=== PATIENT | female | born 1940 | race Caucasian/White ===

== ENCOUNTER → 2017-03-28 | Outpatient (CLI) | payer BC ==
[~2017-03-28] MED LIST: ALBU1AER9 INH; ASPCH81X PO; CALCTAB PO; KETO0.0216 OP; LOSA1TAB38 PO; MOME110A INH; MULT-190 PO; POLYSOL4 OPB; PRLSR20 PO; RSTOPS OP; SIMV20TA2 PO; TIMO0.2530 OPB
--- NOTE | 2017-03-28 12:38 | MAMMOGRAPHY REPORT ---
BILATERAL DIGITAL SCREENING MAMMOGRAM WITH CAD: 03/28/2017 TECHNIQUE: Current study was also evaluated with a Computer Aided Detection (CAD) system. Bilateral CC and MLO views were obtained. COMPARISON: Comparison is made to exams dated: 03/26/2016 mammogram, 03/23/2015 mammogram, 10/21/2014 m ammogram, 10/07/2014 ultrasound, 03/22/2014 mammogram, and 03/19/2013 mammogram - [facility]. BREAST COMPOSITION: There are scattered areas of fibroglandular density in both breasts. FINDINGS: No suspicious masses, calcifications, or areas of architectural distortion are noted in ei ther breast. There has been no significant interval change compared to prior exams. Mildly fluctuati ng bilateral nodularity is again noted, which likely represent cysts as multiple cysts were seen on p rior ultrasound exams. Scattered bilateral benign-appearing calcifications are not significantly mirlande nged. IMPRESSION: ACR BI-RADS CATEGORY 2: BENIGN There is no mammographic evidence of malignancy. A 1 year screening mammogram is recommended. The pa tient will receive written notification of the results. Approximately 10% of breast cancers are not detected with mammography. A negative mammographic report should not delay biopsy if a clinically suggestive mass is present. Alexus Laird M.D. ah/:03/28/2017 10:47:55 Trigonometry Teacher: Claudine RIDLEY(Bird)(M), [facility] letter sent: Normal 1/2 BI-RADS Code: ACR BI-RADS Category 2: Benign
== END | disposition home or self-care (01) ==
LOC: C.MAMM 07:51
PROVIDERS: ATTEND Family Medicine
DX: Z12.31 Encounter for screening mammogram for malignant neoplasm of breast (principal)

== ENCOUNTER 2021-01-25 15:57 | Observation (INO) ==
--- NOTE | 2021-01-25 16:44 | Emergency Department Note ---
Impression & Plan Weakness, Hypoxia ED Provider Note NAME: DESIRE CALERO AGE: 80 SEX: F : 1940 ARRIVES VIA: Ambulance INFORMANT: Patient, ED PROVIDER(S): Kash Lopez MD Chief Complaint: Weakness, difficulty with ambulation HPI: Patient does present with concern for difficulty with ambulation. The patient states that she was going to her general doctor's appointment for chronic left knee arthritis when the patient sat down and could not get up. EMS was called for a left and the patient was apparently diaphoretic. The patient denies any current pains. The patient denies any nausea vomiting. The patient states that she may not be drinking enough water. The patient states that all this occurred on the inside of the home and the patient was not outside for prolonged period of time. Patient denies any diarrhea. Patient denies any headache or neck pain. Patient does have chronic left knee pain but denies any recent falls or trauma. Patient denies any history of DVT or PE. The patient does not wear oxygen at home and the patient does not wear a CPAP. Patient does not have any acute complaints at this time. ROS: See HPI for pertinent positives and negatives. A total of 10 systems were reviewed and otherwise negative. Past medical history: See below Surgical history: See below Social history: See below Physical Exam: GENERAL: Well appearing, well nourished, NAD, non-toxic. EYE EXAM: Normal conjunctiva. PERRL, no anisocoria and EOM's grossly intact w/o pain. NECK: Supple, no nuchal rigidity, no adenopathy, non-tender. No signs of meningismus. LUNGS: Clear to auscultation. Normal chest wall mechanics. HEART: NSR, no MRG. ABDOMEN: Abdomen soft, non-tender, normo-active bowel sounds, no masses, no rebound or guarding. BACK: No CVA TTP. SKIN: No rashes and no bruising. UPPER EXTREMITIES: Upper extremities are grossly normal. LOWER EXTREMITIES: Grossly normal, no edema. NEURO EXAM: A&O x3, cranial nerves II-XII grossly intact, normal speech, moves all 4 extremities on command w/o issue. Differential diagnoses: Infection, dehydration, metabolic abnormality, hypo/hyperglycemia, electrolyte disturbance, anemia, hypoxia, cardiac sources, intracerebral event, toxicologic, neurologic, as well as other pathologies. Course: Patient was seen and evaluated the bedside. Full history physical exam was performed. EKG interpreted by me Sinus tachycardia, rate of 106, prolonged QTC, left axis deviation, Q waves anteriorly. Imaging Studies: See below Cardiac monitoring: An order was placed for continuous cardiac monitoring. The monitor shows a rate of 95 with sinus rhythm. MDM: Patient did present with concern for difficulty with ambulation. The patient does have chronic knee pain. Blood work is obtained. The patient was reportedly having some lower oxygen saturation. Just at rest the patient is 89%. Blood work is fairly unremarkable. Chest x-ray does show atelectatic changes. The patient is not complained of any cough and does not complain of any shortness of breath currently. The patient does not wear oxygen at home, non-smoker. Patient was able to ambulate. Given the patient's inability go home safely I did speak with the on-call hospitalist and the patient was admitted by Dr. Joshi. I did consider the possibility of blood clot but the patient has left axis deviation on her EKG her heart rate did improve with IV fluids the patient may have an element of atelectasis and this also may be somewhat secondary to body habitus i.e. obesity hypoventilation type issues. Past Med/Surg History Medical History Asthma H/O: HTN (hypertension) Nasal fracture Reflux esophagitis Social History Smoking Status: Never smoker Hx Alcohol Use: No Hx Substance Use: No Preferred Language: Vietnamese Communication Ability: Effective Patient Financial Services Manager Required: No Beliefs That Will Affect Care: Hinduism Hinduism Beliefs: Mandaeism Current Living Situation: Family Current Living Situation Comment: Lives with daughter Feels Safe at Home: Yes Safety Concerns: Feels Safe At This Time Assistive Devices: Cane, Denture - Upper and Walker Allergies Allergies Allergy/AdvReac Type Severity Reaction Status Date / Time succinylcholine Allergy Severe CARDIAC Verified 01/25/21 20:43 ARREST Penicillins Allergy Unknown REDNESS,SWE Verified 01/25/21 20:43 LLING Home Meds Home Medications Medication Instructions Recorded Confirmed aspirin 81 mg tablet,delayed 81 mg PO DAILY 01/25/21 01/25/21 release calcium carbonate 500 mg (1,250 1 tab PO DAILY 01/25/21 01/25/21 mg)-vitamin D3 125 unit tablet cyclosporine 0.05 % eye drops in a 1 drp OPB AMPM 01/25/21 01/25/21 dropperette (Restasis) hydrochlorothiazide 25 mg tablet 25 mg PO DAILY 01/25/21 01/25/21 losartan 100 mg tablet 100 mg PO DAILY 01/25/21 01/25/21 omeprazole 20 mg capsule,delayed 20 mg PO DAILY PRN 01/25/21 01/25/21 release simvastatin 20 mg tablet (Zocor) 20 mg PO PM 01/25/21 01/25/21 timolol maleate 0.5 % eye drops 1 drp OPB QAM 01/25/21 01/25/21 vitamins A,C,A-[id number]-zqnvlq 7,160 1 tab PO BID 01/25/21 01/25/21 unit-113 mg-100 unit tablet Results & Data (ED) Vital Signs Vital Signs - 24 hr 01/25/21 16:04 01/25/21 16:13 01/25/21 16:30 Temperature 37.2 C Temperature Source Oral Pulse Rate 107 H 105 H Pulse Rate from SpO2 Sensor 107 H 105 H Pulse Strength Normal Respiratory Rate 18 20 Respiratory Effort / Characteristics Non-Labored Respiratory Depth Normal Respiratory Pattern Regular Blood Pressure 129/63 153/64 H Blood Pressure Mean 85 93 Blood Pressure Position Sitting Pulse Oximetry 93 89 L 96 Oxygen Delivery Method Room Air Room Air Oxygen Flow Rate Sepsis Recent Fever Within 48 Hours No Sepsis New/Unexplained Change in Mental Status No Sepsis Action Taken by Nursing No Action Required Oxygen Flow Rate - Titration 2 Pulse Oximetry Post Tiitration 95 01/25/21 16:32 01/25/21 17:00 01/25/21 17:30 Temperature Temperature Source Pulse Rate 99 H 96 H Pulse Rate from SpO2 Sensor 99 H 96 H Pulse Strength Respiratory Rate 17 22 Respiratory Effort / Characteristics Respiratory Depth Respiratory Pattern Blood Pressure 138/70 116/65 Blood Pressure Mean 92 82 Blood Pressure Position Pulse Oximetry 94 96 95 Oxygen Delivery Method Nasal Cannula Oxygen Flow Rate 2 Sepsis Recent Fever Within 48 Hours Sepsis New/Unexplained Change in Mental Status Sepsis Action Taken by Nursing Oxygen Flow Rate - Titration Pulse Oximetry Post Tiitration 01/25/21 18:00 01/25/21 18:31 01/25/21 19:00 Temperature Temperature Source Pulse Rate 96 H 96 H 97 H Pulse Rate from SpO2 Sensor 96 H 98 H 97 H Pulse Strength Respiratory Rate 21 21 16 Respiratory Effort / Characteristics Respiratory Depth Respiratory Pattern Blood Pressure 133/92 155/126 H 148/85 H Blood Pressure Mean 105 135 106 Blood Pressure Position Pulse Oximetry 97 98 90 Oxygen Delivery Method Oxygen Flow Rate Sepsis Recent Fever Within 48 Hours Sepsis New/Unexplained Change in Mental Status Sepsis Action Taken by Nursing Oxygen Flow Rate - Titration Pulse Oximetry Post Tiitration 01/25/21 20:00 01/25/21 20:35 Temperature Temperature Source Pulse Rate 99 H 95 H Pulse Rate from SpO2 Sensor 100 H 95 H Pulse Strength Respiratory Rate 18 22 Respiratory Effort / Characteristics Respiratory Depth Respiratory Pattern Blood Pressure 149/95 H Blood Pressure Mean 113 Blood Pressure Position Pulse Oximetry 93 93 Oxygen Delivery Method Room Air Oxygen Flow Rate Sepsis Recent Fever Within 48 Hours Sepsis New/Unexplained Change in Mental Status Sepsis Action Taken by Nursing Oxygen Flow Rate - Titration Pulse Oximetry Post Tiitration Home Medications Current Medication List: was personally reviewed by me Laboratory Data Attestation: I reviewed the patient's lab results. Result diagrams: 01/26/21 05:37 01/26/21 07:07 Lab Results 01/25/21 01/25/21 01/25/21 Range/Units 16:52 16:52 17:10 WBC 8.65 (4.8-10.8) K/uL RBC 4.02 L (4.2-5.4) M/uL Hgb 13.1 (12.0-16.0) g/dL Hct 41.1 (37-47) % MCV 102.2 H (80-100) fL MCH 32.6 (25-34) pg MCHC 31.9 L (32-36) g/dL RDW Std Deviation 62.2 H (36.4-46.3) fL RDW Coeff of Lety 16.7 H (11.5-14.5) % Plt Count 327 (130-400) K/uL MPV 11.3 H (7.4-10.4) fL Immature Gran % (Auto) 0.1 % Neut % (Auto) 78.7 % Lymph % (Auto) 11.9 % [place] % (Auto) 8.9 % Eos % (Auto) 0.2 % Baso % (Auto) 0.2 % Neut # (Auto) 6.80 H (1.4-6.5) K/uL Lymph # (Auto) 1.03 L (1.2-3.4) K/uL [place] # (Auto) 0.77 H (0.11-0.59) K/uL Eos # (Auto) 0.02 (0-0.5) K/uL Baso # (Auto) 0.02 (0-0.2) K/uL Immature Gran # (Auto) 0.01 (0.00-0.02) K/uL Sodium 141 (136-145) mmol/L Potassium 4.2 (3.5-5.1) mmol/L Chloride 104 (98-107) mmol/L Carbon Dioxide 29 (21-32) mmol/L Anion Gap 8.0 (3-11) BUN 14 (7-18) mg/dl Creatinine 1.30 H (0.6-1.2) mg/dl Est Cr Clr Drug Dosing 49.8 ml/min Est GFR ( Amer) 44.2 ml/min Est GFR (Non-Af Amer) 38.2 ml/min BUN/Creatinine Ratio 10.4 (10-20) Glucose 186 H (70-99) mg/dl Calcium 9.8 (8.5-10.1) mg/dl Magnesium 1.8 (1.8-2.4) mg/dl Total Bilirubin 0.7 (0.2-1) mg/dl AST 30 (15-37) U/L ALT 25 (12-78) U/L Alkaline Phosphatase 45 (45-117) U/L Troponin I < 0.015 (0-0.045) ng/ml Total Protein 6.8 (6.4-8.2) gm/dl Albumin 3.2 L (3.4-5.0) gm/dl Globulin 3.6 (2.5-4.0) gm/dl Albumin/Globulin Ratio 0.9 (0.9-2) TSH 2.520 (0.300-4.500) uIu/ml COVID-19 Eval Order SARS-CoV-2 (PCR) (Negative) 01/25/21 01/25/21 Range/Units 20:09 20:09 WBC (4.8-10.8) K/uL RBC (4.2-5.4) M/uL Hgb (12.0-16.0) g/dL Hct (37-47) % MCV (80-100) fL MCH (25-34) pg MCHC (32-36) g/dL RDW Std Deviation (36.4-46.3) fL RDW Coeff of Lety (11.5-14.5) % Plt Count (130-400) K/uL MPV (7.4-10.4) fL Immature Gran % (Auto) % Neut % (Auto) % Lymph % (Auto) % [place] % (Auto) % Eos % (Auto) % Baso % (Auto) % Neut # (Auto) (1.4-6.5) K/uL Lymph # (Auto) (1.2-3.4) K/uL [place] # (Auto) (0.11-0.59) K/uL Eos # (Auto) (0-0.5) K/uL Baso # (Auto) (0-0.2) K/uL Immature Gran # (Auto) (0.00-0.02) K/uL Sodium (136-145) mmol/L Potassium (3.5-5.1) mmol/L Chloride (98-107) mmol/L Carbon Dioxide (21-32) mmol/L Anion Gap (3-11) BUN (7-18) mg/dl Creatinine (0.6-1.2) mg/dl Est Cr Clr Drug Dosing ml/min Est GFR ( Amer) ml/min Est GFR (Non-Af Amer) ml/min BUN/Creatinine Ratio (10-20) Glucose (70-99) mg/dl Calcium (8.5-10.1) mg/dl Magnesium (1.8-2.4) mg/dl Total Bilirubin (0.2-1) mg/dl AST (15-37) U/L ALT (12-78) U/L Alkaline Phosphatase (45-117) U/L Troponin I (0-0.045) ng/ml Total Protein (6.4-8.2) gm/dl Albumin (3.4-5.0) gm/dl Globulin (2.5-4.0) gm/dl Albumin/Globulin Ratio (0.9-2) TSH (0.300-4.500) uIu/ml COVID-19 Eval Order Covid19 at [facility] SARS-CoV-2 (PCR) NEGATIVE (Negative) Administered Medications Aspirin (Aspirin 81 Mg Ectab) 81 mg PO DAILY RALPH Stop: 02/25/21 08:59 Last Admin: 01/26/21 07:55 Dose: 81 mg Documented by: [id number] Hydrochlorothiazide (Hydrochlorothiazide 25 Mg Tab) 25 mg PO DAILY RALPH Stop: 02/25/21 08:59 Last Admin: 01/26/21 07:55 Dose: 25 mg Documented by: [id number] Losartan Potassium (Losartan Potassium 50 Mg Tab) 100 mg PO DAILY RALPH Stop: 02/25/21 08:59 Last Admin: 01/26/21 07:55 Dose: 100 mg Documented by: [id number] Nystatin (Nystatin Powder 15gm Btl) 1 appln EXT BID PRN PRN Reason: skin irritation Stop: 02/25/21 00:35 Last Admin: 01/26/21 02:35 Dose: 1 appln Documented by: [id number] Discontinued Medications Sodium Chloride (Nss) 500 mls @ 999 mls/hr IV .Q31M ONE Stop: 01/25/21 19:12 Last Infusion: 01/25/21 19:25 Dose: 0 mls/hr Documented by: [id number] Admin: 01/25/21 18:47 Dose: 999 mls/hr Documented by: [id number] Magnesium Chloride (Magnesium Chloride 64mg Delayed Rel Tab) 64 mg PO QAM ONE Stop: 01/26/21 09:07 Last Admin: 01/26/21 11:35 Dose: 64 mg Documented by: [id number] Imaging Data Radiologist's Impression: Chest X-Ray 01/25/21 16:29 XR chest 1V portable CLINICAL HISTORY: weakness COMPARISON STUDY: Chest radiograph October 07, 2014. FINDINGS: Incidental note is made of a chondroid lesion within the proximal jameson amilcar which is partially imaged. Visualized portions are similar to prior exam. Lung volumes are normal. Minimal left basilar opacity is noted. There is no pneumothorax or pleural effusion. Cardiac size is normal. Mediastinal contours are normal. There is no evidence for pulmonary edema. IMPRESSION: Minimal left basilar opacity which favors atelectasis. ACT 112: Negative or not required by law. Electronically signed by: Lionel Arevalo M.D. 01/25/2021 5:23 PM Discharge Plan Visit Data Chief Complaint: Weakness Stated Complaint: Tachycardia / hypoxia ED Provider: Kash Lopez Discharge Problem: Weakness, Hypoxia Patient Disposition: Admitted As Inpatient Discharge Instructions Interventions: ED Discharge Assessment Last Done: 01/25/21 22:03
[2021-01-25 17:01] LABS: Basophils # (auto) 0.02 K/uL (0-0.2); Basophils % (auto) 0.2 %; Eosinophils # (auto) 0.02 K/uL (0-0.5); Eosinophils % (auto) 0.2 %; Hematocrit (blood only) 41.1 % (37-47); Hemoglobin 13.1 g/dL (12.0-16.0); Immature Granulocytes # (auto) 0.01 K/uL (0.00-0.02); Immature Granulocytes % (auto) 0.1 %; Lymphocytes # (auto) 1.03 K/uL (1.2-3.4); Lymphocytes % (auto) 11.9 %; Mean Corpuscular Hemoglobin 32.6 pg (25-34); Mean Corpuscular Hgb Conc 31.9 g/dL (32-36); Mean Corpuscular Volume 102.2 fL (80-100); Mean Platelet Volume 11.3 fL (7.4-10.4); Monocytes # (auto) 0.77 K/uL (0.11-0.59); Monocytes % (auto) 8.9 %; Neutrophils % (auto) 78.7 %; Platelet Count 327 K/uL (130-400); RDW Coefficient of Variation 16.7 % (11.5-14.5); RDW Standard Deviation 62.2 fL (36.4-46.3); Red Blood Count 4.02 M/uL (4.2-5.4); White Blood Count 8.65 K/uL (4.8-10.8)
[2021-01-25 17:18] LABS: Alanine Aminotransferase 25 U/L (12-78); Albumin Level 3.2 gm/dl (3.4-5.0); Aspartate Aminotransferase 30 U/L (15-37); BUN Creatinine Ratio 10.4 (10-20); Blood Urea Nitrogen 14 mg/dl (7-18); Calcium 9.8 mg/dl (8.5-10.1); Carbon Dioxide 29 mmol/L (21-32); Chloride 104 mmol/L (98-107); Creatinine Clr Calc Pharmacy 49.8 ml/min; Est GFR (African American) 44.2 ml/min; Est GFR (Non-African American) 38.2 ml/min; Glucose 186 mg/dl (70-99); Potassium 4.2 mmol/L (3.5-5.1); Sodium 141 mmol/L (136-145)
--- NOTE | 2021-01-25 17:25 | XRay Report ---
XR chest 1V portable CLINICAL HISTORY: weakness COMPARISON STUDY: Chest radiograph October 07, 2014. FINDINGS: Incidental note is made of a chondroid lesion within the proximal humerus which is partiall y imaged. Visualized portions are similar to prior exam. Lung volumes are normal. Minimal left basila r opacity is noted. There is no pneumothorax or pleural effusion. Cardiac size is normal. Mediastinal contours are normal. There is no evidence for pulmonary edema. IMPRESSION: Minimal left basilar opacity which favors atelectasis. ACT 112: Negative or not required by law. Electronically signed by: Lionel Arevalo M.D. 01/25/2021 5:23 PM
[2021-01-25 17:29] LABS: Albumin Globulin Ratio 0.9 (0.9-2); Alkaline Phosphatase 45 U/L (45-117); Bilirubin,Total 0.7 mg/dl (0.2-1); Globulin 3.6 gm/dl (2.5-4.0); Total Protein 6.8 gm/dl (6.4-8.2); Troponin I < 0.015 ng/ml (0-0.045)
[2021-01-25] MEDS ORDERED: SODIUM CHLORIDE 0.9% 500 ML IV ONE (18:42)
--- NOTE | 2021-01-25 20:32 | XRay Report ---
XR knee LT 3V CLINICAL HISTORY: Ambulatory dysfunction. COMPARISON: None FINDINGS: No acute fracture is noted. There is no joint effusion. Severe medial compartment joint sp brennan narrowing is noted. There is moderate osteoarthritis within the patellofemoral compartment joint space narrowing and osteophytosis. IMPRESSION: 1. No acute fracture or joint effusion of the left knee. 2. Severe left knee osteoarthritis, most pronounced within the medial and patellofemoral compartments . ACT 112: Negative or not required by law. Electronically signed by: Lionel Arevalo M.D. 01/25/2021 8:30 PM
--- NOTE | 2021-01-25 21:06 | History & Physical Report ---
Date of Service January 25, 2021 Assessment & Plan (1) Ambulatory dysfunction: Plan: Lavonne Chiu is a 80y/o female with past medical history significant for hypertension, hyperlipidemia; who presents for concerns of weakness earlier today. Ambulatory dysfunction: -Likely multifactorial with some components of dehydration and deconditioning -Patient subjective feeling of strength improvement following 1 L bolus in ED -Discussed need for increased hydration efforts to prevent further dehydration -PT/OT evaluation in a.m. Acute kidney injury: -Creatinine 1.3 on admission -Potential components of dehydration -Recheck in a.m. for potential impact of HCTZ and losartan Hypertension: -Continue home regimen of HCTZ and losartan Hyperlipidemia: -Continue home regimen of simvastatin Diet: Heart healthy CODE STATUS: Conditional code - DO NOT INTUBATE (2) HTN (hypertension): (3) Hyperlipidemia: History of Present Illness Chief Complaint: weakness Primary Care Provider: Betty Resendiz MD Lavonne Chiu is a 80y/o female with past medical history significant for hypertension, hyperlipidemia; who presents for concerns of weakness earlier today. Earlier today, as patient was getting ready to go to a doctor's appointment she had hard time getting into the car at the back of the house, ultimately decided to walk around to the front of the house to then get in the car that way. Upon going up the back steps she started to feel more tired, and decided ultimately to try and sit down to take a short break. However, following attempting to get up she noticed that she was not able to pick herself up on her own. Typically uses a recliner/lift chair that helps her get out of the chair. Throughout this time noticed no chest pain, shortness of breath, nausea, vomiting. Upon presentation of EMS for assistance with getting her up from a seated position she was noted to have some diaphoresis, and a pulse ox of 90%. She thinks that she was sweating more because she had been sitting out in the hot sun for prolonged period of time. And otherwise feels well. Here in the ED she did have 2 oxygen saturations of 88%, and ultimately required short period of time of nasal cannula oxygen supplementation, before she was able to be transitioned back to room air. As noted that over the last several months to year, she has had increasing difficulty with this weakness and feeling like she was going to fall. Has had 4 falls in the last 5 years, last one coming up approximately 1 year ago. That fall and all falls have not been syncopal events, she is able to recall the events of them. But does notice that she will feel like she does not have the strength to continue to do her normal activities when these are going on. Does drink some fluid, but not has noted that her thirst has been much lower than it used to be. Typically in a day will drink to 11 ounce cedillo and may be another 11 ounce of tea; feels like this is a significant increase from where she was previously where she would may be drink 111 ounce water or tea but not both in a day. Allergies Allergy/AdvReac Type Severity Reaction Status Date / Time succinylcholine Allergy Severe CARDIAC Verified 01/25/21 20:43 ARREST Penicillins Allergy Unknown REDNESS,SWE Verified 01/25/21 20:43 LLING Home Medications Medication Instructions Recorded Confirmed Type aspirin 81 mg tablet,delayed 81 mg PO DAILY 01/25/21 01/25/21 History release calcium carbonate 500 mg (1,250 1 tab PO DAILY 01/25/21 01/25/21 History mg)-vitamin D3 125 unit tablet cyclosporine 0.05 % eye drops in a 1 drp OPB AMPM 01/25/21 01/25/21 History dropperette (Restasis) hydrochlorothiazide 25 mg tablet 25 mg PO DAILY 01/25/21 01/25/21 History losartan 100 mg tablet 100 mg PO DAILY 01/25/21 01/25/21 History omeprazole 20 mg capsule,delayed 20 mg PO DAILY PRN 01/25/21 01/25/21 History release simvastatin 20 mg tablet (Zocor) 20 mg PO PM 01/25/21 01/25/21 History timolol maleate 0.5 % eye drops 1 drp OPB QAM 01/25/21 01/25/21 History vitamins A,C,Y-yadf-wicwsr 7,160 1 tab PO BID 01/25/21 01/25/21 History unit-113 mg-100 unit tablet Past Med/Surg History Medical History Asthma H/O: HTN (hypertension) Nasal fracture Reflux esophagitis Social History Smoking Status: Never smoker Hx Alcohol Use: No Hx Substance Use: No Preferred Language: Persian Communication Ability: Effective Railroad Conductor Required: No Beliefs That Will Affect Care: Buddhism Buddhism Beliefs: Scientologist Current Living Situation: Family Current Living Situation Comment: Lives with daughter Feels Safe at Home: Yes Safety Concerns: Feels Safe At This Time Assistive Devices: Cane, Denture - Upper and Walker Review of Systems Review of Systems: All systems reviewed & are unremarkable except as noted in HPI & below Physical Exam Constitutional: WD/WN, vitals as above Eyes: PERRL, conjunctivae normal, anicteric sclerae Respiratory: normal respiratory effort, lungs clear to auscultation Auscultation: no crackles, no rales, no rhonchi and no wheezes Cardiovascular: Rate/Rhythm: regular rate and regular rhythm Heart Sounds: no gallop, no murmur and no cardiac rub Vessels: normal peripheral pulses; no JVD Extremities: + pedal edema Gastrointestinal (Abdomen): Inspection/Auscultation: normal bowel sounds; abdomen not distended Percussion/Palpation: abdomen soft; abdomen nontender and no guarding Skin: no rashes, warm and dry Neurologic: PERRL, EOMI, accommodation nl, no face palsy, no dysarthria CN's II-XI intact bilaterally and moves all extremities Psychiatric: Orientation: alert and oriented x 3 Results & Data Results & [facility] ([facility] Vital Signs (Past 12 Hours) Vital Signs Temp Pulse Resp BP Pulse Ox 01/25/21 20:35 95 H 22 93 01/25/21 20:00 99 H 18 149/95 H 93 01/25/21 19:00 97 H 16 148/85 H 90 01/25/21 18:31 96 H 21 155/126 H 98 01/25/21 18:00 96 H 21 133/92 97 01/25/21 17:30 96 H 22 116/65 95 01/25/21 17:00 99 H 17 138/70 96 01/25/21 16:32 94 01/25/21 16:30 105 H 20 153/64 H 96 01/25/21 16:13 89 L 01/25/21 16:04 37.2 C 107 H 18 129/63 93 Laboratory Results 01/26/21 01/25/21 01/25/21 Range/Units 02:30 20:09 20:09 WBC (4.8-10.8) K/uL RBC (4.2-5.4) M/uL Hgb (12.0-16.0) g/dL Hct (37-47) % MCV (80-100) fL MCH (25-34) pg MCHC (32-36) g/dL RDW Std Deviation (36.4-46.3) fL RDW Coeff of Lety (11.5-14.5) % Plt Count (130-400) K/uL MPV (7.4-10.4) fL Immature Gran % (Auto) % Neut % (Auto) % Lymph % (Auto) % [place] % (Auto) % Eos % (Auto) % Baso % (Auto) % Neut # (Auto) (1.4-6.5) K/uL Lymph # (Auto) (1.2-3.4) K/uL [place] # (Auto) (0.11-0.59) K/uL Eos # (Auto) (0-0.5) K/uL Baso # (Auto) (0-0.2) K/uL Immature Gran # (Auto) (0.00-0.02) K/uL Sodium (136-145) mmol/L Potassium (3.5-5.1) mmol/L Chloride (98-107) mmol/L Carbon Dioxide (21-32) mmol/L Anion Gap (3-11) BUN (7-18) mg/dl Creatinine (0.6-1.2) mg/dl Est Cr Clr Drug Dosing ml/min Est GFR ( Amer) ml/min Est GFR (Non-Af Amer) ml/min BUN/Creatinine Ratio (10-20) Glucose (70-99) mg/dl Calcium (8.5-10.1) mg/dl Magnesium (1.8-2.4) mg/dl Total Bilirubin (0.2-1) mg/dl AST (15-37) U/L ALT (12-78) U/L Alkaline Phosphatase (45-117) U/L Troponin I (0-0.045) ng/ml Total Protein (6.4-8.2) gm/dl Albumin (3.4-5.0) gm/dl Globulin (2.5-4.0) gm/dl Albumin/Globulin Ratio (0.9-2) TSH (0.300-4.500) uIu/ml Urine Color Dark Yellow Urine Appearance Turbid A (Clear) Urine pH 7.5 (4.5-7.5) Ur Specific [place] 1.019 (1.000-1.030) Urine Protein 1+ H (Negative) Urine Glucose (UA) Negative (Negative) Urine Ketones Trace H (Negative) Urine Blood Negative (Negative) Urine Nitrite Negative (Negative) Urine Bilirubin Negative (Negative) Urine Urobilinogen Negative (Negative) Ur Leukocyte Esterase 3+ H (Negative) Urine WBC (Auto) >30 H (0-5) /hpf Urine RBC (Auto) 0-4 (0-4) /hpf U Hyaline Cast (Auto) 5-10 H (0-5) /lpf U Epithel Cells (Auto) >30 H (0-5) /lpf Urine Bacteria (Auto) 2+ H (Negative) Urine Yeast Not Reportable COVID-19 Eval Order Covid19 at [facility] SARS-CoV-2 (PCR) NEGATIVE (Negative) 01/25/21 01/25/21 01/25/21 Range/Units 17:10 16:52 16:52 WBC 8.65 (4.8-10.8) K/uL RBC 4.02 L (4.2-5.4) M/uL Hgb 13.1 (12.0-16.0) g/dL Hct 41.1 (37-47) % MCV 102.2 H (80-100) fL MCH 32.6 (25-34) pg MCHC 31.9 L (32-36) g/dL RDW Std Deviation 62.2 H (36.4-46.3) fL RDW Coeff of Lety 16.7 H (11.5-14.5) % Plt Count 327 (130-400) K/uL MPV 11.3 H (7.4-10.4) fL Immature Gran % (Auto) 0.1 % Neut % (Auto) 78.7 % Lymph % (Auto) 11.9 % [place] % (Auto) 8.9 % Eos % (Auto) 0.2 % Baso % (Auto) 0.2 % Neut # (Auto) 6.80 H (1.4-6.5) K/uL Lymph # (Auto) 1.03 L (1.2-3.4) K/uL [place] # (Auto) 0.77 H (0.11-0.59) K/uL Eos # (Auto) 0.02 (0-0.5) K/uL Baso # (Auto) 0.02 (0-0.2) K/uL Immature Gran # (Auto) 0.01 (0.00-0.02) K/uL Sodium 141 (136-145) mmol/L Potassium 4.2 (3.5-5.1) mmol/L Chloride 104 (98-107) mmol/L Carbon Dioxide 29 (21-32) mmol/L Anion Gap 8.0 (3-11) BUN 14 (7-18) mg/dl Creatinine 1.30 H (0.6-1.2) mg/dl Est Cr Clr Drug Dosing 49.8 ml/min Est GFR ( Amer) 44.2 ml/min Est GFR (Non-Af Amer) 38.2 ml/min BUN/Creatinine Ratio 10.4 (10-20) Glucose 186 H (70-99) mg/dl Calcium 9.8 (8.5-10.1) mg/dl Magnesium 1.8 (1.8-2.4) mg/dl Total Bilirubin 0.7 (0.2-1) mg/dl AST 30 (15-37) U/L ALT 25 (12-78) U/L Alkaline Phosphatase 45 (45-117) U/L Troponin I < 0.015 (0-0.045) ng/ml Total Protein 6.8 (6.4-8.2) gm/dl Albumin 3.2 L (3.4-5.0) gm/dl Globulin 3.6 (2.5-4.0) gm/dl Albumin/Globulin Ratio 0.9 (0.9-2) TSH 2.520 (0.300-4.500) uIu/ml Urine Color Urine Appearance (Clear) Urine pH (4.5-7.5) Ur Specific [place] (1.000-1.030) Urine Protein (Negative) Urine Glucose (UA) (Negative) Urine Ketones (Negative) Urine Blood (Negative) Urine Nitrite (Negative) Urine Bilirubin (Negative) Urine Urobilinogen (Negative) Ur Leukocyte Esterase (Negative) Urine WBC (Auto) (0-5) /hpf Urine RBC (Auto) (0-4) /hpf U Hyaline Cast (Auto) (0-5) /lpf U Epithel Cells (Auto) (0-5) /lpf Urine Bacteria (Auto) (Negative) Urine Yeast COVID-19 Eval Order SARS-CoV-2 (PCR) (Negative) Medications Administered Home Medication List Medication Instructions Recorded aspirin 81 mg tablet,delayed 81 mg PO DAILY 01/25/21 release calcium carbonate 500 mg (1,250 1 tab PO DAILY 01/25/21 mg)-vitamin D3 125 unit tablet cyclosporine 0.05 % eye drops in a 1 drp OPB AMPM 01/25/21 dropperette (Restasis) hydrochlorothiazide 25 mg tablet 25 mg PO DAILY 01/25/21 losartan 100 mg tablet 100 mg PO DAILY 01/25/21 omeprazole 20 mg capsule,delayed 20 mg PO DAILY PRN 01/25/21 release simvastatin 20 mg tablet (Zocor) 20 mg PO PM 01/25/21 timolol maleate 0.5 % eye drops 1 drp OPB QA 01/25/21 vitamins A,C,F-ehzh-ahditq 7,160 1 tab PO BID 01/25/21 unit-113 mg-100 unit tablet Supervising Physician Co-Signing Physician Notes Attending addendum: I have physically seen this patient, have supervised the medical residents activities, and agree with the H&P unless as otherwise noted. Assessment and Plan: Ambulatory dysfunction- Multifactorial: Dehydration, deconditioning, other Consult PT/OT Acute kidney injury/hypertension- creatinine 1.3 upon admission Hold HCTZ/continue losartan Encourage oral hydration Hyperlipidemia- Continue simvastatin Resident Activity Tracking Resident Involvement: Resident Care Provided Care Provided: Adult Hospital Medicine
[2021-01-26] MEDS ORDERED: NYSTATIN POWDER 15GM BTL EXT PRN (00:36)
[2021-01-26 02:49] LABS: Appearance Urine Turbid (Clear); Bacteria Urine Automated 2+ (Negative); Bilirubin Urine Negative (Negative); Blood Urine Negative (Negative); Color Urine Dark Yellow; Epithelial Cell Urine Auto >30 /lpf (0-5); Glucose Urine UA Negative (Negative); Ketones Urine Trace (Negative); Leukocyte Esterase Urine 3+ (Negative); Nitrite Urine Negative (Negative); Specific Gravity Urine 1.019 (1.000-1.030); Urobilinogen Urine Negative (Negative); WBC Urine Automated >30 /hpf (0-5); pH Urine 7.5 (4.5-7.5)
[2021-01-26 02:51] LABS: Protein Urine 1+ (Negative)
[2021-01-26 03:10] LABS: RBC Urine Automated 0-4 /hpf (0-4)
[2021-01-26 06:19] LABS: Basophils # (auto) 0.02 K/uL (0-0.2); Basophils % (auto) 0.2 %; Eosinophils # (auto) 0.07 K/uL (0-0.5); Eosinophils % (auto) 0.8 %; Hematocrit (blood only) 37.4 % (37-47); Hemoglobin 11.5 g/dL (12.0-16.0); Immature Granulocytes # (auto) 0.01 K/uL (0.00-0.02); Immature Granulocytes % (auto) 0.1 %; Lymphocytes # (auto) 2.76 K/uL (1.2-3.4); Lymphocytes % (auto) 30.9 %; Mean Corpuscular Hemoglobin 31.1 pg (25-34); Mean Corpuscular Hgb Conc 30.7 g/dL (32-36); Mean Corpuscular Volume 101.1 fL (80-100); Mean Platelet Volume 11.4 fL (7.4-10.4); Monocytes # (auto) 1.17 K/uL (0.11-0.59); Monocytes % (auto) 13.1 %; Neutrophils # (auto) 4.89 K/uL (1.4-6.5); Neutrophils % (auto) 54.9 %; Nucleated RBC # (auto) 0.06 K/uL (0-0); Nucleated RBC % (auto) 0.7 %; Platelet Count 325 K/uL (130-400); White Blood Count 8.92 K/uL (4.8-10.8)
[2021-01-26 06:50] LABS: BUN Creatinine Ratio 17.2 (10-20); Calcium 9.5 mg/dl (8.5-10.1); Creatinine Clr Calc Pharmacy 74.5 ml/min; Est GFR (Non-African American) 63.8 ml/min; Phosphorus 4.3 mg/dl (2.5-4.9)
[2021-01-26 07:34] LABS: Potassium 3.7 mmol/L (3.5-5.1)
[2021-01-26 07:36] LABS: Magnesium 1.6 mg/dl (1.8-2.4)
[2021-01-26] MEDS: ASPIRIN 81 MG ECTAB PO SCH (07:55)
[2021-01-26] MEDS: hydroCHLOROthiazide 25 MG TAB PO SCH (07:55)
[2021-01-26] MEDS: LOSARTAN POTASSIUM 50 MG TAB PO SCH (07:55)
--- NOTE | 2021-01-26 08:10 | Electrocardiogram Report ---
Test Reason : Blood Pressure : / mmHG Vent. Rate : 106 BPM Atrial Rate : 106 BPM P-R Int : 190 ms QRS Dur : 118 ms QT Int : 370 ms P-R-T Axes : 058 -30 096 degrees QTc Int : 491 ms Sinus tachycardia Left axis deviation Left ventricular hypertrophy with QRS widening and repolarization abnormality Abnormal ECG When compared with ECG of 18-NOV-2006 11:38, Vent. rate has increased BY 53 BPM T wave inversion now evident in Lateral leads QT has lengthened Confirmed by Nando Hodges ([id number]) on 01/26/2021 8:09:59 AM Referred By: REFERRED SELF Confirmed By:Nando Hodges
[2021-01-26] MEDS ORDERED: MAGNESIUM CHLORIDE 64MG DELAYED REL TAB PO ONE (09:06)
--- NOTE | 2021-01-26 11:33 | Hospitalist Progress Note ---
Date of Service January 26, 2021 Assessment & Plan (1) Ambulatory dysfunction: Plan: Lavonne Chiu is a 80y/o female with past medical history significant for hypertension, hyperlipidemia; who presents for concerns of weakness earlier today. Ambulatory dysfunction: Likely multifactorial with some components of dehydration and deconditioning. Patient subjective feeling of strength improvement following 1 L bolus in ED. Discussed need for increased hydration efforts to prevent further dehydration -evaluated by PT/OT, rehab recommended Acute kidney injury: Creatinine 1.3 on admission, potential components of dehydration -recheck 0.85 Hypertension: Continue home medication Hyperlipidemia: Continue home medication Diet: Heart healthy CODE STATUS: Conditional code - DO NOT INTUBATE (2) HTN (hypertension): (3) Hyperlipidemia: Admission and Anticipated Discharge Date Admission Date: January 25, 2021 Supervising Physician Co-Signing Physician Notes I personally examined the patient and verified all huff points of history and exam, discussed case, and agree with decision making with Dr Mendoza. Feeling better still weak. In discussing options, she is quite amenable to going to rehab. She notes that she needs to also be much more mindful about how much she drinks in a day. Vitals noted, in general she is awake and alert pleasant no distress. HEENT normocephalic atraumatic mucous membranes moist. Breathing unlabored no accessory muscle use good effort. Skin shows no rashes no pallor or icterus. Weaknessacutely from dehydration, chronically deconditioning. Rehydrated, PT/OT eval and treat. Dehydration with resultant AKIcreatinine now improved. Encourage p.o. hydrationeducated on the need to follow this and tally her fluid intake. Morbid obesity with BMI of nearly 60this likely disproportionately amplifies her weakness from deconditioning. DispositionPT/OT eval and treat, work on rehab. Otherwise as above. Subjective 80yo Female presented with weakness getting up. She stated yesterday she felt exhausted and sweaty, sat down to rest, and could not stand back up again even with daughter's assistance. Patient called EMS to bring her to hospital. In that time she denies headache, dizziness, LOC, nausea, vomitting, confusion, pal pitations. She says she usually feels SOB while walking around the house with a cane, lives with her daughter, and sits on the couch eating snacks when her daughter is at work. She says her daughter places drinks out for her before she leaves, but patient does not drink much of it. She has had previous falls that she expresses were all mechanical. Patient was seen at bedside, comfortable, says she feels better compared to yesterday. She slept well, has a good appetite, normal bowel movements. Patient received education on hydration. She agreed to try to drink more throughout the day. Patient also agreed to rehab after her hospitalization. PMH: HTN, HLD, tooth surgery Review of Systems Constitutional: no fever and no chills Respiratory: + dyspnea on exertion; no cough and no dyspnea Cardiovascular: no chest pain, no palpitations and no syncope Gastrointestinal: no abdominal pain, no nausea, no vomiting, no constipation and no diarrhea/loose stools Neurologic: no dizziness and no headache(s) Physical Exam Constitutional: WD/WN, vitals as above + morbidly obese, cooperative and comfortable Respiratory: normal respiratory effort, lungs clear to auscultation no respiratory distress and no cough Auscultation: no rales, no rhonchi and no wheezes Cardiovascular: RRR, no murmur, no edema Heart Sounds: normal S1 and normal S2; no gallop, no murmur and no cardiac rub Gastrointestinal (Abdomen): normal bowel sounds, soft, nontender, no hepatosplenomegaly Inspection/Auscultation: + abdominal surgical scar; abdomen not distended Musculoskeletal: Knee: + surgical incision and + limited ROM of knee (Patient expressed pain on palpation b/l) Psychiatric: A+Ox3, euthymic affect Results & Data Results & Data ([facility]) Vital Signs (Past 12 Hours) Vital Signs Temp Pulse Resp BP Pulse Ox 01/26/21 07:33 37 C 91 H 18 124/78 90 Laboratory Results 01/26/21 01/26/21 01/26/21 Range/Units 07:07 05:37 05:37 WBC 8.92 (4.8-10.8) K/uL RBC 3.70 L (4.2-5.4) M/uL Hgb 11.5 L (12.0-16.0) g/dL Hct 37.4 (37-47) % MCV 101.1 H (80-100) fL MCH 31.1 (25-34) pg MCHC 30.7 L (32-36) g/dL RDW Std Deviation 63.0 H (36.4-46.3) fL RDW Coeff of Lety 17.0 H (11.5-14.5) % Plt Count 325 (130-400) K/uL MPV 11.4 H (7.4-10.4) fL Immature Gran % (Auto) 0.1 % Neut % (Auto) 54.9 % Lymph % (Auto) 30.9 % [place] % (Auto) 13.1 % Eos % (Auto) 0.8 % Baso % (Auto) 0.2 % Neut # (Auto) 4.89 (1.4-6.5) K/uL Lymph # (Auto) 2.76 (1.2-3.4) K/uL [place] # (Auto) 1.17 H (0.11-0.59) K/uL Eos # (Auto) 0.07 (0-0.5) K/uL Baso # (Auto) 0.02 (0-0.2) K/uL Immature Gran # (Auto) 0.01 (0.00-0.02) K/uL Absolute Nucleated RBC 0.06 H (0-0) K/uL Nucleated RBC % (auto) 0.7 % Sodium 140 (136-145) mmol/L Potassium 3.7 (3.5-5.1) mmol/L Chloride 104 (98-107) mmol/L Carbon Dioxide 34 H (21-32) mmol/L Anion Gap 2.0 L (3-11) BUN 15 (7-18) mg/dl Creatinine 0.85 D (0.6-1.2) mg/dl Est Cr Clr Drug Dosing 74.5 ml/min Est GFR ( Amer) 74.0 ml/min Est GFR (Non-Af Amer) 63.8 ml/min BUN/Creatinine Ratio 17.2 (10-20) Glucose 143 H (70-99) mg/dl Calcium 9.5 (8.5-10.1) mg/dl Phosphorus 4.3 (2.5-4.9) mg/dl Magnesium 1.6 L (1.8-2.4) mg/dl Urine Color Urine Appearance (Clear) Urine pH (4.5-7.5) Ur Specific [place] (1.000-1.030) Urine Protein (Negative) Urine Glucose (UA) (Negative) Urine Ketones (Negative) Urine Blood (Negative) Urine Nitrite (Negative) Urine Bilirubin (Negative) Urine Urobilinogen (Negative) Ur Leukocyte Esterase (Negative) Urine WBC (Auto) (0-5) /hpf Urine RBC (Auto) (0-4) /hpf U Hyaline Cast (Auto) (0-5) /lpf U Epithel Cells (Auto) (0-5) /lpf Urine Bacteria (Auto) (Negative) Urine Yeast COVID-19 Eval Order SARS-CoV-2 (PCR) (Negative) 01/26/21 01/25/21 01/25/21 Range/Units 02:30 20:09 20:09 WBC (4.8-10.8) K/uL RBC (4.2-5.4) M/uL Hgb (12.0-16.0) g/dL Hct (37-47) % MCV (80-100) fL MCH (25-34) pg MCHC (32-36) g/dL RDW Std Deviation (36.4-46.3) fL RDW Coeff of Lety (11.5-14.5) % Plt Count (130-400) K/uL MPV (7.4-10.4) fL Immature Gran % (Auto) % Neut % (Auto) % Lymph % (Auto) % [place] % (Auto) % Eos % (Auto) % Baso % (Auto) % Neut # (Auto) (1.4-6.5) K/uL Lymph # (Auto) (1.2-3.4) K/uL [place] # (Auto) (0.11-0.59) K/uL Eos # (Auto) (0-0.5) K/uL Baso # (Auto) (0-0.2) K/uL Immature Gran # (Auto) (0.00-0.02) K/uL Absolute Nucleated RBC (0-0) K/uL Nucleated RBC % (auto) % Sodium (136-145) mmol/L Potassium (3.5-5.1) mmol/L Chloride (98-107) mmol/L Carbon Dioxide (21-32) mmol/L Anion Gap (3-11) BUN (7-18) mg/dl Creatinine (0.6-1.2) mg/dl Est Cr Clr Drug Dosing ml/min Est GFR ( Amer) ml/min Est GFR (Non-Af Amer) ml/min BUN/Creatinine Ratio (10-20) Glucose (70-99) mg/dl Calcium (8.5-10.1) mg/dl Phosphorus (2.5-4.9) mg/dl Magnesium (1.8-2.4) mg/dl Urine Color Dark Yellow Urine Appearance Turbid A (Clear) Urine pH 7.5 (4.5-7.5) Ur Specific [place] 1.019 (1.000-1.030) Urine Protein 1+ H (Negative) Urine Glucose (UA) Negative (Negative) Urine Ketones Trace H (Negative) Urine Blood Negative (Negative) Urine Nitrite Negative (Negative) Urine Bilirubin Negative (Negative) Urine Urobilinogen Negative (Negative) Ur Leukocyte Esterase 3+ H (Negative) Urine WBC (Auto) >30 H (0-5) /hpf Urine RBC (Auto) 0-4 (0-4) /hpf U Hyaline Cast (Auto) 5-10 H (0-5) /lpf U Epithel Cells (Auto) >30 H (0-5) /lpf Urine Bacteria (Auto) 2+ H (Negative) Urine Yeast Not Reportable COVID-19 Eval Order Covid19 at [facility] SARS-CoV-2 (PCR) NEGATIVE (Negative) Medications Administered Current Inpatient Medications Acetaminophen (Acetaminophen 500 Mg Tab) 1,000 mg PO Q8H PRN PRN Reason: Pain Stop: 02/25/21 13:53 Last Admin: 01/26/21 14:16 Dose: 1,000 mg Documented by: Aspirin (Aspirin 81 Mg Ectab) 81 mg PO DAILY RALPH Stop: 02/25/21 08:59 Last Admin: 01/26/21 07:55 Dose: 81 mg Documented by: Hydrochlorothiazide (Hydrochlorothiazide 25 Mg Tab) 25 mg PO DAILY RALPH Stop: 02/25/21 08:59 Last Admin: 01/26/21 07:55 Dose: 25 mg Documented by: Losartan Potassium (Losartan Potassium 50 Mg Tab) 100 mg PO DAILY RALPH Stop: 02/25/21 08:59 Last Admin: 01/26/21 07:55 Dose: 100 mg Documented by: Nystatin (Nystatin Powder 15gm Btl) 1 appln EXT BID PRN PRN Reason: skin irritation Stop: 02/25/21 00:35 Last Admin: 01/26/21 02:35 Dose: 1 appln Documented by: Simvastatin (Simvastatin 20 Mg Tab) 20 mg PO PM RALPH Stop: 02/25/21 20:59 Resident Activity Tracking Resident Involvement: Resident Care Provided Care Provided: Adult Hospital Medicine
[2021-01-26] MEDS: ACETAMINOPHEN 500 MG TAB PO PRN (14:16)
--- NOTE | 2021-01-26 19:28 | Billing Data ---
Date of Service January 26, 2021 Coding Level of Care Code 36762 Subseq Hosp Care Lvl 2
--- NOTE | 2021-01-26 19:53 | Billing Data ---
Date of Service January 26, 2021 Coding Level of Care Code 84606 Initial Inpt Care Lvl 2
[2021-01-26] MEDS: SIMVASTATIN 20 MG TAB PO SCH (20:21)
--- NOTE | 2021-01-27 06:44 | Hospitalist Progress Note ---
Date of Service January 27, 2021 Assessment & Plan (1) Ambulatory dysfunction: Plan: Lavonne Chiu is a 80y/o female with past medical history significant for hypertension, hyperlipidemia; who presents for concerns of weakness earlier today. Ambulatory dysfunction: Likely multifactorial with some components of dehydration and deconditioning. Patient subjective feeling of strength improvement following 1 L bolus in ED. Discussed need for increased hydration efforts to prevent further dehydration -evaluated by PT/OT, rehab recommended Acute kidney injury: Creatinine 1.3 on admission, potential components of dehydration -currently 1.15 Hypertension: Continue home medication Hyperlipidemia: Continue home medication Diet: Heart healthy CODE STATUS: Conditional code - DO NOT INTUBATE (2) HTN (hypertension): (3) Hyperlipidemia: Admission and Anticipated Discharge Date Admission Date: January 25, 2021 Supervising Physician Co-Signing Physician Notes I personally examined the patient and verified all huff points of history and exam, discussed case, and agree with decision making with Dr Mendoza. Still weak. Discussed her back painwhich is mostly in her back and hip. She also has anterior knee pain that goes down the frontwith that she notes that she does have pain going the whole way down her leg, but she suspects it is really back and hip pain and knee pain that are all separate not necessarily one continuous line of pain. Vitals noted, in general she is awake and alert pleasant no distress. HEENT normocephalic atraumatic mucous membranes moist. Breathing unlabored no accessory muscle use good effort. Skin shows no rashes no pallor or icterus. Weaknessacutely from dehydration, chronically deconditioning. Rehydrated, PT/OT eval and treat. Needs rehab Dehydration with resultant AKIcreatinine now improved. Continue p.o. hydrationshe understands that she will need to be more mindful of this. Chronic low back painshe had significant loss of heighther DEXA scan from 5 years ago showed a T score of 0.3, certainly it would be reasonable to repeat this given her loss of height. Her x-rays from about 7 or 8 years ago show a lot of arthritis type findingscertainly these would likely be there or worse now, but given that she does not have any symptoms consistent with a lumbar r adiculopathy or anything else that would require surgical or pain management type intervention, I did not order reimaging as I do not believe it would exchange clerk. We discussed back pain like hers being 1 part anatomic (arthritis/disc disease) that if not requiring surgery (which she actually notes an orthopedic surgeon had told her she would not be a candidate for back surgery) we would view as a "constant", and the pain being another part muscle/ligamentous (which typically does respond well to OMTalthough often with chronic pain from a situation like this it takes quite a while to start to see benefit), and finally a small part of the pain being central nervous system and peripheral nervous system facilitation, which can respond to neuropathic type meds and SNRI or TCA antidepressants, but we discussed given that this is typically a small part of the pain, and the medications have more side effects than OMT, etc. that we would hold off on any treatment for that at this time). For this I would recommend an outpatient DEXA scan, and then DO PCP referral for OMT trial Morbid obesity with BMI of nearly 60this likely disproportionately amplifies her weakness from deconditioning. DispositionPT/OT eval and treat, stable for rehab when bed available Subjective 80yo Female presented with weakness getting up. She stated yesterday she felt exhausted and sweaty, sat down to rest, and could not stand back up again even with daughter's assistance. Patient called EMS to bring her to hospital. In that time she denies headache, dizziness, LOC, nausea, vomitting, confusion, palpitations. She says she usually feels SOB while walking around the house with a cane, lives with her daughter, and sits on the couch eating snacks when her daughter is at work. She says her daughter places drinks out for her before she leaves, but patient does not drink much of it. She has had previous falls that she expresses were all mechanical. Patient was seen at bedside, comfortable, says she's feeling pretty well. She slept well, has a good appetite, normal bowel movements. Patient trying to drink more water. Patient understands she is heading to rehab after hospitalization. She has seen PT/OT. Currently awaiting placement. PMH: HTN, HLD, tooth surgery Review of Systems Constitutional: no fever and no chills Respiratory: + dyspnea on exertion; no cough and no dyspnea Cardiovascular: no chest pain, no palpitations and no syncope Gastrointestinal: no abdominal pain, no nausea, no vomiting, no constipation and no diarrhea/loose stools Neurologic: no dizziness and no headache(s) Physical Exam Constitutional: WD/WN, vitals as above + morbidly obese, cooperative and comfortable Respiratory: normal respiratory effort, lungs clear to auscultation no respiratory distress and no cough Auscultation: no rales, no rhonchi and no wheezes Cardiovascular: RRR, no murmur, no edema Heart Sounds: normal S1 and normal S2; no gallop, no murmur and no cardiac rub Gastrointestinal (Abdomen): normal bowel sounds, soft, nontender, no hepatosplenomegaly Inspection/Auscultation: + abdominal surgical scar; abdomen not distended Musculoskeletal: Knee: + surgical incision and + limited ROM of knee (Patient expressed pain on palpation b/l) Psychiatric: A+Ox3, euthymic affect Results & Data Results & Data ([facility]) Vital Signs (Past 12 Hours) Vital Signs Temp Pulse Resp BP Pulse Ox 01/26/21 22:13 37 C 94 H 16 139/68 95 Laboratory Results 01/27/21 01/27/21 01/27/21 Range/Units 09:43 08:15 08:15 WBC 6.45 (4.8-10.8) K/uL RBC 3.54 L (4.2-5.4) M/uL Hgb 11.3 L (12.0-16.0) g/dL Hct 36.1 L (37-47) % MCV 102.0 H (80-100) fL MCH 31.9 (25-34) pg MCHC 31.3 L (32-36) g/dL RDW Std Deviation 64.5 H (36.4-46.3) fL RDW Coeff of Lety 17.1 H (11.5-14.5) % Plt Count 304 (130-400) K/uL MPV 11.3 H (7.4-10.4) fL Immature Gran % (Auto) 0.3 % Neut % (Auto) 48.7 % Lymph % (Auto) 33.8 % [place] % (Auto) 14.7 % Eos % (Auto) 2.2 % Baso % (Auto) 0.3 % Neut # (Auto) 3.14 (1.4-6.5) K/uL Lymph # (Auto) 2.18 (1.2-3.4) K/uL [place] # (Auto) 0.95 H (0.11-0.59) K/uL Eos # (Auto) 0.14 (0-0.5) K/uL Baso # (Auto) 0.02 (0-0.2) K/uL Immature Gran # (Auto) 0.02 (0.00-0.02) K/uL Sodium 139 (136-145) mmol/L Potassium 3.4 L (3.5-5.1) mmol/L Chloride 103 (98-107) mmol/L Carbon Dioxide 31 (21-32) mmol/L Anion Gap 5.0 (3-11) BUN 18 (7-18) mg/dl Creatinine 1.15 D (0.6-1.2) mg/dl Est Cr Clr Drug Dosing 55.1 ml/min Est GFR ( Amer) 51.3 ml/min Est GFR (Non-Af Amer) 44.3 ml/min BUN/Creatinine Ratio 15.7 (10-20) Glucose 141 H (70-99) mg/dl Calcium 8.9 (8.5-10.1) mg/dl Medications Administered Current Inpatient Medications Acetaminophen (Acetaminophen 500 Mg Tab) 1,000 mg PO Q8H PRN PRN Reason: Pain Stop: 02/25/21 13:53 Last Admin: 01/26/21 14:16 Dose: 1,000 mg Documented by: Aspirin (Aspirin 81 Mg Ectab) 81 mg PO DAILY RALPH Stop: 02/25/21 08:59 Last Admin: 01/27/21 08:05 Dose: 81 mg Documented by: Hydrochlorothiazide (Hydrochlorothiazide 25 Mg Tab) 25 mg PO DAILY RALPH Stop: 02/25/21 08:59 Last Admin: 01/27/21 08:04 Dose: 25 mg Documented by: Losartan Potassium (Losartan Potassium 50 Mg Tab) 100 mg PO DAILY RALPH Stop: 02/25/21 08:59 Last Admin: 01/27/21 08:05 Dose: 100 mg Documented by: Nystatin (Nystatin Powder 15gm Btl) 1 appln EXT BID PRN PRN Reason: skin irritation Stop: 02/25/21 00:35 Last Admin: 01/26/21 02:35 Dose: 1 appln Documented by: Simvastatin (Simvastatin 20 Mg Tab) 20 mg PO PM [facility] Stop: 02/25/21 20:59 Last Admin: 01/26/21 20:21 Dose: 20 mg Documented by: Resident Activity Tracking Resident Involvement: Resident Care Provided Care Provided: Adult Hospital Medicine
[2021-01-27] MEDS: hydroCHLOROthiazide 25 MG TAB PO SCH (08:04)
[2021-01-27] MEDS: LOSARTAN POTASSIUM 50 MG TAB PO SCH (08:05)
[2021-01-27] MEDS: ASPIRIN 81 MG ECTAB PO SCH (08:05)
[2021-01-27 09:10] LABS: Basophils # (auto) 0.02 K/uL (0-0.2); Basophils % (auto) 0.3 %; Eosinophils # (auto) 0.14 K/uL (0-0.5); Eosinophils % (auto) 2.2 %; Hematocrit (blood only) 36.1 % (37-47); Hemoglobin 11.3 g/dL (12.0-16.0); Immature Granulocytes # (auto) 0.02 K/uL (0.00-0.02); Immature Granulocytes % (auto) 0.3 %; Lymphocytes # (auto) 2.18 K/uL (1.2-3.4); Lymphocytes % (auto) 33.8 %; Mean Corpuscular Hemoglobin 31.9 pg (25-34); Mean Corpuscular Hgb Conc 31.3 g/dL (32-36); Mean Platelet Volume 11.3 fL (7.4-10.4); Monocytes # (auto) 0.95 K/uL (0.11-0.59); Monocytes % (auto) 14.7 %; Neutrophils # (auto) 3.14 K/uL (1.4-6.5); Neutrophils % (auto) 48.7 %; Platelet Count 304 K/uL (130-400); RDW Coefficient of Variation 17.1 % (11.5-14.5); RDW Standard Deviation 64.5 fL (36.4-46.3); Red Blood Count 3.54 M/uL (4.2-5.4); White Blood Count 6.45 K/uL (4.8-10.8)
[2021-01-27 09:41] LABS: BUN Creatinine Ratio 15.7 (10-20); Calcium 8.9 mg/dl (8.5-10.1); Creatinine Clr Calc Pharmacy 55.1 ml/min; Est GFR (African American) 51.3 ml/min; Est GFR (Non-African American) 44.3 ml/min
--- NOTE | 2021-01-27 19:27 | Billing Data ---
Date of Service January 27, 2021 Coding Level of Care Code 42453 Subseq Hosp Care Lvl 2
[2021-01-27] MEDS: SIMVASTATIN 20 MG TAB PO SCH (20:15)
[2021-01-27] MEDS: ACETAMINOPHEN 500 MG TAB PO PRN (22:04)
[2021-01-28] MEDS: hydroCHLOROthiazide 25 MG TAB PO SCH (08:56)
[2021-01-28] MEDS: LOSARTAN POTASSIUM 50 MG TAB PO SCH (08:56)
[2021-01-28] MEDS: ASPIRIN 81 MG ECTAB PO SCH (08:56)
--- NOTE | 2021-01-28 16:39 | Hospitalist Progress Note ---
Date of Service January 28, 2021 Assessment & Plan (1) Ambulatory dysfunction: Plan: Lavonne Chiu is a 80y/o female with past medical history significant for hypertension, hyperlipidemia; who presented for concerns of weakness. Ambulatory dysfunction Likely multifactorial with some components of dehydration and deconditioning. Patient subjective feeling of strength improvement following 1L bolus in ED. Discussed need for increased hydration efforts to prevent further dehydration. -evaluated by PT/OT; sessions have begun -Waiting for a bed to become available at rehab facility Dyspnea Patient developed dyspnea today. O2 saturation in the AM was down to 89. She was given 2L O2 nasal cannula with O2 sat stabilization ~97. -Patient most likely suffering from atelectasis secondary to her conditioning and body habitus. She will begin incentive spirometry for treatment. Discussed with patient to take slow deep breaths in when using device. -Will monitor situation; if no improvement will consider other causes including reactive airway disease and CHF Acute kidney injury Creatinine 1.3 on admission, potential components of dehydration -last checked yesterday, 1.15 Hypertension Continue home medication Hyperlipidemia Continue home medication Diet: Heart healthy CODE STATUS: Conditional code - DO NOT INTUBATE (2) HTN (hypertension): (3) Hyperlipidemia: Admission and Anticipated Discharge Date Admission Date: January 25, 2021 Supervising Physician Co-Signing Physician Notes I personally examined the patient and verified all huff points of history and exam, discussed case, and agree with decision making with Dr Batres New oxygen requirement. No dyspnea at rest. Does have a little bit of dyspnea with exertionalthough it is not really clear if this is new or not. Vitals noted, in general she is awake and alert pleasant no distress. HEENT normocephalic atraumatic mucous membranes moist. Breathing unlabored no accessory muscle use good effort, lungs are clear with overall just diminished air entry no rales rhonchi or wheezes good effort no accessory muscle use. Skin shows no rashes no pallor or icterus. New oxygen requirementstrongly suspect atelectasis. Explained to patient. Continue PT/OT, incentive spirometry. Weaknessacutely from dehydration, chronically deconditioning. Rehydrated, PT/OT eval and treat. Needs rehabawaiting bureaucracy to make this happen Dehydration with resultant AKIcreatinine now improved. Continue p.o. hydrationshe understands that she will need to be more mindful of this. Chronic low back painshe had significant loss of heighther DEXA scan from 5 years ago showed a T score of 0.3, certainly it would be reasonable to repeat this given her loss of height. Her x-rays from about 7 or 8 years ago show a lot of arthritis type findingscertainly these would likely be there or worse now, but given that she does not have any symptoms consistent with a lumbar radiculopathy or anything else that would require surgical or pain management type intervention, I did not order reimaging as I do not believe it would blade changer. We discussed back pain like hers being 1 part anatomic (arthritis/disc disease) that if not requiring surgery (which she actually notes an orthopedic surgeon had told her she would not be a candidate for back surgery) we would view as a "constant", and the pain being another part mus mia/ligamentous (which typically does respond well to OMTalthough often with chronic pain from a situation like this it takes quite a while to start to see benefit), and finally a small part of the pain being central nervous system and peripheral nervous system facilitation, which can respond to neuropathic type meds and SNRI or TCA antidepressants, but we discussed given that this is typically a small part of the pain, and the medications have more side effects than OMT, etc. that we would hold off on any treatment for that at this time). For this I would recommend an outpatient DEXA scan, and then DO PCP referral for OMT trial. Morbid obesity with BMI of nearly 60this likely disproportionately amplifies her weakness from deconditioning. DispositionPT/OT eval and treat, stable for rehab when bed availableunfortunately apparently we have to do a peer to peer creating more roadblocks to unnecessarily get in the way of getting her the care she needs. Subjective Patient complains of one episode of dizziness when getting up from her bed yesterday and some shortness of breath with mild wheezing. She is still having back and knee pain. Patient has began PT sessions. Review of Systems Constitutional: as per Subjective / HPI; no fever and no chills Respiratory: + dyspnea; no cough Cardiovascular: no chest pain, no palpitations and no syncope Gastrointestinal: no abdominal pain, no nausea, no vomiting, no constipation and no diarrhea/loose stools Neurologic: no syncope and no headache(s) Physical Exam Constitutional: + acute distress and + morbidly obese Respiratory: + labored breathing Auscultation: + diminished lung sounds and + wheezes Cardiovascular: RRR, no murmur, no edema Results & Data Results & [facility] ([facility]) Vital Signs (Past 12 Hours) Vital Signs Temp Pulse Pulse Resp BP Pulse Ox 01/28/21 15:40 36.5 C 88 16 137/68 95 01/28/21 11:37 36.5 C 89 27 H 117/54 L 97 01/28/21 09:17 90 01/28/21 08:38 36.8 C 87 24 158/79 H 89 L 01/28/21 07:23 37.2 C 99 H 18 180/71 H 90 Resident Activity Tracking Resident Involvement: Resident Care Provided Care Provided: Adult Hospital Medicine
--- NOTE | 2021-01-28 18:59 | Billing Data ---
Date of Service January 28, 2021 Coding Level of Care Code 27531 Subseq Hosp Care Lvl 2
[2021-01-28] MEDS: SIMVASTATIN 20 MG TAB PO SCH (20:13)
[2021-01-28] MEDS ORDERED: POLYETHYLENE (MIRALAX) 17 GM PACK PO PRN (22:09)
[2021-01-29 07:38] LABS: Basophils # (auto) 0.03 K/uL (0-0.2); Basophils % (auto) 0.5 %; Eosinophils # (auto) 0.34 K/uL (0-0.5); Eosinophils % (auto) 5.1 %; Hematocrit (blood only) 36.5 % (37-47); Hemoglobin 11.1 g/dL (12.0-16.0); Immature Granulocytes # (auto) 0.03 K/uL (0.00-0.02); Immature Granulocytes % (auto) 0.5 %; Lymphocytes # (auto) 2.55 K/uL (1.2-3.4); Lymphocytes % (auto) 38.4 %; Mean Corpuscular Hemoglobin 31.2 pg (25-34); Mean Corpuscular Hgb Conc 30.4 g/dL (32-36); Mean Corpuscular Volume 102.5 fL (80-100); Mean Platelet Volume 11.4 fL (7.4-10.4); Monocytes # (auto) 0.93 K/uL (0.11-0.59); Neutrophils # (auto) 2.76 K/uL (1.4-6.5); Neutrophils % (auto) 41.5 %; Platelet Count 326 K/uL (130-400); RDW Standard Deviation 63.1 fL (36.4-46.3); Red Blood Count 3.56 M/uL (4.2-5.4); White Blood Count 6.64 K/uL (4.8-10.8)
[2021-01-29 07:54] LABS: Albumin Level 2.8 gm/dl (3.4-5.0); BUN Creatinine Ratio 20.7 (10-20); Creatinine Clr Calc Pharmacy 64.6 ml/min; Est GFR (African American) 62.3 ml/min; Est GFR (Non-African American) 53.7 ml/min; Potassium 3.8 mmol/L (3.5-5.1)
[2021-01-29 07:58] LABS: Albumin Globulin Ratio 0.8 (0.9-2); Bilirubin,Total 0.7 mg/dl (0.2-1); Globulin 3.5 gm/dl (2.5-4.0); Total Protein 6.3 gm/dl (6.4-8.2)
--- NOTE | 2021-01-29 08:02 | Hospitalist Progress Note ---
Date of Service January 29, 2021 Assessment & Plan (1) Ambulatory dysfunction: Plan: Lavonne Chiu is a 80y/o female with past medical history significant for hypertension, hyperlipidemia; who presented for concerns of weakness. Ambulatory dysfunction Likely multifactorial with some components of dehydration and deconditioning. Patient subjective feeling of strength improvement following 1L bolus in ED. Discussed need for increased hydration efforts to prevent further dehydration. -Evaluated by PT/OT; sessions have begun -Insurance denied our request for the patient to be transferred to an acute rehab facility secondary to her status and conditioning. We will do a peer to peer with insurance company. If that fails, we will request [facility] a [facility] facility. Dyspnea Patient developed dyspnea today. O2 saturation in the AM was down to 89. She was given 2L O2 nasal cannula with O2 sat stabilization ~97. -Patient most likely suffering from atelectasis secondary to her conditioning and body habitus. She has begun incentive spirometry for treatment. Discussed with patient to take slow deep breaths in when using device. Advised patient to take multiple puffs every hour. Patient states she will try. -Will monitor situation; if no improvement will consider other causes including reactive airway disease and CHF Acute kidney injury Creatinine 1.3 on admission, potential components of dehydration -last checked yesterday, 1.15; improved Hypertension Continue home medication Hyperlipidemia Continue home medication Diet: Heart healthy CODE STATUS: Conditional code - DO NOT INTUBATE Jaime Batres DO PGY1, FCM (2) HTN (hypertension): (3) Hyperlipidemia: Admission and Anticipated Discharge Date Admission Date: January 25, 2021 Supervising Physician Co-Signing Physician Notes I personally examined the patient and verified all huff points of history and exam, discussed case, and agree with decision making with Dr Batres feeling ok. thinks that rehab would be too much once she's thought about it, now wants SNF instead of rehab for therapy Vitals noted, in general she is awake and alert pleasant no distress. HEENT normocephalic atraumatic mucous membranes moist. Breathing unlabored no accessory muscle use good effort, lungs are clear with overall just diminished air entry no rales rhonchi or wheezes good effort no accessory muscle use. Skin shows no rashes no pallor or icterus. New oxygen requirementstrongly suspect atelectasis. supportive care. PT/OT and incentive spirometry. Weaknessacutely from dehydration, chronically deconditioning. Rehydrated, PT/OT eval and treat. Needs inpatient therapyawaiting bureaucracy to make this happen -- was going to appeal rehab // call peer to peer but she changed her mind and would rather have SNF Dehydration with resultant AKIcreatinine now improved. Continue p.o. hydrationshe understands that she will need to be more mindful of this. Chronic low back painshe had significant loss of heighther DEXA scan from 5 years ago showed a T score of 0.3, certainly it would be reasonable to repeat this given her loss of height. Her x-rays from about 7 or 8 years ago show a lot of arthritis type findingscertainly these would likely be there or worse now, but given that she does not have any symptoms consistent with a lumbar radiculopathy or anything else that would require surgical or pain management type intervention, I did not order reimaging as I do not believe it would global climate change researcher. We discussed back pain like hers being 1 part anatomic (arthritis/disc disease) that if not requiring surgery (which she actually notes an orthopedic surgeon had told her she would not be a candidate for back surgery) we would view as a "constant", and the pain being another part muscle/ligamentous (which typically does respond well to OMTalthough often with chronic pain from a situation like this it takes quite a while to start to see benefit), and finally a small part of the pain being central nervous system and peripheral nervous system facilitation, which can respond to neuropathic type meds and SNRI or TCA antidepressants, but we discussed given that this is typically a small part of the pain, and the medications have more side effects than OMT, etc. that we would hold off on any treatment for that at this time). For this I would recommend an outpatient DEXA scan, and then DO PCP referral for OMT trial. Morbid obesity with BMI of nearly 60this likely disproportionately amplifies her weakness from deconditioning. DispositionPT/OT eval and treat, stable for SNF when bed available. Subjective Patient has began using incentive spirometry as of last night but she has not used it much as of yet. Her dyspnea on exertion remains stable and unchanged from yesterday. She states her insurance denied the request for acute rehab facility. Review of Systems Constitutional: as per Subjective / HPI; no fever and no chills Respiratory: + dyspnea; no cough Cardiovascular: no chest pain, no palpitations and no syncope Gastrointestinal: no abdominal pain, no nausea, no vomiting, no constipation and no diarrhea/loose stools Neurologic: no syncope and no headache(s) Physical Exam Constitutional: + acute distress and + morbidly obese Respiratory: + labored breathing Auscultation: + diminished lung sounds and + wheezes Cardiovascular: RRR, no murmur, no edema Results & Data Results & Data ([facility]) Vital Signs (Past 12 Hours) Vital Signs Temp Pulse Pulse Resp BP Pulse Ox 01/29/21 07:24 36.8 C 88 15 136/80 95 01/28/21 22:23 37.3 C 93 H 18 149/66 H 96 Resident Activity Tracking Resident Involvement: Resident Care Provided Care Provided: Adult Hospital Medicine
[2021-01-29] MEDS: hydroCHLOROthiazide 25 MG TAB PO SCH (08:07)
[2021-01-29] MEDS: ASPIRIN 81 MG ECTAB PO SCH (08:07)
[2021-01-29] MEDS: LOSARTAN POTASSIUM 50 MG TAB PO SCH (08:08)
[2021-01-29] MEDS: SIMVASTATIN 20 MG TAB PO SCH (20:37)
--- NOTE | 2021-01-29 20:37 | Billing Data ---
Date of Service January 29, 2021 Coding Level of Care Code 59245 Subseq Hosp Care Lvl 1
[2021-01-30 06:00] LABS: Basophils # (auto) 0.04 K/uL (0-0.2); Basophils % (auto) 0.6 %; Eosinophils # (auto) 0.31 K/uL (0-0.5); Eosinophils % (auto) 4.8 %; Hematocrit (blood only) 34.9 % (37-47); Hemoglobin 10.9 g/dL (12.0-16.0); Immature Granulocytes # (auto) 0.01 K/uL (0.00-0.02); Immature Granulocytes % (auto) 0.2 %; Lymphocytes # (auto) 2.36 K/uL (1.2-3.4); Lymphocytes % (auto) 36.8 %; Mean Corpuscular Hgb Conc 31.2 g/dL (32-36); Mean Corpuscular Volume 102.3 fL (80-100); Mean Platelet Volume 10.9 fL (7.4-10.4); Monocytes # (auto) 0.98 K/uL (0.11-0.59); Monocytes % (auto) 15.3 %; Neutrophils # (auto) 2.72 K/uL (1.4-6.5); Neutrophils % (auto) 42.3 %; Platelet Count 292 K/uL (130-400); RDW Coefficient of Variation 16.8 % (11.5-14.5); RDW Standard Deviation 63.3 fL (36.4-46.3); Red Blood Count 3.41 M/uL (4.2-5.4); White Blood Count 6.42 K/uL (4.8-10.8)
[2021-01-30 06:23] LABS: BUN Creatinine Ratio 20.7 (10-20); Calcium 8.1 mg/dl (8.5-10.1); Creatinine Clr Calc Pharmacy 68.9 ml/min; Est GFR (African American) 67.2 ml/min; Potassium 3.7 mmol/L (3.5-5.1)
[2021-01-30] MEDS: hydroCHLOROthiazide 25 MG TAB PO SCH (09:18)
[2021-01-30] MEDS: ASPIRIN 81 MG ECTAB PO SCH (09:19)
[2021-01-30] MEDS: LOSARTAN POTASSIUM 50 MG TAB PO SCH (09:19)
--- NOTE | 2021-01-30 14:38 | Hospitalist Progress Note ---
Date of Service January 30, 2021 Assessment & Plan (1) Ambulatory dysfunction: Plan: Pt is 80 yo F with PMH of HLD, HTN, multiple falls, morbid obesity who presented with generalized weakness. Ambulatory dysfunction/weakness -Pt experienced fatigue and weakness in setting of recent decreased fluid intake, labwork showing MOJGAN, demonstrating improvement in weakness after fluid resuscitation. Weakness likely multifactorial due to dehydration and deconditioning due to patient's body habitus, limited physical activity and history of falls. -Evaluated by PT/OT; sessions have begun, recommended 3 hours combined therapy daily. -Peer to peer with insurance company conducted today. Pt apparently does not meet criteria for acute rehab but does meet criteria for subacute rehab. Case management awaiting authorization from insurance for subacute rehab, likely discharge tomorrow. Dyspnea Patient's dyspnea from day prior resolved with 2L/min O2 via nasal cannula and incentive spirometry, O2 saturation currently at 95%. Likely due to atelectasis (seen on CXR) 2/2 deconditioning and morbid obesity Will monitor and evaluate for cardiorespiratory pathologies such as CHF if dyspnea exacerbates or persists. Acute kidney injury Creatinine 1.3 on admission downtrending to 0.92 today, MOJGAN resolving with fluid resuscitation Hypertension Continue home medications Hyperlipidemia Continue home medications Diet: Heart healthy DVT ppx: Lovenox subQ 40 mg BID initiated today CODE STATUS: Conditional code - DO NOT INTUBATE Gardenia Camacho MD PGY1, FCM (2) HTN (hypertension): (3) Hyperlipidemia: Admission and Anticipated Discharge Date Admission Date: January 25, 2021 Subjective No acute events overnight. Pt reportedly slept well and urinated 3x, states she drank plenty of fluid over the past day. She's tolerating PO well, reports some improvement in her weakness though she occasionally feels dizzy when getting up from bed. She is able to ambulate to her bedside commode without issue. She has been using her incentive spirometer multiple times a day since the day prior. Denies any current pain, dyspnea or discomfort. Review of Systems Constitutional: as per Subjective / HPI; no fever and no chills Respiratory: no cough and no dyspnea Cardiovascular: no chest pain, no palpitations and no syncope Gastrointestinal: no abdominal pain, no nausea, no vomiting, no constipation and no diarrhea/loose stools Neurologic: + generalized weakness (minor); no syncope and no headache(s) Physical Exam Constitutional: well developed, well nourished and + morbidly obese; no acute distress Respiratory: normal respiratory effort; no respiratory distress and no labored breathing Auscultation: + diminished lung sounds (minor); no wheezes Cardiovascular: RRR, no murmur, no edema Gastrointestinal (Abdomen): Percussion/Palpation: abdomen soft; abdomen nontender, no guarding and abdomen not rigid Musculoskeletal: Extremities: strength 5/5 throughout (Upper extremities) Neurologic: Grossly nonfocal Results & Data Results & Data ([facility]) Vital Signs (Past 12 Hours) Vital Signs Temp Pulse Resp BP Pulse Ox 01/30/21 07:49 36.5 C 86 18 138/66 93 Resident Activity Tracking Resident Involvement: Resident Care Provided Care Provided: Adult Hospital Medicine
[2021-01-30] MEDS ORDERED: ENOXAPARIN INJ 40 MG/0.4 ML SYR SQ SCH (14:45)
--- NOTE | 2021-01-30 17:48 | Discharge Summary ---
Date of Service January 30, 2021 Admission HPI Per Admitting Provider Lavonne Chiu is a 80y/o female with past medical history significant for hypertension, hyperlipidemia; who presents for concerns of weakness earlier today. Earlier today, as patient was getting ready to go to a doctor's appointment she had hard time getting into the car at the back of the house, ultimately decided to walk around to the front of the house to then get in the car that way. Upon going up the back steps she started to feel more tired, and decided ultimately to try and sit down to take a short break. However, following attempting to get up she noticed that she was not able to pick herself up on her own. Typically uses a recliner/lift chair that helps her get out of the chair. Throughout this time noticed no chest pain, shortness of breath, nausea, vomiting. Upon presentation of EMS for assistance with getting her up from a seated position she was noted to have some diaphoresis, and a pulse ox of 90%. She thinks that she was sweating more because she had been sitting out in the hot sun for prolonged period of time. And otherwise feels well. Here in the ED she did have 2 oxygen saturations of 88%, and ultimately required short period of time of nasal cannula oxygen supplementation, before she was able to be transitioned back to room air. As noted that over the last several months to year, she has had increasing difficulty with this weakness and feeling like she was going to fall. Has had 4 falls in the last 5 years, last one coming up approximately 1 year ago. That fall and all falls have not been syncopal events, she is able to recall the events of them. But does notice that she will feel like she does not have the strength to continue to do her normal activities when these are going on. Does drink some fluid, but not has noted that her thirst has been much lower t gibson it used to be. Typically in a day will drink to 11 ounce cedillo and may be another 11 ounce of tea; feels like this is a significant increase from where she was previously where she would may be drink 111 ounce water or tea but not both in a day. Admission Exam Per Admitting Provider Constitutional: WD/WN, vitals as above Eyes: PERRL, conjunctivae normal, anicteric sclerae Respiratory: Normal respiratory effort, lungs clear to auscultation Auscultation: no crackles, no rales, no rhonchi and no wheezes Cardiovascular: Rate/Rhythm: regular rate and regular rhythm Heart Sounds: no gallop, no murmur and no cardiac rub Vessels: normal peripheral pulses; no JVD Extremities: + pedal edema Gastrointestinal (Abdomen): Inspection/Auscultation: normal bowel sounds; abdomen not distended Percussion/Palpation: abdomen soft; abdomen nontender and no guarding Skin: No rashes, warm and dry Neurologic: PERRL, EOMI, accommodation nl, no face palsy, no dysarthria CN's II-XI intact bilaterally and moves all extremities Psychiatric: Orientation: alert and oriented x 3 Principal Diagnosis Weakness Discharge Exam Constitutional: well developed, well nourished and + morbidly obese; no acute distress Respiratory: no respiratory distress and no labored breathing Auscultation: + diminished lung sounds (minor); mild inspiratory wheeze Cardiovascular: RRR, no murmur, no edema Abdomen: soft; nontender, no guarding or rigidity Musculoskeletal: strength 5/5 in b/l upper extremities Neurologic: No gross focal deficits Discharge Data Allergies Allergy/AdvReac Type Severity Reaction Status Date / Time succinylcholine Allergy Severe CARDIAC Verified 01/25/21 20:43 ARREST Penicillins Allergy Unknown REDNESS,SWE Verified 01/25/21 20:43 LLING Consultations 01/25/21 20:10 ED Decision to Admit Stat Hospital Course (1) Ambulatory dysfunction: Pt is 80 yo F with PMH of HLD, HTN, multiple falls, morbid obesity who presented with generalized weakness. Ambulatory dysfunction/weakness sec to dehydration and deconditioning Pt was admitted to the hospital for weakness from 01/25 to 01/31. She was noted to be dehydrated and received fluid resuscitation which resulted in symptom improvement. Her CXR, EKG were non-concerning for cardiorespiratory causes of her weakness. She did not receive any other interventions in the ED and recovered well on the floor. She tolerated PO, had regular urination and bowel movements, reported no pain and her weakness also improved throughout her hospital course. She was seen by PT/OT and was able to do 3 hours of combined therapy daily, improving her ambulatory function. The patient was discharged to [facility], a subacute rehabilitation facility, for further treatment of her ambulatory dysfunction by improving her conditioning and physical activity. Dyspnea Patient developed dyspnea during hospital stay and was given 2L/min O2 via nasal cannula, encouraged to do incentive spirometry. Pt's dyspnea was attributed to atelectasis (seen on CXR) 2/2 deconditioning and morbid obesity. Her dyspnea improved during her hospital stay and she no longer required O2 supplementation by day of discharge. Acute kidney injury Pt's creatinine was 1.3 on admission and downtrended to within normal limits (1.02) by day of discharge after fluid resuscitation. She tolerated PO fluids well and was able to urinate without difficulty several times a day. Hypertension Pt's hypertension was well-controlled on her home medications of hydrochlorothiazide and losartan. Hyperlipidemia Pt's hyperlipidemia was treated with her home simvastatin. Gardenia Camacho MD PGY1, FCM (2) HTN (hypertension): (3) Hyperlipidemia: Total Time Total Time Spent Total Time Spent (In Minutes): 40 Discharge Plan Discharge Items Patient Disposition: Transfer Inpatient Rehab Fac Reason For Visit: DEHYDRATION/AMBULATORY DYSFUNCTION Discharge Diagnosis: Dehydration Activity: Per Instructions section Non-emergency contact: Primary Care Provider Call non-emergency contact if: you have any medication questions and your symptoms worsen Follow-up/Referrals: Betty Resendiz MD [Primary Care Provider] - Diet: Heart Healthy Addtl Attending Provider Instructions: You were admitted to the hospital for general feelings of weakness. Weakness -Your weakness was considered to be caused by several factors, including dehydration and deconditioning caused by reduced physical activity. You were treated with IV fluids to restore your hydration status. You also received physical/occupational therapy to help improve your mobility and activity after e xperiencing weakness. Your weakness is expected to resolve now that you're properly hydrated and regular physical activity will help to prevent more episodes of weakness in the future. You will be discharged to a rehabilitation facility to continue improving your mobility and activity. Dyspnea -During your hospital stay, you experienced difficulty breathing. Your chest X- ray demonstrated minor collapse of a portion of the left lung. You received supplemental oxygen and were instructed to use the incentive spirometer to restore the partially collapsed portion of your lung. Your difficulty breathing resolved after these interventions. A discharge summary will be sent to your primary care physician to ensure continuity of care. Please bring this discharge summary with you to your next office appointment so that your provider can review it at that time. Follow-up appointments: Make a follow-up appointment with your PCP after your discharge from your rehabilitation facility. It is very important that you follow up with them to ensure proper care. Keep all your follow-up appointments as already scheduled. If you cannot make an appointment, notify your provider. Medications: Your medication list has been reviewed and reconciled upon discharge to ensure accuracy and continuity of care. An updated list of all your medications is included with your hospital discharge paperwork. Please review this list closely, and make note of any changes. Take your medications as instructed; do not skip a dose of your medicines. Make sure all of your doctors know every medicine you are taking (including epwl-iop-brcpeii medicines, vitamins, and supplements). Call your primary care provider before taking any new medicines (including zufn-arh-uxcwpmi medicines, vitamins, and supplements), because some of these may interact with your current medications, or may make your symptoms worse. Tell your primary care provider if you cannot afford your medications. CONTACT YOUR PRIMARY CARE PROVIDER if you experience any of the following: Persistent or worsening weakness Persistent lightheadedness or dizziness Falls Difficulty following your treatment plan, or difficulty taking medications CALL 911 OR GO TO THE EMERGENCY DEPARTMENT if you experience any of the following: Sudden, severe abdominal pain or nausea/vomiting Severe chest pain, or chest pain that radiates (moves) to your jaw or arm Sudden, severe shortness of breath or difficulty breathing Thank you for allowing us to participate in your care. Pending Studies at Discharge: No Stand-Alone Forms: My [facility] Skilled Items Patient informed of condition?: Yes DNR: No Discharge Level of Care: Other Communicable Disease: No Discharge Prognosis: Stable Lines: None Urinary Catheter: No Medications and DC Order Prescriptions: Continued simvastatin [Zocor] 20 mg Tablet 20 mg PO PM RF: 0 losartan 100 mg Tablet 100 mg PO DAILY RF: 0 timolol maleate 0.5 % drops 1 drp OPB QAM RF: 0 aspirin 81 mg Tablet,Delayed Release (Dr/Ec) 81 mg PO DAILY RF: 0 calcium carbonate-vitamin D3 500 mg(1,250mg) -125 unit Tablet 1 tab PO DAILY RF: 0 Restasis 0.05 % Dropperette 1 drp OPB AMPM RF: 0 omeprazole 20 mg Capsule,Delayed Release(Dr/Ec) 20 mg PO DAILY PRN (Reason: Gi Upset) RF: 0 vitamins A,C,H-qjvj-twckpx 7,160 unit- 113 mg-100 unit Tablet 1 tab PO BID RF: 0 hydrochlorothiazide 25 mg Tablet 25 mg PO DAILY RF: 0 Discharge Orders: Discharge Order (Routine); Ordered 01/31/21 Ordered By: Gardenia Camacho Admission Data Admit Date/Time: 01/25/21 21:17 Attending Provider: Noris Pichardo Admit Provider: Goyo Montalvo Primary Care Provider: Betty Resendiz Other Providers: Giovani Redding ; [facility] ; [facility] ; [facility] Other Interventions: Discharge Summary Assessment (RN) Last Done: 01/31/21 11:02 Supervising Physician Co-Signing Physician Notes Resident Physician Supervision Note: I independently interviewed and examined the patient and verified the huff history and physical, reviewed labs and image studies and agree with resident Dr. Camacho findings and care plan. Resident Activity Tracking Resident Involvement: Resident Care Provided Care Provided: Adult Hospital Medicine
[2021-01-30] MEDS: SIMVASTATIN 20 MG TAB PO SCH (20:04)
[2021-01-30] MEDS: ENOXAPARIN INJ 40 MG/0.4 ML SYR SQ SCH (20:04)
[2021-01-31] MEDS: ENOXAPARIN INJ 40 MG/0.4 ML SYR SQ SCH (05:08)
[2021-01-31] MEDS: LOSARTAN POTASSIUM 50 MG TAB PO SCH (08:05)
[2021-01-31] MEDS: hydroCHLOROthiazide 25 MG TAB PO SCH (08:05)
[2021-01-31] MEDS: ASPIRIN 81 MG ECTAB PO SCH (08:06)
[2021-01-31 08:56] LABS: BUN Creatinine Ratio 20.5 (10-20); Calcium 7.9 mg/dl (8.5-10.1); Creatinine Clr Calc Pharmacy 62.1 ml/min; Est GFR (African American) 59.3 ml/min; Est GFR (Non-African American) 51.2 ml/min
== END 2021-01-31 13:25 ==
LOC: ED 15:57 → SUATTDRO 21:17 → 3W 21:17 → INTOOBSV 21:17 → 3W 22:03

== ENCOUNTER 2021-06-25 09:06 | Inpatient (IN) ==
--- NOTE | 2021-06-25 09:20 | Emergency Department Note ---
Impression & Plan Fluid overload, Hypoxia, Generalized weakness, Fall ED Provider Note Name: DESIRE CALERO Age: 80 Sex: F Arrives Via: Ambulance Informant: Patient, Daughter ED Provider: Ugo Swann MD Chief Complaint: Weakness Impression: As per impressions above Medical Decision Making: This 80-year-old female who was hospitalized over the summer arrives with weakness and inability to get up after a fall. This morning she tripped on some toilet paper and collapsed to the floor. She states she did not hit head or get knocked out nor does she have a headache. She called EMS to help her get up and on evaluation she was noted to be hypoxic. Patient was brought into emergency room for further evaluation. On arrival she is in no distress and states she feels fine however she does have crackles all lung marcus and is hypoxic to 82% on room air. She is put on nasal cannula O2 chest x-ray confirms congestive type failure on chest x-ray. She has 4+ pitting edema bilateral legs which is difficult to tell if this is new or old. She is not septic and I do not see any clear evidence of infection at this time. Given hypoxia chest x-ray findings and her weakness and I cannot send her home. Hospitalist was then to evaluate her. Prior Medical Record and Triage/Nursing Notes reviewed by Me Additional history obtained from chart Differentials:Infection, dehydration, metabolic abnormality, hypo/hyperglycemia, electrolyte disturbance, anemia, hypoxia, cardiac sources, intracerebral event, toxicologic, neurologic, as well as other pathologies. Vital Signs: reviewed and remarkable for hypoxia Interventions: Nasal cannula O2, Lasix 40 mg IV Labs:Reviewed and remarkable for no significant abnormalities Imagin view chest x-ray diffuse congestive findings consistent with pulmonary edema EKG:Per My Interpretation: Indication Weakness: NSR 94 bpm, qtc 417, LBBB. No Ectopy. No Ischemia. Compared to EKG 01/25/21, no significant changes. Cardiac/Tele Monitoring: Cardiac Monitoring: An Order was placed for continuous cardiac monitoring. The monitor shows a rate of 90 with a normal sinus rhythm. Consults:Dr. Carloyn Gabriel hospitalist Plan: Disposition:Hospitalization. Condition: Good History of Present Illness:This is an 80-year-old female arrives for evaluation of generalized weakness. Patient notes she tripped on some toilet paper this morning and fell to the ground. She states that she feels very weak and had difficulty getting up. She denies any head injury or loss of consciousness. She has had no headaches nor neck pain. Patient has had no neurologic deficits. She states that she has been quite weak for some time and recently got out of [place]. She has been living at home with her daughter and states usually does pre tty well and has been eating and drinking without difficulty. She denies any other symptoms at this time. She has no hip pain or shoulder pain and denies any injuries. Patient does admit her leg edema has been gradually worsening. EMS arrived to help her up and noted her oxygen saturations had dropped into the low 80s. She was placed on nasal cannula O2 with improvement in her oxygen. Patient does state that the nasal cannula oxygen to make her feel better. Patient had Justin [employer] Justin vaccine previously for Covid vaccination. She has had no known sick contacts. States that exertion makes symptoms worse and rest makes them better. ROS: See above HPI for pertinent positives & negatives. A total of 10 systems reviewed and were otherwise negative. Past Medical History:Hyperlipidemia, hypertension, GERD, ambulatory dysfunction, obesity, asthma Past Surgical History:See Below Family History:States healthy Social History:Lives with daughter, no smoking, retired Home Medications:See Below Allergies:Succinylcholine, penicillin Vitals:Blood Pressure: 145/88, Pulse 90, RR 22, T 36.9C, O2 82% on RA Physical Exam: GENERAL: Patient is chronically unwell appearing and in no acute distress in good spirits, laughing with staff. Unkempt HEAD: AT/NC EYES: No scleral icterus, unremarkable pupils. ENT: Mucous membranes moist, no nasal congestion. NECK: No masses appreciated, nomeningismus, trachea is midline. RESPIRATORY: Mild tachypnea, crackles at bases. No wheeze CARDIOVASCULAR: Regular rate and rhythm.No murmurs, rubs, gallops appreciated. GASTROINTESTINAL: Abdomen soft, non-tender, no peritonitis.Bowel sounds positive.No masses appreciated. BACK: No midline tenderness, no CVA tenderness EXTREMITIES: Normal motion all extremities, no cyanosis, ++ bilateral pitting leg edema. NEUROLOGIC: Alert and oriented, no acute motor or sensory deficits, no focal weakness, cranial nerves grossly intact. SKIN: No rash, no jaundice, no diaphoresis. PSYCH: Appropriate GCS: 15 ED Course: Times/Reassessments: Patient quite joyful and in no distress throughout her ER visit. After placing on nasal cannula O2 her breathing appears much improved despite her saying that she does not feel any difference and that she has not had any shortness of breath throughout this all. She is however agreeable to hospitalization for further management. Ugo Swann MD Past Med/Surg History Medical History Asthma H/O: HTN (hypertension) Nasal fracture Reflux esophagitis Social History Smoking Status: Never smoker Hx Alcohol Use: No Hx Substance Use: No Preferred Language: Norwegian Communication Ability: Effective [employer] Required: No Beliefs That Will Affect Care: Worship Worship Beliefs: Synagogue Current Living Situation: Family Current Living Situation Comment: Lives with daughter Feels Safe at Home: Yes Assistive Devices: Glasses and Walker Allergies Allergies Allergy/AdvReac Type Severity Reaction Status Date / Time succinylcholine Allergy Severe CARDIAC Verified 06/25/21 12:12 ARREST Penicillins Allergy Unknown REDNESS,SWE Verified 01/25/21 20:43 LLING Home Meds Home Medications Medication Instructions Recorded Confirmed aspirin 81 mg tablet,delayed 81 mg PO DAILY 01/25/21 06/25/21 release calcium carbonate 500 mg-vitamin 1 tab PO DAILY 01/25/21 06/25/21 D3 3.125 mcg (125 unit) tablet cyclosporine 0.05 % eye drops in a 1 drp OPB AMPM 01/25/21 06/25/21 dropperette (Restasis) hydrochlorothiazide 25 mg tablet 25 mg PO DAILY 01/25/21 06/25/21 losartan 100 mg tablet 100 mg PO DAILY 01/25/21 06/25/21 simvastatin 20 mg tablet (Zocor) 20 mg PO PM 01/25/21 06/25/21 timolol maleate 0.5 % eye drops 1 drp OPB QAM 01/25/21 06/25/21 vitamin A-vitamin C-vit E-min 1 tab PO DAILY 06/25/21 06/25/21 tablet Results & Data (ED) Vital Signs Vital Signs - 24 hr 06/25/21 09:17 06/25/21 09:30 06/25/21 10:00 Temperature 36.9 C Temperature Source Oral Pulse Rate 101 H 100 H 99 H Pulse Rate [Right Finger] Pulse Rate from SpO2 Sensor 101 H 98 H Pulse Rhythm [Right Finger] Pulse Strength [Right Finger] Respiratory Rate 30 H 19 20 Respiratory Effort / Characteristics Non-Labored Respiratory Depth Normal Respiratory Pattern Regular Blood Pressure 159/66 H Blood Pressure [Right Arm] Blood Pressure Mean 97 Blood Pressure Mean [Right Arm] Blood Pressure Position [Right Arm] Pulse Oximetry 88 L 97 91 Oxygen Delivery Method Room Air Nasal Cannula Nasal Cannula Oxygen Flow Rate 3 3 Sepsis Recent Fever Within 48 Hours No Sepsis New/Unexplained Change in Mental Status No Sepsis Action Taken by Nursing Physician Notified 06/25/21 10:30 06/25/21 11:00 Temperature Temperature Source Pulse Rate 100 H Pulse Rate [Right Finger] 99 H Pulse Rate from SpO2 Sensor 100 H Pulse Rhythm [Right Finger] Regular Pulse Strength [Right Finger] Normal Respiratory Rate 27 H 18 Respiratory Effort / Characteristics Non-Labored Respiratory Depth Normal Respiratory Pattern Regular Blood Pressure 146/72 H Blood Pressure [Right Arm] 139/78 Blood Pressure Mean 96 Blood Pressure Mean [Right Arm] 98 Blood Pressure Position [Right Arm] Lying Pulse Oximetry 98 96 Oxygen Delivery Method Nasal Cannula Nasal Cannula Oxygen Flow Rate 3 2 Sepsis Recent Fever Within 48 Hours Sepsis New/Unexplained Change in Mental Status Sepsis Action Taken by Nursing Laboratory Data Result diagrams: 06/25/21 10:04 06/25/21 10:04 Lab Results 06/25/21 06/25/21 06/25/21 Range/Units 09:40 10:04 10:04 WBC 9.94 (4.8-10.8) K/uL RBC 3.27 L (4.2-5.4) M/uL Hgb 11.0 L (12.0-16.0) g/dL Hct 37.2 (37-47) % MCV 113.8 H (80-100) fL MCH 33.6 (25-34) pg MCHC 29.6 L (32-36) g/dL RDW Std Deviation 83.6 H (36.4-46.3) fL RDW Coeff of Lety 19.8 H (11.5-14.5) % Plt Count 387 (130-400) K/uL MPV 11.5 H (7.4-10.4) fL Immature Gran % (Auto) 0.6 % Neut % (Auto) 47.1 % Lymph % (Auto) 41.2 % Laurel % (Auto) 9.2 % Eos % (Auto) 1.5 % Baso % (Auto) 0.4 % Neut # (Auto) 4.68 (1.4-6.5) K/uL Lymph # (Auto) 4.10 H (1.2-3.4) K/uL Laurel # (Auto) 0.91 H (0.11-0.59) K/uL Eos # (Auto) 0.15 (0-0.5) K/uL Baso # (Auto) 0.04 (0-0.2) K/uL Immature Gran # (Auto) 0.06 H (0.00-0.02) K/uL Polychromasia 1+ Macrocytosis Present D-Dimer (0-500) ug/L FEU Sodium 138 (136-145) mmol/L Potassium 4.0 (3.5-5.1) mmol/L Chloride 98 (98-107) mmol/L Carbon Dioxide 37 H (21-32) mmol/L Anion Gap 3.0 (3-11) BUN 16 (7-18) mg/dl Creatinine 0.89 (0.6-1.2) mg/dl Est Cr Clr Drug Dosing 73.9 ml/min Est GFR ( Amer) 70.0 ml/min Est GFR (Non-Af Amer) 60.4 ml/min BUN/Creatinine Ratio 17.5 (10-20) Glucose 218 H (70-99) mg/dl Calcium 8.6 (8.5-10.1) mg/dl Magnesium (1.8-2.4) mg/dl Total Bilirubin 0.5 (0.2-1) mg/dl Direct Bilirubin 0.2 (0-0.2) mg/dl AST 16 (15-37) U/L ALT 25 (12-78) Alkaline Phosphatase 55 (45-117) U/L Troponin I < 0.015 (0-0.045) ng/ml NT-Pro-B Natriuret Pep 248 (0-1800) pg/ml Total Protein 6.7 (6.4-8.2) gm/dl Albumin 2.9 L (3.4-5.0) gm/dl Procalcitonin (0-0.5) ng/ml SARS-CoV-2 (PCR) NEGATIVE (Negative) Influenza Type A (PCR) Negative (Neg) Influenza Type B (PCR) Negative (Neg) RSV (RT-PCR) Negative (Neg) 06/25/21 06/25/21 06/25/21 Range/Units 10:04 12:17 12:17 WBC (4.8-10.8) K/uL RBC (4.2-5.4) M/uL Hgb (12.0-16.0) g/dL Hct (37-47) % MCV (80-100) fL MCH (25-34) pg MCHC (32-36) g/dL RDW Std Deviation (36.4-46.3) fL RDW Coeff of Lety (11.5-14.5) % Plt Count (130-400) K/uL MPV (7.4-10.4) fL Immature Gran % (Auto) % Neut % (Auto) % Lymph % (Auto) % Laurel % (Auto) % Eos % (Auto) % Baso % (Auto) % Neut # (Auto) (1.4-6.5) K/uL Lymph # (Auto) (1.2-3.4) K/uL Laurel # (Auto) (0.11-0.59) K/uL Eos # (Auto) (0-0.5) K/uL Baso # (Auto) (0-0.2) K/uL Immature Gran # (Auto) (0.00-0.02) K/uL Polychromasia Macrocytosis D-Dimer 2890 H* (0-500) ug/L FEU Sodium (136-145) mmol/L Potassium (3.5-5.1) mmol/L Chloride (98-107) mmol/L Carbon Dioxide (21-32) mmol/L Anion Gap (3-11) BUN (7-18) mg/dl Creatinine (0.6-1.2) mg/dl Est Cr Clr Drug Dosing ml/min Est GFR ( Amer) ml/min Est GFR (Non-Af Amer) ml/min BUN/Creatinine Ratio (10-20) Glucose (70-99) mg/dl Calcium (8.5-10.1) mg/dl Magnesium 2.3 (1.8-2.4) mg/dl Total Bilirubin (0.2-1) mg/dl Direct Bilirubin (0-0.2) mg/dl AST (15-37) U/L ALT (12-78) Alkaline Phosphatase (45-117) U/L Troponin I (0-0.045) ng/ml NT-Pro-B Natriuret Pep (0-1800) pg/ml Total Protein (6.4-8.2) gm/dl Albumin (3.4-5.0) gm/dl Procalcitonin 0.08 (0-0.5) ng/ml SARS-CoV-2 (PCR) (Negative) Influenza Type A (PCR) (Neg) Influenza Type B (PCR) (Neg) RSV (RT-PCR) (Neg) Administered Medications Discontinued Medications Furosemide (Furosemide 40 Mg/4 Ml Vial) 40 mg IV ONE ONE Stop: 06/25/21 11:50 Last Admin: 06/25/21 12:13 Dose: 40 mg Documented by: [id number] Imaging Data Radiologist's Impression: Chest X-Ray 06/25/21 09:15 XR chest 1V portable HISTORY: 80 years-old Female weakness hypoxia acute weakness with hypoxia COMPARISON: Chest radiograph 01/25/2021 TECHNIQUE: Portable AP view of the chest FINDINGS: Cardiac silhouette is enlarged. Pulmonary vascular congestion with mild interstitial coarsening. No pneumothorax or large pleural effusion. No lobar airspace consolidation. Degenerative changes of the shoulders and spine. Unchanged partially imaged sclerosis of the proximal left humerus. IMPRESSION: Cardiomegaly with pulmonary vascular congestion and new interstitial opacities suggestive of pulmonary edema versus interstitial pneumonitis. ACT 112: Negative or not required by law. The above report was generated using voice recognition software. It may contain grammatical, syntax or spelling errors. Electronically signed by: Carlos Krueger M.D. 06/25/2021 11:35 AM Discharge Plan Visit Data Chief Complaint: Fall ED Provider: Ugo Swann Discharge Problem: Fluid overload, Hypoxia, Generalized weakness, Fall Discharge Problem: Fluid overload Qualifiers: Hypervolemia type: other Qualified Code(s): E87.79 - Other fluid overload Fall Qualifiers: Encounter type: initial encounter Qualified Code(s): W19.XXXA - Unspecified fall, initial encounter
[2021-06-25 10:24] LABS: Influenza A virus by PCR Negative (Neg); Influenza B virus by PCR Negative (Neg); RSV by PCR Negative (Neg); SARS CoV2 RNA(COVID-19) InHosp NEGATIVE (Negative)
[2021-06-25 10:43] LABS: Alanine Aminotransferase 25 (12-78); Albumin Level 2.9 gm/dl (3.4-5.0); Aspartate Aminotransferase 16 U/L (15-37); BUN Creatinine Ratio 17.5 (10-20); Bilirubin Direct 0.2 mg/dl (0-0.2); Blood Urea Nitrogen 16 mg/dl (7-18); Calcium 8.6 mg/dl (8.5-10.1); Carbon Dioxide 37 mmol/L (21-32); Chloride 98 mmol/L (98-107); Creatinine Clr Calc Pharmacy 73.9 ml/min; Est GFR (Non-African American) 60.4 ml/min; Glucose 218 mg/dl (70-99); Sodium 138 mmol/L (136-145)
[2021-06-25 10:48] LABS: Alkaline Phosphatase 55 U/L (45-117); Bilirubin,Total 0.5 mg/dl (0.2-1); NT Pro B Type Natriuretic Pept 248 pg/ml (0-1800); Total Protein 6.7 gm/dl (6.4-8.2); Troponin I < 0.015 ng/ml (0-0.045)
[2021-06-25 10:50] LABS: Hematocrit (blood only) 37.2 % (37-47); Mean Corpuscular Hemoglobin 33.6 pg (25-34); Mean Corpuscular Hgb Conc 29.6 g/dL (32-36); Mean Corpuscular Volume 113.8 fL (80-100); Mean Platelet Volume 11.5 fL (7.4-10.4); Platelet Count 387 K/uL (130-400); RDW Coefficient of Variation 19.8 % (11.5-14.5); RDW Standard Deviation 83.6 fL (36.4-46.3); Red Blood Count 3.27 M/uL (4.2-5.4); White Blood Count 9.94 K/uL (4.8-10.8)
[2021-06-25 10:59] LABS: Basophils # (auto) 0.04 K/uL (0-0.2); Basophils % (auto) 0.4 %; Eosinophils # (auto) 0.15 K/uL (0-0.5); Eosinophils % (auto) 1.5 %; Immature Granulocytes # (auto) 0.06 K/uL (0.00-0.02); Immature Granulocytes % (auto) 0.6 %; Lymphocytes % (auto) 41.2 %; Macrocytosis Present; Monocytes # (auto) 0.91 K/uL (0.11-0.59); Monocytes % (auto) 9.2 %; Neutrophils # (auto) 4.68 K/uL (1.4-6.5); Neutrophils % (auto) 47.1 %; Polychromasia 1+
--- NOTE | 2021-06-25 11:36 | XRay Report ---
XR chest 1V portable HISTORY: 80 years-old Female weakness hypoxia acute weakness with hypoxia COMPARISON: Chest radiograph 01/25/2021 TECHNIQUE: Portable AP view of the chest FINDINGS: Cardiac silhouette is enlarged. Pulmonary vascular congestion with mild interstitial coarsening. No p neumothorax or large pleural effusion. No lobar airspace consolidation. Degenerative changes of the s houlders and spine. Unchanged partially imaged sclerosis of the proximal left humerus. IMPRESSION: Cardiomegaly with pulmonary vascular congestion and new interstitial opacities suggestive of pulmonary edema versus interstitial pneumonitis. ACT 112: Negative or not required by law. The above report was generated using voice recognition software. It may contain grammatical, syntax o r spelling errors. Electronically signed by: Carlos Krueger M.D. 06/25/2021 11:35 AM
[2021-06-25] MEDS ORDERED: FUROSEMIDE 40 MG/4 ML VIAL IV ONE (11:49)
--- NOTE | 2021-06-25 12:11 | History & Physical Report ---
Date of Service June 25, 2021 Assessment & Plan (1) Hypoxia: Plan: Secondary to CHF as below. Aim O2 sats > 90%. Suspect some degree of atelectasis as also hypoxia noted on prior admission on January. Procalcitonin negative for pneumonia. Elevated d-dimer - will get CT for PE to rule this out as a cause. (2) Acute congestive heart failure: Plan: BNP possibly low due to obesity TTE Lasix 40mg IV daily I&Os daily weights Low Na, Fluid restricted diet (3) Fall: Plan: Longstanding ambulatory dysfunction PT/OT evals (4) Hyperglycemia: Plan: Glucose 218 on admission. Not on any medications for diabetes. Will get HbA1C with AM labs Lantus 0-10 units BID depending on glucose < or > 180 Novolog: Goal BSG Range: Low 110 mg/dL, High 140 mg/dL Correction Factor: 45 mg/dL/unit Carbohydrate ratio = 15 g/unit BSGs ACHS if eating, q6h if npo (5) HTN (hypertension): Plan: Continue losartan with hold parameters sBP < 120. Holding HCTZ in favor of Lasix as above. (6) Hyperlipidemia: Plan: Continue simvastatin 20mg PO daily Plan: VTE Prophylaxis - deferred pending CT for PE Diet - heart healthy, T2DM, Low Na, Fluid restrict 1500ml Disposition - admit to med/tele Admission and Anticipated Discharge Date Admission Date: June 25, 2021 History of Present Illness Chief Complaint: Hypoxia, fall Primary Care Provider: Betty Resendiz MD Lavonne Chiu is an 80 year old female who presents to the ER after a ground level fall at her house. She lives with her daughter who called for an ambulance and was found to have O2 sats 80% on room air. The patient reports having multiple falls recently since her discharge in January. She denies any dizziness, chest pain or shortness of breath prior to falling. She denies any injuries as the result of the fall. She reports being unbalanced as the reason for her falling along with osteoarthritis in her knees making it difficult to move around. Despite her O2 sats of 80% on room air she reports no recent symptoms of worsening shortness of breath (she is chronically somewhat short of breath, cough, nasal congestion, fever or chills. In the ER CXR was concerning for pulmonary vascular congestion. She does note non-adherence to a low salt diet. She was treated with 40mg IV Lasix with already good diuretic response and referred to medicine for admission and ongoing management of hypoxia and CHF exacerbation. Allergies Allergy/AdvReac Type Severity Reaction Status Date / Time succinylcholine Allergy Severe CARDIAC Verified 06/25/21 12:12 ARREST Penicillins Allergy Unknown REDNESS,SWE Verified 01/25/21 20:43 LLING Home Medications Medication Instructions Recorded Confirmed Type aspirin 81 mg tablet,delayed 81 mg PO DAILY 01/25/21 06/25/21 History release calcium carbonate 500 mg-vitamin 1 tab PO DAILY 01/25/21 06/25/21 History D3 3.125 mcg (125 unit) tablet cyclosporine 0.05 % eye drops in a 1 drp OPB AMPM 01/25/21 06/25/21 History dropperette (Restasis) hydrochlorothiazide 25 mg tablet 25 mg PO DAILY 01/25/21 06/25/21 History losartan 100 mg tablet 100 mg PO DAILY 01/25/21 06/25/21 History simvastatin 20 mg tablet (Zocor) 20 mg PO PM 01/25/21 06/25/21 History timolol maleate 0.5 % eye drops 1 drp OPB QAM 01/25/21 06/25/21 History vitamin A-vitamin C-vit E-min 1 tab PO DAILY 06/25/21 06/25/21 History tablet Past Med/Surg History Medical History Asthma H/O: HTN (hypertension) Nasal fracture Reflux esophagitis Social History Smoking Status: Never smoker Hx Alcohol Use: No Hx Substance Use: No Preferred Language: Khmer Communication Ability: Effective Umbrella Finisher Required: No Beliefs That Will Affect Care: None Current Living Situation: Family Current Living Situation Comment: Lives with daughter Feels Safe at Home: Yes Assistive Devices: Cane Review of Systems Review of Systems: All systems reviewed & are unremarkable except as noted in HPI & below Physical Exam Constitutional: well developed and + morbidly obese; + not well nourished and no acute distress Eyes: PERRL, conjunctivae normal, anicteric sclerae ENMT: external ear and nose normal, oropharynx normal Neck: trachea midline Respiratory: normal respiratory effort; no respiratory distress Auscultation: + diminished lung sounds (bibasal); no crackles, no rales, no rhonchi and no wheezes Cardiovascular: Rate/Rhythm: regular rate and regular rhythm Heart Sounds: no murmur Vessels: no JVD (unable to adequately assess) Extremities: normal capillary refill and + pedal edema (trace pitting b/l equal pre-tibial); no calf tenderness Gastrointestinal (Abdomen): Inspection/Auscultation: normal bowel sounds Percussion/Palpation: abdomen soft; abdomen nontender, no guarding and abdomen not rigid Musculoskeletal: no cyanosis or clubbing, extremities motor strength 5/5 Skin: no rashes, warm and dry Neurologic: moves all extremities and awake; no focal motor deficits (no lateralizing deficit) and not confused Psychiatric: A+Ox3, euthymic affect Results & Data Results & Data ([facility]) Vital Signs (Past 12 Hours) Vital Signs Temp Pulse Pulse Resp BP BP Pulse Ox 06/25/21 11:00 99 H 18 139/78 96 06/25/21 10:30 100 H 27 H 146/72 H 98 06/25/21 10:00 99 H 20 91 06/25/21 09:30 100 H 19 97 06/25/21 09:17 36.9 C 101 H 30 H 159/66 H 88 L Laboratory Results Abnormal lab results 06/25/21 06/25/21 Range/Units 10:04 10:04 RBC 3.27 L (4.2-5.4) M/uL Hgb 11.0 L (12.0-16.0) g/dL MCV 113.8 H (80-100) fL MCHC 29.6 L (32-36) g/dL RDW Std Deviation 83.6 H (36.4-46.3) fL RDW Coeff of Lety 19.8 H (11.5-14.5) % MPV 11.5 H (7.4-10.4) fL Lymph # (Auto) 4.10 H (1.2-3.4) K/uL Graves # (Auto) 0.91 H (0.11-0.59) K/uL Immature Gran # (Auto) 0.06 H (0.00-0.02) K/uL Carbon Dioxide 37 H (21-32) mmol/L Glucose 218 H (70-99) mg/dl Albumin 2.9 L (3.4-5.0) gm/dl Diagnostic Findings XR chest 1V portable HISTORY: 80 years-old Female weakness hypoxia acute weakness with hypoxia COMPARISON: Chest radiograph 01/25/2021 TECHNIQUE: Portable AP view of the chest FINDINGS: Cardiac silhouette is enlarged. Pulmonary vascular congestion with mild interstitial coarsening. No pneumothorax or large pleural effusion. No lobar airspace consolidation. Degenerative changes of the shoulders and spine. Unchanged partially imaged sclerosis of the proximal left humerus. IMPRESSION: Cardiomegaly with pulmonary vascular congestion and new interstitial opacities suggestive of pulmonary edema versus interstitial pneumonitis. Medications Administered ER Medications Given: Lasix 40mg IV ECG Indication: other (hypoxia) Rate (beats per minute): 94 Rhythm: normal sinus Findings: + other (LVH with repolorization abnormality); no acute ischemic change Comparison ECG Date: from (January 25, 2021) Change: the following changes noted (QT has shortened) Code Status & VTE Plan Code Status No intubation or artificial ventilation, all other treatment including CPR VTE Prophylaxis Plan VTE Prophylaxis will be ordered: Yes PG Care Time/CCT Total # of Minutes Spent Total Time Spent with Patient: Total time spent is greater than 50% in coordination of care (as documented) at patient's floor/unit and/or counseling patient: Coding Level of Care Code 15618 Initial Inpt Care Lvl 3 Diagnoses Fall W19.XXXA Acute congestive heart failure I50.9 Hyperglycemia R73.9 Hypoxia R09.02 HTN (hypertension) I10 Hyperlipidemia E78.5
[2021-06-25 12:45] LABS: D Dimer 2890 ug/L FEU (0-500)
--- NOTE | 2021-06-25 14:26 | Electrocardiogram Report ---
Test Reason : Blood Pressure : / mmHG Vent. Rate : 094 BPM Atrial Rate : 094 BPM P-R Int : 206 ms QRS Dur : 110 ms QT Int : 334 ms P-R-T Axes : 075 -26 087 degrees QTc Int : 417 ms Normal sinus rhythm Left ventricular hypertrophy with repolarization abnormality Poor R wave progression, consider anterior SC vs. lead placement vs. LVH Abnormal ECG When compared with ECG of 25-JAN-2021 16:20, QT has shortened Confirmed by Lazaro Alvarado ([id number]) on 06/25/2021 2:26:18 PM Referred By: REFERRED SELF Confirmed By:Lazaro Alvarado
[2021-06-25] MEDS ORDERED: GLUCAGON FOR INJ 1 MG VIAL SQ PRN (14:45)
[2021-06-25] MEDS ORDERED: CARBOHYDRATES FOR HYPOGLYCEMIA PO PRN (14:45)
[2021-06-25] MEDS ORDERED: DEXTROSE 50% 50 ML SYRINGE IV PRN (14:45)
[2021-06-25] MEDS ORDERED: GLUCOSE 10 TABS/TUBE PO PRN (14:45)
[2021-06-25] MEDS ORDERED: GLUCOSE 40% GEL 15 GM TUBE PO PRN (14:45)
[2021-06-25] MEDS ORDERED: OPTIRAY 320 125ml IV ONE (18:37)
--- NOTE | 2021-06-25 19:10 | CT Scan Report ---
CT angio chest PE protocol CT DOSE: 795.45 mGy.cm HISTORY: 80 years-old Female with PE. Acute weakness with shortness of breath TECHNIQUE: Multiple CTA images of the chest were obtained after the intravenous administration of 120 ml Optiray. Coronal and sagittal MIPS were obtained from the axial data set and were submitted for review. All measurements were obtained according to NASCET criteria. A dose lowering technique was u tilized adhering to the principles of ALARA. COMPARISON: Chest radiograph of same day FINDINGS: CTA: Moderate cardiomegaly. Extensive coronary artery calcifications. No thoracic aortic aneurysm or disse ction. Patency of the imaged great vessels. Suboptimal evaluation of the pulmonary artery segmental a nd subsegmental branches secondary to respiratory motion artifact and contrast bolus timing. There ar e however pulmonary emboli noted within the right upper lobe segmental branches. No evidence of right heart strain. CT CHEST: Multinodular thyroid. Nodules in the right thyroid measuring up to 1.6 cm. No adenopathy. Trace right pleural effusion. Respiratory motion artifact limits evaluation of lung parenchyma. Linear bibasilar consolidative densities are compatible with atelectasis. Bilateral bronchial wall thickening. Ill-de fined groundglass opacities of the bilateral lungs with areas of air trapping. Moderately decreased t ransverse dimension of the upper thoracic trachea at the level of the thyroid. No acute process of the imaged upper abdomen. Unremarkable soft tissues. Partially imaged mixed lucen t and sclerotic lesion of the proximal left humerus. Multilevel spondylitic spurring of the spine. IMPRESSION: 1. Segmental pulmonary emboli of the right upper lobe. 2. Trace right pleural effusion with bibasilar atelectasis. 3. Bronchial wall thickening suggestive of bronchitis with bilateral groundglass densities likely rep resenting additional areas of atelectasis. An infectious or inflammatory pneumonitis considered less likely. 4. Cardiomegaly. ACT 112: Negative or not required by law. The above report was generated using voice recognition software. It may contain grammatical, syntax o r spelling errors. Electronically signed by: Carlos Krueger M.D. 06/25/2021 7:09 PM
[2021-06-25] MEDS ORDERED: ENOXAPARIN 1 MG/KG SQ SCH (20:00)
[2021-06-25] MEDS: INSULIN ASPART PER UNIT SC SCH ×2 (20:00→21:55)
[2021-06-25] MEDS ORDERED: Heparin IV Adult Wt-Based Standard WITH Bolus Protocol IV ONE (20:30)
[2021-06-25] MEDS ORDERED: Heparin IV Adult Wt-Based Standard WITH Bolus Protocol IV STA (20:45)
[2021-06-25] MEDS: HEPARIN SOD (PORCINE) 1000 UNIT/ML IV ONE ×2 (21:32→22:32)
[2021-06-25] MEDS: HEPARIN SODIUM/DEXTROSE 25,000 UNITS/500 ML BAG IV SCH ×2 (21:33→22:32)
[2021-06-25 22:08] LABS: Partial Thromboplastin Ratio 0.9; Partial Thromboplastin Time 22.7 Seconds (21.0-31.0); Prothrombin Time 10.2 Seconds (9.0-12.0)
[2021-06-25] MEDS: SIMVASTATIN 20 MG TAB PO SCH (22:11)
[2021-06-25] MEDS: INSULIN GLARGINE SOLOSTAR 100 UNITS/ML 3 ML PEN SC SCH (23:48)
[2021-06-26 05:23] LABS: Calcium 8.4 mg/dl (8.5-10.1); Creatinine Clr Calc Pharmacy 71.2 ml/min; Est GFR (African American) 68.1 ml/min; Est GFR (Non-African American) 58.8 ml/min
[2021-06-26 05:25] LABS: Partial Thromboplastin Ratio 3.3
[2021-06-26 05:35] LABS: Partial Thromboplastin Time 85.7 Seconds (21.0-31.0)
[2021-06-26 06:47] LABS: Hematocrit (blood only) 33.2 % (37-47); Hemoglobin 9.9 g/dL (12.0-16.0); Mean Corpuscular Hemoglobin 34.3 pg (25-34); Mean Corpuscular Hgb Conc 29.8 g/dL (32-36); Mean Corpuscular Volume 114.9 fL (80-100); Mean Platelet Volume 11.1 fL (7.4-10.4); Platelet Count 363 K/uL (130-400); RDW Coefficient of Variation 19.7 % (11.5-14.5); Red Blood Count 2.89 M/uL (4.2-5.4); White Blood Count 11.23 K/uL (4.8-10.8)
[2021-06-26 07:00] LABS: Anisocytosis Present; Basophilic Stippling 1+; Basophils # (auto) 0.03 K/uL (0-0.2); Basophils % (auto) 0.3 %; Eosinophils # (auto) 0.13 K/uL (0-0.5); Eosinophils % (auto) 1.2 %; Immature Granulocytes # (auto) 0.06 K/uL (0.00-0.02); Immature Granulocytes % (auto) 0.5 %; Lymphocytes # (auto) 6.78 K/uL (1.2-3.4); Lymphocytes % (auto) 60.4 %; Macrocytosis Present; Monocytes # (auto) 1.18 K/uL (0.11-0.59); Monocytes % (auto) 10.5 %; Neutrophils # (auto) 3.05 K/uL (1.4-6.5); Neutrophils % (auto) 27.1 %; Polychromasia 1+
[2021-06-26 07:44] LABS: Estimated Average Glucose 203 mg/dl; Hemoglobin A1C 8.7 % (4.5-5.6)
[2021-06-26] MEDS ORDERED: INFLUENZA VACCINE HIGH DOSE PF 65+ 0.7 ML SYR IM ONE (08:00)
[2021-06-26 09:03] LABS: Ferritin 39.5 ng/ml (8-388)
[2021-06-26] MEDS: FUROSEMIDE 40 MG/4 ML VIAL IV SCH (09:10)
[2021-06-26] MEDS: CALCIUM 600MG + VIT D 400 IU TAB PO SCH (09:10)
[2021-06-26] MEDS: LOSARTAN POTASSIUM 50 MG TAB PO SCH (09:10)
[2021-06-26] MEDS: ASPIRIN 81 MG ECTAB PO SCH (09:10)
[2021-06-26] MEDS: MULTIVITAMIN TAB PO SCH (09:10)
[2021-06-26] MEDS: TIMOLOL MALEATE 0.5% OP SOLN 5 ML BTL OPB SCH (09:10)
[2021-06-26] MEDS: INSULIN GLARGINE SOLOSTAR 100 UNITS/ML 3 ML PEN SC SCH ×2 (09:11→21:21)
[2021-06-26] MEDS: INSULIN ASPART PER UNIT SC SCH ×4 (09:13→21:20)
[2021-06-26 10:34] LABS: Folate (Folic Acid) > 20.00 ng/ml (>5.38); Vitamin B12 323 pg/ml (193-986)
--- NOTE | 2021-06-26 12:20 | Hospitalist Progress Note ---
Date of Service June 26, 2021 Assessment & Plan (1) Acute congestive heart failure: Plan: Acute on chronic diastolic heart failure. Echo on 06/25 showed EF 70% with diastolic dysfunction. - Continue Lasix 40mg IV daily - Continue I&Os, daily weights, low Na, fluid-restricted diet -> Improving today, but still on O2. But reports her breathing is "a lot" better. (2) Pulmonary embolism: Plan: CTA chest on 06/25 showed a segmental pulmonary emboli of the right upper lobe. She also reports father and both brothers had VTE at younger ages (50 - 60) range, but has never had any familial work-up. - Started on heparin gtt in the ER. - Will discuss with Dr. Morris regarding benefits of warfarin vs. DOAC given age, CrCl ~60, and obesity. (3) Hypoxia: Plan: Secondary to CHF and PE. Aim O2 sats > 90%. (4) Fall: Plan: Longstanding ambulatory dysfunction. - PT/OT evals (5) Hyperglycemia: Plan: Not on any medications for diabetes. A1c was 8.7% this admission. Now officially diagnosed with diabetes. - Sliding scale insulin (6) HTN (hypertension): Plan: BP today is 140/65. - Continue losartan - Holding HCTZ in favor of Lasix as above. (7) Hyperlipidemia: Plan: - Continue simvastatin 20mg PO daily Admission and Anticipated Discharge Date Admission Date: June 25, 2021 Subjective Doing well today. No major issues. Feels she is breathing much better today. Reports no fevers/chills, chest pain, shortness of breath, abdominal pain, nausea, or vomiting. Physical Exam 2 Constitutional: WD/WN, vitals as above Eyes: EOM intact bilaterally; no conjunctival abnormality ENMT: external ear and nose normal, oropharynx normal Neck: trachea midline, no thyromegaly normal visual inspection Respiratory: normal respiratory effort, lungs clear to auscultation no respiratory distress Cardiovascular: RRR, no murmur, no edema Gastrointestinal (Abdomen): Inspection/Auscultation: abdomen normal to inspection; abdomen not distended Musculoskeletal: no cyanosis or clubbing, extremities motor strength 5/5 Skin: no rashes, warm and dry Neurologic: moves all extremities and awake Psychiatric: Orientation: alert, oriented to person and cooperative Results & Data Results & Data ([facility]) Vital Signs (Past 12 Hours) Vital Signs Temp Pulse Resp BP Pulse Ox 06/26/21 11:03 37.1 C 78 20 141/66 H 97 06/26/21 07:49 37.1 C 100 H 22 137/62 97 06/26/21 03:00 95 H 26 H 105/74 97 PG Care Time/CCT Total # of Minutes Spent Total Time Spent with Patient: Total time spent is greater than 50% in coordination of care (as documented) at patient's floor/unit and/or counseling patient: Coding Level of Care Code 97843 Subseq Hosp Care Lvl 3 Diagnoses Hypoxia R09.02 Acute congestive heart failure I50.9 Fall W19.XXXA Hyperglycemia R73.9 HTN (hypertension) I10 Hyperlipidemia E78.5 Pulmonary embolism I26.99
[2021-06-26 13:06] LABS: Partial Thromboplastin Ratio 2.1
[2021-06-26 13:07] LABS: Partial Thromboplastin Time 54.4 Seconds (21.0-31.0)
[2021-06-26] MEDS: HEPARIN SODIUM/DEXTROSE 25,000 UNITS/500 ML BAG IV SCH (15:07)
[2021-06-26] MEDS: WARFARIN SOD 7.5 MG TAB PO SCH (16:22)
[2021-06-26] MEDS: SIMVASTATIN 20 MG TAB PO SCH (21:21)
[2021-06-27 06:07] LABS: Hematocrit (blood only) 31.5 % (37-47); Hemoglobin 9.5 g/dL (12.0-16.0); Mean Corpuscular Hemoglobin 34.1 pg (25-34); Mean Corpuscular Hgb Conc 30.2 g/dL (32-36); Mean Corpuscular Volume 112.9 fL (80-100); Mean Platelet Volume 10.9 fL (7.4-10.4); Platelet Count 347 K/uL (130-400); RDW Coefficient of Variation 19.6 % (11.5-14.5); RDW Standard Deviation 80.4 fL (36.4-46.3); Red Blood Count 2.79 M/uL (4.2-5.4); White Blood Count 11.98 K/uL (4.8-10.8)
[2021-06-27 06:30] LABS: Partial Thromboplastin Ratio 1.8; Prothrombin Time 10.4 Seconds (9.0-12.0)
[2021-06-27 06:35] LABS: BUN Creatinine Ratio 25.8 (10-20); Calcium 8.6 mg/dl (8.5-10.1); Creatinine Clr Calc Pharmacy 78.3 ml/min; Est GFR (African American) 76.1 ml/min; Est GFR (Non-African American) 65.7 ml/min; Magnesium 1.9 mg/dl (1.8-2.4); Potassium 3.6 mmol/L (3.5-5.1)
[2021-06-27 06:40] LABS: Partial Thromboplastin Time 47.1 Seconds (21.0-31.0)
[2021-06-27] MEDS: HEPARIN SODIUM/DEXTROSE 25,000 UNITS/500 ML BAG IV SCH (07:14)
[2021-06-27] MEDS: FUROSEMIDE 40 MG/4 ML VIAL IV SCH (08:12)
[2021-06-27] MEDS: TIMOLOL MALEATE 0.5% OP SOLN 5 ML BTL OPB SCH (08:12)
[2021-06-27] MEDS: ASPIRIN 81 MG ECTAB PO SCH (08:12)
[2021-06-27] MEDS: MULTIVITAMIN TAB PO SCH (08:12)
[2021-06-27] MEDS: LOSARTAN POTASSIUM 50 MG TAB PO SCH (08:12)
[2021-06-27] MEDS: CALCIUM 600MG + VIT D 400 IU TAB PO SCH (08:13)
[2021-06-27] MEDS: CYANOCOBALAMIN 500 MCG TABLET (VITAMIN B-12) PO SCH (08:13)
[2021-06-27] MEDS: INSULIN ASPART PER UNIT SC SCH ×5 (08:25→22:55)
[2021-06-27] MEDS: INSULIN GLARGINE SOLOSTAR 100 UNITS/ML 3 ML PEN SC SCH ×2 (08:25→22:12)
--- NOTE | 2021-06-27 13:11 | Hospitalist Progress Note ---
Date of Service June 27, 2021 Assessment & Plan (1) Acute congestive heart failure: Plan: Acute on chronic diastolic heart failure. Echo on 06/25 showed EF 70% with diastolic dysfunction. - Continue Lasix 40mg IV daily - Continue I&Os, daily weights, low Na, fluid-restricted diet -> Improving today, but still on O2. But reports her breathing is "a lot" better. Weight is down to 1258 kg on bedside scale. (2) Pulmonary embolism: Plan: CTA chest on 06/25 showed a segmental pulmonary emboli of the right upper lobe. She also reports father and both brothers had VTE at younger ages (50 - 60) [place], but has never had any familial work-up. - Started on heparin gtt in the ER. - Discussed with Dr. Morris on 06/26 regarding benefits of warfarin vs. DOAC given age, CrCl ~60, and obesity. Feels warfarin is more appropriate for weight > 150 kg. (3) Hypoxia: Plan: Secondary to CHF and PE. Aim O2 sats > 90%. (4) Fall: Plan: Longstanding ambulatory dysfunction. - PT/OT evals recommend SNF. Presently patient not willing to entertain SNF. She does have capability to make decisions. Daughter (with whom she lives) also in agreement that she will make up her own mind. (5) Hyperglycemia: Plan: Not on any medications for diabetes. A1c was 8.7% this admission. Now officially diagnosed with diabetes. - Sliding scale insulin - BSs have been 145 - 190 in last 24 hours. (6) Anemia: Plan: Macrocytic. MCV up to 114 on 06/26. B12 was low-normal at 330 on 06/26. - Started cyanocobalamin (7) HTN (hypertension): Plan: BP today is 135/75. - Continue losartan - Holding HCTZ in favor of Lasix as above. (8) Hyperlipidemia: Plan: - Continue simvastatin 20mg PO daily Admission and Anticipated Discharge Date Admission Date: June 25, 2021 Subjective Doing well today. No major issues. Feels she is breathing much better today. Arms and legs are less swollen today. Reports no fevers/chills, chest pain, shortness of breath, abdominal pain, nausea, or vomiting. Physical Exam Constitutional: WD/WN, vitals as above Eyes: EOM intact bilaterally; no conjunctival abnormality ENMT: external ear and nose normal, oropharynx normal Neck: trachea midline, no thyromegaly normal visual inspection Respiratory: normal respiratory effort, lungs clear to auscultation no respiratory distress Cardiovascular: RRR, no murmur, no edema Gastrointestinal (Abdomen): Inspection/Auscultation: abdomen normal to inspection; abdomen not distended Musculoskeletal: no cyanosis or clubbing, extremities motor strength 5/5 Skin: no rashes, warm and dry Neurologic: moves all extremities and awake Psychiatric: Orientation: alert, oriented to person and cooperative Results & Data Results & Data ([facility]) Vital Signs (Past 12 Hours) Vital Signs Temp Pulse Pulse Resp BP BP Pulse Ox 06/27/21 10:43 37.1 C 91 H 136/74 93 06/27/21 07:17 37.3 C 92 H 18 146/69 H 90 06/27/21 04:21 97 H 06/27/21 04:00 37 C 97 H 18 134/65 95 PG Care Time/CCT Total # of Minutes Spent Total Time Spent with Patient: Total time spent is greater than 50% in coordination of care (as documented) at patient's floor/unit and/or counseling patient: Coding Level of Care Code 10934 Subseq Hosp Care Lvl 3 Diagnoses Acute congestive heart failure I50.9 Pulmonary embolism I26.99 Hypoxia R09.02 Fall W19.XXXA Hyperglycemia R73.9 HTN (hypertension) I10 Hyperlipidemia E78.5 Anemia D64.9
[2021-06-27 13:41] LABS: Partial Thromboplastin Ratio 1.5; Partial Thromboplastin Time 38.2 Seconds (21.0-31.0)
[2021-06-27] MEDS: METOPROLOL TARTRATE 25 MG TAB PO SCH ×3 (14:50→22:38)
[2021-06-27] MEDS: WARFARIN SOD 7.5 MG TAB PO SCH (17:05)
[2021-06-27] MEDS ORDERED: HALOPERIDOL DECANOATE INJ 50 MG/ML VIAL IM ONE (20:26)
[2021-06-27 20:35] LABS: Partial Thromboplastin Ratio 1.8
[2021-06-27 20:52] LABS: Partial Thromboplastin Time 46.8 Seconds (21.0-31.0)
[2021-06-27] MEDS ORDERED: METOPROLOL TARTRATE 1 MG/ML VIAL IV STA (21:47)
--- NOTE | 2021-06-27 21:49 | Communication Note ---
Date of Service: June 27, 2021 Contacted by nursing due to patient calling out to "[facility]", being rude to staff, refusing evening medications. Had conversation with the patient, at first is rude to me. Later states that she has had a bad day and agrees to take medications. Alert and oriented during this episode on conversation. She reports that Glo is her daughter.
[2021-06-27] MEDS: EUCERIN CR 120 GM JAR EXT SCH ×2 (22:11→22:43)
[2021-06-27] MEDS: SIMVASTATIN 20 MG TAB PO SCH ×2 (22:11→22:41)
[2021-06-28] MEDS: HEPARIN SODIUM/DEXTROSE 25,000 UNITS/500 ML BAG IV SCH ×3 (01:20→16:39)
[2021-06-28] MEDS ORDERED: MICONAZOLE NITRATE POWDER 43 GM EXT PRN (05:02)
[2021-06-28] MEDS: EUCERIN CR 120 GM JAR EXT SCH ×2 (07:32→21:04)
[2021-06-28] MEDS: METOPROLOL TARTRATE 25 MG TAB PO SCH ×3 (07:32→21:04)
[2021-06-28] MEDS: TIMOLOL MALEATE 0.5% OP SOLN 5 ML BTL OPB SCH (07:32)
[2021-06-28] MEDS: MULTIVITAMIN TAB PO SCH (07:33)
[2021-06-28] MEDS: CALCIUM 600MG + VIT D 400 IU TAB PO SCH (07:33)
[2021-06-28] MEDS: ASPIRIN 81 MG ECTAB PO SCH (07:33)
[2021-06-28] MEDS: CYANOCOBALAMIN 500 MCG TABLET (VITAMIN B-12) PO SCH (07:33)
[2021-06-28] MEDS: LOSARTAN POTASSIUM 50 MG TAB PO SCH (07:33)
[2021-06-28] MEDS: INSULIN ASPART PER UNIT SC SCH ×4 (08:10→21:09)
[2021-06-28] MEDS: INSULIN GLARGINE SOLOSTAR 100 UNITS/ML 3 ML PEN SC SCH ×2 (08:11→21:05)
[2021-06-28 08:48] LABS: Hematocrit (blood only) 32.5 % (37-47); Hemoglobin 9.9 g/dL (12.0-16.0); Mean Corpuscular Hemoglobin 34.5 pg (25-34); Mean Corpuscular Hgb Conc 30.5 g/dL (32-36); Mean Corpuscular Volume 113.2 fL (80-100); Mean Platelet Volume 11.4 fL (7.4-10.4); Platelet Count 350 K/uL (130-400); RDW Coefficient of Variation 19.7 % (11.5-14.5); RDW Standard Deviation 80.8 fL (36.4-46.3); Red Blood Count 2.87 M/uL (4.2-5.4); White Blood Count 9.25 K/uL (4.8-10.8)
[2021-06-28] MEDS: FUROSEMIDE 40 MG/4 ML VIAL IV SCH (08:50)
[2021-06-28 08:56] LABS: INR 1.1 (0.9-1.1); Partial Thromboplastin Ratio 2.6; Prothrombin Time 11.5 Seconds (9.0-12.0)
[2021-06-28 09:06] LABS: BUN Creatinine Ratio 33.2 (10-20); Calcium 8.6 mg/dl (8.5-10.1); Creatinine Clr Calc Pharmacy 73.8 ml/min; Est GFR (African American) 70.9 ml/min; Est GFR (Non-African American) 61.2 ml/min; Magnesium 1.9 mg/dl (1.8-2.4); Potassium 3.4 mmol/L (3.5-5.1)
[2021-06-28 09:25] LABS: Partial Thromboplastin Time 67.2 Seconds (21.0-31.0)
--- NOTE | 2021-06-28 14:01 | Hospitalist Progress Note ---
Date of Service June 28, 2021 Assessment & Plan (1) Acute congestive heart failure: Plan: Acute on chronic diastolic heart failure. Echo on 06/25 showed EF 70% with diastolic dysfunction. - Switch to Lasix 40mg PO daily - Continue I&Os, daily weights, low Na, fluid-restricted diet - Cr remaining stable. -> Improving today, but still on O2. But reports her breathing is "a lot" better. Weight is down to 158 kg on bedside scale. Will ask for standing weight. (2) Pulmonary embolism: Plan: CTA chest on 06/25 showed a segmental pulmonary emboli of the right upper lobe. She also reports father and both brothers had VTE at younger ages (50 - 60) range, but has never had any familial work-up. - Started on heparin gtt in the ER. - Discussed with Dr. Morris on 06/26 regarding benefits of warfarin vs. DOAC given age, CrCl ~60, and obesity. Feels warfarin is more appropriate for weight > 150 kg. -> INR is 1.1 today. (3) Hypoxia: Plan: Secondary to CHF and PE. Aim O2 sats > 90%. (4) Fall: Plan: Longstanding ambulatory dysfunction. - PT/OT evals recommend SNF. Presently patient not willing to entertain SNF. She does have capability to make decisions. Daughter (with whom she lives) also in agreement that she will make up her own mind. (5) Hyperglycemia: Plan: Not on any medications for diabetes. A1c was 8.7% this admission. Now officially diagnosed with diabetes. - Sliding scale insulin - BSs have been 130 - 150 in last 24 hours. (6) Anemia: Plan: Macrocytic. MCV up to 114 on 06/26. B12 was low-normal at 330 on 06/26. - Started cyanocobalamin - Hgb up slightly today. (7) HTN (hypertension): Plan: BP today is 100/65. - Continue losartan - Holding HCTZ in favor of Lasix as above. (8) Hyperlipidemia: Plan: - Continue simvastatin 20mg PO daily Admission and Anticipated Discharge Date Admission Date: June 25, 2021 Subjective Doing well today. Reports no fevers/chills, chest pain, shortness of breath, abdominal pain, nausea, or vomiting. Physical Exam Constitutional: WD/WN, vitals as above Eyes: EOM intact bilaterally; no conjunctival abnormality ENMT: external ear and nose normal, oropharynx normal Neck: trachea midline, no thyromegaly normal visual inspection Respiratory: normal respiratory effort, lungs clear to auscultation no respiratory distress Cardiovascular: RRR, no murmur, no edema Gastrointestinal (Abdomen): Inspection/Auscultation: abdomen normal to inspection; abdomen not distended Musculoskeletal: no cyanosis or clubbing, extremities motor strength 5/5 Skin: no rashes, warm and dry Neurologic: moves all extremities and awake Psychiatric: Orientation: alert, oriented to person and cooperative Results & Data Results & Data ([facility]) Vital Signs (Past 12 Hours) Vital Signs Temp Pulse Resp BP BP Pulse Ox 06/28/21 11:03 36.4 C L 78 18 103/65 95 06/28/21 07:40 36.7 C 96 H 17 150/65 H 95 06/28/21 04:13 37.2 C 91 H 18 129/73 94 PG Care Time/CCT Total # of Minutes Spent Total Time Spent with Patient: Total time spent is greater than 50% in coordination of care (as documented) at patient's floor/unit and/or counseling patient: Coding Level of Care Code 71278 Subseq Hosp Care Lvl 2 Diagnoses Acute congestive heart failure I50.9 Pulmonary embolism I26.99 Hypoxia R09.02 Fall W19.XXXA Hyperglycemia R73.9 Anemia D64.9 HTN (hypertension) I10 Hyperlipidemia E78.5
[2021-06-28] MEDS ORDERED: POTASSIUM CHLORIDE CRTAB 20 MEQ TABCR PO STA (14:02)
[2021-06-28] MEDS: ACETAMINOPHEN 325 MG TAB PO PRN ×2 (14:29→21:05)
[2021-06-28 16:04] LABS: Partial Thromboplastin Ratio 2.6
[2021-06-28 16:18] LABS: Partial Thromboplastin Time 67.5 Seconds (21.0-31.0)
[2021-06-28] MEDS: WARFARIN SOD 5 MG TAB PO SCH (17:05)
[2021-06-28] MEDS: SIMVASTATIN 20 MG TAB PO SCH (21:04)
[2021-06-28 23:14] LABS: Partial Thromboplastin Ratio 2.6
[2021-06-28 23:46] LABS: Partial Thromboplastin Time 67.8 Seconds (21.0-31.0)
[2021-06-29 05:42] LABS: Hematocrit (blood only) 31.6 % (37-47); Hemoglobin 9.6 g/dL (12.0-16.0); Mean Corpuscular Hemoglobin 34.5 pg (25-34); Mean Corpuscular Hgb Conc 30.4 g/dL (32-36); Mean Corpuscular Volume 113.7 fL (80-100); Mean Platelet Volume 10.9 fL (7.4-10.4); Platelet Count 353 K/uL (130-400); RDW Coefficient of Variation 19.4 % (11.5-14.5); RDW Standard Deviation 81.4 fL (36.4-46.3); Red Blood Count 2.78 M/uL (4.2-5.4); White Blood Count 9.49 K/uL (4.8-10.8)
[2021-06-29 06:08] LABS: INR 1.3 (0.9-1.1); Partial Thromboplastin Ratio 2.4; Prothrombin Time 13.3 Seconds (9.0-12.0)
[2021-06-29 06:11] LABS: BUN Creatinine Ratio 30.2 (10-20); Calcium 8.6 mg/dl (8.5-10.1); Creatinine Clr Calc Pharmacy 45.4 ml/min; Est GFR (African American) 39.4 ml/min; Magnesium 2.1 mg/dl (1.8-2.4); Partial Thromboplastin Time 62.4 Seconds (21.0-31.0)
[2021-06-29] MEDS: CALCIUM 600MG + VIT D 400 IU TAB PO SCH (08:15)
[2021-06-29] MEDS: METOPROLOL TARTRATE 25 MG TAB PO SCH ×3 (08:15→21:08)
[2021-06-29] MEDS: LOSARTAN POTASSIUM 50 MG TAB PO SCH (08:15)
[2021-06-29] MEDS: ASPIRIN 81 MG ECTAB PO SCH (08:15)
[2021-06-29] MEDS: CYANOCOBALAMIN 500 MCG TABLET (VITAMIN B-12) PO SCH (08:15)
[2021-06-29] MEDS: MULTIVITAMIN TAB PO SCH (08:16)
[2021-06-29] MEDS: TIMOLOL MALEATE 0.5% OP SOLN 5 ML BTL OPB SCH (08:16)
[2021-06-29] MEDS: INSULIN GLARGINE SOLOSTAR 100 UNITS/ML 3 ML PEN SC SCH ×2 (08:17→21:08)
[2021-06-29] MEDS: EUCERIN CR 120 GM JAR EXT SCH ×2 (08:17→21:07)
[2021-06-29] MEDS: INSULIN ASPART PER UNIT SC SCH ×4 (08:18→21:08)
[2021-06-29] MEDS ORDERED: FUROSEMIDE 40 MG TAB PO SCH (09:00)
[2021-06-29] MEDS: HEPARIN SODIUM/DEXTROSE 25,000 UNITS/500 ML BAG IV SCH (10:35)
[2021-06-29] MEDS ORDERED: INFLUENZA VACCINE HIGH DOSE PF 65+ 0.7 ML SYR IM ONE (12:00)
--- NOTE | 2021-06-29 16:36 | Hospitalist Progress Note ---
Date of Service June 29, 2021 Assessment & Plan (1) Acute congestive heart failure: Plan: Acute on chronic diastolic heart failure. Echo on 06/25 showed EF 70% with diastolic dysfunction. - Switched to Lasix 40mg PO daily on 06/29. - Continue I&Os, daily weights, low Na, fluid-restricted diet - Cr jumped today. -> Hold Lasix tomorrow. Will likely need 40 mg PO daily once MOJGAN resolved. (2) Pulmonary embolism: Plan: CTA chest on 06/25 showed a segmental pulmonary emboli of the right upper lobe. She also reports father and both brothers had VTE at younger ages (50 - 60) range, but has never had any familial work-up. - Started on heparin gtt in the ER. - Discussed with Dr. Morris on 06/26 regarding benefits of warfarin vs. DOAC given age, CrCl ~60, and obesity. Feels warfarin is more appropriate for weight > 150 kg. -> INR is 1.3 today. -> Once ready for discharge, could consider Lovenox. Pharmacy reports their usual max dose is 150 mg SQ Q12h, so she's right on the cusp of this and could probably just go with 150 mg dosing. (3) Atrial fibrillation: Plan: Three hours of afib on 06/28 with rates up to 120s. Self-converted; no further episodes. - Continue metoprolol 12.5 mg PO TID -> Convert to long-acting tomorrow AM - Already on anticoagulation for PE. (4) Hypoxia: Plan: Secondary to CHF and PE. Aim O2 sats > 90%. - Weaned down to room air on 06/29. (5) Fall: Plan: Longstanding ambulatory dysfunction. - PT/OT evals recommend SNF. Presently patient not willing to entertain SNF. She does have capability to make decisions. Daughter (with whom she lives) also in agreement that she will make up her own mind. (6) Hyperglycemia: Plan: Not on any medications for diabetes. A1c was 8.7% this admission. Now officially diagnosed with diabetes. - Sliding scale insulin - BSs have been 130 - 150 in last 24 hours. (7) Anemia: Plan: Macrocytic. MCV up to 114 on 06/26. B12 was low-normal at 330 on 06/26. - Started cyanocobalamin - Hgb stable today. (8) HTN (hypertension): Plan: BP today is 120/80. - Hold losartan tomorrow for MOJGAN. - Continue beta-nando as above - Holding HCTZ in favor of Lasix as above. (9) Hyperlipidemia: Plan: - Continue simvastatin 20mg PO daily Plan: Dispo: Patient wants to go home. She lives with her daughter Glo. Glo says "[Patient] will make up her own mind," but also seems uninterested in how patient is doing or how patient will do at home. She told me to call her brother Manjit. Left HIPPA-compliant VM on listed # as the VM had no personalized message. Unclear to me if family will be willing to do Lovenox injections at home, and I do not think patient can do it by herself. Admission and Anticipated Discharge Date Admission Date: June 25, 2021 Subjective Doing well today. No major issues today. Feels swelling is still good. Reports no fevers/chills, chest pain, shortness of breath, abdominal pain, nausea, or vomiting. Physical Exam Constitutional: WD/WN, vitals as above Eyes: EOM intact bilaterally; no conjunctival abnormality ENMT: external ear and nose normal, oropharynx normal Neck: trachea midline, no thyromegaly normal visual inspection Respiratory: normal respiratory effort, lungs clear to auscultation no respiratory distress Cardiovascular: RRR, no murmur, no edema Gastrointestinal (Abdomen): Inspection/Auscultation: abdomen normal to inspection; abdomen not distended Musculoskeletal: no cyanosis or clubbing, extremities motor strength 5/5 Skin: no rashes, warm and dry Neurologic: moves all extremities and awake Psychiatric: Orientation: alert, oriented to person and cooperative Results & Data Results & Data ([facility]) Vital Signs (Past 12 Hours) Vital Signs Temp Pulse Pulse Resp BP Pulse Ox 06/29/21 16:03 36.8 C 82 18 122/78 96 06/29/21 15:21 84 06/29/21 11:18 37.2 C 80 18 137/81 96 06/29/21 07:58 81 06/29/21 07:46 36.8 C 83 20 124/71 94 PG Care Time/CCT Total # of Minutes Spent Total Time Spent with Patient: Total time spent is greater than 50% in coordination of care (as documented) at patient's floor/unit and/or counseling patient: Coding Level of Care Code 67951 Subseq Hosp Care Lvl 3 Diagnoses Acute congestive heart failure I50.9 Pulmonary embolism I26.99 Hypoxia R09.02 Fall W19.XXXA Hyperglycemia R73.9 Anemia D64.9 HTN (hypertension) I10 Hyperlipidemia E78.5 Atrial fibrillation I48.91
[2021-06-29] MEDS: WARFARIN SOD 5 MG TAB PO SCH (16:53)
[2021-06-29] MEDS: SIMVASTATIN 20 MG TAB PO SCH (21:08)
[2021-06-30] MEDS: HEPARIN SODIUM/DEXTROSE 25,000 UNITS/500 ML BAG IV SCH (06:02)
[2021-06-30 07:19] LABS: Hematocrit (blood only) 32.8 % (37-47); Hemoglobin 10.2 g/dL (12.0-16.0); Mean Corpuscular Hemoglobin 34.3 pg (25-34); Mean Corpuscular Hgb Conc 31.1 g/dL (32-36); Mean Corpuscular Volume 110.4 fL (80-100); Mean Platelet Volume 11.4 fL (7.4-10.4); Platelet Count 390 K/uL (130-400); RDW Standard Deviation 76.3 fL (36.4-46.3); Red Blood Count 2.97 M/uL (4.2-5.4); White Blood Count 8.74 K/uL (4.8-10.8)
[2021-06-30 07:47] LABS: BUN Creatinine Ratio 33.9 (10-20); Calcium 8.6 mg/dl (8.5-10.1); Creatinine Clr Calc Pharmacy 46.4 ml/min; Est GFR (African American) 40.1 ml/min; Est GFR (Non-African American) 34.6 ml/min
[2021-06-30 07:49] LABS: INR 1.5 (0.9-1.1); Partial Thromboplastin Time 53.5 Seconds (21.0-31.0); Prothrombin Time 14.4 Seconds (9.0-12.0)
[2021-06-30] MEDS: CYANOCOBALAMIN 500 MCG TABLET (VITAMIN B-12) PO SCH (08:11)
[2021-06-30] MEDS: CALCIUM 600MG + VIT D 400 IU TAB PO SCH (08:11)
[2021-06-30] MEDS: ASPIRIN 81 MG ECTAB PO SCH (08:11)
[2021-06-30] MEDS: MULTIVITAMIN TAB PO SCH (08:12)
[2021-06-30] MEDS: TIMOLOL MALEATE 0.5% OP SOLN 5 ML BTL OPB SCH (08:12)
[2021-06-30 08:16] LABS: Anisocytosis Present; Basophils # (auto) 0.02 K/uL (0-0.2); Basophils % (auto) 0.2 %; Eosinophils % (auto) 2.3 %; Immature Granulocytes # (auto) 0.03 K/uL (0.00-0.02); Immature Granulocytes % (auto) 0.3 %; Lymphocytes # (auto) 5.95 K/uL (1.2-3.4); Lymphocytes % (auto) 68.1 %; Macrocytosis Present; Monocytes # (auto) 0.65 K/uL (0.11-0.59); Monocytes % (auto) 7.4 %; Neutrophils # (auto) 1.89 K/uL (1.4-6.5); Neutrophils % (auto) 21.7 %; Stomatocytes 1+
[2021-06-30] MEDS: INSULIN GLARGINE SOLOSTAR 100 UNITS/ML 3 ML PEN SC SCH ×2 (08:17→20:51)
[2021-06-30] MEDS: EUCERIN CR 120 GM JAR EXT SCH ×2 (08:18→20:51)
[2021-06-30] MEDS: INSULIN ASPART PER UNIT SC SCH ×4 (08:25→20:50)
--- NOTE | 2021-06-30 08:26 | Hospitalist Progress Note ---
Date of Service June 30, 2021 Assessment & Plan (1) Acute congestive heart failure: Plan: Acute on chronic diastolic heart failure. Echo on 06/25 showed EF 70% with diastolic dysfunction. - Switched to Lasix 40mg PO daily on 06/29. - Continue I&Os, daily weights, low Na, fluid-restricted diet - MOJGAN after diuretic use held lasix, may eventually need daily dose, peripheral swelling likely from right heat dysfunction, no suggestion of right heart increased pressures on echo (2) Pulmonary embolism: Plan: CTA chest on 06/25 showed a segmental pulmonary emboli of the right upper lobe. She also reports father and both brothers had VTE at younger ages (50 - 60) range, but has never had any familial work-up. - Started on heparin gtt in the ER. - Discussed with Dr. Morris on 06/26 regarding benefits of warfarin vs. DOAC given age, CrCl ~60, and obesity. Feels warfarin is more appropriate for weight > 150 kg. -> INR is 1.5 -> Once ready for discharge, could consider Lovenox to overlap. Pharmacy reports their usual max dose is 150 mg SQ Q12h, so she's right on the cusp of this and could probably just go with 150 mg dosing., [but if here for appropriate overlap will just have on warfarin (3) Atrial fibrillation: Plan: Three hours of afib on 06/28 with rates up to 120s. Self-converted; no further episodes. - Continue metoprolol 12.5 mg PO TID -> Convert to long-acting - Already on anticoagulation for PE. (4) Hypoxia: Plan: Secondary to CHF and PE. Aim O2 sats > 90%. - Weaned down to room air on 06/29. (5) Fall: Plan: Longstanding ambulatory dysfunction. - PT/OT evals recommend SNF. Daughter (with whom she lives) also in agreement that she will make up her own mind. (6) Hyperglycemia: Plan: Not on any medications for diabetes. A1c was 8.7% this admission. Now officially diagnosed with diabetes. - Sliding scale insulin - BSs have been 130 - 150 in last 24 hours. will consider starting some oral meds if pt to go home, if staying in snf can consider basal bolus for better control (7) Anemia: Plan: Macrocytic. MCV up to 114 on 06/26. B12 was low-normal at 330 on 06/26. - Started cyanocobalamin - Hgb stable (8) HTN (hypertension): Plan: BP today is 120/80. - Hold losartan for MOJGAN. - Continue beta-nando as above - Holding HCTZ in favor of Lasix as above. (9) Hyperlipidemia: Plan: - Continue simvastatin 20mg PO daily Plan: Dispo: Patient wants to go home. She lives with her daughter Glo. Per previous attending, Glo says "[Patient] will make up her own mind," but also seems uninterested in how patient is doing or how patient will do at home. She told me to call her brother Manjit. Left HIPPA-compliant VM on listed # as the VM had no personalized message. Unclear to me if family will be willing to help at home Admission and Anticipated Discharge Date Admission Date: June 25, 2021 Subjective Doing well today. No major issues today. Feels swelling is much improved. R eports no fevers/chills, chest pain, shortness of breath, abdominal pain, nausea, or vomiting. Review of Systems Review of Systems: Mild distress and fatigue no headache, no visual changes no speech or swallowing issues no chest pain, pressure or palpitations Much less shortness of breath, cough or wheezes no abdominal pain, nausea or vomiting, diarrhea or constipation no dysuria, hematuria or frequency no focal joint pain improved but still with lower extremity swelling no back pain, CVA tenderness or radicular pain no bruising, bleeding or rashes no focal signs of weakness or numbness or altered sensation no complaints of anxiety or depression.. Physical Exam Physical Exam: The patient appeared well nourished and normally developed. Vital signs as documented. Head exam is normocephalic atraumatic Neck is without JVD, thyromegaly, or carotid bruits. Lungs are clear to auscultation but diminished at the base with poor air movement small breaths Cardiac exam, Rhythm is regular.. No murmurs, rubs or gallops. Abdominal exam reveals normal bowel sounds, soft non tender, no masses Extremities are still 1-2+ edematous and both lower extremities of chronic venous stasis changes Neurologic exam is alert and oriented, no focal loss of strength or sensation Skin is without bruises or rashes other than some venous stasis changes to her lower extremities Psychologically is without concerns for anxiety or depression.. Results & Data Results & Data ([facility]) Vital Signs (Past 12 Hours) Vital Signs Temp Pulse Pulse Resp BP Pulse Ox 06/30/21 07:22 85 06/30/21 03:00 98.4 F 87 18 151/66 H 96 06/30/21 02:54 87 06/29/21 22:00 98.1 F 82 18 133/75 96 PG Care Time/CCT Total # of Minutes Spent Total Time Spent with Patient: Total time spent is greater than 50% in coordination of care (as documented) at patient's floor/unit and/or counseling patient: Coding Level of Care Code 70061 Subseq Hosp Care Lvl 3 Diagnoses Acute congestive heart failure I50.9 Pulmonary embolism I26.99 Atrial fibrillation I48.91 Hypoxia R09.02 Fall W19.XXXA Hyperglycemia R73.9 Anemia D64.9 HTN (hypertension) I10 Hyperlipidemia E78.5
[2021-06-30] MEDS: METOPROLOL SUCC 50MG EXT REL TAB PO SCH (09:24)
[2021-06-30] MEDS: WARFARIN SOD 5 MG TAB PO SCH (16:50)
[2021-06-30] MEDS: SIMVASTATIN 20 MG TAB PO SCH (20:51)
[2021-07-01] MEDS: HEPARIN SODIUM/DEXTROSE 25,000 UNITS/500 ML BAG IV SCH (01:21)
[2021-07-01 07:53] LABS: INR 1.8 (0.9-1.1); Partial Thromboplastin Ratio 1.9; Prothrombin Time 17.1 Seconds (9.0-12.0)
[2021-07-01 07:58] LABS: Partial Thromboplastin Time 49.6 Seconds (21.0-31.0)
--- NOTE | 2021-07-01 08:01 | Hospitalist Progress Note ---
Date of Service July 01, 2021 Assessment & Plan (1) Acute congestive heart failure: Plan: Acute on chronic diastolic heart failure. Echo on 06/25 showed EF 70% with diastolic dysfunction. - Switched to Lasix 40mg PO daily on 06/29. - MOJGAN after diuretic use held lasix, may eventually need daily dose, peripheral swelling likely from right heat dysfunction, no suggestion of right heart increased pressures on echo (2) Pulmonary embolism: Plan: CTA chest on 06/25 showed a segmental pulmonary emboli of the right upper lobe. She also reports father and both brothers had VTE at younger ages (50 - 60) range, but has never had any familial work-up. - Started on heparin gtt in the ER. - Discussed with Dr. Morris on 06/26 regarding benefits of warfarin vs. DOAC given age, CrCl ~60, and obesity. Feels warfarin is more appropriate for weight > 150 kg. -> INR is 1.8 and steadily climbing (3) Atrial fibrillation: Plan: Three hours of afib on 06/28 with rates up to 120s. Self-converted; no further episodes. - Continue metoprolol 12.5 mg PO TID -> Convert to long-acting - Already on anticoagulation for PE. (4) Hypoxia: Plan: Secondary to CHF and PE. Aim O2 sats > 90%. - Weaned down to room air on 06/29. (5) Fall: Plan: Longstanding ambulatory dysfunction. - PT/OT evals recommend SNF. Daughter (with whom she lives) also in agreement that she will make up her own mind. last PT eval pt had significant functional loss, re have pt re assessed after anticoagulation is at goal (6) Hyperglycemia: Plan: Not on any medications for diabetes. A1c was 8.7% this admission. Now officially diagnosed with diabetes. - Sliding scale insulin - BSs have been 130 - 150 in last 24 hours. will consider starting some oral meds if pt to go home, if staying in snf can consider basal bolus for better control (7) Anemia: Plan: Macrocytic. MCV up to 114 on 06/26. B12 was low-normal at 330 on 06/26. - Started cyanocobalamin - Hgb stable (8) HTN (hypertension): Plan: BP today is 120/80. - Hold losartan for MOJGAN. - Continue beta-nando as above - Holding HCTZ in favor of Lasix as above. (9) Hyperlipidemia: Plan: - Continue simvastatin 20mg PO daily Plan: Dispo: Patient wants to go home. She lives with her daughter Glo. Per previous attending, Glo says "[Patient] will make up her own mind," Admission and Anticipated Discharge Date Admission Date: June 25, 2021 Subjective Doing well today. No major issues today. Feet swelling is much improved. Reports no fevers/chills, chest pain, shortness of breath, abdominal pain, nausea, or vomiting. tolerating anticoagulation without issue, inr nearing 2, overlap is now 6 days Review of Systems Review of Systems: Mild distress and fatigue no headache, no visual changes no speech or swallowing issues no chest pain, pressure or palpitations Much less shortness of breath, cough or wheezes no abdominal pain, nausea or vomiting, diarrhea or constipation no dysuria, hematuria or frequency no focal joint pain improved but still with lower extremity swelling no back pain, CVA tenderness or radicular pain no bruising, bleeding or rashes no focal signs of weakness or numbness or altered sensation no complaints of anxiety or depression.. Physical Exam Physical Exam: The patient appeared well nourished and normally developed. Vital signs as documented. Head exam is normocephalic atraumatic Neck is without JVD, thyromegaly, or carotid bruits. Lungs are clear to auscultation but diminished at the base with poor air movement small breaths Cardiac exam, Rhythm is regular.. No murmurs, rubs or gallops. Abdominal exam reveals normal bowel sounds, soft non tender, no masses Extremities are still 1-2+ edematous and both lower extremities of chronic venous stasis changes Neurologic exam is alert and oriented, no focal loss of strength or sensation Skin is without bruises or rashes other than some venous stasis changes to her lower extremities Psychologically is without concerns for anxiety or depression.. Results & Data Results & Data ([facility]) Vital Signs (Past 12 Hours) Vital Signs Temp Pulse Pulse Resp BP Pulse Ox 07/01/21 07:44 97.9 F 82 20 140/77 96 07/01/21 07:17 79 07/01/21 03:34 98.4 F 88 18 124/65 97 07/01/21 02:18 82 06/30/21 23:00 98.1 F 96 H 18 191/66 H 96 PG Care Time/CCT Total # of Minutes Spent Total Time Spent with Patient: Total time spent is greater than 50% in coordination of care (as documented) at patient's floor/unit and/or counseling patient: Coding Level of Care Code 86733 Subseq Hosp Care Lvl 2 Diagnoses Acute congestive heart failure I50.9 Pulmonary embolism I26.99 Atrial fibrillation I48.91 Hypoxia R09.02 Fall W19.XXXA Hyperglycemia R73.9 Anemia D64.9 HTN (hypertension) I10 Hyperlipidemia E78.5
[2021-07-01] MEDS: CYANOCOBALAMIN 500 MCG TABLET (VITAMIN B-12) PO SCH (08:55)
[2021-07-01] MEDS: METOPROLOL SUCC 50MG EXT REL TAB PO SCH (08:55)
[2021-07-01] MEDS: ASPIRIN 81 MG ECTAB PO SCH (08:55)
[2021-07-01] MEDS: CALCIUM 600MG + VIT D 400 IU TAB PO SCH (08:55)
[2021-07-01] MEDS: MULTIVITAMIN TAB PO SCH (08:55)
[2021-07-01] MEDS: EUCERIN CR 120 GM JAR EXT SCH ×2 (08:56→21:01)
[2021-07-01] MEDS: INSULIN GLARGINE SOLOSTAR 100 UNITS/ML 3 ML PEN SC SCH ×2 (08:57→21:01)
[2021-07-01] MEDS: TIMOLOL MALEATE 0.5% OP SOLN 5 ML BTL OPB SCH (08:58)
[2021-07-01] MEDS: INSULIN ASPART PER UNIT SC SCH ×4 (09:04→21:11)
[2021-07-01] MEDS: WARFARIN SOD 5 MG TAB PO SCH (17:01)
[2021-07-01] MEDS: ACETAMINOPHEN 325 MG TAB PO PRN (17:39)
[2021-07-01] MEDS: SIMVASTATIN 20 MG TAB PO SCH (21:02)
[2021-07-02] MEDS: HEPARIN SODIUM/DEXTROSE 25,000 UNITS/500 ML BAG IV SCH (00:06)
[2021-07-02] MEDS ORDERED: OXYMETAZOLINE 0.05% 30 ML BTL ONE (02:30)
[2021-07-02 06:32] LABS: Partial Thromboplastin Ratio 2.5; Prothrombin Time 19.3 Seconds (9.0-12.0)
[2021-07-02 06:37] LABS: BUN Creatinine Ratio 34.6 (10-20); Calcium 8.9 mg/dl (8.5-10.1); Creatinine Clr Calc Pharmacy 55.1 ml/min; Est GFR (African American) 49.7 ml/min; Est GFR (Non-African American) 42.9 ml/min; Potassium 3.9 mmol/L (3.5-5.1)
[2021-07-02 06:38] LABS: Partial Thromboplastin Time 65.6 Seconds (21.0-31.0)
[2021-07-02 07:05] LABS: Hematocrit (blood only) 31.7 % (37-47); Hemoglobin 9.5 g/dL (12.0-16.0); Mean Corpuscular Hemoglobin 34.1 pg (25-34); Mean Corpuscular Volume 113.6 fL (80-100); Mean Platelet Volume 11.2 fL (7.4-10.4); Platelet Count 399 K/uL (130-400); RDW Coefficient of Variation 18.8 % (11.5-14.5); RDW Standard Deviation 78.1 fL (36.4-46.3); Red Blood Count 2.79 M/uL (4.2-5.4); White Blood Count 8.36 K/uL (4.8-10.8)
[2021-07-02 07:07] LABS: Basophils # (auto) 0.02 K/uL (0-0.2); Basophils % (auto) 0.2 %; Eosinophils % (auto) 2.4 %; Immature Granulocytes # (auto) 0.01 K/uL (0.00-0.02); Immature Granulocytes % (auto) 0.1 %; Lymphocytes # (auto) 6.22 K/uL (1.2-3.4); Lymphocytes % (auto) 74.4 %; Macrocytosis Present; Monocytes % (auto) 7.2 %; Neutrophils # (auto) 1.31 K/uL (1.4-6.5); Neutrophils % (auto) 15.7 %; Stomatocytes 1+
[2021-07-02] MEDS: ASPIRIN 81 MG ECTAB PO SCH (08:04)
[2021-07-02] MEDS: MULTIVITAMIN TAB PO SCH (08:05)
[2021-07-02] MEDS: CYANOCOBALAMIN 500 MCG TABLET (VITAMIN B-12) PO SCH (08:05)
[2021-07-02] MEDS: CALCIUM 600MG + VIT D 400 IU TAB PO SCH (08:05)
[2021-07-02] MEDS: TIMOLOL MALEATE 0.5% OP SOLN 5 ML BTL OPB SCH (08:05)
[2021-07-02] MEDS: METOPROLOL SUCC 50MG EXT REL TAB PO SCH (08:05)
[2021-07-02] MEDS: INSULIN GLARGINE SOLOSTAR 100 UNITS/ML 3 ML PEN SC SCH ×2 (08:06→20:50)
[2021-07-02] MEDS: EUCERIN CR 120 GM JAR EXT SCH ×2 (08:08→20:49)
[2021-07-02] MEDS: ACETAMINOPHEN 325 MG TAB PO PRN ×2 (08:10→23:00)
[2021-07-02] MEDS: INSULIN ASPART PER UNIT SC SCH ×4 (08:11→20:50)
--- NOTE | 2021-07-02 15:43 | Hospitalist Progress Note ---
Date of Service July 02, 2021 Assessment & Plan (1) Acute congestive heart failure: Plan: Acute on chronic diastolic heart failure. Echo on 06/25 showed EF 70% with diastolic dysfunction. - Switched to Lasix 40mg PO daily on 06/29. - MOJGAN after diuretic use held lasix,resolved restart laosx 20 mg, , peripheral swelling likely from right heat dysfunction, no suggestion of right heart increased pressures on echo (2) Pulmonary embolism: Plan: CTA chest on 06/25 showed a segmental pulmonary emboli of the right upper lobe. She also reports father and both brothers had VTE at younger ages (50 - 60) range, but has never had any familial work-up. - Started on heparin gtt in the ER. - Discussed with Dr. Morris on 06/26 regarding benefits of warfarin vs. DOAC given age, CrCl ~60, and obesity. Feels warfarin is more appropriate for weight > 150 kg. -> INR is 2.0 continue coumadin 5 (3) Atrial fibrillation: Plan: Three hours of afib on 06/28 with rates up to 120s. Self-converted; no further episodes. - Continue metoprolol 12.5 mg PO TID -> Convert to long-acting - Already on anticoagulation for PE. (4) Hypoxia: Plan: Secondary to CHF and PE. Aim O2 sats > 90%. - Weaned down to room air on 06/29. (5) Fall: Plan: Longstanding ambulatory dysfunction. - PT/OT evals recommend SNF. Daughter (with whom she lives) also in agreement that she will make up her own mind. last PT eval pt had significant functional loss, re have pt re assessed after anticoagulation is at goal (6) Hyperglycemia: Plan: Not on any medications for diabetes. A1c was 8.7% this admission. Now officially diagnosed with diabetes. - Sliding scale insulin - BSs have been 130 - 150 in last 24 hours. will consider starting some oral meds if pt to go home, if staying in snf can consider basal bolus for better control (7) Anemia: Plan: Macrocytic. MCV up to 114 on 06/26. B12 was low-normal at 330 on 06/26. - Started cyanocobalamin - Hgb stable (8) HTN (hypertension): Plan: BP today is 120/80. - Hold losartan for MOJGAN. - Continue beta-nando as above - Holding HCTZ in favor of Lasix as above. (9) Hyperlipidemia: Plan: - Continue simvastatin 20mg PO daily Plan: Pt still wants to go home, spoke to daughter who is her tin roofer, she seemed rushed to get off phone, I asked that she also encourage patient to participate in PT to have better improvement in walking before she goes home Admission and Anticipated Discharge Date Admission Date: June 25, 2021 Subjective Doing well today. No major issues today. Feet swelling is much improved. Reports no fevers/chills, chest pain, shortness of breath, abdominal pain, nausea, or vomiting. tolerating anticoagulation without issue, inr >2, overlap appropriate stop heparin infusion. pt still adamant about going home but has not gotten out of bed yet and states that I should not be in a hurry to discharge her Review of Systems Review of Systems: Mild distress and fatigue no headache, no visual changes no speech or swallowing issues no chest pain, pressure or palpitations Much less shortness of breath, cough or wheezes no abdominal pain, nausea or vomiting, diarrhea or constipation no dysuria, hematuria or frequency no focal joint pain improved but still with lower extremity swelling no back pain, CVA tenderness or radicular pain no bruising, bleeding or rashes no focal signs of weakness or numbness or altered sensation no complaints of anxiety or depression.. Physical Exam Physical Exam: The patient appeared well nourished and normally developed. Vital signs as documented. Head exam is normocephalic atraumatic Neck is without JVD, thyromegaly, or carotid bruits. Lungs are clear to auscultation but diminished at the base with poor air movement small breaths Cardiac exam, Rhythm is regular.. No murmurs, rubs or gallops. Abdominal exam reveals normal bowel sounds, soft non tender, no masses Extremities are still 1-2+ edematous and both lower extremities of chronic venous stasis changes Neurologic exam is alert and oriented, no focal loss of strength or sensation Skin is without bruises or rashes other than some venous stasis changes to her lower extremities Psychologically is without concerns for anxiety or depression.. Results & Data Results & Data ([facility]) Vital Signs (Past 12 Hours) Vital Signs Temp Pulse Pulse Resp BP Pulse Ox 07/02/21 15:02 78 07/02/21 11:51 98.4 F 78 18 167/77 H 95 07/02/21 08:04 98.6 F 81 18 150/74 H 94 07/02/21 07:10 80 07/02/21 05:27 98.4 F 79 18 171/73 H 95 PG Care Time/CCT Total # of Minutes Spent Total Time Spent with Patient: Total time spent is greater than 50% in coordination of care (as documented) at patient's floor/unit and/or counseling patient: Coding Level of Care Code 37240 Subseq Hosp Care Lvl 2 Diagnoses Acute congestive heart failure I50.9 Pulmonary embolism I26.99 Atrial fibrillation I48.91 Hypoxia R09.02 Fall W19.XXXA Hyperglycemia R73.9 Anemia D64.9 HTN (hypertension) I10 Hyperlipidemia E78.5
[2021-07-02] MEDS: WARFARIN SOD 5 MG TAB PO SCH (16:12)
[2021-07-02] MEDS ORDERED: POLYETHYLENE (MIRALAX) 17 GM PACK PO PRN (16:39)
[2021-07-02] MEDS: SIMVASTATIN 20 MG TAB PO SCH (20:51)
[2021-07-03 07:24] LABS: INR 2.3 (0.9-1.1); Partial Thromboplastin Ratio 1.4; Partial Thromboplastin Time 36.7 Seconds (21.0-31.0); Prothrombin Time 21.7 Seconds (9.0-12.0)
[2021-07-03] MEDS: INSULIN ASPART PER UNIT SC SCH ×4 (09:17→21:14)
[2021-07-03] MEDS: INSULIN GLARGINE SOLOSTAR 100 UNITS/ML 3 ML PEN SC SCH ×2 (09:18→21:13)
[2021-07-03] MEDS: CALCIUM 600MG + VIT D 400 IU TAB PO SCH (09:20)
[2021-07-03] MEDS: CYANOCOBALAMIN 500 MCG TABLET (VITAMIN B-12) PO SCH (09:20)
[2021-07-03] MEDS: METOPROLOL SUCC 50MG EXT REL TAB PO SCH (09:20)
[2021-07-03] MEDS: MULTIVITAMIN TAB PO SCH (09:20)
[2021-07-03] MEDS: TIMOLOL MALEATE 0.5% OP SOLN 5 ML BTL OPB SCH (09:21)
[2021-07-03] MEDS: EUCERIN CR 120 GM JAR EXT SCH ×2 (09:21→21:16)
[2021-07-03] MEDS: ASPIRIN 81 MG ECTAB PO SCH (09:21)
[2021-07-03] MEDS: WARFARIN SOD 5 MG TAB PO SCH (17:00)
[2021-07-03] MEDS: SIMVASTATIN 20 MG TAB PO SCH (21:14)
[2021-07-03] MEDS: ACETAMINOPHEN 325 MG TAB PO PRN (21:15)
[2021-07-04 06:30] LABS: Partial Thromboplastin Ratio 1.3; Partial Thromboplastin Time 34.3 Seconds (21.0-31.0)
[2021-07-04 06:44] LABS: Hematocrit (blood only) 30.1 % (37-47); Mean Corpuscular Hemoglobin 33.8 pg (25-34); Mean Corpuscular Hgb Conc 29.9 g/dL (32-36); Mean Corpuscular Volume 113.2 fL (80-100); Mean Platelet Volume 10.8 fL (7.4-10.4); Platelet Count 410 K/uL (130-400); RDW Coefficient of Variation 18.9 % (11.5-14.5); RDW Standard Deviation 78.2 fL (36.4-46.3); Red Blood Count 2.66 M/uL (4.2-5.4); White Blood Count 7.77 K/uL (4.8-10.8)
[2021-07-04 06:58] LABS: BUN Creatinine Ratio 38.4 (10-20); Calcium 8.6 mg/dl (8.5-10.1); Creatinine Clr Calc Pharmacy 75.1 ml/min; Est GFR (African American) 72.9 ml/min; Est GFR (Non-African American) 62.9 ml/min
[2021-07-04 07:33] LABS: Basophils # (auto) 0.02 K/uL (0-0.2); Basophils % (auto) 0.3 %; Eosinophils # (auto) 0.18 K/uL (0-0.5); Eosinophils % (auto) 2.3 %; Immature Granulocytes # (auto) 0.01 K/uL (0.00-0.02); Immature Granulocytes % (auto) 0.1 %; Lymphocytes # (auto) 5.96 K/uL (1.2-3.4); Lymphocytes % (auto) 76.7 %; Monocytes # (auto) 0.64 K/uL (0.11-0.59); Monocytes % (auto) 8.2 %; Neutrophils # (auto) 0.96 K/uL (1.4-6.5); Neutrophils % (auto) 12.4 %; Spherocytes Occasional; Stomatocytes 1+
[2021-07-04 08:51] LABS: Hematocrit (blood only) 30.1 % (37-47); Hemoglobin 9.2 g/dL (12.0-16.0); Mean Corpuscular Hemoglobin 33.9 pg (25-34); Mean Corpuscular Hgb Conc 30.6 g/dL (32-36); Mean Corpuscular Volume 111.1 fL (80-100); Platelet Count 399 K/uL (130-400); RDW Coefficient of Variation 18.9 % (11.5-14.5); RDW Standard Deviation 76.4 fL (36.4-46.3); Red Blood Count 2.71 M/uL (4.2-5.4); White Blood Count 6.83 K/uL (4.8-10.8)
[2021-07-04] MEDS: CALCIUM 600MG + VIT D 400 IU TAB PO SCH (08:58)
[2021-07-04] MEDS: ASPIRIN 81 MG ECTAB PO SCH (08:59)
[2021-07-04] MEDS: MULTIVITAMIN TAB PO SCH (08:59)
[2021-07-04] MEDS: CYANOCOBALAMIN 500 MCG TABLET (VITAMIN B-12) PO SCH (08:59)
[2021-07-04] MEDS: METOPROLOL SUCC 50MG EXT REL TAB PO SCH (08:59)
[2021-07-04] MEDS: TIMOLOL MALEATE 0.5% OP SOLN 5 ML BTL OPB SCH (09:01)
[2021-07-04] MEDS: INSULIN GLARGINE SOLOSTAR 100 UNITS/ML 3 ML PEN SC SCH ×2 (09:01→21:23)
[2021-07-04 09:02] LABS: INR 2.6 (0.9-1.1); Prothrombin Time 24.1 Seconds (9.0-12.0)
[2021-07-04] MEDS: INSULIN ASPART PER UNIT SC SCH ×4 (09:03→21:22)
[2021-07-04] MEDS: EUCERIN CR 120 GM JAR EXT SCH ×2 (09:03→21:22)
[2021-07-04 09:13] LABS: BUN Creatinine Ratio 39.3 (10-20); Creatinine Clr Calc Pharmacy 79.7 ml/min; Est GFR (African American) 78.4 ml/min; Est GFR (Non-African American) 67.6 ml/min; Potassium 3.6 mmol/L (3.5-5.1)
--- NOTE | 2021-07-04 16:44 | Hospitalist Progress Note ---
Date of Service July 04, 2021 Assessment & Plan (1) Acute congestive heart failure: Plan: Acute on chronic diastolic heart failure. Echo on 06/25 showed EF 70% with diastolic dysfunction. - Continue I&Os, daily weights, low Na, fluid-restricted diet -> Start Lasix 20 mg PO daily. (2) Pulmonary embolism: Plan: CTA chest on 06/25 showed a segmental pulmonary emboli of the right upper lobe. She also reports father and both brothers had VTE at younger ages (50 - 60) range, but has never had any familial work-up. - Discussed with Dr. Morris on 06/26 regarding benefits of warfarin vs. DOAC gi ok age, CrCl ~60, and obesity. Feels warfarin is more appropriate for weight > 150 kg. -> INR is 2.6 today. (3) Atrial fibrillation: Plan: Three hours of afib on 06/28 with rates up to 120s. Self-converted; no further episodes. - Continue metoprolol XL 50 mg PO daily. - Already on anticoagulation for PE. (4) Hypoxia: Plan: Secondary to CHF and PE. Aim O2 sats > 90%. - Weaned down to room air on 06/29. (5) Fall: Plan: Longstanding ambulatory dysfunction. - PT/OT evals recommend SNF. Presently patient not willing to entertain SNF. Daughter (with whom she lives) feels that she will make up her own mind. Today, I am less sure she has capacity to make this decision. She reports she has been walking around the room consistently which is not true. When asked how she will get around at home, she says she will just get up and walk. - Encouraged to work with PT/OT to see if she can truly stand and walk at all by this point. (6) Hyperglycemia: Plan: Not on any medications for diabetes. A1c was 8.7% this admission. Now officially diagnosed with diabetes. - Sliding scale insulin - BSs have been 130 - 150 in last 24 hours. (7) Anemia: Plan: Macrocytic. MCV up to 114 on 06/26. B12 was low-normal at 330 on 06/26. - Started cyanocobalamin - Hgb stable today. (8) HTN (hypertension): Plan: BP today is 140/75. - Continue beta-nando as above - Holding HCTZ in favor of Lasix as above. - Will restart home losartan, but start at lower dose of 50 mg (9) Hyperlipidemia: Plan: - Continue simvastatin 20mg PO daily Admission and Anticipated Discharge Date Admission Date: June 25, 2021 Subjective Stable today. Feels breathing is good. Feels like swelling is minimal. Reports no fevers/chills, chest pain, shortness of breath, abdominal pain, nausea, or vomiting. Physical Exam Constitutional: WD/WN, vitals as above Eyes: EOM intact bilaterally; no conjunctival abnormality ENMT: external ear and nose normal, oropharynx normal Neck: trachea midline, no thyromegaly normal visual inspection Respiratory: normal respiratory effort, lungs clear to auscultation no respiratory distress Cardiovascular: RRR, no murmur, no edema Gastrointestinal (Abdomen): Inspection/Auscultation: abdomen normal to inspection; abdomen not distended Musculoskeletal: no cyanosis or clubbing, extremities motor strength 5/5 Skin: no rashes, warm and dry Neurologic: moves all extremities and awake Psychiatric: Orientation: alert, oriented to person and cooperative Results & Data Results & Data ([facility]) Vital Signs (Past 12 Hours) Vital Signs Temp Pulse Pulse Resp BP Pulse Ox 07/04/21 16:25 79 07/04/21 15:13 36.6 C 82 20 141/74 H 95 07/04/21 11:06 36.7 C 75 20 153/83 H 95 07/04/21 08:01 36.9 C 78 20 128/66 95 07/04/21 08:00 76 07/04/21 06:14 84 PG Care Time/CCT Total # of Minutes Spent Total Time Spent with Patient: Total time spent is greater than 50% in coordination of care (as documented) at patient's floor/unit and/or counseling patient: Coding Level of Care Code 88444 Subseq Hosp Care Lvl 2 Diagnoses Acute congestive heart failure I50.9 Pulmonary embolism I26.99 Atrial fibrillation I48.91 Hypoxia R09.02 Fall W19.XXXA Hyperglycemia R73.9 Anemia D64.9 HTN (hypertension) I10 Hyperlipidemia E78.5
[2021-07-04] MEDS: WARFARIN SOD 5 MG TAB PO SCH (18:00)
[2021-07-04] MEDS: SIMVASTATIN 20 MG TAB PO SCH (21:23)
[2021-07-05 07:21] LABS: Hematocrit (blood only) 29.7 % (37-47); Hemoglobin 8.8 g/dL (12.0-16.0); Mean Corpuscular Hemoglobin 33.6 pg (25-34); Mean Corpuscular Hgb Conc 29.6 g/dL (32-36); Mean Corpuscular Volume 113.4 fL (80-100); Mean Platelet Volume 11.2 fL (7.4-10.4); Platelet Count 438 K/uL (130-400); RDW Coefficient of Variation 18.7 % (11.5-14.5); RDW Standard Deviation 77.8 fL (36.4-46.3); Red Blood Count 2.62 M/uL (4.2-5.4); White Blood Count 8.04 K/uL (4.8-10.8)
[2021-07-05 07:27] LABS: INR 2.5 (0.9-1.1); Prothrombin Time 23.6 Seconds (9.0-12.0)
[2021-07-05 07:49] LABS: BUN Creatinine Ratio 33.5 (10-20); Creatinine Clr Calc Pharmacy 79.9 ml/min; Est GFR (African American) 78.4 ml/min; Est GFR (Non-African American) 67.6 ml/min; Magnesium 1.9 mg/dl (1.8-2.4); Potassium 3.7 mmol/L (3.5-5.1)
[2021-07-05] MEDS: FUROSEMIDE 20 MG TAB PO SCH (08:22)
[2021-07-05] MEDS: ASPIRIN 81 MG ECTAB PO SCH (08:23)
[2021-07-05] MEDS: MULTIVITAMIN TAB PO SCH (08:23)
[2021-07-05] MEDS: LOSARTAN POTASSIUM 50 MG TAB PO SCH (08:23)
[2021-07-05] MEDS: CALCIUM 600MG + VIT D 400 IU TAB PO SCH (08:23)
[2021-07-05] MEDS: METOPROLOL SUCC 50MG EXT REL TAB PO SCH (08:23)
[2021-07-05] MEDS: CYANOCOBALAMIN 500 MCG TABLET (VITAMIN B-12) PO SCH (08:24)
[2021-07-05] MEDS: EUCERIN CR 120 GM JAR EXT SCH ×2 (08:24→20:29)
[2021-07-05] MEDS: TIMOLOL MALEATE 0.5% OP SOLN 5 ML BTL OPB SCH (08:27)
[2021-07-05] MEDS: INSULIN ASPART PER UNIT SC SCH ×4 (08:34→20:27)
[2021-07-05] MEDS: INSULIN GLARGINE SOLOSTAR 100 UNITS/ML 3 ML PEN SC SCH ×2 (08:36→20:28)
--- NOTE | 2021-07-05 14:31 | Hospitalist Progress Note ---
Date of Service July 05, 2021 Assessment & Plan (1) Acute congestive heart failure: Plan: Acute on chronic diastolic heart failure. Echo on 06/25 showed EF 70% with diastolic dysfunction. - Continue I&Os, daily weights, low Na, fluid-restricted diet -> Started Lasix 20 mg PO daily. Stable today. (2) Pulmonary embolism: Plan: CTA chest on 06/25 showed a segmental pulmonary emboli of the right upper lobe. She also reports father and both brothers had VTE at younger ages (50 - 60) range, but has never had any familial work-up. - Discussed with Dr. Morris on 06/26 regarding benefits of warfarin vs. DOAC given age, CrCl ~60, and obesity. Feels warfarin is more appropriate for weight > 150 kg. -> INR is 2.5 today. (3) Atrial fibrillation: Plan: Three hours of afib on 06/28 with rates up to 120s. Self-converted; no further episodes. - Continue metoprolol XL 50 mg PO daily. - Already on anticoagulation for PE. (4) Hypoxia: Plan: Secondary to CHF and PE. Aim O2 sats > 90%. - Weaned down to room air on 06/29. Ranging from room air to 3L. Two-step for her. (5) Fall: Plan: Longstanding ambulatory dysfunction. - PT/OT evals recommend SNF. Presently patient not willing to entertain SNF. Daughter (with whom she lives) feels that she will make up her own mind. Today, I am less sure she has capacity to make this decision. She reports she has been walking around the room consistently which is not true. When asked how she will get around at home, she says she will just get up and walk. - Encouraged to work with PT/OT to see if she can truly stand and walk at all by this point. (6) Hyperglycemia: Plan: Not on any medications for diabetes. A1c was 8.7% this admission. Now officially diagnosed with diabetes. - Sliding scale insulin - BSs have been 130 - 150 in last 24 hours. (7) Anemia: Plan: Macrocytic. MCV up to 114 on 06/26. B12 was low-normal at 330 on 06/26. - Started cyanocobalamin - Hgb stable today. (8) HTN (hypertension): Plan: BP today is 140/75. - Continue beta-nando as above - Holding HCTZ in favor of Lasix as above. - Will restart home losartan, but start at lower dose of 50 mg (9) Hyperlipidemia: Plan: - Continue simvastatin 20mg PO daily Admission and Anticipated Discharge Date Admission Date: June 25, 2021 Subjective Feels well. Reports no fevers/chills, chest pain, shortness of breath, abdominal pain, nausea, or vomiting. Physical Exam Constitutional: WD/WN, vitals as above Eyes: EOM intact bilaterally; no conjunctival abnormality ENMT: external ear and nose normal, oropharynx normal Neck: trachea midline, no thyromegaly normal visual inspection Respiratory: normal respiratory effort, lungs clear to auscultation no respiratory distress Cardiovascular: RRR, no murmur, no edema Gastrointestinal (Abdomen): Inspection/Auscultation: abdomen normal to inspection; abdomen not distended Musculoskeletal: no cyanosis or clubbing, extremities motor strength 5/5 Skin: no rashes, warm and dry Neurologic: moves all extremities and awake Psychiatric: Orientation: alert, oriented to person and cooperative Results & Data Results & Data ([facility]) Vital Signs (Past 12 Hours) Vital Signs Temp Pulse Pulse Resp BP Pulse Ox 07/05/21 11:38 36.5 C 76 20 149/72 H 94 07/05/21 07:48 79 07/05/21 07:44 36.7 C 79 22 170/70 H 93 07/05/21 03:00 37 C 81 18 154/74 H 95 PG Care Time/CCT Total # of Minutes Spent Total Time Spent with Patient: Total time spent is greater than 50% in coordination of care (as documented) at patient's floor/unit and/or counseling patient: Coding Level of Care Code 89731 Subseq Hosp Care Lvl 2 Diagnoses Acute congestive heart failure I50.9 Pulmonary embolism I26.99 Atrial fibrillation I48.91 Hypoxia R09.02 Fall W19.XXXA Hyperglycemia R73.9 Anemia D64.9 HTN (hypertension) I10 Hyperlipidemia E78.5
[2021-07-05] MEDS: WARFARIN SOD 5 MG TAB PO SCH (17:53)
[2021-07-05] MEDS: SIMVASTATIN 20 MG TAB PO SCH (20:29)
[2021-07-06 07:13] LABS: Mean Corpuscular Volume 113.2 fL (80-100); Mean Platelet Volume 10.4 fL (7.4-10.4); Platelet Count 422 K/uL (130-400); RDW Coefficient of Variation 18.5 % (11.5-14.5); RDW Standard Deviation 76.5 fL (36.4-46.3); Red Blood Count 2.65 M/uL (4.2-5.4); White Blood Count 8.17 K/uL (4.8-10.8)
[2021-07-06 07:25] LABS: INR 2.6 (0.9-1.1); Prothrombin Time 24.2 Seconds (9.0-12.0)
[2021-07-06 07:53] LABS: BUN Creatinine Ratio 26.2 (10-20); Creatinine Clr Calc Pharmacy 89.4 ml/min; Est GFR (African American) 90.4 ml/min; Magnesium 1.9 mg/dl (1.8-2.4); Potassium 3.5 mmol/L (3.5-5.1)
[2021-07-06] MEDS: INSULIN ASPART PER UNIT SC SCH ×3 (07:59→17:52)
[2021-07-06] MEDS: ASPIRIN 81 MG ECTAB PO SCH (08:00)
[2021-07-06] MEDS: MULTIVITAMIN TAB PO SCH (08:00)
[2021-07-06] MEDS: CALCIUM 600MG + VIT D 400 IU TAB PO SCH (08:00)
[2021-07-06] MEDS: LOSARTAN POTASSIUM 50 MG TAB PO SCH (08:01)
[2021-07-06] MEDS: CYANOCOBALAMIN 500 MCG TABLET (VITAMIN B-12) PO SCH (08:01)
[2021-07-06] MEDS: METOPROLOL SUCC 50MG EXT REL TAB PO SCH (08:01)
[2021-07-06] MEDS: INSULIN GLARGINE SOLOSTAR 100 UNITS/ML 3 ML PEN SC SCH (08:01)
[2021-07-06] MEDS: FUROSEMIDE 20 MG TAB PO SCH (08:01)
[2021-07-06] MEDS: TIMOLOL MALEATE 0.5% OP SOLN 5 ML BTL OPB SCH (08:02)
[2021-07-06 08:04] LABS: ALC (manual) 6.36 K/uL (1.2-3.4); ANC (manual) 1.45 K/uL (1.4-6.5); Eosinophils # (manual) 0.15 K/uL (0-0.5); Eosinophils % (manual) 1.8 %; Large Granular Lymph # (manua 5.49 K/uL; Large Granular Lymph % (manual) 67.2 %; Lymphocytes # (manual) 0.87 K/uL (1.2-3.4); Lymphocytes % (manual) 10.6 %; Macrocytosis Present; Monocytes # (manual) 0.22 K/uL (0.11-0.59); Monocytes % (manual) 2.7 %; Neutrophils # (manual) 1.45 K/uL (1.4-6.5); Neutrophils % (manual) 17.7 %; Stomatocytes 1+
[2021-07-06] MEDS: EUCERIN CR 120 GM JAR EXT SCH (14:30)
[2021-07-06] MEDS: WARFARIN SOD 5 MG TAB PO SCH (14:53)
--- NOTE | 2021-07-06 18:01 | Discharge Summary ---
Date of Service July 06, 2021 Admission HPI Per Admitting Provider Lavonne Chiu is an 80 year old female who presents to the ER after a ground level fall at her house. She lives with her daughter who called for an ambulance and was found to have O2 sats 80% on room air. The patient reports having multiple falls recently since her discharge in January. She denies any dizziness, chest pain or shortness of breath prior to falling. She denies any injuries as the result of the fall. She reports being unbalanced as the reason for her falling along with osteoarthritis in her knees making it difficult to move around. Despite her O2 sats of 80% on room air she reports no recent symptoms of worsening shortness of breath (she is chronically somewhat short of breath, cough, nasal congestion, fever or chills. In the ER CXR was concerning for pulmonary vascular congestion. She does note non-adherence to a low salt diet. She was treated with 40mg IV Lasix with already good diuretic response and referred to medicine for admission and ongoing management of hypoxia and CHF exacerbation. Principal Diagnosis Pulmonary embolism Diastolic CHF Discharge Exam Constitutional WD/WN, vitals as above Eyes EOM intact bilaterally; no conjunctival abnormality ENMT external ear and nose normal, oropharynx normal Neck trachea midline, no thyromegaly normal visual inspection Respiratory normal respiratory effort, lungs clear to auscultation no respiratory distress Cardiovascular RRR, no murmur, no edema Gastrointestinal (Abdomen) Inspection/Auscultation: abdomen normal to inspection; abdomen not distended Musculoskeletal no cyanosis or clubbing, extremities motor strength 5/5 Skin no rashes, warm and dry Neurologic moves all extremities and awake Psychiatric Orientation: alert, oriented to person and cooperative Discharge Data Allergies Allergy/AdvReac Type Severity Reaction Status Date / Time succinylcholine Allergy Severe CARDIAC Verified 06/25/21 12:12 ARREST Penicillins Allergy Unknown REDNESS,SWE Verified 01/25/21 20:43 LLING Consultations 06/25/21 12:02 ED Decision to Admit Stat Ordered Studies 06/25/21 15:35 CT angio chest PE protocol Stat Diabetes Follow up Diabetes Follow-up Needed for Newly Diagnosed Diabetes Hospital Course (1) Acute congestive heart failure: Acute on chronic diastolic heart failure. Echo on 06/25 showed EF 70% with diastolic dysfunction. - Continue I&Os, daily weights, low Na, fluid-restricted diet -> Started Lasix 20 mg PO daily. Stable today. Will discharge on this dose for home. (2) Pulmonary embolism: CTA chest on 06/25 showed a segmental pulmonary emboli of the right upper lobe. She also reports father and both brothers had VTE at younger ages (50 - 60) range, but has never had any familial work-up. - Discussed with Dr. Morris on 06/26 regarding benefits of warfarin vs. DOAC given age, CrCl ~60, and obesity. Feels warfarin is more appropriate for weight > 150 kg. -> INR is 2.6 today. => Patient strongly prefers to have her PCP, Dr. Resendiz follow her INR. A script for Saturday was given to the patient. Dr. Resendiz will be contact on Saturday by the Nurse Navigator to confirm this is acceptable. Her INR has been very stable for us with warfarin 5 mg PO daily, so hopefully, she will not need much adjustment. (3) Atrial fibrillation: Three hours of afib on 06/28 with rates up to 120s. Self-converted; no further episodes. - Continue metoprolol XL 50 mg PO daily on . - Already on anticoagulation for PE. (4) Hypoxia: Secondary to CHF and PE. Aim O2 sats > 90%. - Weaned down to room air on 06/29. Ranging from room air to 3L. Two-step for her showed 3L at rest and with exertion. (5) Fall: Longstanding ambulatory dysfunction. - PT/OT evals recommend SNF. Presently patient not willing to entertain SNF. Daughter (with whom she lives) feels that she will make up her own mind. Madieu ssed extensively with son on 07/05/2021 who also reports being comfortable with her going home. On discharge day, he was present with PT working with the patient and witnessed that his mother can't even get up a step at present. I went to the room and discussed it with the patient and son. The patient is adamant that she will be fine at home. I expressed my concern about her limited mobility, possibility of falls, and general "max assist" level of care. She said that maybe she should just stay another few days. I expressed that we are not a rehab hospital and that 20-30 minutes of PT/OT a day would be able to significantly change her strength and balance before discharge on Saturday. I expressed that I was concerned that she would in fact lose strength over the weekend if she mostly stayed in the hospital bed. The patient decided to proceed with discharge and still wanted to go home. Her son acknowledged these issues, but again deferred to his mother's decision to go home. They requested an ambulance because the son said he felt she would do ok once she was in her home. is proceeding to arrange ambulance services now. (6) Hyperglycemia: Not on any medications for diabetes. A1c was 8.7% this admission. Now officially diagnosed with diabetes. - Sliding scale insulin - BSs have been 130 - 150 in last 24 hours. - Discharged on metformin XL 1000 mg PO BID. (7) Anemia: Macrocytic. MCV up to 114 on 06/26. B12 was low-normal at 330 on 06/26. - Started cyanocobalamin - Hgb stable today. (8) HTN (hypertension): BP today is 140/75. - Continue beta-nando as above - Hold HCTZ in favor of Lasix as above. - Will restart home losartan, but started at lower dose of 50 mg (9) Hyperlipidemia: - Continue simvastatin 20mg PO daily Total Time Total Time Spent Total Time Spent (In Minutes): 50 Discharge Plan Discharge Items Patient Disposition: Home - Home Health Services Reason For Visit: ACUTE CHF,HYPOXIA Discharge Diagnosis: Blood clot in lungs, extra fluid in lungs & legs (CHF) Activity: Resume your previous activity Non-emergency contact: Primary Care Provider Call non-emergency contact if: your symptoms worsen Follow-up/Referrals: Betty Resendiz MD [Primary Care Provider] - Diet: Heart Healthy Ambulatory Orders: Complete Blood Count with Diff (Timed) Timeframe: 3 Days Location: Determined by Patient Ordered By: Flex Weaver Prothrombin Time INR (Timed) Timeframe: 3 Days Location: Determined by Patient Ordered By: Flex Weaver Addtl Attending Provider Instructions: Ms. Chiu, You were admitted to the hospital with shortness of breath. This was due to a blood clot in your lungs as well as fluid build-up from your heart having some trouble pumping. Luckily, your breathing improved substantially with medication. We used a medication called warfarin to help thin your blood and this is helping dissolve the blood clot. We have started you on a medication called warfarin (sometimes called Coumadin) which needs to be taken once per day. To use warfarin, you MUST monitor the level in your blood with a test called INR. Please work with your PCP or go to the [facility] which is located in the [facility] to help keep your blood level stable. Too thin, and you risk bleeding, and too thick, and you risk not dissolving the clot in your lung. We also used medication to help get fluid off your legs and lungs which also improved your breathing. Please weigh yourself when you get home in order to make sure you know your "baseline weight." This weight is your weight without any fluid on your legs or lungs. Keeping track of this weight will help you keep from getting shortness of breath and building up fluid again. We also diagnosed you with diabetes. Luckily, your sugars here have been fairly well controlled. We are starting you on a twice-a-day medication to help keep your sugars lower. Pending Studies at Discharge: No Stand-Alone Forms: My [facility] [employer], Smoking Cessation Medications and DC Order Prescriptions: New metoprolol succinate 50 mg Tablet Extended Release 24 Hr 50 mg PO QAM Qty: 30 RF: 0 cyanocobalamin (vitamin B-12) 500 mcg Tablet 500 mcg PO QAM Qty: 30 RF: 0 warfarin 5 mg Tablet 5 mg PO DAILY@1600 Qty: 30 RF: 0 furosemide 20 mg Tablet 20 mg PO QAM Qty: 30 RF: 0 metformin 1,000 mg tablet extended release 24hr 1,000 mg PO BID Qty: 60 RF: 0 Continued vitamin A-vitamin C-vit E-min Tablet 1 tab PO DAILY RF: 0 simvastatin [Zocor] 20 mg Tablet 20 mg PO PM RF: 0 losartan 100 mg Tablet 100 mg PO DAILY RF: 0 timolol maleate 0.5 % drops 1 drp OPB QAM RF: 0 aspirin 81 mg Tablet,Delayed Release (Dr/Ec) 81 mg PO DAILY RF: 0 calcium carbonate-vitamin D3 500 mg(1,250mg) -125 unit Tablet 1 tab PO DAILY RF: 0 Restasis 0.05 % Dropperette 1 drp OPB AMPM RF: 0 Discontinued hydrochlorothiazide 25 mg Tablet 25 mg PO DAILY RF: 0 Discharge Orders: Discharge Order (Routine); Ordered 07/06/21 Ordered By: Flex Moreno/Other Patient Handouts: High Blood Sugar (Hyperglycemia), Hypoglycemia (Low Blood Sugar), 5 Steps for Eating Healthier, Type 2 Diabetes Admission Data Admit Date/Time: 06/25/21 12:18 Attending Provider: Flex Weaver Admit Provider: Angel Leon Primary Care Provider: Betty Resendiz Other Providers: [facility] ; [facility] Other Interventions: Discharge Summary Assessment (RN) Last Done: 07/06/21 14:58 Coding Level of Care Code D/C DAY MANAGEMENT >30 MINS Diagnoses Acute congestive heart failure I50.9 Pulmonary embolism I26.99 Atrial fibrillation I48.91 Hypoxia R09.02 Fall W19.XXXA Hyperglycemia R73.9 Anemia D64.9 HTN (hypertension) I10 Hyperlipidemia E78.5
== END 2021-07-06 19:45 | disposition home health service (06) | DRG 175 ==
LOC: ED 09:06 → EDINP 12:18 → SUATTDRO 12:18 → 2N 16:58

== ENCOUNTER 2021-09-06 13:02 | Inpatient (IN) ==
[2021-09-06] MEDS ORDERED: SODIUM CHLORIDE 0.9% 500 ML IV SCH (13:45)
[2021-09-06] MEDS ORDERED: METOPROLOL TARTRATE 1 MG/ML VIAL IV STA (13:46)
--- NOTE | 2021-09-06 14:20 | Emergency Department Note ---
Impression & Plan Sepsis, Sacral decubitus ulcer, stage III, Morbid obesity with BMI of 50.0- 59.9, adult, Acute UTI (urinary tract infection) sepsis suspected 2/2 UTI and buttock wound, ARF, hyperkalemia ED Provider Note CHIEF COMPLAINT: hypotension HISTORY OF PRESENT ILLNESS: This 81 yo F history of HFpEF, AFib, recent PE on warfarin, HTN, ambulatory dysfunction presents to the emergency department from home via EMS for hypotension. Patient is unable to give much meaningful history, and provider was unable to get ahold of primary or secondary contact over the phone despite multiple calls. Per patient she has been feeling more fatigued lately, and she also complains of pain around the area above her buttocks. She denies SOB, fevers, abdominal pain, nausea, vomiting, chest pain or palpitations. On arrival EMS reports that they were told she had a BP in the 70s systolic. En route to hospital her BP was in the 90s, and she received a small amount of NSS. In the ER she is noted to have BP 110s systolic with sinus tachycardia. Of note, patient lives in a two story home on the first floor, and her daughter lives [place] lives on the second floor. In the past patient has been recommended for SNF due to ambulatory dysfunction however has been adamant about returning home. Was last admitted in June for CHF exacerbation, atrial fibrillation, and PE, and ultimately was discharged home with home health services due to patient refusal of placement and family support of her decision. REVIEW OF SYSTEMS: A review of systems was performed with positives and pertinent negatives listed in the history of present illness. 10 systems were reviewed and are otherwise negative. ALLERGIES: see below MEDICATIONS: see below PMH: see below SOCIAL HISTORY: see below DDx: Sepsis, skin/soft tissue infection, pneumonia, hemodynamic instability from AFib RVR, CHF PHYSICAL EXAM: Vital signs reviewed. General: Chronically ill appearing 81 yo female, in no significant distress. Large body habitus. HEENT: No scleral icterus, PERRLA, neck supple. Atraumatic. Cardiovascular: Regular rhythm, tachycardic, no extra sounds. Pulmonary: Clear to auscultation bilaterally, normal work of breathing. Abdomen: Protuberant, soft, nontender, nondistended, positive bowel sounds. Musculoskeletal: Atraumatic, minimal peripheral edema. Neurologic: Speech clear. Patient alert when woken, oriented to person, place. Somnolent but arousable. Skin: Macerated areas behind both popliteal fossae/skin folds. Also noted to have large large buttock wound with significant surrounding erythema/ecchymosis with stage 2/3 breakdown. EMERGENCY DEPARTMENT COURSE/MDM: Patient presented hypotensive and tachycardic with leukocytosis to 29, elevated lactate, ARF with creatinine 4.9 from baseline <1.0. K mildly elevated to 5.3, no evidence of ectopy on monitor and no peaked T waves. UTI and significant buttock wound are suspected sources of infection. Received NSS boluses total of 800cc, and was ordered NSS 500cc over 3 hours to achieve goal fluids per sepsis guidelines. Patient's IBW is 52kg, so total recommended IVF in ER would be 1560cc. Patient has Hx significant CHF requiring admission and diuresis in the past so fluids were given over longer period of time to monitor for fluid overload. Patient also had BCx collected prior to receiving empiric antibiotics (vanc/cefepime). Hospitalist service consulted, patient will be admitted under [facility] Hospitalist service for management of A RF/hyperkalemia and sepsis secondary to skin and soft tissue/urinary infection. MONITORING: An order for cardiac monitoring was placed and the patient is noted to be in a sinus tachycardia at 110 beats per minute. RADIOLOGY: Chest X-Ray personally reviewed by myself and Dr. Rivera as well as read by Radiology, no evidence of pneumonia or pulmonary edema. EKG: sinus tachycardia with a rate of 109, AK 192, QRS 118 somewhat widened, QTc 468; no ST changes, noted T wave inversions in I and avL, no peaked T waves DISPOSITION: Admission to [facility] Hospitalist Service Past Med/Surg History Medical History Asthma Diabetes mellitus, type 2 H/O: HTN (hypertension) Hypoxia Nasal fracture Reflux esophagitis Social History Smoking Status: Never smoker Hx Alcohol Use: No Hx Substance Use: No Preferred Language: Cuban Communication Ability: Effective Line Out Man Required: No Beliefs That Will Affect Care: Baptism Baptism Beliefs: Taoism marital status: / Current Living Situation: Family Current Living Situation Comment: lives with daughter How many Children do You have: 1 Other Information That Helps Us Care for You: No Feels Safe at Home: Yes Safety Concerns: Feels Safe At This Time Assistive Devices: Cane, Denture - Upper, Glasses and Oxygen - Continuous Assistive Devices Comment: O2 at home as needed Allergies Allergies Allergy/AdvReac Type Severity Reaction Status Date / Time succinylcholine Allergy Severe CARDIAC Verified 06/25/21 12:12 ARREST Penicillins Allergy Unknown REDNESS,SWE Verified 09/07/21 07:31 LLING Home Meds Home Medications Medication Instructions Recorded Confirmed aspirin 81 mg tablet,delayed 81 mg PO DAILY 01/25/21 09/06/21 release calcium carbonate 500 mg-vitamin 1 tab PO DAILY 01/25/21 09/06/21 D3 3.125 mcg (125 unit) tablet cyclosporine 0.05 % eye drops in a 1 drp OPB AMPM 01/25/21 09/06/21 dropperette (Restasis) losartan 100 mg tablet 100 mg PO DAILY 01/25/21 09/06/21 simvastatin 20 mg tablet (Zocor) 20 mg PO PM 01/25/21 09/06/21 timolol maleate 0.5 % eye drops 1 drp OPB QAM 01/25/21 09/06/21 vitamin A-vitamin C-vit E-min 1 tab PO DAILY 06/25/21 09/06/21 tablet hydrochlorothiazide 25 mg tablet 25 mg PO DAILY 09/06/21 09/06/21 Previous Rx's Medication Instructions Recorded cyanocobalamin (vitamin B-12) 500 500 mcg PO QAM #30 tab 07/06/21 mcg tablet furosemide 20 mg tablet 20 mg PO QAM #30 tab 07/06/21 metformin 1,000 mg tablet,extended 1,000 mg PO BID #60 tab 07/06/21 release 24hr metoprolol succinate 50 mg 50 mg PO QAM #30 tab 07/06/21 tablet,extended release 24 hr warfarin 5 mg tablet 5 mg PO DAILY@1600 #30 tab 07/06/21 Results & Data (ED) Vital Signs Vital Signs - 24 hr 09/06/21 13:20 09/06/21 13:28 09/06/21 13:30 Pulse Rate 114 H 112 H 111 H Pulse Rate [Apical] Pulse Rate from SpO2 Sensor 112 H 111 H Pulse Rhythm [Apical] Respiratory Rate 26 H 24 25 H Respiratory Effort / Characteristics Respiratory Depth Blood Pressure 126/39 L 113/55 L Blood Pressure [Left Arm] Blood Pressure Mean 68 74 Blood Pressure Mean [Left Arm] Pulse Oximetry 95 86 L Oxygen Delivery Method 09/06/21 13:40 09/06/21 13:44 09/06/21 13:50 Pulse Rate 112 H 108 H 109 H Pulse Rate [Apical] Pulse Rate from SpO2 Sensor 113 H 109 H Pulse Rhythm [Apical] Respiratory Rate 28 H 24 Respiratory Effort / Characteristics Respiratory Depth Blood Pressure Blood Pressure [Left Arm] Blood Pressure Mean Blood Pressure Mean [Left Arm] Pulse Oximetry 96 95 97 Oxygen Delivery Method Room Air 09/06/21 13:57 09/06/21 14:00 09/06/21 14:09 Pulse Rate 109 H 117 H 123 H Pulse Rate [Apical] Pulse Rate from SpO2 Sensor 108 H 108 H Pulse Rhythm [Apical] Respiratory Rate 25 H 22 29 H Respiratory Effort / Characteristics Respiratory Depth Blood Pressure 128/48 L 123/54 L 120/50 L Blood Pressure [Left Arm] Blood Pressure Mean 74 77 73 Blood Pressure Mean [Left Arm] Pulse Oximetry 97 90 Oxygen Delivery Method 09/06/21 14:10 09/06/21 14:20 09/06/21 15:11 Pulse Rate 109 H 108 H 136 H Pulse Rate [Apical] Pulse Rate from SpO2 Sensor 109 H 108 H 109 H Pulse Rhythm [Apical] Respiratory Rate 22 28 H 28 H Respiratory Effort / Characteristics Respiratory Depth Blood Pressure Blood Pressure [Left Arm] Blood Pressure Mean Blood Pressure Mean [Left Arm] Pulse Oximetry 96 95 95 Oxygen Delivery Method 09/06/21 15:20 09/06/21 15:24 09/06/21 15:30 Pulse Rate 109 H 150 H Pulse Rate [Apical] Pulse Rate from SpO2 Sensor 134 H Pulse Rhythm [Apical] Respiratory Rate 22 25 H Respiratory Effort / Characteristics Respiratory Depth Blood Pressure 120/50 L Blood Pressure [Left Arm] Blood Pressure Mean Blood Pressure Mean [Left Arm] Pulse Oximetry 81 L Oxygen Delivery Method 09/06/21 15:31 09/06/21 15:40 09/06/21 15:50 Pulse Rate 120 H 114 H 120 H Pulse Rate [Apical] Pulse Rate from SpO2 Sensor Pulse Rhythm [Apical] Respiratory Rate 24 16 22 Respiratory Effort / Characteristics Respiratory Depth Blood Pressure 102/61 Blood Pressure [Left Arm] Blood Pressure Mean 74 Blood Pressure Mean [Left Arm] Pulse Oximetry 82 L 78 L Oxygen Delivery Method 09/06/21 16:00 09/06/21 16:01 09/06/21 16:10 Pulse Rate 110 H 114 H 112 H Pulse Rate [Apical] Pulse Rate from SpO2 Sensor 113 H 117 H 112 H Pulse Rhythm [Apical] Respiratory Rate 24 25 H 23 Respiratory Effort / Characteristics Respiratory Depth Blood Pressure 111/67 Blood Pressure [Left Arm] Blood Pressure Mean 81 Blood Pressure Mean [Left Arm] Pulse Oximetry 94 90 93 Oxygen Delivery Method 09/06/21 16:20 09/06/21 16:30 09/06/21 16:40 Pulse Rate 112 H 116 H 115 H Pulse Rate [Apical] 109 H Pulse Rate from SpO2 Sensor 113 H 116 H Pulse Rhythm [Apical] Regular Respiratory Rate 26 H 28 H 24 Respiratory Effort / Characteristics Non-Labored Respiratory Depth Normal Blood Pressure 116/73 Blood Pressure [Left Arm] 116/73 Blood Pressure Mean 87 Blood Pressure Mean [Left Arm] 87 Pulse Oximetry 94 95 92 Oxygen Delivery Method Room Air 09/06/21 16:50 09/06/21 17:00 09/06/21 17:01 Pulse Rate 112 H 114 H Pulse Rate [Apical] Pulse Rate from SpO2 Sensor Pulse Rhythm [Apical] Respiratory Rate 25 H 26 H 22 Respiratory Effort / Characteristics Respiratory Depth Blood Pressure 127/44 L Blood Pressure [Left Arm] Blood Pressure Mean 71 Blood Pressure Mean [Left Arm] Pulse Oximetry Oxygen Delivery Method 09/06/21 17:20 09/06/21 17:30 09/06/21 17:40 Pulse Rate 112 H 108 H 110 H Pulse Rate [Apical] Pulse Rate from SpO2 Sensor Pulse Rhythm [Apical] Respiratory Rate 24 24 23 Respiratory Effort / Characteristics Respiratory Depth Blood Pressure Blood Pressure [Left Arm] Blood Pressure Mean Blood Pressure Mean [Left Arm] Pulse Oximetry Oxygen Delivery Method 09/06/21 17:50 09/06/21 18:00 Pulse Rate 112 H Pulse Rate [Apical] Pulse Rate from SpO2 Sensor Pulse Rhythm [Apical] Respiratory Rate 26 H 16 Respiratory Effort / Characteristics Respiratory Depth Blood Pressure Blood Pressure [Left Arm] Blood Pressure Mean Blood Pressure Mean [Left Arm] Pulse Oximetry Oxygen Delivery Method Home Medications Current Medication List: was personally reviewed by me Laboratory Data Attestation: I reviewed the patient's lab results. Result diagrams: 09/08/21 05:30 03/04/22 05:30 Lab Results 09/06/21 09/06/21 09/06/21 Range/Units 14:08 14:08 14:08 WBC Cancelled RBC Cancelled Hgb Cancelled Hct Cancelled MCV Cancelled MCH Cancelled MCHC Cancelled RDW Std Deviation Cancelled RDW Coeff of Lety Cancelled Plt Count Cancelled MPV Cancelled Immature Gran % (Auto) Cancelled Neut % (Auto) Cancelled Lymph % (Auto) Cancelled [place] % (Auto) Cancelled Eos % (Auto) Cancelled Baso % (Auto) Cancelled Neut # (Auto) Cancelled Lymph # (Auto) Cancelled [place] # (Auto) Cancelled Eos # (Auto) Cancelled Baso # (Auto) Cancelled Immature Gran # (Auto) Cancelled Absolute Nucleated RBC Cancelled Nucleated RBC % (auto) Cancelled Neutrophils % (Manual) Cancelled Band Neutrophils % Cancelled Lymphocytes % (Manual) Cancelled Prolymphocyte % Cancelled Reactive Lymphs % (Man) Cancelled Monocytes % (Manual) Cancelled Eosinophils % (Manual) Cancelled Basophils % (Manual) Cancelled Metamyelocytes % (Man) Cancelled Myelocytes % (Man) Cancelled Promyelocytes % (Man) Cancelled Blast Cells % (Manual) Cancelled Plasma Cell % (Manual) Cancelled Other Cells % Cancelled Nucleated RBC % Cancelled Neutrophils # (Manual) Cancelled Band Neutrophils # Cancelled Total Absolute Neuts Cancelled Lymphocytes # (Manual) Cancelled Prolymphocyte # Cancelled Reactive Lymphs # Cancelled Total Abs Lymphocytes Cancelled Monocytes # (Manual) Cancelled Eosinophils # (Manual) Cancelled Basophils # (Manual) Cancelled Metamyelocytes # (Man) Cancelled Myelocytes # (Manual) Cancelled Promyelocytes # (Man) Cancelled Blast Cells # (Man) Cancelled Plasma Cell # (Manual) Cancelled Other Cells # Cancelled Nucleated RBCs # (Man) Cancelled Hypersegmented Neuts Cancelled Hyposegmented Neuts Cancelled Hypogranular Neuts Cancelled Large Granular Lymphs Cancelled # Lrg Granular Lymphs Cancelled Hairy Cells Cancelled Smudge Cells Cancelled Blood Smear Review Toxic Granulation Cancelled Toxic Vacuolation Cancelled Dohle Bodies Cancelled Wild Rods Cancelled Platelet Estimate Cancelled Hypogranular Platelets Cancelled Clumped Platelets Cancelled Giant Platelets Cancelled Platelet Satelliting Cancelled RBC Morphology Cancelled Polychromasia Cancelled Hypochromasia Cancelled Poikilocytosis Cancelled Basophilic Stippling Cancelled Anisocytosis Cancelled Microcytosis Cancelled Macrocytosis Cancelled Spherocytes Cancelled Pappenheimer Bodies Cancelled Sickle Cells Cancelled Target Cells Cancelled Tear Drop Cells Cancelled Ovalocytes Cancelled Stomatocytes Cancelled [place] Bodies Cancelled Echinocytes Cancelled Acanthocytes (Spur) Cancelled Rouleaux Cancelled RBC Agglutinates Cancelled Schistocytes Cancelled RBC Morph Comment Cancelled Sezary Cell Cancelled PT (9.0-12.0) Seconds INR (0.9-1.1) APTT (21.0-31.0) Seconds PTT Ratio Sodium Cancelled Potassium Cancelled Chloride Cancelled Carbon Dioxide Cancelled Anion Gap Cancelled BUN Cancelled Creatinine Cancelled Est Cr Clr Drug Dosing Cancelled Est GFR ( Amer) Cancelled Est GFR (Non-Af Amer) Cancelled BUN/Creatinine Ratio Cancelled Glucose Cancelled Lactate (0.4-2.0) mmol/L Calcium Cancelled Magnesium Cancelled Total Bilirubin Cancelled AST Cancelled ALT Cancelled Alkaline Phosphatase Cancelled Troponin I Cancelled B-Natriuretic Peptide Total Protein Cancelled Albumin Cancelled Globulin Cancelled Albumin/Globulin Ratio Cancelled TSH Cancelled Urine Color Urine Appearance (Clear) Urine pH (4.5-7.5) Ur Specific [place] (1.000-1.030) Urine Protein (Negative) Urine Glucose (UA) (Negative) Urine Ketones (Negative) Urine Blood (Negative) Urine Nitrite (Negative) Urine Bilirubin (Negative) Urine Urobilinogen (Negative) Ur Leukocyte Esterase (Negative) Urine WBC (Auto) (0-5) /hpf Urine RBC (Auto) (0-4) /hpf U Hyaline Cast (Auto) (0-5) /lpf U Epithel Cells (Auto) (0-5) /lpf Urine Bacteria (Auto) (Negative) SARS-CoV-2, RNA, NAAT (NEGATIVE) 09/06/21 09/06/21 09/06/21 Range/Units 14:08 14:23 14:49 WBC RBC Hgb Hct MCV MCH MCHC RDW Std Deviation RDW Coeff of Lety Plt Count MPV Immature Gran % (Auto) Neut % (Auto) Lymph % (Auto) [place] % (Auto) Eos % (Auto) Baso % (Auto) Neut # (Auto) Lymph # (Auto) [place] # (Auto) Eos # (Auto) Baso # (Auto) Immature Gran # (Auto) Absolute Nucleated RBC Nucleated RBC % (auto) Neutrophils % (Manual) Band Neutrophils % Lymphocytes % (Manual) Prolymphocyte % Reactive Lymphs % (Man) Monocytes % (Manual) Eosinophils % (Manual) Basophils % (Manual) Metamyelocytes % (Man) Myelocytes % (Man) Promyelocytes % (Man) Blast Cells % (Manual) Plasma Cell % (Manual) Other Cells % Nucleated RBC % Neutrophils # (Manual) Band Neutrophils # Total Absolute Neuts Lymphocytes # (Manual) Prolymphocyte # Reactive Lymphs # Total Abs Lymphocytes Monocytes # (Manual) Eosinophils # (Manual) Basophils # (Manual) Metamyelocytes # (Man) Myelocytes # (Manual) Promyelocytes # (Man) Blast Cells # (Man) Plasma Cell # (Manual) Other Cells # Nucleated RBCs # (Man) Hypersegmented Neuts Hyposegmented Neuts Hypogranular Neuts Large Granular Lymphs # Lrg Granular Lymphs Hairy Cells Smudge Cells Blood Smear Review Toxic Granulation Toxic Vacuolation Dohle Bodies Wild Rods Platelet Estimate Hypogranular Platelets Clumped Platelets Giant Platelets Platelet Satelliting RBC Morphology Polychromasia Hypochromasia Poikilocytosis Basophilic Stippling Anisocytosis Microcytosis Macrocytosis Spherocytes Pappenheimer Bodies Sickle Cells Target Cells Tear Drop Cells Ovalocytes Stomatocytes [place] Bodies Echinocytes Acanthocytes (Spur) Rouleaux RBC Agglutinates Schistocytes RBC Morph Comment Sezary Cell PT 11.9 (9.0-12.0) Seconds INR 1.1 (0.9-1.1) APTT 23.9 (21.0-31.0) Seconds PTT Ratio 0.9 Sodium Potassium Chloride Carbon Dioxide Anion Gap BUN Creatinine Est Cr Clr Drug Dosing Est GFR ( Amer) Est GFR (Non-Af Amer) BUN/Creatinine Ratio Glucose Lactate (0.4-2.0) mmol/L Calcium Magnesium Total Bilirubin AST ALT Alkaline Phosphatase Troponin I B-Natriuretic Peptide Cancelled Total Protein Albumin Globulin Albumin/Globulin Ratio TSH Urine Color Urine Appearance (Clear) Urine pH (4.5-7.5) Ur Specific [place] (1.000-1.030) Urine Protein (Negative) Urine Glucose (UA) (Negative) Urine Ketones (Negative) Urine Blood (Negative) Urine Nitrite (Negative) Urine Bilirubin (Negative) Urine Urobilinogen (Negative) Ur Leukocyte Esterase (Negative) Urine WBC (Auto) (0-5) /hpf Urine RBC (Auto) (0-4) /hpf U Hyaline Cast (Auto) (0-5) /lpf U Epithel Cells (Auto) (0-5) /lpf Urine Bacteria (Auto) (Negative) SARS-CoV-2, RNA, NAAT NEGATIVE (NEGATIVE) 09/06/21 09/06/21 09/06/21 Range/Units 14:49 14:49 14:49 WBC 29.01 H RBC 2.23 L Hgb 7.9 L Hct 24.6 L MCV 110.3 H MCH 35.4 H MCHC 32.1 RDW Std Deviation 81.6 H RDW Coeff of Lety 20.6 H Plt Count 580 H MPV 10.7 H Immature Gran % (Auto) Neut % (Auto) Lymph % (Auto) [place] % (Auto) Eos % (Auto) Baso % (Auto) Neut # (Auto) Lymph # (Auto) [place] # (Auto) Eos # (Auto) Baso # (Auto) Immature Gran # (Auto) Absolute Nucleated RBC 0.14 H Nucleated RBC % (auto) 0.5 Neutrophils % (Manual) 84.2 Band Neutrophils % Lymphocytes % (Manual) 11.4 Prolymphocyte % Reactive Lymphs % (Man) Monocytes % (Manual) 3.5 Eosinophils % (Manual) Basophils % (Manual) Metamyelocytes % (Man) Myelocytes % (Man) 0.9 Promyelocytes % (Man) Blast Cells % (Manual) Plasma Cell % (Manual) Other Cells % Nucleated RBC % Neutrophils # (Manual) 24.43 H Band Neutrophils # Total Absolute Neuts 24.43 H Lymphocytes # (Manual) 3.31 Prolymphocyte # Reactive Lymphs # Total Abs Lymphocytes 3.31 Monocytes # (Manual) 1.02 H Eosinophils # (Manual) Basophils # (Manual) Metamyelocytes # (Man) Myelocytes # (Manual) 0.26 H Promyelocytes # (Man) Blast Cells # (Man) Plasma Cell # (Manual) Other Cells # Nucleated RBCs # (Man) Hypersegmented Neuts Hyposegmented Neuts Hypogranular Neuts Large Granular Lymphs # Lrg Granular Lymphs Hairy Cells Smudge Cells Blood Smear Review Cancelled Toxic Granulation Toxic Vacuolation Dohle Bodies Wild Rods Platelet Estimate Hypogranular Platelets Clumped Platelets Giant Platelets Platelet Satelliting RBC Morphology Polychromasia 1+ Hypochromasia Poikilocytosis Present Basophilic Stippling Anisocytosis Present Microcytosis Macrocytosis Spherocytes Pappenheimer Bodies Sickle Cells Target Cells Tear Drop Cells Ovalocytes Stomatocytes [place] Bodies Echinocytes Acanthocytes (Spur) Rouleaux RBC Agglutinates Schistocytes RBC Morph Comment Sezary Cell PT (9.0-12.0) Seconds INR (0.9-1.1) APTT (21.0-31.0) Seconds PTT Ratio Sodium Potassium Chloride Carbon Dioxide Anion Gap BUN Creatinine Est Cr Clr Drug Dosing Est GFR ( Amer) Est GFR (Non-Af Amer) BUN/Creatinine Ratio Glucose Lactate 3.0 H* (0.4-2.0) mmol/L Calcium Magnesium Total Bilirubin AST ALT Alkaline Phosphatase Troponin I B-Natriuretic Peptide 72 Total Protein Albumin Globulin Albumin/Globulin Ratio TSH Urine Color Urine Appearance (Clear) Urine pH (4.5-7.5) Ur Specific [place] (1.000-1.030) Urine Protein (Negative) Urine Glucose (UA) (Negative) Urine Ketones (Negative) Urine Blood (Negative) Urine Nitrite (Negative) Urine Bilirubin (Negative) Urine Urobilinogen (Negative) Ur Leukocyte Esterase (Negative) Urine WBC (Auto) (0-5) /hpf Urine RBC (Auto) (0-4) /hpf U Hyaline Cast (Auto) (0-5) /lpf U Epithel Cells (Auto) (0-5) /lpf Urine Bacteria (Auto) (Negative) SARS-CoV-2, RNA, NAAT (NEGATIVE) 09/06/21 09/06/21 09/06/21 Range/Units 14:49 14:49 15:11 WBC RBC Hgb Hct MCV MCH MCHC RDW Std Deviation RDW Coeff of Lety Plt Count MPV Immature Gran % (Auto) Neut % (Auto) Lymph % (Auto) [place] % (Auto) Eos % (Auto) Baso % (Auto) Neut # (Auto) Lymph # (Auto) [place] # (Auto) Eos # (Auto) Baso # (Auto) Immature Gran # (Auto) Absolute Nucleated RBC Nucleated RBC % (auto) Neutrophils % (Manual) Band Neutrophils % Lymphocytes % (Manual) Prolymphocyte % Reactive Lymphs % (Man) Monocytes % (Manual) Eosinophils % (Manual) Basophils % (Manual) Metamyelocytes % (Man) Myelocytes % (Man) Promyelocytes % (Man) Blast Cells % (Manual) Plasma Cell % (Manual) Other Cells % Nucleated RBC % Neutrophils # (Manual) Band Neutrophils # Total Absolute Neuts Lymphocytes # (Manual) Prolymphocyte # Reactive Lymphs # Total Abs Lymphocytes Monocytes # (Manual) Eosinophils # (Manual) Basophils # (Manual) Metamyelocytes # (Man) Myelocytes # (Manual) Promyelocytes # (Man) Blast Cells # (Man) Plasma Cell # (Manual) Other Cells # Nucleated RBCs # (Man) Hypersegmented Neuts Hyposegmented Neuts Hypogranular Neuts Large Granular Lymphs # Lrg Granular Lymphs Hairy Cells Smudge Cells Blood Smear Review Toxic Granulation Toxic Vacuolation Dohle Bodies Wild Rods Platelet Estimate Hypogranular Platelets Clumped Platelets Giant Platelets Platelet Satelliting RBC Morphology Polychromasia Hypochromasia Poikilocytosis Basophilic Stippling Anisocytosis Microcytosis Macrocytosis Spherocytes Pappenheimer Bodies Sickle Cells Target Cells Tear Drop Cells Ovalocytes Stomatocytes [place] Bodies Echinocytes Acanthocytes (Spur) Rouleaux RBC Agglutinates Schistocytes RBC Morph Comment Sezary Cell PT (9.0-12.0) Seconds INR (0.9-1.1) APTT (21.0-31.0) Seconds PTT Ratio Sodium 133 L Potassium 5.3 H Chloride 101 Carbon Dioxide 15 L Anion Gap 17 H BUN 67 H Creatinine 4.94 H* Est Cr Clr Drug Dosing 11.8 Est GFR ( Amer) 8.7 Est GFR (Non-Af Amer) 7.5 BUN/Creatinine Ratio 13.6 Glucose 148 H Lactate (0.4-2.0) mmol/L Calcium 7.7 L Magnesium 1.9 Total Bilirubin 0.8 AST 111 H ALT 49 Alkaline Phosphatase 57 Troponin I 0.06 H* B-Natriuretic Peptide Total Protein 5.8 L Albumin 3.0 L Globulin 2.8 Albumin/Globulin Ratio 1.1 TSH 1.685 Urine Color Yellow Urine Appearance Turbid A (Clear) Urine pH 6.0 (4.5-7.5) Ur Specific [place] 1.012 (1.000-1.030) Urine Protein 2+ H (Negative) Urine Glucose (UA) Negative (Negative) Urine Ketones Negative (Negative) Urine Blood 1+ H (Negative) Urine Nitrite Negative (Negative) Urine Bilirubin Negative (Negative) Urine Urobilinogen Negative (Negative) Ur Leukocyte Esterase 2+ H (Negative) Urine WBC (Auto) >30 H (0-5) /hpf Urine RBC (Auto) 0-4 (0-4) /hpf U Hyaline Cast (Auto) 1-5 (0-5) /lpf U Epithel Cells (Auto) 10-20 H (0-5) /lpf Urine Bacteria (Auto) 4+ H (Negative) SARS-CoV-2, RNA, NAAT (NEGATIVE) 09/06/21 Range/Units 17:00 WBC RBC Hgb Hct MCV MCH MCHC RDW Std Deviation RDW Coeff of Lety Plt Count MPV Immature Gran % (Auto) Neut % (Auto) Lymph % (Auto) [place] % (Auto) Eos % (Auto) Baso % (Auto) Neut # (Auto) Lymph # (Auto) [place] # (Auto) Eos # (Auto) Baso # (Auto) Immature Gran # (Auto) Absolute Nucleated RBC Nucleated RBC % (auto) Neutrophils % (Manual) Band Neutrophils % Lymphocytes % (Manual) Prolymphocyte % Reactive Lymphs % (Man) Monocytes % (Manual) Eosinophils % (Manual) Basophils % (Manual) Metamyelocytes % (Man) Myelocytes % (Man) Promyelocytes % (Man) Blast Cells % (Manual) Plasma Cell % (Manual) Other Cells % Nucleated RBC % Neutrophils # (Manual) Band Neutrophils # Total Absolute Neuts Lymphocytes # (Manual) Prolymphocyte # Reactive Lymphs # Total Abs Lymphocytes Monocytes # (Manual) Eosinophils # (Manual) Basophils # (Manual) Metamyelocytes # (Man) Myelocytes # (Manual) Promyelocytes # (Man) Blast Cells # (Man) Plasma Cell # (Manual) Other Cells # Nucleated RBCs # (Man) Hypersegmented Neuts Hyposegmented Neuts Hypogranular Neuts Large Granular Lymphs # Lrg Granular Lymphs Hairy Cells Smudge Cells Blood Smear Review Toxic Granulation Toxic Vacuolation Dohle Bodies Wild Rods Platelet Estimate Hypogranular Platelets Clumped Platelets Giant Platelets Platelet Satelliting RBC Morphology Polychromasia Hypochromasia Poikilocytosis Basophilic Stippling Anisocytosis Microcytosis Macrocytosis Spherocytes Pappenheimer Bodies Sickle Cells Target Cells Tear Drop Cells Ovalocytes Stomatocytes [place] Bodies Echinocytes Acanthocytes (Spur) Rouleaux RBC Agglutinates Schistocytes RBC Morph Comment Sezary Cell PT (9.0-12.0) Seconds INR (0.9-1.1) APTT (21.0-31.0) Seconds PTT Ratio Sodium Potassium Chloride Carbon Dioxide Anion Gap BUN Creatinine Est Cr Clr Drug Dosing Est GFR ( Amer) Est GFR (Non-Af Amer) BUN/Creatinine Ratio Glucose Lactate 1.7 (0.4-2.0) mmol/L Calcium Magnesium Total Bilirubin AST ALT Alkaline Phosphatase Troponin I B-Natriuretic Peptide Total Protein Albumin Globulin Albumin/Globulin Ratio TSH Urine Color Urine Appearance (Clear) Urine pH (4.5-7.5) Ur Specific [place] (1.000-1.030) Urine Protein (Negative) Urine Glucose (UA) (Negative) Urine Ketones (Negative) Urine Blood (Negative) Urine Nitrite (Negative) Urine Bilirubin (Negative) Urine Urobilinogen (Negative) Ur Leukocyte Esterase (Negative) Urine WBC (Auto) (0-5) /hpf Urine RBC (Auto) (0-4) /hpf U Hyaline Cast (Auto) (0-5) /lpf U Epithel Cells (Auto) (0-5) /lpf Urine Bacteria (Auto) (Negative) SARS-CoV-2, RNA, NAAT (NEGATIVE) Administered Medications Acetaminophen (Acetaminophen 325 Mg Tab) 650 mg PO Q4H PRN PRN Reason: Pain or Fever Stop: 10/06/21 19:53 Last Admin: 09/08/21 04:18 Dose: 650 mg Documented by: [id number] Aspirin (Aspirin 81 Mg Ectab) 81 mg PO DAILY [facility] Stop: 10/07/21 08:59 Last Admin: 09/08/21 09:24 Dose: Not Given Documented by: [id number] Admin: 09/07/21 09:30 Dose: 81 mg Documented by: [id number] Cyanocobalamin (Cyanocobalamin (B-12) 500 Mcg Tablet) 500 mcg PO QAM [facility] Stop: 10/07/21 08:59 Last Admin: 09/08/21 09:24 Dose: Not Given Documented by: [id number] Admin: 09/07/21 09:30 Dose: 500 mcg Documented by: [id number] Heparin Sodium/Dextrose (Heparin Sodium/Dextrose) 25,000 units in 500 mls @ 31 mls/hr IV .Q16H8M [facility]; Protocol Stop: 10/06/21 19:59 Last Titration: 09/08/21 19:11 Dose: 1,550 units/hr, 31 mls/hr Documented by: [id number] Cosigned by: [id number] Titration: 09/08/21 14:24 Dose: 1,550 units/hr, 31 mls/hr Documented by: [id number] Cosigned by: [id number] Titration: 09/07/21 06:37 Dose: 0 units/hr, 0 mls/hr Documented by: [id number] Cosigned by: [id number] Titration: 09/07/21 05:31 Dose: 1,550 units/hr, 31 mls/hr Documented by: [id number] Cosigned by: [id number] Admin: 09/06/21 22:35 Dose: 1,550 units/hr, 31 mls/hr Documented by: [id number] Cosigned by: [id number] Ciprofloxacin (Cipro / D5w) 400 mg in 200 mls @ 100 mls/hr IV Q24H [facility]; Protocol Stop: 09/18/21 08:59 Last Infusion: 09/08/21 12:18 Dose: 0 mls/hr Documented by: [id number] Admin: 09/08/21 09:08 Dose: 100 mls/hr Documented by: [id number] Sodium Chloride (Nss 1000ml) 1,000 mls @ 75 mls/hr IV .[id number] [facility] Stop: 09/09/21 10:39 Last Admin: 09/08/21 08:09 Dose: 75 mls/hr Documented by: [id number] Insulin Aspart (Insulin Aspart Per Unit) 0 units SC ACHS [facility] Stop: 10/07/21 20:59 Last Admin: 09/08/21 21:00 Dose: Not Given Documented by: [id number] Admin: 09/08/21 17:10 Dose: Not Given Documented by: [id number] Cosigned by: [id number] Admin: 09/08/21 12:31 Dose: 1 units Documented by: [id number] Cosigned by: [id number] Admin: 09/08/21 08:10 Dose: Not Given Documented by: [id number] Admin: 09/07/21 21:50 Dose: 3 units Documented by: [id number] Cosigned by: [id number] Miscellaneous (*Cyclosporine [Restasis]*Order Awaiting Action) 1 ea N/A QS [facility] Stop: 10/07/21 00:00 Last Admin: 09/08/21 17:10 Dose: Not Given Documented by: [id number] Admin: 09/08/21 09:19 Dose: Not Given Documented by: [id number] Admin: 09/07/21 23:28 Dose: Not Given Documented by: [id number] Admin: 09/07/21 17:59 Dose: Not Given Documented by: [id number] Admin: 09/07/21 10:26 Dose: Not Given Documented by: [id number] Admin: 09/06/21 23:16 Dose: Not Given Documented by: [id number] Morphine Sulfate (Morphine Sulfate 2 Mg/Ml Carp) 2 mg IV Q4H PRN PRN Reason: Pain Stop: 09/21/21 09:32 Last Admin: 09/07/21 14:58 Dose: 2 mg Documented by: [id number] Multivitamins/Minerals (Cerovite Adv Formula Tab) 1 tab PO DAILY [facility] Stop: 10/07/21 08:59 Last Admin: 09/08/21 09:24 Dose: Not Given Documented by: [id number] Admin: 09/07/21 09:30 Dose: 1 tab Documented by: [id number] Nystatin (Nystatin Powder 15gm Btl) 1 appln EXT BID [facility] Stop: 10/06/21 20:59 Last Admin: 09/08/21 09:09 Dose: 1 appln Documented by: [id number] Admin: 09/07/21 21:53 Dose: 1 appln Documented by: [id number] Admin: 09/07/21 09:31 Dose: 1 appln Documented by: [id number] Admin: 09/06/21 21:26 Dose: 1 appln Documented by: [id number] Ondansetron HCl (Ondansetron Inj 2 Mg/Ml 2 Ml Vial) 4 mg IV Q6H PRN PRN Reason: Nausea Stop: 10/06/21 19:53 Last Admin: 09/08/21 07:54 Dose: 4 mg Documented by: [id number] Simvastatin (Simvastatin 20 Mg Tab) 20 mg PO PM [facility] Stop: 10/06/21 20:59 Last Admin: 09/06/21 21:25 Dose: 20 mg Documented by: [id number] Timolol Maleate (Timolol Maleate 0.5% Op Soln 5 Ml Btl) 1 drops OP QAM [facility] Stop: 10/07/21 08:59 Last Admin: 09/08/21 09:09 Dose: 1 drops Documented by: [id number] Admin: 09/07/21 09:31 Dose: 1 drops Documented by: [id number] Warfarin Sodium (Warfarin Sod 5 Mg Tab) 5 mg PO DAILY@1600 [facility] Stop: 10/06/21 19:53 Last Admin: 09/07/21 17:58 Dose: Not Given Documented by: [id number] Admin: 09/06/21 21:25 Dose: 5 mg Documented by: [id number] Discontinued Medications Heparin Sodium/Dextrose (Heparin Iv Adult Wt-Based Standard *No* Bolus Protocol) 1 ea IV ONE ONE; Protocol Stop: 09/06/21 18:18 Last Admin: 09/06/21 22:37 Dose: 1 ea Documented by: [id number] Sodium Chloride (Nss) 500 mls @ 999 mls/hr IV .Q31M [facility] Stop: 09/06/21 14:15 Last Infusion: 09/06/21 18:13 Dose: 0 mls/hr Documented by: [id number] Admin: 09/06/21 14:07 Dose: 999 mls/hr Documented by: [id number] Vancomycin HCl 2,750 mg/ (Sodium Chloride) 555 mls @ 200 mls/hr IV NOW ONE Stop: 09/06/21 17:18 Last Infusion: 09/06/21 18:13 Dose: 0 mls/hr Documented by: [id number] Admin: 09/06/21 15:24 Dose: 200 mls/hr Documented by: [id number] Cefepime HCl (Maxipime) 20 mls @ 5 mls/min IV ONE STA Stop: 09/06/21 14:53 Last Admin: 09/06/21 15:24 Dose: 5 mls/min Documented by: [id number] Sodium Chloride (Nss 1000ml) 500 mls @ 165 mls/hr IV .Q3H2M [facility] Stop: 09/06/21 18:59 Last Infusion: 09/06/21 21:17 Dose: 0 mls/hr Documented by: [id number] Infusion: 09/06/21 18:57 Dose: 0 mls/hr Documented by: [id number] Admin: 09/06/21 16:11 Dose: 165 mls/hr Documented by: [id number] Sodium Bicarbonate 75 meq/ (Sodium Chloride) 1,075 mls @ 150 mls/hr IV .Q7H10M [facility] Stop: 10/06/21 18:14 Last Infusion: 09/08/21 08:00 Dose: 0 mls/hr Documented by: [id number] Admin: 09/08/21 06:27 Dose: 150 mls/hr Documented by: [id number] Infusion: 09/08/21 06:17 Dose: 150 mls/hr Documented by: [id number] Admin: 09/07/21 23:06 Dose: 150 mls/hr Documented by: [id number] Infusion: 09/07/21 19:59 Dose: 150 mls/hr Documented by: [id number] Admin: 09/07/21 19:32 Dose: Not Given Documented by: [id number] Admin: 09/07/21 19:32 Dose: Not Given Documented by: [id number] Infusion: 09/07/21 18:00 Dose: 150 mls/hr Documented by: [id number] Infusion: 09/07/21 11:32 Dose: 0 mls/hr Documented by: [id number] Admin: 09/07/21 05:18 Dose: 125 mls/hr Documented by: [id number] Infusion: 09/07/21 05:17 Dose: 0 mls/hr Documented by: [id number] Admin: 09/06/21 19:00 Dose: 125 mls/hr Documented by: [id number] Meropenem 500 mg/ Syringe 10 mls @ 2 mls/min IV Q12H [facility]; Protocol Stop: 09/08/21 20:59 Last Admin: 09/06/21 21:26 Dose: 2 mls/min Documented by: [id number] Cefepime HCl 2,000 mg/ Syringe 20 mls @ 5 mls/min IV DAILY@1600 [facility]; Protocol Stop: 09/16/21 15:59 Last Admin: 09/07/21 17:59 Dose: 5 mls/min Documented by: [id number] Vancomycin HCl 500 mg/ (Dextrose) 110 mls @ 132 mls/hr IV NOW ONE Stop: 09/07/21 15:19 Last Infusion: 09/07/21 17:59 Dose: 0 mls/hr Documented by: [id number] Admin: 09/07/21 16:58 Dose: 132 mls/hr Documented by: [id number] Vancomycin HCl 1,250 mg/ (Sodium Chloride) 275 mls @ 200 mls/hr IV NOW ONE Stop: 09/08/21 08:52 Last Infusion: 09/08/21 12:19 Dose: 0 mls/hr Documented by: [id number] Admin: 09/08/21 09:08 Dose: 200 mls/hr Documented by: [id number] Calcium Gluconate 1,000 mg/ (Dextrose) 60 mls @ 240 mls/hr IV NOW ONE Stop: 09/08/21 08:14 Last Infusion: 09/08/21 10:00 Dose: 0 mls/hr Documented by: [id number] Admin: 09/08/21 09:08 Dose: 240 mls/hr Documented by: [id number] Famotidine 20 mg/ Syringe 5 mls @ 2.5 mls/min IV ONE ONE Stop: 09/08/21 09:31 Last Admin: 09/08/21 10:39 Dose: 2.5 mls/min Documented by: [id number] Metoprolol Tartrate (Metoprolol Tartrate 1 Mg/Ml Vial) 5 mg IV NOW STA; Protocol Stop: 09/06/21 13:47 Last Admin: 09/06/21 15:24 Dose: Not Given Documented by: [id number] Ondansetron HCl (Ondansetron Inj 2 Mg/Ml 2 Ml Vial) 4 mg IV ONE STA Stop: 09/08/21 09:22 Last Admin: 09/08/21 09:30 Dose: 4 mg Documented by: [id number] Imaging Data Radiologist's Impression: Chest X-Ray 09/06/21 13:44 XR chest 1V portable CLINICAL HISTORY: hypotension breathlessness. COMPARISON STUDY: 06/25/2021 TECHNIQUE: 1 view of the chest FINDINGS: Single frontal view of the chest demonstrates the cardiomediastinal silhouette to be within normal limits. The lungs are clear of alveolar opacities. There is no evidence for pleural effusion. There is no evidence for vascular congestion. There is no acute osseous pathology. IMPRESSION: 1. No acute cardiopulmonary disease. ACT 112: Negative or not required by law. Electronically signed by: Hao Sheffield M.D. 09/06/2021 2:29 PM Blood Pressure Blood Pressure Findings: Low blood pressure Blood Pressure Disposition: further management by hospitalist Discharge Plan Visit Data Chief Complaint: Hypotension Stated Complaint: HYPOTENSION ED Provider: Aleena Rivera ED Midlevel Provider: Negin Hernandez Discharge Problem: Sepsis, Sacral decubitus ulcer, stage III, Morbid obesity with BMI of 50.0- 59.9, adult, Acute UTI (urinary tract infection) Patient Disposition: Admitted As Inpatient Discharge Instructions Interventions: ED Discharge Assessment Last Done: 09/06/21 19:17 Resident Activity Tracking Resident Involvement: Resident Care Provided (Pt was seen and evaluated with Dr. Negin Hernandez.) Care Provided: Adult ED
--- NOTE | 2021-09-06 14:30 | XRay Report ---
XR chest 1V portable CLINICAL HISTORY: hypotension breathlessness. COMPARISON STUDY: 06/25/2021 TECHNIQUE: 1 view of the chest FINDINGS: Single frontal view of the chest demonstrates the cardiomediastinal silhouette to be within normal li mits. The lungs are clear of alveolar opacities. There is no evidence for pleural effusion. There is no evidence for vascular congestion. There is no acute osseous pathology. IMPRESSION: 1. No acute cardiopulmonary disease. ACT 112: Negative or not required by law. Electronically signed by: Hao Sheffield M.D. 09/06/2021 2:29 PM
[2021-09-06] MEDS ORDERED: VANCOMYCIN HCL 2,750 MG in SODIUM CHLORIDE 0.9% 500 ML IV ONE (14:32)
[2021-09-06] MEDS ORDERED: VANCOMYCIN CONSULT ACTIVE PRN (14:32)
[2021-09-06] MEDS ORDERED: CEFEPIME 2,000 MG in SYRINGE 0 ML IV STA (14:32)
[2021-09-06] MEDS ORDERED: CEFEPIME 20 ML IV STA (14:50)
[2021-09-06 15:00] LABS: Hematocrit (blood only) 24.6 % (37-47); Hemoglobin 7.9 g/dL (12.0-16.0); Mean Corpuscular Hemoglobin 35.4 pg (25-34); Mean Corpuscular Hgb Conc 32.1 g/dL (32-36); Mean Corpuscular Volume 110.3 fL (80-100); Mean Platelet Volume 10.7 fL (7.4-10.4); Nucleated RBC # (auto) 0.14 K/uL (0-0); Nucleated RBC % (auto) 0.5 %; Platelet Count 580 K/uL (130-400); RDW Coefficient of Variation 20.6 % (11.5-14.5); RDW Standard Deviation 81.6 fL (36.4-46.3); Red Blood Count 2.23 M/uL (4.2-5.4); White Blood Count 29.01 K/uL (4.8-10.8)
[2021-09-06 15:10] LABS: INR 1.1 (0.9-1.1); Partial Thromboplastin Ratio 0.9; Partial Thromboplastin Time 23.9 Seconds (21.0-31.0); Prothrombin Time 11.9 Seconds (9.0-12.0)
[2021-09-06 15:37] LABS: Appearance Urine Turbid (Clear); Bacteria Urine Automated 4+ (Negative); Bilirubin Urine Negative (Negative); Blood Urine 1+ (Negative); Color Urine Yellow; Glucose Urine UA Negative (Negative); Ketones Urine Negative (Negative); Leukocyte Esterase Urine 2+ (Negative); Nitrite Urine Negative (Negative); Protein Urine 2+ (Negative); RBC Urine Automated 0-4 /hpf (0-4); Specific Gravity Urine 1.012 (1.000-1.030); Urobilinogen Urine Negative (Negative); WBC Urine Automated >30 /hpf (0-5)
[2021-09-06 15:43] LABS: ALC (manual) 3.31 K/uL (1.2-3.4); ANC (manual) 24.43 K/uL (1.4-6.5); Anisocytosis Present; Lymphocytes # (manual) 3.31 K/uL (1.2-3.4); Lymphocytes % (manual) 11.4 %; Monocytes # (manual) 1.02 K/uL (0.11-0.59); Monocytes % (manual) 3.5 %; Myelocytes # (manual) 0.26 K/uL (0-0); Myelocytes % (manual) 0.9 %; Neutrophils # (manual) 24.43 K/uL (1.4-6.5); Neutrophils % (manual) 84.2 %; Poikilocytosis Present; Polychromasia 1+
[2021-09-06 15:46] LABS: Albumin Globulin Ratio 1.1 (0.9-2); BUN Creatinine Ratio 13.6 (10-20); Bilirubin,Total 0.8 mg/dl (0.2-1.0); Calcium 7.7 mg/dl (8.5-10.1); Creatinine Clr Calc Pharmacy 11.8 ml/min; Est GFR (African American) 8.7 ml/min; Est GFR (Non-African American) 7.5 ml/min; Globulin 2.8 gm/dl (2.5-4.0); Magnesium 1.9 mg/dl (1.7-2.4); Potassium 5.3 mmol/L (3.5-5.1); Total Protein 5.8 gm/dl (6.0-8.3); Troponin I 0.06 ng/ml (0-0.04)
[2021-09-06] MEDS ORDERED: SODIUM CHLORIDE 0.9% 1000ML 500 ML IV SCH (16:00)
--- NOTE | 2021-09-06 16:18 | History & Physical Report ---
Date of Service September 06, 2021 Assessment & Plan (1) Sepsis: Plan: Lactate 3.0. No longer hypotensive. Given Hx CHF will avoid aggressive rehydration. Suspected source urine vs less likely sacral ulcer. Sacral ulcer is small without tunneling and no surrounding cellulitis but large ecchymosis here. Will switch antibiotics given severity of illness and suspected source to meropenem, continue vancomycin Follow up urine and blood cultures (2) MOJGAN (acute kidney injury): Plan: No obstructive cause on CT Suspect pre-renal +/- ATN related to current infection IV fluids as above Repeat BMP (3) Metabolic acidosis, increased anion gap: Plan: Secondary to MOJGAN as above with lactic acid producing anion gap Continue IV bicarb drip (4) UTI (urinary tract infection): Plan: Meropenem and vacomycin as above Follow up urine and blood cultures (5) Fall: Plan: Fall from chair. No fractures suspected from admission however patient is also mildly confused and lethargic. Consider further imaging if having pain with physical therapy once improving from sepsis. (6) Heart failure with preserved ejection fraction: Plan: Currently hypovolemic but at risk of going into heart failure with IV fluids. Switch NSS to sodium bicarb Iv drip. (7) Atrial fibrillation: Plan: Currently appears sinus tachycardia, avoid metoprolol tonight but will restart her usual metoprolol dosing in morning with hold parameters (8) Pulmonary embolism: Plan: PE diagnosed in 06/25/2021 - started on warfarin at that time Ran out of warfarin in Aug per daughter - unknown who is supposed to be prescribing this Will restart in IV heparin standard drip without bolus while we bridge for restarting her warfarin (9) Macrocytic anemia: Plan: B12 levels - 323 in June Continue cyanocobalamin 500 mcg PO daily Repeat CBC in AM - consider more extensive outpatient workup as doubtful B12 def. the sole cause of this but is also not acute. (10) HTN (hypertension): Plan: Hold anti-hypertensives due to current low normal BP - furosemide and HCTZ Continue metoprolol succinate in AM with hold parameters Plan: VTE Prophylaxis - IV heparin drip Diet - dialysis renal Disposition - admit to PCU Admission and Anticipated Discharge Date Admission Date: September 06, 2021 History of Present Illness Chief Complaint: Fatigue Primary Care Provider: Betty Resendiz MD Lavonne Chiu is an 81 year old female presents to the ER via EMS due to hypotension. Her daughter initially called EMS to the house for a lift assist as she had slipped out of her chair, however found patient to be mildly hypotensive with BP 107/48, 99/42 and patient very fatigued in unkept state therefore she was brought to the ER. 300cc IV fluids given en route. The patient reports feeling confused more than usual and cannot remember much over the last week but she thinks has been having chills. She denies any urinary or respiratory symptoms. No chest pain, shortness of breath, abdominal pain, nausea, vomiting, diarrhea (more constipation). She reports about 2 weeks ago noticing some bleeding from her back side after using wet wipes but report this has improved. On discussion with her daughter - she reports the patient ran out of warfarin in August but is unable to tell me who is supposed to be prescribing this. Home health reportedly were coming to the house to take INR levels. In the ER most notably she is in acute renal failure with Cr 4.94 from baseline 0.72. WBC 29.01, she was started on cefepime and vancomycin for presumed UTI vs. sacral cellulitis sepsis and referred to medicine for admission and ongoing management of this. Allergies Allergy/AdvReac Type Severity Reaction Status Date / Time succinylcholine Allergy Severe CARDIAC Verified 06/25/21 12:12 ARREST Penicillins Allergy Unknown REDNESS,SWE Verified 01/25/21 20:43 LLING Home Medications Medication Instructions Recorded Confirmed Type aspirin 81 mg tablet,delayed 81 mg PO DAILY 01/25/21 09/06/21 History release calcium carbonate 500 mg-vitamin 1 tab PO DAILY 01/25/21 09/06/21 History D3 3.125 mcg (125 unit) tablet cyclosporine 0.05 % eye drops in a 1 drp OPB AMPM 01/25/21 09/06/21 History dropperette (Restasis) losartan 100 mg tablet 100 mg PO DAILY 01/25/21 09/06/21 History simvastatin 20 mg tablet (Zocor) 20 mg PO PM 01/25/21 09/06/21 History timolol maleate 0.5 % eye drops 1 drp OPB QAM 01/25/21 09/06/21 History vitamin A-vitamin C-vit E-min 1 tab PO DAILY 06/25/21 09/06/21 History tablet cyanocobalamin (vitamin B-12) 500 500 mcg PO QAM #30 tab 07/06/21 09/06/21 Rx mcg tablet furosemide 20 mg tablet 20 mg PO QAM #30 tab 07/06/21 09/06/21 Rx metformin 1,000 mg tablet,extended 1,000 mg PO BID #60 tab 07/06/21 09/06/21 Rx release 24hr metoprolol succinate 50 mg 50 mg PO QAM #30 tab 07/06/21 09/06/21 Rx tablet,extended release 24 hr warfarin 5 mg tablet 5 mg PO DAILY@1600 #30 tab 07/06/21 09/06/21 Rx hydrochlorothiazide 25 mg tablet 25 mg PO DAILY 09/06/21 09/06/21 History Past Med/Surg History Medical History Asthma H/O: HTN (hypertension) Hypoxia Nasal fracture Reflux esophagitis Social History Smoking Status: Never smoker Hx Alcohol Use: No Hx Substance Use: No Preferred Language: Citizen Of [place] Communication Ability: Effective Log Driver Required: No Beliefs That Will Affect Care: Yazidi Yazidi Beliefs: Druze Current Living Situation: Family Current Living Situation Comment: lives with daughter Other Information That Helps Us Care for You: No Feels Safe at Home: Yes Safety Concerns: Feels Safe At This Time Assistive Devices: Cane, Denture - Upper and Glasses Assistive Devices Comment: O2 at home as needed Review of Systems Review of Systems: All systems reviewed & are unremarkable except as noted in HPI & below Physical Exam Constitutional: well developed and + morbidly obese; no acute distress Eyes: PERRL, conjunctivae normal, anicteric sclerae ENMT: Mouth: + dry oral mucous membranes Neck: trachea midline, no thyromegaly Respiratory: normal respiratory effort, lungs clear to auscultation Cardiovascular: Rate/Rhythm: regular rhythm and + tachycardic Heart Sounds: no murmur Extremities: normal capillary refill and + pedal edema (large legs but mostly non pitting 1+ pretibial pitting equal b/l); no calf tenderness Gastrointestinal (Abdomen): Inspection/Auscultation: normal bowel sounds Percussion/Palpation: abdomen soft; abdomen nontender, no guarding and abdomen not rigid Skin: + ulcer (tage 3 pressure ulcer sacral (pea sized) without tunneling), + ecchymosis (sacral) and + erythema (Tinea under breast, pannus and axilla, mild) Neurologic: moves all extremities, awake and + confused (mild about recent events) Psychiatric: Orientation: alert, oriented to person and oriented to place; + not oriented to time Results & Data Results & Data ([facility]) Vital Signs (Past 12 Hours) Vital Signs Temp Pulse Pulse Resp BP BP Pulse Ox 09/06/21 15:24 120/50 L 09/06/21 13:02 36.5 C 112 H 18 111/79 95 09/06/21 12:52 36.5 C 112 H 18 111/79 94 Laboratory Results Abnormal lab results 09/06/21 09/06/21 09/06/21 Range/Units 14:49 14:49 14:49 WBC 29.01 H (4.8-10.8) K/uL RBC 2.23 L (4.2-5.4) M/uL Hgb 7.9 L (12.0-16.0) g/dL Hct 24.6 L (37-47) % MCV 110.3 H (80-100) fL MCH 35.4 H (25-34) pg RDW Std Deviation 81.6 H (36.4-46.3) fL RDW Coeff of Lety 20.6 H (11.5-14.5) % Plt Count 580 H (130-400) K/uL MPV 10.7 H (7.4-10.4) fL Absolute Nucleated RBC 0.14 H (0-0) K/uL Neutrophils # (Manual) 24.43 H (1.4-6.5) K/uL Total Absolute Neuts 24.43 H (1.4-6.5) K/uL Monocytes # (Manual) 1.02 H (0.11-0.59) K/uL Myelocytes # (Manual) 0.26 H (0-0) K/uL Sodium 133 L (136-145) mmol/L Potassium 5.3 H (3.5-5.1) mmol/L Carbon Dioxide 15 L (21-32) mmol/L Anion Gap 17 H (3-11) BUN 67 H (6-23) mg/dl Creatinine 4.94 H* (0.6-1.2) mg/dl Glucose 148 H (70-99(Fasting)) mg/dl Lactate 3.0 H* (0.4-2.0) mmol/L Calcium 7.7 L (8.5-10.1) mg/dl AST 111 H (13-39) U/L Troponin I 0.06 H* (0-0.04) ng/ml Total Protein 5.8 L (6.0-8.3) gm/dl Albumin 3.0 L (3.4-5.0) gm/dl Urine Appearance (Clear) Urine Protein (Negative) Urine Blood (Negative) Ur Leukocyte Esterase (Negative) Urine WBC (Auto) (0-5) /hpf U Epithel Cells (Auto) (0-5) /lpf Urine Bacteria (Auto) (Negative) 09/06/21 Range/Units 15:11 WBC (4.8-10.8) K/uL RBC (4.2-5.4) M/uL Hgb (12.0-16.0) g/dL Hct (37-47) % MCV (80-100) fL MCH (25-34) pg RDW Std Deviation (36.4-46.3) fL RDW Coeff of Lety (11.5-14.5) % Plt Count (130-400) K/uL MPV (7.4-10.4) fL Absolute Nucleated RBC (0-0) K/uL Neutrophils # (Manual) (1.4-6.5) K/uL Total Absolute Neuts (1.4-6.5) K/uL Monocytes # (Manual) (0.11-0.59) K/uL Myelocytes # (Manual) (0-0) K/uL Sodium (136-145) mmol/L Potassium (3.5-5.1) mmol/L Carbon Dioxide (21-32) mmol/L Anion Gap (3-11) BUN (6-23) mg/dl Creatinine (0.6-1.2) mg/dl Glucose (70-99(Fasting)) mg/dl Lactate (0.4-2.0) mmol/L Calcium (8.5-10.1) mg/dl AST (13-39) U/L Troponin I (0-0.04) ng/ml Total Protein (6.0-8.3) gm/dl Albumin (3.4-5.0) gm/dl Urine Appearance Turbid A (Clear) Urine Protein 2+ H (Negative) Urine Blood 1+ H (Negative) Ur Leukocyte Esterase 2+ H (Negative) Urine WBC (Auto) >30 H (0-5) /hpf U Epithel Cells (Auto) 10-20 H (0-5) /lpf Urine Bacteria (Auto) 4+ H (Negative) Diagnostic Findings XR chest 1V portable CLINICAL HISTORY: hypotension breathlessness. COMPARISON STUDY: 06/25/2021 TECHNIQUE: 1 view of the chest FINDINGS: Single frontal view of the chest demonstrates the cardiomediastinal silhouette to be within normal limits. The lungs are clear of alveolar opacities. There is no evidence for pleural effusion. There is no evidence for vascular congestion. There is no acute osseous pathology. IMPRESSION: 1. No acute cardiopulmonary disease. CT SCAN OF THE ABDOMEN AND PELVIS WITHOUT IV CONTRAST CLINICAL HISTORY: Sepsis. Renal insufficiency. COMPARISON STUDY: Abdominal CT dated 12/04/2006 TECHNIQUE: CT scan of the abdomen and pelvis is performed from the lung bases to the proximal femora. Images are reviewed in the axial, sagittal, and coronal planes. IV contrast was not administered for this examination due to poor renal function. Note that the examination is significantly suboptimal without oral and IV contrast. A dose lowering technique was utilized adhering to the principles of ALARA. CT DOSE: 1508.00 mGy.cm FINDINGS: Lung bases: The heart is normal in size and without pericardial effusion. The coronary arteries and mitral annulus are densely calcified. The lung bases are clear noting bibasilar scarring/atelectasis. A small hiatal hernia is noted. Liver: The unenhanced liver is normal in size, contour, and attenuation. There is no intrahepatic biliary ductal dilatation. Gallbladder: Surgically absent noting clips in the gallbladder fossa. Spleen: Normal in size and attenuation. Pancreas: The unenhanced pancreas is atrophic and grossly unremarkable. Adrenal glands: Unremarkable. Kidneys: The unenhanced kidneys are atrophic and without hydronephrosis. There are no renal calculi identified. A 2.8 cm densely calcified lesion arising from the left lower pole is pathologically indeterminant and has not appreciably changed dating back to 2006. Abdominal vasculature: The abdominal aorta is normal in course and caliber. Bowel: There is moderate sigmoid diverticulosis without CT evidence of acute diverticulitis. No bowel obstruction is seen. The appendix is not identified and reported surgically absent. Peritoneum: There is no intraperitoneal free air or abdominal ascites. There is a small fat-containing umbilical hernia. Lymphadenopathy: None. Pelvic viscera: The bladder is decompressed around a [place] catheter and cannot be assessed. Foci of intraluminal gas are nonspecific and likely related to instrumentation. The uterus is surgically absent. No adnexal lesion is seen. Skeletal structures: The skeletal structures are osteopenic. There is mild to moderate lumbosacral spondylosis. No lytic or blastic lesions are seen. IMPRESSION: 1. No acute infectious or inflammatory findings are identified in the abdomen or pelvis. 2. The kidneys are atrophic and without hydronephrosis. 3. Sigmoid diverticulosis without CT evidence of acute diverticulitis. 4. Additional findings as above. Medications Administered ER Medications Given: NSS 500ml bolus Vancomycin 2750mg IV Cefepime 2000mg IV NSS 500ml @ 165 ml/hr ECG Indication: other (sepsis) Rate (beats per minute): 109 Rhythm: sinus tachycardia Findings: no acute ischemic change Comparison ECG Date: from (June 25, 2021) Change: no significant change Code Status & VTE Plan Code Status Full VTE Prophylaxis Plan VTE Prophylaxis will be ordered: Yes PG Care Time/CCT Total # of Minutes Spent Total Time Spent with Patient: Total time spent is greater than 50% in coordination of care (as documented) at patient's floor/unit and/or counseling patient: Coding Level of Care Code 79833 Initial Inpt Care Lvl 3 Diagnoses Heart failure with preserved ejection fraction I50.30 Atrial fibrillation I48.91 Pulmonary embolism I26.99 Sepsis A41.9 Macrocytic anemia D53.9 Fall W19.XXXA Encounter type: initial encounter HTN (hypertension) I10 UTI (urinary tract infection) N39.0 MOJGAN (acute kidney injury) N17.9 Metabolic acidosis, increased anion gap E87.2 (1) Fall Encounter type: initial encounter Qualified Code(s): W19.XXXA - Unspecified fall, initial encounter
--- NOTE | 2021-09-06 16:38 | Electrocardiogram Report ---
Test Reason : Blood Pressure : / mmHG Vent. Rate : 109 BPM Atrial Rate : 109 BPM P-R Int : 192 ms QRS Dur : 118 ms QT Int : 348 ms P-R-T Axes : 079 -28 092 degrees QTc Int : 468 ms Poor data quality, interpretation may be adversely affected Sinus tachycardia Left ventricular hypertrophy with QRS widening T wave abnormality, consider lateral ischemia Abnormal ECG When compared with ECG of 25-JUN-2021 09:17, No significant change was found Confirmed by Shola Ambrose ([id number]) on 09/06/2021 4:37:52 PM Referred By: REFERRED SELF Confirmed By:Shola Ambrose
--- NOTE | 2021-09-06 17:25 | CT Scan Report ---
CT SCAN OF THE ABDOMEN AND PELVIS WITHOUT IV CONTRAST CLINICAL HISTORY: Sepsis. Renal insufficiency. COMPARISON STUDY: Abdominal CT dated 12/04/2006 TECHNIQUE: CT scan of the abdomen and pelvis is performed from the lung bases to the proximal femora. Images are reviewed in the axial, sagittal, and coronal planes. IV contrast was not administered for this examination due to poor renal function. Note that the examination is significantly suboptimal w ithout oral and IV contrast. A dose lowering technique was utilized adhering to the principles of [place] DA[place]. CT DOSE: 1508.00 mGy.cm FINDINGS: Lung bases: The heart is normal in size and without pericardial effusion. The coronary arteries and m itral annulus are densely calcified. The lung bases are clear noting bibasilar scarring/atelectasis. A small hiatal hernia is noted. Liver: The unenhanced liver is normal in size, contour, and attenuation. There is no intrahepatic raheem iary ductal dilatation. Gallbladder: Surgically absent noting clips in the gallbladder fossa. Spleen: Normal in size and attenuation. Pancreas: The unenhanced pancreas is atrophic and grossly unremarkable. Adrenal glands: Unremarkable. Kidneys: The unenhanced kidneys are atrophic and without hydronephrosis. There are no renal calculi i dentified. 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 Abdominal vasculature: The abdominal aorta is normal in course and caliber. Bowel: There is moderate sigmoid diverticulosis without CT evidence of acute diverticulitis. No bowel obstruction is seen. The appendix is not identified and reported surgically absent. Peritoneum: There is no intraperitoneal free air or abdominal ascites. There is a small fat-containin g umbilical hernia. Lymphadenopathy: None. Pelvic viscera: The bladder is decompressed around a [place] catheter and cannot be assessed. Foci of i ntraluminal gas are nonspecific and likely related to instrumentation. The uterus is surgically absen t. No adnexal lesion is seen. Skeletal structures: The skeletal structures are osteopenic. There is mild to moderate lumbosacral sp ondylosis. No lytic or blastic lesions are seen. IMPRESSION: 1. No acute infectious or inflammatory findings are identified in the abdomen or pelvis. 2. The kidneys are atrophic and without hydronephrosis. 3. Sigmoid diverticulosis without CT evidence of acute diverticulitis. 4. Additional findings as above. ACT 112: Negative or not required by law. Electronically signed by: John Peacock M.D. 09/06/2021 5:23 PM
[2021-09-06] MEDS ORDERED: STAT IV STA (18:01)
[2021-09-06] MEDS ORDERED: Heparin IV Adult Wt-Based Standard *NO* Bolus Protocol IV ONE (18:17)
[2021-09-06] MEDS: SODIUM BICARBONATE 8.4% 75 MEQ in SODIUM CHLORIDE 0.45 % 1,000 ML IV SCH (19:00)
[2021-09-06] MEDS ORDERED: MEROPENEM CONSULT ACTIVE PRN (19:54)
[2021-09-06] MEDS ORDERED: POLYETHYLENE (MIRALAX) 17 GM PACK PO PRN (19:54)
[2021-09-06] MEDS ORDERED: MEROPENEM 500 MG in SYRINGE 0 ML IV SCH (21:00)
[2021-09-06] MEDS ORDERED: SIMVASTATIN 20 MG TAB PO SCH (21:00)
[2021-09-06] MEDS: WARFARIN SOD 5 MG TAB PO SCH (21:25)
[2021-09-06] MEDS: NYSTATIN POWDER 15GM BTL EXT SCH (21:26)
[2021-09-06] MEDS: HEPARIN SODIUM/DEXTROSE 25,000 UNITS/500 ML BAG IV SCH (22:35)
[2021-09-07] MEDS: SODIUM BICARBONATE 8.4% 75 MEQ in SODIUM CHLORIDE 0.45 % 1,000 ML IV SCH ×4 (05:18→23:06)
[2021-09-07 05:23] LABS: BUN Creatinine Ratio 16.7 (10-20); Calcium 7.9 mg/dl (8.5-10.1); Est GFR (Non-African American) 8.6 ml/min; Potassium 4.9 mmol/L (3.5-5.1)
[2021-09-07 05:26] LABS: INR 1.1 (0.9-1.1); Partial Thromboplastin Ratio 1.8
[2021-09-07 05:29] LABS: Partial Thromboplastin Time 48.3 Seconds (21.0-31.0)
[2021-09-07 05:52] LABS: Anisocytosis Present; Basophils # (auto) 0.01 K/uL (0-0.2); Hematocrit (blood only) 19.8 % (37-47); Hemoglobin 6.3 g/dL (12.0-16.0); Immature Granulocytes # (auto) 0.15 K/uL (0.00-0.02); Immature Granulocytes % (auto) 0.7 %; Lymphocytes # (auto) 3.24 K/uL (1.2-3.4); Lymphocytes % (auto) 16.2 %; Macrocytosis Present; Mean Corpuscular Hemoglobin 35.2 pg (25-34); Mean Corpuscular Hgb Conc 31.8 g/dL (32-36); Mean Corpuscular Volume 110.6 fL (80-100); Mean Platelet Volume 10.8 fL (7.4-10.4); Monocytes # (auto) 1.58 K/uL (0.11-0.59); Monocytes % (auto) 7.9 %; Neutrophils # (auto) 15.07 K/uL (1.4-6.5); Neutrophils % (auto) 75.2 %; Nucleated RBC # (auto) 0.08 K/uL (0-0); Nucleated RBC % (auto) 0.4 %; Platelet Count 521 K/uL (130-400); Polychromasia 1+; RDW Coefficient of Variation 20.9 % (11.5-14.5); RDW Standard Deviation 82.7 fL (36.4-46.3); Red Blood Count 1.79 M/uL (4.2-5.4); White Blood Count 20.05 K/uL (4.8-10.8)
[2021-09-07] MEDS ORDERED: SODIUM CHLORIDE 0.9% 250 ML IV PRN ×2 (06:01→08:21)
--- NOTE | 2021-09-07 08:26 | Hospitalist Progress Note ---
Date of Service September 07, 2021 Assessment & Plan (1) Severe sepsis: Plan: source - 2nd to UTI; cannot rule out sacral wound. GNR growing in urine. Sacral wound culture also growing pathogens. Change meropenem to IV cefepime. Continue vancomycin cautiously in light of her MOJGAN. BP was modestly low this am but upon recheck showed a MAP >65. Follow blood cx's. (2) Rhabdomyolysis: Plan: 2nd to falls. CPK >2000. Repeat CPK in am. Fluids. (3) MOJGAN (acute kidney injury): Plan: Likely sepsis-associated ATN. Cont fluids and PRBCs. Repeat BMP tonight then again in am. No obstruction on CT. (4) Sacral wound: Plan: I presume it is 2nd to falls. Wound care nurse consulted; appreciate recs. Wound care advised general surgery consult. Dr Weaver saw in consult - patient may need debridement but holding off at this time. multiple pathogens growing from sacral wound cx - cont cefepime + vancomycin IV. Wound care advising a different mattress. (5) Sacral decubitus ulcer, stage III: Plan: see #4 above stage 3 wound/ulcer with b/l buttock ulcers (6) UTI (urinary tract infection): Plan: 2nd to GNR. Cont abx as noted in #1. (7) Metabolic acidosis, increased anion gap: Plan: 2nd to #1 and #3. Improving acid/base status. Yesterday's lactates normalized with fluid resuscitation. Repeat BMP tonight then again in am. (8) Heart failure with preserved ejection fraction: Plan: Still appears volume depleted. Cont gentle fluids. (9) Atrial fibrillation: Plan: Need to hold beta nando due to low or low-normal BPs from #1. Place heparin drip on hold due to extensive ecchymoses of sacral region and worsening anemia. (10) Pulmonary embolism: Plan: PE diagnosed in 06/25/2021 - started on warfarin at that time. INR 1.1 upon admission yesterday. Compliance? Again - due to extensive bruising of sacral region and her anemia - hold anticoagulation today only to ensure no ongoing bleeding. If stable H/H overnight then resume heparin drip in am. Holding coumadin for now. (11) Macrocytic anemia: Plan: B12 levels - 323 in June 2021. Folate wnl. TSH wnl. Continue cyanocobalamin 500 mcg PO daily. I do not think the low-normal B12 level is the cause of her severe macrocytic anemia. CBC is concerning for MDS. Will need peripheral smear at some point. Blood consent was obtained today. Tx 2 units PRBCs, each unit over 3 hours. Repeat CBC tonight and in am. (12) HTN (hypertension): Plan: Hold anti-hypertensives due to current low normal BP including diuretics & metoprolol. (13) Hyponatremia: Plan: 2nd to acute renal failure. supportive care. gentle hydration. BMP tonight then again in am. (14) Morbid obesity with BMI of 50.0-59.9, adult: Plan: BMI 52.7 (15) Frequent falls: Plan: with resulting rhabdomyolysis will need PT/OT while here Plan: updated pt's daughter by phone this evening gave broad update total time spent on complex care coordination - 70 min discussion of care with nursing, surgery, wound care, pharmacy updating family Admission and Anticipated Discharge Date Admission Date: September 06, 2021 Subjective events of overnight noted during my bedside assessment she mainly complains of pain in her sacral/buttock region she fell out of her chair yesterday at home, landing on her tailbone region she admits to multiple other falls as well but can't tell me a specific number the falls have occurred over the last several weeks we discussed that she needs a blood transfusion when I told her about the anemia she didn't seem to know about it admits to very poor appetite at home prior to admission and today as well denies abdominal pain denies any dyspnea records from 06/2021 admission show that a 2-step O2 test at that time confirmed a 3 L NC O2 requirement [id number] Review of Systems Review of Systems: gen - c/o being cold but no fever cv - no chest pain, no orthopnea pulm - no cough GI - no vomiting Physical Exam Physical Exam: gen - sick but nontoxic, awake, alert skin - pallor; candidal intertrigo lower skin folds of abdomen; sacral region - large area of ecchymoses/deep tissue injury; due to body habitus I could not tell if there was any purulent drainage neck - no JVD mouth - MM dry heart - tachy, s1 s2, regular lungs - decreased BS bases, no rales, no wheeze abd - soft NT ND BS+ ext - trace edema, cool feet, pulses 1-2+ b/l psych - a/o x 3 Results & Data Results & Data ([facility]) Vital Signs (Past 12 Hours) Vital Signs Temp Pulse Pulse Resp BP Pulse Ox 09/07/21 07:26 36.9 C 117 H 26 H 88/41 L 91 09/07/21 07:12 36.8 C 119 H 22 102/61 91 09/07/21 03:48 36.7 C 120 H 24 121/42 L 93 09/06/21 23:09 117 H 09/06/21 22:52 36.4 C L 118 H 22 124/57 L 95 Laboratory Results Laboratory Results - last 24 hr 09/06/21 09/06/21 09/06/21 14:08 14:08 14:08 WBC Cancelled RBC Cancelled Hgb Cancelled Hct Cancelled MCV Cancelled MCH Cancelled MCHC Cancelled RDW Std Deviation Cancelled RDW Coeff of Lety Cancelled Plt Count Cancelled MPV Cancelled Immature Gran % (Auto) Cancelled Neut % (Auto) Cancelled Lymph % (Auto) Cancelled [place] % (Auto) Cancelled Eos % (Auto) Cancelled Baso % (Auto) Cancelled Neut # (Auto) Cancelled Lymph # (Auto) Cancelled [place] # (Auto) Cancelled Eos # (Auto) Cancelled Baso # (Auto) Cancelled Immature Gran # (Auto) Cancelled Absolute Nucleated RBC Cancelled Nucleated RBC % (auto) Cancelled Neutrophils % (Manual) Cancelled Band Neutrophils % Cancelled Lymphocytes % (Manual) Cancelled Prolymphocyte % Cancelled Reactive Lymphs % (Man) Cancelled Monocytes % (Manual) Cancelled Eosinophils % (Manual) Cancelled Basophils % (Manual) Cancelled Metamyelocytes % (Man) Cancelled Myelocytes % (Man) Cancelled Promyelocytes % (Man) Cancelled Blast Cells % (Manual) Cancelled Plasma Cell % (Manual) Cancelled Other Cells % Cancelled Nucleated RBC % Cancelled Neutrophils # (Manual) Cancelled Band Neutrophils # Cancelled Total Absolute Neuts Cancelled Lymphocytes # (Manual) Cancelled Prolymphocyte # Cancelled Reactive Lymphs # Cancelled Total Abs Lymphocytes Cancelled Monocytes # (Manual) Cancelled Eosinophils # (Manual) Cancelled Basophils # (Manual) Cancelled Metamyelocytes # (Man) Cancelled Myelocytes # (Manual) Cancelled Promyelocytes # (Man) Cancelled Blast Cells # (Man) Cancelled Plasma Cell # (Manual) Cancelled Other Cells # Cancelled Nucleated RBCs # (Man) Cancelled Hypersegmented Neuts Cancelled Hyposegmented Neuts Cancelled Hypogranular Neuts Cancelled Large Granular Lymphs Cancelled # Lrg Granular Lymphs Cancelled Hairy Cells Cancelled Smudge Cells Cancelled Blood Smear Review Toxic Granulation Cancelled Toxic Vacuolation Cancelled Dohle Bodies Cancelled Wild Rods Cancelled Platelet Estimate Cancelled Hypogranular Platelets Cancelled Clumped Platelets Cancelled Giant Platelets Cancelled Platelet Satelliting Cancelled RBC Morphology Cancelled Polychromasia Cancelled Hypochromasia Cancelled Poikilocytosis Cancelled Basophilic Stippling Cancelled Anisocytosis Cancelled Microcytosis Cancelled Macrocytosis Cancelled Spherocytes Cancelled Pappenheimer Bodies Cancelled Sickle Cells Cancelled Target Cells Cancelled Tear Drop Cells Cancelled Ovalocytes Cancelled Stomatocytes Cancelled [place] Bodies Cancelled Echinocytes Cancelled Acanthocytes (Spur) Cancelled Rouleaux Cancelled RBC Agglutinates Cancelled Schistocytes Cancelled RBC Morph Comment Cancelled Sezary Cell Cancelled PT INR APTT PTT Ratio Sodium Cancelled Potassium Cancelled Chloride Cancelled Carbon Dioxide Cancelled Anion Gap Cancelled BUN Cancelled Creatinine Cancelled Est Cr Clr Drug Dosing Cancelled Est GFR ( Amer) Cancelled Est GFR (Non-Af Amer) Cancelled BUN/Creatinine Ratio Cancelled Glucose Cancelled Lactate Calcium Cancelled Magnesium Cancelled Total Bilirubin Cancelled AST Cancelled ALT Cancelled Alkaline Phosphatase Cancelled Total Creatine Kinase Troponin I Cancelled B-Natriuretic Peptide Total Protein Cancelled Albumin Cancelled Globulin Cancelled Albumin/Globulin Ratio Cancelled TSH Cancelled Urine Color Urine Appearance Urine pH Ur Specific [place] Urine Protein Urine Glucose (UA) Urine Ketones Urine Blood Urine Nitrite Urine Bilirubin Urine Urobilinogen Ur Leukocyte Esterase Urine WBC (Auto) Urine RBC (Auto) U Hyaline Cast (Auto) U Epithel Cells (Auto) Urine Bacteria (Auto) Random Vancomycin SARS-CoV-2, RNA, NAAT Blood Type Blood Type Recheck Antibody Screen Crossmatch 09/06/21 09/06/21 09/06/21 14:08 14:23 14:49 WBC RBC Hgb Hct MCV MCH MCHC RDW Std Deviation RDW Coeff of Lety Plt Count MPV Immature Gran % (Auto) Neut % (Auto) Lymph % (Auto) [place] % (Auto) Eos % (Auto) Baso % (Auto) Neut # (Auto) Lymph # (Auto) [place] # (Auto) Eos # (Auto) Baso # (Auto) Immature Gran # (Auto) Absolute Nucleated RBC Nucleated RBC % (auto) Neutrophils % (Manual) Band Neutrophils % Lymphocytes % (Manual) Prolymphocyte % Reactive Lymphs % (Man) Monocytes % (Manual) Eosinophils % (Manual) Basophils % (Manual) Metamyelocytes % (Man) Myelocytes % (Man) Promyelocytes % (Man) Blast Cells % (Manual) Plasma Cell % (Manual) Other Cells % Nucleated RBC % Neutrophils # (Manual) Band Neutrophils # Total Absolute Neuts Lymphocytes # (Manual) Prolymphocyte # Reactive Lymphs # Total Abs Lymphocytes Monocytes # (Manual) Eosinophils # (Manual) Basophils # (Manual) Metamyelocytes # (Man) Myelocytes # (Manual) Promyelocytes # (Man) Blast Cells # (Man) Plasma Cell # (Manual) Other Cells # Nucleated RBCs # (Man) Hypersegmented Neuts Hyposegmented Neuts Hypogranular Neuts Large Granular Lymphs # Lrg Granular Lymphs Hairy Cells Smudge Cells Blood Smear Review Toxic Granulation Toxic Vacuolation Dohle Bodies Wild Rods Platelet Estimate Hypogranular Platelets Clumped Platelets Giant Platelets Platelet Satelliting RBC Morphology Polychromasia Hypochromasia Poikilocytosis Basophilic Stippling Anisocytosis Microcytosis Macrocytosis Spherocytes Pappenheimer Bodies Sickle Cells Target Cells Tear Drop Cells Ovalocytes Stomatocytes Marshall-[place] Bodies Echinocytes Acanthocytes (Spur) Rouleaux RBC Agglutinates Schistocytes RBC Morph Comment Sezary Cell PT 11.9 INR 1.1 APTT 23.9 PTT Ratio 0.9 Sodium Potassium Chloride Carbon Dioxide Anion Gap BUN Creatinine Est Cr Clr Drug Dosing Est GFR ( Amer) Est GFR (Non-Af Amer) BUN/Creatinine Ratio Glucose Lactate Calcium Magnesium Total Bilirubin AST ALT Alkaline Phosphatase Total Creatine Kinase Troponin I B-Natriuretic Peptide Cancelled Total Protein Albumin Globulin Albumin/Globulin Ratio TSH Urine Color Urine Appearance Urine pH Ur Specific [place] Urine Protein Urine Glucose (UA) Urine Ketones Urine Blood Urine Nitrite Urine Bilirubin Urine Urobilinogen Ur Leukocyte Esterase Urine WBC (Auto) Urine RBC (Auto) U Hyaline Cast (Auto) U Epithel Cells (Auto) Urine Bacteria (Auto) Random Vancomycin SARS-CoV-2, RNA, NAAT NEGATIVE Blood Type Blood Type Recheck Antibody Screen Crossmatch 09/06/21 09/06/21 09/06/21 14:49 14:49 14:49 WBC 29.01 H RBC 2.23 L Hgb 7.9 L Hct 24.6 L MCV 110.3 H MCH 35.4 H MCHC 32.1 RDW Std Deviation 81.6 H RDW Coeff of Lety 20.6 H Plt Count 580 H MPV 10.7 H Immature Gran % (Auto) Neut % (Auto) Lymph % (Auto) [place] % (Auto) Eos % (Auto) Baso % (Auto) Neut # (Auto) Lymph # (Auto) [place] # (Auto) Eos # (Auto) Baso # (Auto) Immature Gran # (Auto) Absolute Nucleated RBC 0.14 H Nucleated RBC % (auto) 0.5 Neutrophils % (Manual) 84.2 Band Neutrophils % Lymphocytes % (Manual) 11.4 Prolymphocyte % Reactive Lymphs % (Man) Monocytes % (Manual) 3.5 Eosinophils % (Manual) Basophils % (Manual) Metamyelocytes % (Man) Myelocytes % (Man) 0.9 Promyelocytes % (Man) Blast Cells % (Manual) Plasma Cell % (Manual) Other Cells % Nucleated RBC % Neutrophils # (Manual) 24.43 H Band Neutrophils # Total Absolute Neuts 24.43 H Lymphocytes # (Manual) 3.31 Prolymphocyte # Reactive Lymphs # Total Abs Lymphocytes 3.31 Monocytes # (Manual) 1.02 H Eosinophils # (Manual) Basophils # (Manual) Metamyelocytes # (Man) Myelocytes # (Manual) 0.26 H Promyelocytes # (Man) Blast Cells # (Man) Plasma Cell # (Manual) Other Cells # Nucleated RBCs # (Man) Hypersegmented Neuts Hyposegmented Neuts Hypogranular Neuts Large Granular Lymphs # Lrg Granular Lymphs Hairy Cells Smudge Cells Blood Smear Review Cancelled Toxic Granulation Toxic Vacuolation Dohle Bodies Wild Rods Platelet Estimate Hypogranular Platelets Clumped Platelets Giant Platelets Platelet Satelliting RBC Morphology Polychromasia 1+ Hypochromasia Poikilocytosis Present Basophilic Stippling Anisocytosis Present Microcytosis Macrocytosis Spherocytes Pappenheimer Bodies Sickle Cells Target Cells Tear Drop Cells Ovalocytes Stomatocytes Marshall-[place] Bodies Echinocytes Acanthocytes (Spur) Rouleaux RBC Agglutinates Schistocytes RBC Morph Comment Sezary Cell PT INR APTT PTT Ratio Sodium Potassium Chloride Carbon Dioxide Anion Gap BUN Creatinine Est Cr Clr Drug Dosing Est GFR ( Amer) Est GFR (Non-Af Amer) BUN/Creatinine Ratio Glucose Lactate 3.0 H* Calcium Magnesium Total Bilirubin AST ALT Alkaline Phosphatase Total Creatine Kinase Troponin I B-Natriuretic Peptide 72 Total Protein Albumin Globulin Albumin/Globulin Ratio TSH Urine Color Urine Appearance Urine pH Ur Specific [place] Urine Protein Urine Glucose (UA) Urine Ketones Urine Blood Urine Nitrite Urine Bilirubin Urine Urobilinogen Ur Leukocyte Esterase Urine WBC (Auto) Urine RBC (Auto) U Hyaline Cast (Auto) U Epithel Cells (Auto) Urine Bacteria (Auto) Random Vancomycin SARS-CoV-2, RNA, NAAT Blood Type Blood Type Recheck Antibody Screen Crossmatch 09/06/21 09/06/21 09/06/21 14:49 14:49 15:11 WBC RBC Hgb Hct MCV MCH MCHC RDW Std Deviation RDW Coeff of Lety Plt Count MPV Immature Gran % (Auto) Neut % (Auto) Lymph % (Auto) [place] % (Auto) Eos % (Auto) Baso % (Auto) Neut # (Auto) Lymph # (Auto) [place] # (Auto) Eos # (Auto) Baso # (Auto) Immature Gran # (Auto) Absolute Nucleated RBC Nucleated RBC % (auto) Neutrophils % (Manual) Band Neutrophils % Lymphocytes % (Manual) Prolymphocyte % Reactive Lymphs % (Man) Monocytes % (Manual) Eosinophils % (Manual) Basophils % (Manual) Metamyelocytes % (Man) Myelocytes % (Man) Promyelocytes % (Man) Blast Cells % (Manual) Plasma Cell % (Manual) Other Cells % Nucleated RBC % Neutrophils # (Manual) Band Neutrophils # Total Absolute Neuts Lymphocytes # (Manual) Prolymphocyte # Reactive Lymphs # Total Abs Lymphocytes Monocytes # (Manual) Eosinophils # (Manual) Basophils # (Manual) Metamyelocytes # (Man) Myelocytes # (Manual) Promyelocytes # (Man) Blast Cells # (Man) Plasma Cell # (Manual) Other Cells # Nucleated RBCs # (Man) Hypersegmented Neuts Hyposegmented Neuts Hypogranular Neuts Large Granular Lymphs # Lrg Granular Lymphs Hairy Cells Smudge Cells Blood Smear Review Toxic Granulation Toxic Vacuolation Dohle Bodies Wild Rods Platelet Estimate Hypogranular Platelets Clumped Platelets Giant Platelets Platelet Satelliting RBC Morphology Polychromasia Hypochromasia Poikilocytosis Basophilic Stippling Anisocytosis Microcytosis Macrocytosis Spherocytes Pappenheimer Bodies Sickle Cells Target Cells Tear Drop Cells Ovalocytes Stomatocytes Marshall-[place] Bodies Echinocytes Acanthocytes (Spur) Rouleaux RBC Agglutinates Schistocytes RBC Morph Comment Sezary Cell PT INR APTT PTT Ratio Sodium 133 L Potassium 5.3 H Chloride 101 Carbon Dioxide 15 L Anion Gap 17 H BUN 67 H Creatinine 4.94 H* Est Cr Clr Drug Dosing 11.8 Est GFR ( Amer) 8.7 Est GFR (Non-Af Amer) 7.5 BUN/Creatinine Ratio 13.6 Glucose 148 H Lactate Calcium 7.7 L Magnesium 1.9 Total Bilirubin 0.8 AST 111 H ALT 49 Alkaline Phosphatase 57 Total Creatine Kinase Troponin I 0.06 H* B-Natriuretic Peptide Total Protein 5.8 L Albumin 3.0 L Globulin 2.8 Albumin/Globulin Ratio 1.1 TSH 1.685 Urine Color Yellow Urine Appearance Turbid A Urine pH 6.0 Ur Specific [place] 1.012 Urine Protein 2+ H Urine Glucose (UA) Negative Urine Ketones Negative Urine Blood 1+ H Urine Nitrite Negative Urine Bilirubin Negative Urine Urobilinogen Negative Ur Leukocyte Esterase 2+ H Urine WBC (Auto) >30 H Urine RBC (Auto) 0-4 U Hyaline Cast (Auto) 1-5 U Epithel Cells (Auto) 10-20 H Urine Bacteria (Auto) 4+ H Random Vancomycin SARS-CoV-2, RNA, NAAT Blood Type Blood Type Recheck Antibody Screen Crossmatch 09/06/21 09/07/21 09/07/21 17:00 04:43 04:43 WBC 20.05 H RBC 1.79 L Hgb 6.3 L* Hct 19.8 L* MCV 110.6 H MCH 35.2 H MCHC 31.8 L RDW Std Deviation 82.7 H RDW Coeff of Lety 20.9 H Plt Count 521 H MPV 10.8 H Immature Gran % (Auto) 0.7 Neut % (Auto) 75.2 Lymph % (Auto) 16.2 [place] % (Auto) 7.9 Eos % (Auto) 0.0 Baso % (Auto) 0.0 Neut # (Auto) 15.07 H Lymph # (Auto) 3.24 [place] # (Auto) 1.58 H Eos # (Auto) 0.00 Baso # (Auto) 0.01 Immature Gran # (Auto) 0.15 H Absolute Nucleated RBC 0.08 H Nucleated RBC % (auto) 0.4 Neutrophils % (Manual) Band Neutrophils % Lymphocytes % (Manual) Prolymphocyte % Reactive Lymphs % (Man) Monocytes % (Manual) Eosinophils % (Manual) Basophils % (Manual) Metamyelocytes % (Man) Myelocytes % (Man) Promyelocytes % (Man) Blast Cells % (Manual) Plasma Cell % (Manual) Other Cells % Nucleated RBC % Neutrophils # (Manual) Band Neutrophils # Total Absolute Neuts Lymphocytes # (Manual) Prolymphocyte # Reactive Lymphs # Total Abs Lymphocytes Monocytes # (Manual) Eosinophils # (Manual) Basophils # (Manual) Metamyelocytes # (Man) Myelocytes # (Manual) Promyelocytes # (Man) Blast Cells # (Man) Plasma Cell # (Manual) Other Cells # Nucleated RBCs # (Man) Hypersegmented Neuts Hyposegmented Neuts Hypogranular Neuts Large Granular Lymphs # Lrg Granular Lymphs Hairy Cells Smudge Cells Blood Smear Review Toxic Granulation Toxic Vacuolation Dohle Bodies Wild Rods Platelet Estimate Hypogranular Platelets Clumped Platelets Giant Platelets Platelet Satelliting RBC Morphology Polychromasia 1+ Hypochromasia Poikilocytosis Basophilic Stippling Anisocytosis Present Microcytosis Macrocytosis Present Spherocytes Pappenheimer Bodies Sickle Cells Target Cells Tear Drop Cells Ovalocytes Stomatocytes Marshall-[place] Bodies Echinocytes Acanthocytes (Spur) Rouleaux RBC Agglutinates Schistocytes RBC Morph Comment Sezary Cell PT INR APTT PTT Ratio Sodium 133 L Potassium 4.9 Chloride 102 Carbon Dioxide 18 L Anion Gap 13 H BUN 74 H Creatinine 4.43 H D Est Cr Clr Drug Dosing 13.0 Est GFR ( Amer) 10.0 Est GFR (Non-Af Amer) 8.6 BUN/Creatinine Ratio 16.7 Glucose 148 H Lactate 1.7 Calcium 7.9 L Magnesium Total Bilirubin AST ALT Alkaline Phosphatase Total Creatine Kinase Troponin I B-Natriuretic Peptide Total Protein Albumin Globulin Albumin/Globulin Ratio TSH Urine Color Urine Appearance Urine pH Ur Specific [place] Urine Protein Urine Glucose (UA) Urine Ketones Urine Blood Urine Nitrite Urine Bilirubin Urine Urobilinogen Ur Leukocyte Esterase Urine WBC (Auto) Urine RBC (Auto) U Hyaline Cast (Auto) U Epithel Cells (Auto) Urine Bacteria (Auto) Random Vancomycin SARS-CoV-2, RNA, NAAT Blood Type Blood Type Recheck Antibody Screen Crossmatch 09/07/21 09/07/21 09/07/21 04:43 04:43 04:43 WBC RBC Hgb Hct MCV MCH MCHC RDW Std Deviation RDW Coeff of Lety Plt Count MPV Immature Gran % (Auto) Neut % (Auto) Lymph % (Auto) [place] % (Auto) Eos % (Auto) Baso % (Auto) Neut # (Auto) Lymph # (Auto) [place] # (Auto) Eos # (Auto) Baso # (Auto) Immature Gran # (Auto) Absolute Nucleated RBC Nucleated RBC % (auto) Neutrophils % (Manual) Band Neutrophils % Lymphocytes % (Manual) Prolymphocyte % Reactive Lymphs % (Man) Monocytes % (Manual) Eosinophils % (Manual) Basophils % (Manual) Metamyelocytes % (Man) Myelocytes % (Man) Promyelocytes % (Man) Blast Cells % (Manual) Plasma Cell % (Manual) Other Cells % Nucleated RBC % Neutrophils # (Manual) Band Neutrophils # Total Absolute Neuts Lymphocytes # (Manual) Prolymphocyte # Reactive Lymphs # Total Abs Lymphocytes Monocytes # (Manual) Eosinophils # (Manual) Basophils # (Manual) Metamyelocytes # (Man) Myelocytes # (Manual) Promyelocytes # (Man) Blast Cells # (Man) Plasma Cell # (Manual) Other Cells # Nucleated RBCs # (Man) Hypersegmented Neuts Hyposegmented Neuts Hypogranular Neuts Large Granular Lymphs # Lrg Granular Lymphs Hairy Cells Smudge Cells Blood Smear Review Toxic Granulation Toxic Vacuolation Dohle Bodies Wild Rods Platelet Estimate Hypogranular Platelets Clumped Platelets Giant Platelets Platelet Satelliting RBC Morphology Polychromasia Hypochromasia Poikilocytosis Basophilic Stippling Anisocytosis Microcytosis Macrocytosis Spherocytes Pappenheimer Bodies Sickle Cells Target Cells Tear Drop Cells Ovalocytes Stomatocytes Marshall-[place] Bodies Echinocytes Acanthocytes (Spur) Rouleaux RBC Agglutinates Schistocytes RBC Morph Comment Sezary Cell PT 12.0 INR 1.1 APTT 48.3 H* PTT Ratio 1.8 Sodium Potassium Chloride Carbon Dioxide Anion Gap BUN Creatinine Est Cr Clr Drug Dosing Est GFR ( Amer) Est GFR (Non-Af Amer) BUN/Creatinine Ratio Glucose Lactate Calcium Magnesium Total Bilirubin AST ALT Alkaline Phosphatase Total Creatine Kinase Troponin I B-Natriuretic Peptide Total Protein Albumin Globulin Albumin/Globulin Ratio TSH Urine Color Urine Appearance Urine pH Ur Specific [place] Urine Protein Urine Glucose (UA) Urine Ketones Urine Blood Urine Nitrite Urine Bilirubin Urine Urobilinogen Ur Leukocyte Esterase Urine WBC (Auto) Urine RBC (Auto) U Hyaline Cast (Auto) U Epithel Cells (Auto) Urine Bacteria (Auto) Random Vancomycin 21.8 H SARS-CoV-2, RNA, NAAT Blood Type Blood Type Recheck A Positive Antibody Screen Crossmatch 09/07/21 09/07/21 04:43 06:28 WBC RBC Hgb Hct MCV MCH MCHC RDW Std Deviation RDW Coeff of Lety Plt Count MPV Immature Gran % (Auto) Neut % (Auto) Lymph % (Auto) [place] % (Auto) Eos % (Auto) Baso % (Auto) Neut # (Auto) Lymph # (Auto) [place] # (Auto) Eos # (Auto) Baso # (Auto) Immature Gran # (Auto) Absolute Nucleated RBC Nucleated RBC % (auto) Neutrophils % (Manual) Band Neutrophils % Lymphocytes % (Manual) Prolymphocyte % Reactive Lymphs % (Man) Monocytes % (Manual) Eosinophils % (Manual) Basophils % (Manual) Metamyelocytes % (Man) Myelocytes % (Man) Promyelocytes % (Man) Blast Cells % (Manual) Plasma Cell % (Manual) Other Cells % Nucleated RBC % Neutrophils # (Manual) Band Neutrophils # Total Absolute Neuts Lymphocytes # (Manual) Prolymphocyte # Reactive Lymphs # Total Abs Lymphocytes Monocytes # (Manual) Eosinophils # (Manual) Basophils # (Manual) Metamyelocytes # (Man) Myelocytes # (Manual) Promyelocytes # (Man) Blast Cells # (Man) Plasma Cell # (Manual) Other Cells # Nucleated RBCs # (Man) Hypersegmented Neuts Hyposegmented Neuts Hypogranular Neuts Large Granular Lymphs # Lrg Granular Lymphs Hairy Cells Smudge Cells Blood Smear Review Toxic Granulation Toxic Vacuolation Dohle Bodies Wild Rods Platelet Estimate Hypogranular Platelets Clumped Platelets Giant Platelets Platelet Satelliting RBC Morphology Polychromasia Hypochromasia Poikilocytosis Basophilic Stippling Anisocytosis Microcytosis Macrocytosis Spherocytes Pappenheimer Bodies Sickle Cells Target Cells Tear Drop Cells Ovalocytes Stomatocytes [place] Bodies Echinocytes Acanthocytes (Spur) Rouleaux RBC Agglutinates Schistocytes RBC Morph Comment Sezary Cell PT INR APTT PTT Ratio Sodium Potassium Chloride Carbon Dioxide Anion Gap BUN Creatinine Est Cr Clr Drug Dosing Est GFR ( Amer) Est GFR (Non-Af Amer) BUN/Creatinine Ratio Glucose Lactate Calcium Magnesium Total Bilirubin AST ALT Alkaline Phosphatase Total Creatine Kinase 2538 H Troponin I B-Natriuretic Peptide Total Protein Albumin Globulin Albumin/Globulin Ratio TSH Urine Color Urine Appearance Urine pH Ur Specific [place] Urine Protein Urine Glucose (UA) Urine Ketones Urine Blood Urine Nitrite Urine Bilirubin Urine Urobilinogen Ur Leukocyte Esterase Urine WBC (Auto) Urine RBC (Auto) U Hyaline Cast (Auto) U Epithel Cells (Auto) Urine Bacteria (Auto) Random Vancomycin SARS-CoV-2, RNA, NAAT Blood Type A Positive Blood Type Recheck Antibody Screen NEGATIVE Crossmatch See Detail PG Care Time/CCT Total # of Minutes Spent Total Time Spent with Patient: Total time spent is greater than 50% in coordination of care (as documented) at patient's floor/unit and/or counseling patient: Prolonged Care Time Prolonged Care Time: Yes 70 Coding Level of Care Code 54286 Subseq Hosp Care Lvl 3 (25 - SIGNIFICANT, SEPARATELY IDENTIFIABLE ) Diagnoses MOJGAN (acute kidney injury) N17.9 Metabolic acidosis, increased anion gap E87.2 UTI (urinary tract infection) N39.0 Heart failure with preserved ejection fraction I50.30 Atrial fibrillation I48.91 Pulmonary embolism I26.99 Macrocytic anemia D53.9 HTN (hypertension) I10 Rhabdomyolysis M62.82 Severe sepsis A41.9; R65.20 Sacral wound S31.000A Hyponatremia E87.1 Morbid obesity with BMI of 50.0-59.9, adult E66.01; Z68.43 Frequent falls R29.6 Sacral decubitus ulcer, stage III L89.153 Additional Codes Prolonged Care Time - Prolonged Care Time: Yes ([id number]) Time Spent (min) 70
[2021-09-07] MEDS ORDERED: METOPROLOL SUCC 50MG EXT REL TAB PO SCH (09:00)
[2021-09-07] MEDS ORDERED: TIMOLOL MALEATE 0.5% OP SOLN 5 ML BTL OP SCH (09:00)
[2021-09-07] MEDS: CYANOCOBALAMIN (B-12) 500 MCG TABLET PO SCH (09:30)
[2021-09-07] MEDS: CEROVITE ADV FORMULA TAB PO SCH (09:30)
[2021-09-07] MEDS: ASPIRIN 81 MG ECTAB PO SCH (09:30)
[2021-09-07] MEDS: TIMOLOL MALEATE 0.5% OP SOLN 5 ML BTL OP SCH (09:31)
[2021-09-07] MEDS: NYSTATIN POWDER 15GM BTL EXT SCH ×2 (09:31→21:53)
--- NOTE | 2021-09-07 10:49 | Pharmacy Report ---
Pharmacy Vanc AUC Short Note - Date of Service September 07, 2021 - Assessment & Plan Assessment * 81 year old F receiving cefepime and vancomycin for treatment of sepsis 2nd UTI and/or cellulitis/sacral ulcer * Cultures pending. UA negative nitrite. * Significant MOJGAN noted w SCr >4 and baseline ~0.8 mg/dL Vancomycin * AUC/ZACK is the preferred PK/PD target for vancomycin because it is effective and associated with decreased risk of nephrotoxicity compared to traditional t rough targets. * However, with MOJGAN, will dose via random level for now * Random level this AM supratherapeutic at 21.8 mcg/mL. Will repeat random level ~8 hours later declined slowly to 18.6 mcg/mL. Therefore possibly subtherapeutic by tomorrow AM Plan * Vancomycin 500 mg IV x1 * Repeat random level tomorrow AM Pharmacy will continue to follow and will adjust dose/frequency as necessary. Thank you.
--- NOTE | 2021-09-07 10:56 | Surgery Consultation ---
Date of Consultation September 07, 2021 Assessment & Plan (1) Sacral wound: 81-year-old woman presents status post fall with significant amount of sacral ecchymosis and swelling, with skin breakdown and exposed subcutaneous tissue, also ecchymotic, in the central portion. She is being treated with Aquacel Ag currently. She has a very complex and serious medical history. She is currently on a heparin drip and receiving blood. At this point, given the wound, I would recommend continuing with Aquacel AG for the time being. Do not believe she requires any surgical debridement currently. We will continue to monitor. History of Present Illness Reason for Consultation: Sacral wound Requesting Physician: Angel Early Attending Physician: Angel Early History of Present Illness 81-year-old woman presents to the hospital after a fall at home. She fell on h [facility]. She has a history of repeated falls. She was noted to have a large area of ecchymosis and swelling on her bilateral buttocks. There is breakdown of the skin in the central portion on the sacrum. She denies significant pain or tenderness, although she does state that it "bothers her" sometimes. She denies fevers or chills. Allergies Allergy/AdvReac Type Severity Reaction Status Date / Time succinylcholine Allergy Severe CARDIAC Verified 06/25/21 12:12 ARREST Penicillins Allergy Unknown REDNESS,SWE Verified 09/07/21 07:31 LLING Home Medications Medication Instructions Recorded Confirmed Type aspirin 81 mg tablet,delayed 81 mg PO DAILY 01/25/21 09/06/21 History release calcium carbonate 500 mg-vitamin 1 tab PO DAILY 01/25/21 09/06/21 History D3 3.125 mcg (125 unit) tablet cyclosporine 0.05 % eye drops in a 1 drp OPB AMPM 01/25/21 09/06/21 History dropperette (Restasis) losartan 100 mg tablet 100 mg PO DAILY 01/25/21 09/06/21 History simvastatin 20 mg tablet (Zocor) 20 mg PO PM 01/25/21 09/06/21 History timolol maleate 0.5 % eye drops 1 drp OPB QAM 01/25/21 09/06/21 History vitamin A-vitamin C-vit E-min 1 tab PO DAILY 06/25/21 09/06/21 History tablet cyanocobalamin (vitamin B-12) 500 500 mcg PO QAM #30 tab 07/06/21 09/06/21 Rx mcg tablet furosemide 20 mg tablet 20 mg PO QAM #30 tab 07/06/21 09/06/21 Rx metformin 1,000 mg tablet,extended 1,000 mg PO BID #60 tab 07/06/21 09/06/21 Rx release 24hr metoprolol succinate 50 mg 50 mg PO QAM #30 tab 07/06/21 09/06/21 Rx tablet,extended release 24 hr warfarin 5 mg tablet 5 mg PO DAILY@1600 #30 tab 07/06/21 09/06/21 Rx hydrochlorothiazide 25 mg tablet 25 mg PO DAILY 09/06/21 09/06/21 History Patient History Medical History Asthma H/O: HTN (hypertension) Hypoxia Nasal fracture Reflux esophagitis Social History Smoking Status: Never smoker Hx Alcohol Use: No Hx Substance Use: No Preferred Language: Maori Communication Ability: Effective [employer] Required: No Beliefs That Will Affect Care: Denominational Denominational Beliefs: Church Current Living Situation: Family Current Living Situation Comment: lives with daughter Other Information That Helps Us Care for You: No Feels Safe at Home: Yes Safety Concerns: Feels Safe At This Time Assistive Devices: Cane, Denture - Upper and Glasses Assistive Devices Comment: O2 at home as needed Review of Systems Review of Systems: All systems reviewed & are unremarkable except as noted in HPI & below Physical Exam Constitutional: WD/WN, vitals as above Neck: trachea midline, no thyromegaly Respiratory: normal respiratory effort; no respiratory distress Cardiovascular: Rate/Rhythm: regular rate and regular rhythm Gastrointestinal (Abdomen): Inspection/Auscultation: abdomen normal to inspection Percussion/Palpation: abdomen soft Musculoskeletal: Spine: + sacral edema, + sacral ecchymosis and + sacral erythema Extremities: no cyanosis and no clubbing Over the sacrum/coccyx centralized in the area of ecchymosis and erythema is skin breakdown measuring 2 cm x 2 cm; there is no purulent or foul-smelling drainage; there is ecchymosis and bruising amongst the tissue; no dry eschar Skin: no rashes, warm and dry Psychiatric: A+Ox3, euthymic affect Results & Data ([facility]) Vital Signs (Past 12 Hours) Vital Signs Temp Pulse Pulse Resp BP BP Pulse Ox 09/07/21 10:02 36.7 C 106 H 28 H 107/50 L 97 09/07/21 09:34 36.7 C 120 H 22 112/52 L 92 09/07/21 09:19 36.9 C 112 H 34 H 106/91 96 09/07/21 08:54 36.7 C 113 H 31 H 103/49 L 98 09/07/21 07:26 36.9 C 117 H 26 H 88/41 L 91 09/07/21 07:12 36.8 C 119 H 22 102/61 91 09/07/21 03:48 36.7 C 120 H 24 121/42 L 93 09/06/21 23:09 117 H 09/06/21 22:52 36.4 C L 118 H 22 124/57 L 95
[2021-09-07] MEDS ORDERED: VANCOMYCIN HCL 500 MG in DEXTROSE 5% 100 ML IV ONE (14:30)
[2021-09-07] MEDS: MoRPHine SULFATE 2 MG/ML CARP IV PRN (14:58)
[2021-09-07] MEDS ORDERED: CEFEPIME 2,000 MG in SYRINGE 0 ML IV SCH (16:00)
[2021-09-07] MEDS: WARFARIN SOD 5 MG TAB PO SCH (17:58)
[2021-09-07 18:16] LABS: Hematocrit (blood only) 24.3 % (37-47); Hemoglobin 8.1 g/dL (12.0-16.0)
[2021-09-07 18:41] LABS: BUN Creatinine Ratio 21.9 (10-20); Calcium 7.1 mg/dl (8.5-10.1); Creatinine Clr Calc Pharmacy 15.7 ml/min; Est GFR (African American) 12.6 ml/min; Est GFR (Non-African American) 10.8 ml/min
[2021-09-07] MEDS ORDERED: GLUCOSE 40% GEL 15 GM TUBE PO PRN (20:30)
[2021-09-07] MEDS ORDERED: CARBOHYDRATES FOR HYPOGLYCEMIA PO PRN (20:30)
[2021-09-07] MEDS ORDERED: DEXTROSE 50% 50 ML SYRINGE IV PRN (20:30)
[2021-09-07] MEDS ORDERED: GLUCOSE 10 TABS/TUBE PO PRN (20:30)
[2021-09-07] MEDS ORDERED: GLUCAGON FOR INJ 1 MG VIAL IM PRN (20:30)
[2021-09-07] MEDS: INSULIN ASPART PER UNIT SC SCH (21:50)
[2021-09-08] MEDS: ACETAMINOPHEN 325 MG TAB PO PRN (04:18)
[2021-09-08 06:02] LABS: Eosinophils # (auto) 0.01 K/uL (0-0.5); Eosinophils % (auto) 0.1 %; Hematocrit (blood only) 23.7 % (37-47); Hemoglobin 7.9 g/dL (12.0-16.0); Immature Granulocytes # (auto) 0.08 K/uL (0.00-0.02); Immature Granulocytes % (auto) 0.6 %; Lymphocytes # (auto) 3.43 K/uL (1.2-3.4); Lymphocytes % (auto) 24.9 %; Mean Corpuscular Hemoglobin 32.8 pg (25-34); Mean Corpuscular Hgb Conc 33.3 g/dL (32-36); Mean Corpuscular Volume 98.3 fL (80-100); Mean Platelet Volume 10.2 fL (7.4-10.4); Monocytes # (auto) 1.52 K/uL (0.11-0.59); Neutrophils # (auto) 8.74 K/uL (1.4-6.5); Neutrophils % (auto) 63.4 %; Nucleated RBC # (auto) 0.09 K/uL (0-0); Nucleated RBC % (auto) 0.7 %; Platelet Count 328 K/uL (130-400); RDW Coefficient of Variation 24.7 % (11.5-14.5); RDW Standard Deviation 85.7 fL (36.4-46.3); Red Blood Count 2.41 M/uL (4.2-5.4); White Blood Count 13.78 K/uL (4.8-10.8)
[2021-09-08 06:22] LABS: BUN Creatinine Ratio 27.3 (10-20); Calcium 6.9 mg/dl (8.5-10.1); Creatinine Clr Calc Pharmacy 22.7 ml/min; Est GFR (African American) 19.6 ml/min; Est GFR (Non-African American) 16.9 ml/min; Potassium 4.3 mmol/L (3.5-5.1)
[2021-09-08] MEDS: SODIUM BICARBONATE 8.4% 75 MEQ in SODIUM CHLORIDE 0.45 % 1,000 ML IV SCH (06:27)
[2021-09-08 06:44] LABS: Anisocytosis Present
[2021-09-08] MEDS ORDERED: VANCOMYCIN HCL 1,250 MG in SODIUM CHLORIDE 0.9% 250 ML IV ONE (07:30)
[2021-09-08] MEDS ORDERED: STAT IV STA (07:48)
[2021-09-08] MEDS: ONDANSETRON INJ 2 MG/ML 2 ML VIAL IV PRN (07:54)
[2021-09-08] MEDS ORDERED: CALCIUM GLUCONATE 10% 1,000 MG in DEXTROSE 5% 50 ML IV ONE (08:00)
[2021-09-08] MEDS: SODIUM CHLORIDE 0.9% 1000ML 1,000 ML IV SCH ×2 (08:09→22:22)
[2021-09-08] MEDS: INSULIN ASPART PER UNIT SC SCH ×4 (08:10→21:00)
[2021-09-08] MEDS: CIPROFLOXACIN / D5W 400 MG/200 ML BAG IV SCH (09:08)
[2021-09-08] MEDS: NYSTATIN POWDER 15GM BTL EXT SCH ×2 (09:09→22:50)
[2021-09-08] MEDS: TIMOLOL MALEATE 0.5% OP SOLN 5 ML BTL OP SCH (09:09)
[2021-09-08] MEDS ORDERED: ONDANSETRON INJ 2 MG/ML 2 ML VIAL IV STA (09:21)
[2021-09-08] MEDS: ASPIRIN 81 MG ECTAB PO SCH (09:24)
[2021-09-08] MEDS: CEROVITE ADV FORMULA TAB PO SCH (09:24)
[2021-09-08] MEDS: CYANOCOBALAMIN (B-12) 500 MCG TABLET PO SCH (09:24)
[2021-09-08] MEDS ORDERED: FAMOTIDINE 20 MG in SYRINGE 3 ML IV ONE (09:30)
--- NOTE | 2021-09-08 10:10 | XRay Report ---
KUB CLINICAL HISTORY: vomiting; ileus? other? COMPARISON STUDY: CT of the abdomen and pelvis September 06, 2021. FINDINGS: A 3.4 x 2.6 cm densely calcific lesion within the lower pole of the left kidney is noted. T his is better depicted on recent CT. There are cholecystectomy clips. Bowel gas pattern is unremarkab le. There is no evidence for a bowel obstruction. Mild to moderate amount of stool within the distal colon and rectum is present. IMPRESSION: Normal bowel gas pattern. No evidence for a bowel obstruction or ileus. ACT 112: Negative or not required by law. Electronically signed by: Lionel Arevalo M.D. 09/08/2021 10:09 AM
--- NOTE | 2021-09-08 10:25 | Pharmacy Report ---
Pharmacy Vanc AUC Short Note - Date of Service September 08, 2021 - Assessment & Plan Assessment 81 year old F receiving cefepime and vancomycin for treatment of sepsis 2nd UTI and/or cellulitis/sacral ulcer. Blood cultures NGTD. Sacral culture (+) pseudomonas and Staph spp. Urine culture (+) downs-sensitive E.coli and lactobacillus. Renal function improving (SCr 4.94 -->4.43 -->2.53). Day # 3 of antimicrobial therapy. Plan Vancomycin * AUC/ZACK is the preferred PK/PD target for vancomycin because is effective and associated with decreased risk of nephrotoxicity compared to traditional trough targets * However, with MOJGAN will continue dosing by levels * Random level this AM 19.3mcg/mL which is therapeutic. Safe to re-dose * Vanc 1250mg (~10mg/kg) IV x 1. Random level tomorrow AM with AM labs. Pharmacy will continue to follow and will adjust dose/frequency as necessary. Thank you.
[2021-09-08] MEDS ORDERED: Nursing to Pharmacy Communication SCH (14:30)
[2021-09-08] MEDS ORDERED: Heparin IV Adult Wt-Based Standard *NO* Bolus Protocol ONE (14:33)
[2021-09-08] MEDS ORDERED: HEPARIN SODIUM/DEXTROSE 25,000 UNITS/500 ML BAG IV SCH (15:00)
--- NOTE | 2021-09-08 19:07 | Electrocardiogram Report ---
Test Reason : Blood Pressure : / mmHG Vent. Rate : 099 BPM Atrial Rate : 099 BPM P-R Int : 198 ms QRS Dur : 118 ms QT Int : 368 ms P-R-T Axes : 070 -29 070 degrees QTc Int : 472 ms Normal sinus rhythm Poor R wave progression, consider anterior NM vs. lead placement vs. LVH Abnormal ECG When compared with ECG of 06-SEP-2021 14:07, No significant change was found Confirmed by Raymundo Sánchez ([id number]) on 09/08/2021 7:06:57 PM Referred By: REFERRED SELF Confirmed By:Chance Sánchez
--- NOTE | 2021-09-08 20:24 | Hospitalist Progress Note ---
Date of Service September 08, 2021 Assessment & Plan (1) Severe sepsis: Plan: source - 2nd to UTI; sacral wound also likely contributing. E.coli in urine. Pseudomonas/staph in sacral wound. Will narrow abx today - change cefepime to cipro to cover pseudomonas & e.coli; cont vanco for staph while waiting for sensitivites/ID. Blood cx's remain negative. Overall she is improving albeit slowly. (2) UTI (urinary tract infection): Plan: 2nd to e.coli. Change cefepime to cipro IV as above. Plan 7 days of Rx. (3) Rhabdomyolysis: Plan: 2nd to falls. Initial CPK >2000. Now 650. Cont IV fluids. Hold statin. (4) MOJGAN (acute kidney injury): Plan: Likely sepsis-associated ATN. Improved. Repeat BMP in am. Cont IV fluids. Bicarbonate level now normal; stop bicarb drip, change to NS. No obstruction on recent CT a/p. (5) Sacral wound: Plan: Likely 2nd to recurrent falls +/- sedentary lifestyle? Wound care nurse consulted; appreciate recs. Wound care advised general surgery consult. Dr Weaver saw in consult - patient may need debridement but holding off at this time. Culture from wound growing pseudomonas + staph. Cipro + vanco. (6) Sacral decubitus ulcer, stage III: Plan: see above stage 3 wound/ulcer with b/l buttock ulcers (7) Metabolic acidosis, increased anion gap: Plan: resolved 2nd severe sepsis (8) Heart failure with preserved ejection fraction: Plan: Echo in 06/2021 - EF >70% RV dilatation but preserved RV function Does not examine decompensated Cont IV fluids cautiously (9) Atrial fibrillation: Plan: Beta nando remains on hold due to low or low-normal BPs from #1. I examined the sacral wound today with nursing staff No active bleeding Given her known PAF + PEs in 06/2021 will resume heparin drip (without bolus) and follow H/H carefully Hold coumadin for now, resume if cbcs are acceptable (10) Pulmonary embolism: Plan: PE diagnosed in 06/25/2021 - started on warfarin at that time. INR 1.1 upon admission - is she compliant with meds at home? by report had run out of coumadin? unfortunately, given her morbid obesity, very poor candidate for DOAC. Resume heparin drip, monitor H/H, monitor sacral wound/ecchymoses for worsening. Hold coumadin for now. Of note - it does not appear she had dopplers of legs at time of PE diagnosis. (11) Macrocytic anemia: Plan: B12 levels - 323 in June 2021. Supplementing such. However, doubt this is the cause of her significant anemia. Folate wnl. TSH wnl. CBC is concerning for MDS. Will need peripheral smear at some point. Also would benefit from heme/onc consult post-discharge. s/p 2 units PRBCs yesterday with appropriate H/H response. Repeat CBC in am. (12) HTN (hypertension): Plan: Hold anti-hypertensives due to current low normal BP including diuretics & metoprolol. Resume when able. (13) Hyponatremia: Plan: 2nd to acute renal failure. Improving. Isotonic fluids, repeat BMP am. (14) Morbid obesity with BMI of 50.0-59.9, adult: Plan: BMI 52 (15) Frequent falls: Plan: with resulting rhabdomyolysis will need PT/OT while here (16) Hypocalcemia: Plan: PRBCs may have worsened such. Even correcting for mildly low albumin her total calcium is still low. Calcium gluconate 1gm x 1. repeat bmp/calcium am. (17) Wide-complex tachycardia: Plan: NSVT vs a.fib with aberrancy. brief, seen this am on tele. cont tele monitoring. echo 06/2021 with preserved EF. (18) Vomiting: Plan: 2nd to #1? gastritis/esophagitis (has known h/o latter per records)? other? KUB without obstruction/ileus. s/p zofran and pepcid IV with resolution. allow clears. order PPI twice daily. (19) DVT prophylaxis: Plan: heparin drip, standard dosing, to be resumed today cautiously (20) Chronic respiratory failure with hypoxia: Plan: 06/2021 admission for PEs - failed her 2-step; needed 3 liters NC O2 continuously continue such while here resp failure likely combination of OHS, prior PEs; cannot rule out pulmonary HTN, other factors Plan: updated pt's daughter by phone yesterday evening updated pt's brother by phone tonight needs PT/OT - very weak Admission and Anticipated Discharge Date Admission Date: September 06, 2021 Subjective uneventful night overnight however, I was contacted this am by the pt's nurse that after eating breakfast she was quite nauseous then proceeded to vomit multiple times ordered another dose of 4mg zofran (received 8mg in total) along with IV pepcid tele overnight - sinus tach; however, had brief run of either NSVT vs a.fib with aberrancy during her episode of emesis I obtained 12-lead EKG - it was unchanged from prior EKG patient reports no chest pain, dyspnea at rest, or abdominal pain she continues to be weak staff report no active bleeding from her sacral wound/ecchymotic region late in the day today I was contacted by staff that pt requested to have a diet; clears ordered Review of Systems Review of Systems: gen - no fevers/chills cv - no orthopnea pulm - no cough/dyspnea GI - no pain, no bloating Physical Exam Physical Exam: gen - unchanged from yesterday; awake/alert; no acute distress skin - pallor; candidal intertrigo lower skin folds of abdomen; sacral region - large area of ecchymoses/deep tissue injury; there are several areas of macerated skin; no active bleeding; no foul odor neck - no JVD mouth - MMM heart - tachy, s1 s2, regular lungs - decreased BS bases, minimal rales bases, no wheeze abd - soft NT ND BS+ ext - <1+ edema b/l; pulses 2+ b/l psych - a/o x 3 Results & Data Results & Data ([facility]) Vital Signs (Past 12 Hours) Vital Signs Temp Pulse Pulse Resp BP Pulse Ox 09/08/21 19:16 36.8 C 141 H 18 92/62 L 94 09/08/21 16:02 36.5 C 107 H 35 H 114/68 91 09/08/21 14:30 103 H 09/08/21 11:45 36.6 C 100 H 21 107/49 L 98 Laboratory Results Laboratory Results - last 24 hr 09/08/21 09/08/21 09/08/21 05:30 05:30 05:30 WBC 13.78 H RBC 2.41 L Hgb 7.9 L Hct 23.7 L MCV 98.3 D MCH 32.8 MCHC 33.3 RDW Std Deviation 85.7 H RDW Coeff of Lety 24.7 H Plt Count 328 MPV 10.2 Immature Gran % (Auto) 0.6 Neut % (Auto) 63.4 Lymph % (Auto) 24.9 Louisa % (Auto) 11.0 Eos % (Auto) 0.1 Baso % (Auto) 0.0 Neut # (Auto) 8.74 H Lymph # (Auto) 3.43 H Louisa # (Auto) 1.52 H Eos # (Auto) 0.01 Baso # (Auto) 0.00 Immature Gran # (Auto) 0.08 H Absolute Nucleated RBC 0.09 H Nucleated RBC % (auto) 0.7 Anisocytosis Present Sodium 134 L Potassium 4.3 Chloride 102 Carbon Dioxide 24 Anion Gap 8 BUN 69 H Creatinine 2.53 H D Est Cr Clr Drug Dosing 22.7 Est GFR ( Amer) 19.6 Est GFR (Non-Af Amer) 16.9 BUN/Creatinine Ratio 27.3 H Glucose 143 H POC Glucose Calcium 6.9 L Total Creatine Kinase 654 H Random Vancomycin 19.3 09/08/21 09/08/21 09/08/21 07:23 11:07 16:21 WBC RBC Hgb Hct MCV MCH MCHC RDW Std Deviation RDW Coeff of Lety Plt Count MPV Immature Gran % (Auto) Neut % (Auto) Lymph % (Auto) Louisa % (Auto) Eos % (Auto) Baso % (Auto) Neut # (Auto) Lymph # (Auto) Louisa # (Auto) Eos # (Auto) Baso # (Auto) Immature Gran # (Auto) Absolute Nucleated RBC Nucleated RBC % (auto) Anisocytosis Sodium Potassium Chloride Carbon Dioxide Anion Gap BUN Creatinine Est Cr Clr Drug Dosing Est GFR ( Amer) Est GFR (Non-Af Amer) BUN/Creatinine Ratio Glucose POC Glucose 158 H 176 H 138 H Calcium Total Creatine Kinase Random Vancomycin 09/08/21 20:20 WBC RBC Hgb Hct MCV MCH MCHC RDW Std Deviation RDW Coeff of Lety Plt Count MPV Immature Gran % (Auto) Neut % (Auto) Lymph % (Auto) Louisa % (Auto) Eos % (Auto) Baso % (Auto) Neut # (Auto) Lymph # (Auto) Louisa # (Auto) Eos # (Auto) Baso # (Auto) Immature Gran # (Auto) Absolute Nucleated RBC Nucleated RBC % (auto) Anisocytosis Sodium Potassium Chloride Carbon Dioxide Anion Gap BUN Creatinine Est Cr Clr Drug Dosing Est GFR ( Amer) Est GFR (Non-Af Amer) BUN/Creatinine Ratio Glucose POC Glucose 137 H Calcium Total Creatine Kinase Random Vancomycin Diagnostic Findings urine cx - e.coli, pansensitive; lactobacillus sacral wound - pseudomonas, pansensitive; staph species - sens pending blood cultures negative to date KUB x-ray - moderate amount of stool in rectum; otherwise no ileus/SBO PG Care Time/CCT Total # of Minutes Spent Total Time Spent with Patient: Total time spent is greater than 50% in coordination of care (as documented) at patient's floor/unit and/or counseling patient: Coding Level of Care Code 22353 Subseq Hosp Care Lvl 3 Diagnoses Severe sepsis A41.9; R65.20 Rhabdomyolysis M62.82 MOJGAN (acute kidney injury) N17.9 Sacral wound S31.000A Sacral decubitus ulcer, stage III L89.153 UTI (urinary tract infection) N39.0 Metabolic acidosis, increased anion gap E87.2 Heart failure with preserved ejection fraction I50.30 Atrial fibrillation I48.91 Pulmonary embolism I26.99 Macrocytic anemia D53.9 HTN (hypertension) I10 Hyponatremia E87.1 Morbid obesity with BMI of 50.0-59.9, adult E66.01; Z68.43 Frequent falls R29.6 Hypocalcemia E83.51 Wide-complex tachycardia I47.2 Vomiting R11.10 DVT prophylaxis Z29.9 Chronic respiratory failure with hypoxia J96.11
[2021-09-08] MEDS: PANTOprazole 40 MG TAB PO SCH (22:50)
[2021-09-09] MEDS: HEPARIN SODIUM/DEXTROSE 25,000 UNITS/500 ML BAG IV SCH ×2 (00:33→16:38)
[2021-09-09 03:27] LABS: Partial Thromboplastin Ratio 2.4
[2021-09-09 03:34] LABS: Partial Thromboplastin Time 66.2 Seconds (21.0-31.0)
[2021-09-09 05:45] LABS: Basophils # (auto) 0.01 K/uL (0-0.2); Basophils % (auto) 0.1 %; Eosinophils % (auto) 0.9 %; Hematocrit (blood only) 24.2 % (37-47); Hemoglobin 7.6 g/dL (12.0-16.0); Immature Granulocytes # (auto) 0.14 K/uL (0.00-0.02); Immature Granulocytes % (auto) 1.2 %; Lymphocytes # (auto) 3.49 K/uL (1.2-3.4); Mean Corpuscular Hemoglobin 32.2 pg (25-34); Mean Corpuscular Hgb Conc 31.4 g/dL (32-36); Mean Corpuscular Volume 102.5 fL (80-100); Mean Platelet Volume 10.7 fL (7.4-10.4); Monocytes # (auto) 1.33 K/uL (0.11-0.59); Monocytes % (auto) 11.8 %; Neutrophils # (auto) 6.18 K/uL (1.4-6.5); Nucleated RBC % (auto) 0.9 %; Platelet Count 316 K/uL (130-400); RDW Coefficient of Variation 25.3 % (11.5-14.5); RDW Standard Deviation 90.5 fL (36.4-46.3); Red Blood Count 2.36 M/uL (4.2-5.4); White Blood Count 11.25 K/uL (4.8-10.8)
[2021-09-09 06:22] LABS: BUN Creatinine Ratio 34.6 (10-20); Calcium 7.7 mg/dl (8.5-10.1); Creatinine Clr Calc Pharmacy 44.8 ml/min; Est GFR (African American) 45.2 ml/min; Potassium 4.1 mmol/L (3.5-5.1)
[2021-09-09 06:34] LABS: Polychromasia 1+
[2021-09-09 07:39] LABS: Estimated Average Glucose 148 mg/dl; Hemoglobin A1C 6.8 % (4.5-5.6)
--- NOTE | 2021-09-09 07:59 | Pharmacy Report ---
Pharmacy Vanc AUC Short Note - Date of Service September 09, 2021 - Assessment & Plan Assessment 81 year old F receiving Vancomycin and Ciprofloxacin for treatment of UTI and sacral ulcer. Pertinent microbiologic data includes: Urine culture pansensitive for E. Coli, covered by Ciprofloxacin. Blood cultures no growth. Sacral wound growing pseudomonas and Staph aureus, sensitive to the Vancomycin Vancomycin * AUC/ZACK is the preferred PK/PD target for vancomycin because is effective and associated with decreased risk of nephrotoxicity compared to traditional trough targets * However, with MOJGAN will continue dosing by levels * Random level this AM 17.2mcg/mL which is therapeutic. Safe to re-dose * Vanc 1250mg (~10mg/kg) IV q18h. Next dose at 0900 today. Pharmacy will continue to follow and will adjust dose/frequency as necessary. Thank you.
[2021-09-09] MEDS: INSULIN ASPART PER UNIT SC SCH ×4 (08:36→20:47)
[2021-09-09] MEDS: ASPIRIN 81 MG ECTAB PO SCH (08:41)
[2021-09-09] MEDS: CYANOCOBALAMIN (B-12) 500 MCG TABLET PO SCH (08:41)
[2021-09-09] MEDS: CEROVITE ADV FORMULA TAB PO SCH (08:42)
[2021-09-09] MEDS: METOPROLOL SUCC 25MG EXT REL TAB PO SCH (08:42)
[2021-09-09] MEDS: NYSTATIN POWDER 15GM BTL EXT SCH ×2 (08:42→21:32)
[2021-09-09] MEDS: PANTOprazole 40 MG TAB PO SCH ×2 (08:43→21:33)
[2021-09-09] MEDS: CIPROFLOXACIN / D5W 400 MG/200 ML BAG IV SCH (08:43)
[2021-09-09] MEDS: TIMOLOL MALEATE 0.5% OP SOLN 5 ML BTL OP SCH (08:43)
[2021-09-09] MEDS ORDERED: VANCOMYCIN HCL 1,250 MG in SODIUM CHLORIDE 0.9% 250 ML IV SCH (09:00)
[2021-09-09] MEDS: MoRPHine SULFATE 2 MG/ML CARP IV PRN (09:22)
[2021-09-09] MEDS: ONDANSETRON INJ 2 MG/ML 2 ML VIAL IV PRN (09:23)
--- NOTE | 2021-09-09 09:37 | Hospitalist Progress Note ---
Date of Service September 09, 2021 Assessment & Plan (1) Severe sepsis: Plan: source - 2nd to UTI; sacral wound also likely contributing. E.coli in urine. Pseudomonas/staph in sacral wound. Sepsis now resolved Have since changed cefepime to cipro to cover pseudomonas & e.coli and will now change vanco to doxycycline for MSSA-would plan to complete 10 to 14 days of antibiotics Blood cx's remain negative. Blood pressures are stable and remains tachycardic as she has been off of her beta-nando Discontinue IV fluids as MOJGAN is now resolved (2) UTI (urinary tract infection): Plan: 2nd to e.coli. Continue Cipro as above Plan 7 days of Rx. (3) Rhabdomyolysis: Plan: 2nd to falls. Initial CPK >2000. Now 650. Okay to DC fluids Hold statin. (4) MOJGAN (acute kidney injury): Plan: Likely sepsis-associated ATN. Now resolved after IV fluids and bicarbonate drip Creatinine down to 1.2 from peak of 4 Repeat BMP in am. No obstruction on recent CT a/p. -DC IV fluids -Continue holding home HCTZ, furosemide, and losartan (5) Sacral wound: Plan: Likely 2nd to recurrent falls +/- sedentary lifestyle? Wound care nurse consulted; appreciate recs. Wound care advised general surgery consult. Dr Weaver saw in consult - patient may need debridement but holding off at this time. Culture from wound growing pseudomonas + staph. New antibiotics as above Offload pressure Wound care (6) Sacral decubitus ulcer, stage III: Plan: see above stage 3 wound/ulcer with b/l buttock ulcers (7) Metabolic acidosis, increased anion gap: Plan: resolved 2nd severe sepsis (8) Heart failure with preserved ejection fraction: Plan: Echo in 06/2021 - EF >70% RV dilatation but preserved RV function Does not examine decompensated DC IV fluids, continue holding home HCTZ and furosemide (9) Atrial fibrillation: Plan: She has been in sinus rhythm here in the last 24 hours Beta nando was on hold given hypotension with sepsis Blood pressures are now normal and she is tachycardic likely from beta-nando withdrawal -Restart Toprol-XL at half her home dose of 25 mg daily and titrate up to 50 mg as tolerated -Continue telemetry monitoring -Given her known PAF + PEs in 06/2021 she has been resumed on a heparin drip (without bolus) and follow H/H carefully given severe anemia requiring transfusion and bruising all over. There is no bleeding from the sacral wound Resume Coumadin at usual dose of 5 mg daily Follow daily PT/INR Follow CBC (10) Pulmonary embolism: Plan: PE diagnosed in 06/25/2021 - started on warfarin at that time. INR 1.1 upon admission - is she compliant with meds at home? by report had run out of coumadin? unfortunately, given her morbid obesity, very poor candidate for DOAC. Resumed heparin drip, monitor H/H, monitor sacral wound/ecchymoses for worsening. Restart Coumadin as above Of note - it does not appear she had dopplers of legs at time of PE diagnosis. (11) Macrocytic anemia: Plan: B12 levels - 323 in June 2021. Supplementing such. However, doubt this is the cause of her significant anemia. Folate wnl. TSH wnl. CBC is concerning for MDS. Will need peripheral smear at some point. Also would benefit from heme/onc consult post-discharge. s/p 2 units PRBCs this admission with appropriate H/H response. Hemoglobin stable today at 7.6, hemodynamically stable Repeat CBC in am. (12) HTN (hypertension): Plan: Held anti-hypertensives due to hypotension and acute kidney injury on admission Resume Toprol-XL at half the dose as above New holding HCTZ, furosemide, and losartan for acute kidney injury (13) Hyponatremia: Plan: 2nd to acute renal failure. Now resolved with isotonic fluids Follow BMP (14) Morbid obesity with BMI of 50.0-59.9, adult: Plan: BMI 52 Needs weight loss (15) Frequent falls: Plan: with resulting rhabdomyolysis will need PT/OT while here (16) Hypocalcemia: Plan: PRBCs may have worsened such. Even correcting for mildly low albumin her total calcium is still low. Calcium gluconate 1gm x 1. repeat bmp/calcium am. (17) Wide-complex tachycardia: Plan: NSVT vs a.fib with aberrancy. brief, seen on telemetry on 09/08 cont tele monitoring. Restart beta-nando as above echo 06/2021 with preserved EF. (18) Vomiting: Plan: Had vomiting on 09/08, now resolved Now with chest pain on the morning of 09/09 which I believe is GI in nature- resolved with Pepcid and morphine, cardiac work-up negative with serial negative troponins and EKG without ischemic changes Likely gastritis/esophagitis from recent vomiting KUB without obstruction/ileus. -Continue Protonix 40 mg p.o. twice daily -Add Pepcid 20 mg IV twice daily -Antiemetics as needed -Was able to advance diet to regular throughout the day (19) DVT prophylaxis: Plan: heparin drip, Coumadin (20) Chronic respiratory failure with hypoxia: Plan: 06/2021 admission for PEs - failed her 2-step; needed 3 liters NC O2 continuously continue such while here resp failure likely combination of OHS, prior PEs; cannot rule out pulmonary HTN, other factors Plan: Disposition-continued stay on PCU, needs PT/OT and will likely need rehab stay Admission and Anticipated Discharge Date Admission Date: September 06, 2021 Subjective I came to see the patient earlier in the morning due to onset of chest pain. She felt like it was sharp in nature and came on after eating an [place] ice. She has no nausea or vomiting, no abdominal pains. No bleeding from anywhere. An EKG was performed which did not show any acute ischemic changes, and she was given IV Pepcid and IV morphine. She had no further chest pain after that the rest of the day. [place] much better. Troponins were serially negative x2 through the day. Telemetry with normal sinus rhythm and sinus tachycardia and first-degree AV block with PACs, rates 90s to 100s. Review of Systems Review of Systems: All systems reviewed & are unremarkable except as noted in HPI & below Physical Exam Constitutional: WD/WN, vitals as above + morbidly obese Eyes: PERRL, conjunctivae normal, anicteric sclerae ENMT: external ear and nose normal, oropharynx normal Neck: trachea midline, no thyromegaly Respiratory: normal respiratory effort, lungs clear to auscultation Cardiovascular: RRR, no murmur, no edema Chest (Breasts): Chest: normal inspection of chest Additional Comments: No tenderness to palpation of the chest Gastrointestinal (Abdomen): normal bowel sounds, soft, nontender, no hepatosplenomegaly Musculoskeletal: Extremities: extremities normal to inspection; no cyanosis and no clubbing Skin: no rashes, warm and dry Neurologic: moves all extremities and awake; no focal motor deficits Psychiatric: A+Ox3, euthymic affect Lymphatic: no lymphedema Results & Data Results & Data ([facility]) Vital Signs (Past 12 Hours) Vital Signs Temp Pulse Pulse Resp BP Pulse Ox 09/09/21 08:12 36.7 C 108 H 24 166/68 H 94 09/09/21 04:04 36.8 C 112 H 18 132/50 L 92 09/08/21 22:46 36.6 C 137 H 18 119/65 97 09/08/21 22:20 103 H Laboratory Results 09/09/21 09/09/21 09/09/21 Range/Units 16:31 15:24 11:29 WBC (4.8-10.8) K/uL RBC (4.2-5.4) M/uL Hgb (12.0-16.0) g/dL Hct (37-47) % MCV (80-100) fL MCH (25-34) pg MCHC (32-36) g/dL RDW Std Deviation (36.4-46.3) fL RDW Coeff of Lety (11.5-14.5) % Plt Count (130-400) K/uL MPV (7.4-10.4) fL Immature Gran % (Auto) % Neut % (Auto) % Lymph % (Auto) % Isabella % (Auto) % Eos % (Auto) % Baso % (Auto) % Neut # (Auto) (1.4-6.5) K/uL Lymph # (Auto) (1.2-3.4) K/uL Isabella # (Auto) (0.11-0.59) K/uL Eos # (Auto) (0-0.5) K/uL Baso # (Auto) (0-0.2) K/uL Immature Gran # (Auto) (0.00-0.02) K/uL Absolute Nucleated RBC (0-0) K/uL Nucleated RBC % (auto) % Polychromasia APTT (21.0-31.0) Seconds PTT Ratio Sodium (136-145) mmol/L Potassium (3.5-5.1) mmol/L Chloride (98-107) mmol/L Carbon Dioxide (21-32) mmol/L Anion Gap (3-11) BUN (6-23) mg/dl Creatinine (0.6-1.2) mg/dl Est Cr Clr Drug Dosing ml/min Est GFR ( Amer) ml/min Est GFR (Non-Af Amer) ml/min BUN/Creatinine Ratio (10-20) Glucose (70-99(Fasting)) mg/dl POC Glucose 131 H 173 H (70-99) mg/dl Estimat Average Glucose mg/dl Hemoglobin A1c (4.5-5.6) % Calcium (8.5-10.1) mg/dl Troponin I 0.03 (0-0.04) ng/ml Random Vancomycin (10-20) mcg/ml 09/09/21 09/09/21 09/09/21 Range/Units 10:04 07:19 05:12 WBC (4.8-10.8) K/uL RBC (4.2-5.4) M/uL Hgb (12.0-16.0) g/dL Hct (37-47) % MCV (80-100) fL MCH (25-34) pg MCHC (32-36) g/dL RDW Std Deviation (36.4-46.3) fL RDW Coeff of Lety (11.5-14.5) % Plt Count (130-400) K/uL MPV (7.4-10.4) fL Immature Gran % (Auto) % Neut % (Auto) % Lymph % (Auto) % Isabella % (Auto) % Eos % (Auto) % Baso % (Auto) % Neut # (Auto) (1.4-6.5) K/uL Lymph # (Auto) (1.2-3.4) K/uL Isabella # (Auto) (0.11-0.59) K/uL Eos # (Auto) (0-0.5) K/uL Baso # (Auto) (0-0.2) K/uL Immature Gran # (Auto) (0.00-0.02) K/uL Absolute Nucleated RBC (0-0) K/uL Nucleated RBC % (auto) % Polychromasia APTT (21.0-31.0) Seconds PTT Ratio Sodium (136-145) mmol/L Potassium (3.5-5.1) mmol/L Chloride (98-107) mmol/L Carbon Dioxide (21-32) mmol/L Anion Gap (3-11) BUN (6-23) mg/dl Creatinine (0.6-1.2) mg/dl Est Cr Clr Drug Dosing ml/min Est GFR ( Amer) ml/min Est GFR (Non-Af Amer) ml/min BUN/Creatinine Ratio (10-20) Glucose (70-99(Fasting)) mg/dl POC Glucose 141 H (70-99) mg/dl Estimat Average Glucose 148 mg/dl Hemoglobin A1c 6.8 H (4.5-5.6) % Calcium (8.5-10.1) mg/dl Troponin I 0.04 (0-0.04) ng/ml Random Vancomycin (10-20) mcg/ml 09/09/21 09/09/21 09/09/21 Range/Units 05:12 05:12 05:12 WBC 11.25 H (4.8-10.8) K/uL RBC 2.36 L (4.2-5.4) M/uL Hgb 7.6 L (12.0-16.0) g/dL Hct 24.2 L (37-47) % MCV 102.5 H (80-100) fL MCH 32.2 (25-34) pg MCHC 31.4 L (32-36) g/dL RDW Std Deviation 90.5 H (36.4-46.3) fL RDW Coeff of Lety 25.3 H (11.5-14.5) % Plt Count 316 (130-400) K/uL MPV 10.7 H (7.4-10.4) fL Immature Gran % (Auto) 1.2 % Neut % (Auto) 55.0 % Lymph % (Auto) 31.0 % Isabella % (Auto) 11.8 % Eos % (Auto) 0.9 % Baso % (Auto) 0.1 % Neut # (Auto) 6.18 (1.4-6.5) K/uL Lymph # (Auto) 3.49 H (1.2-3.4) K/uL Isabella # (Auto) 1.33 H (0.11-0.59) K/uL Eos # (Auto) 0.10 (0-0.5) K/uL Baso # (Auto) 0.01 (0-0.2) K/uL Immature Gran # (Auto) 0.14 H (0.00-0.02) K/uL Absolute Nucleated RBC 0.10 H (0-0) K/uL Nucleated RBC % (auto) 0.9 % Polychromasia 1+ APTT (21.0-31.0) Seconds PTT Ratio Sodium 138 (136-145) mmol/L Potassium 4.1 (3.5-5.1) mmol/L Chloride 106 (98-107) mmol/L Carbon Dioxide 27 (21-32) mmol/L Anion Gap 5 (3-11) BUN 44 H D (6-23) mg/dl Creatinine 1.27 H D (0.6-1.2) mg/dl Est Cr Clr Drug Dosing 44.8 ml/min Est GFR ( Amer) 45.2 ml/min Est GFR (Non-Af Amer) 39.0 ml/min BUN/Creatinine Ratio 34.6 H (10-20) Glucose 138 H (70-99(Fasting)) mg/dl POC Glucose (70-99) mg/dl Estimat Average Glucose mg/dl Hemoglobin A1c (4.5-5.6) % Calcium 7.7 L (8.5-10.1) mg/dl Troponin I (0-0.04) ng/ml Random Vancomycin 17.2 (10-20) mcg/ml 09/09/21 09/08/21 Range/Units 02:33 20:34 WBC (4.8-10.8) K/uL RBC (4.2-5.4) M/uL Hgb (12.0-16.0) g/dL Hct (37-47) % MCV (80-100) fL MCH (25-34) pg MCHC (32-36) g/dL RDW Std Deviation (36.4-46.3) fL RDW Coeff of Lety (11.5-14.5) % Plt Count (130-400) K/uL MPV (7.4-10.4) fL Immature Gran % (Auto) % Neut % (Auto) % Lymph % (Auto) % Isabella % (Auto) % Eos % (Auto) % Baso % (Auto) % Neut # (Auto) (1.4-6.5) K/uL Lymph # (Auto) (1.2-3.4) K/uL Isabella # (Auto) (0.11-0.59) K/uL Eos # (Auto) (0-0.5) K/uL Baso # (Auto) (0-0.2) K/uL Immature Gran # (Auto) (0.00-0.02) K/uL Absolute Nucleated RBC (0-0) K/uL Nucleated RBC % (auto) % Polychromasia APTT 66.2 H* 55.0 H* (21.0-31.0) Seconds PTT Ratio 2.4 2.0 Sodium (136-145) mmol/L Potassium (3.5-5.1) mmol/L Chloride (98-107) mmol/L Carbon Dioxide (21-32) mmol/L Anion Gap (3-11) BUN (6-23) mg/dl Creatinine (0.6-1.2) mg/dl Est Cr Clr Drug Dosing ml/min Est GFR ( Amer) ml/min Est GFR (Non-Af Amer) ml/min BUN/Creatinine Ratio (10-20) Glucose (70-99(Fasting)) mg/dl POC Glucose (70-99) mg/dl Estimat Average Glucose mg/dl Hemoglobin A1c (4.5-5.6) % Calcium (8.5-10.1) mg/dl Troponin I (0-0.04) ng/ml Random Vancomycin (10-20) mcg/ml PG Care Time/CCT Total # of Minutes Spent Total Time Spent with Patient: Total time spent is greater than 50% in coordination of care (as documented) at patient's floor/unit and/or counseling patient: Coding Level of Care Code 28291 Subseq Hosp Care Lvl 3 Diagnoses Severe sepsis A41.9; R65.20 UTI (urinary tract infection) N39.0 Rhabdomyolysis M62.82 MOJGAN (acute kidney injury) N17.9 Sacral wound S31.000A Sacral decubitus ulcer, stage III L89.153 Metabolic acidosis, increased anion gap E87.2 Heart failure with preserved ejection fraction I50.30 Atrial fibrillation I48.91 Pulmonary embolism I26.99 Macrocytic anemia D53.9 HTN (hypertension) I10 Hyponatremia E87.1 Morbid obesity with BMI of 50.0-59.9, adult E66.01; Z68.43 Frequent falls R29.6 Hypocalcemia E83.51 Wide-complex tachycardia I47.2 Vomiting R11.10 DVT prophylaxis Z29.9 Chronic respiratory failure with hypoxia J96.11
[2021-09-09] MEDS: FAMOTIDINE 20 MG in SYRINGE 3 ML IV SCH ×2 (10:16→21:48)
[2021-09-09] MEDS: WARFARIN SOD 5 MG TAB PO SCH (16:27)
[2021-09-09] MEDS: DOXYCYCLINE HYCLATE 100 MG in DEXTROSE 5% 100 ML IV SCH (21:48)
[2021-09-10 06:13] LABS: INR 1.1 (0.9-1.1); Prothrombin Time 11.7 Seconds (9.0-12.0)
[2021-09-10 06:17] LABS: Basophils # (auto) 0.01 K/uL (0-0.2); Basophils % (auto) 0.1 %; Eosinophils # (auto) 0.18 K/uL (0-0.5); Eosinophils % (auto) 1.7 %; Hematocrit (blood only) 26.6 % (37-47); Hemoglobin 8.3 g/dL (12.0-16.0); Immature Granulocytes # (auto) 0.14 K/uL (0.00-0.02); Immature Granulocytes % (auto) 1.3 %; Lymphocytes # (auto) 4.77 K/uL (1.2-3.4); Lymphocytes % (auto) 45.5 %; Mean Corpuscular Hemoglobin 32.4 pg (25-34); Mean Corpuscular Hgb Conc 31.2 g/dL (32-36); Mean Corpuscular Volume 103.9 fL (80-100); Mean Platelet Volume 11.1 fL (7.4-10.4); Monocytes # (auto) 1.32 K/uL (0.11-0.59); Monocytes % (auto) 12.6 %; Neutrophils # (auto) 4.07 K/uL (1.4-6.5); Neutrophils % (auto) 38.8 %; Platelet Count 332 K/uL (130-400); RDW Standard Deviation 91.6 fL (36.4-46.3); Red Blood Count 2.56 M/uL (4.2-5.4); White Blood Count 10.49 K/uL (4.8-10.8)
--- NOTE | 2021-09-10 06:32 | Electrocardiogram Report ---
Test Reason : Blood Pressure : / mmHG Vent. Rate : 089 BPM Atrial Rate : 089 BPM P-R Int : 192 ms QRS Dur : 116 ms QT Int : 368 ms P-R-T Axes : 042 -27 083 degrees QTc Int : 447 ms Sinus rhythm with Premature atrial complexes Septal infarct (cited on or before 09-SEP-2021) Abnormal ECG When compared with ECG of 08-SEP-2021 10:54, Premature atrial complexes are now Present Confirmed by Mickey Rodriguez ([id number]) on 09/10/2021 6:31:46 AM Referred By: REFERRED SELF Confirmed By:Mickey Rodriguez
[2021-09-10 06:40] LABS: Partial Thromboplastin Ratio 3.3
[2021-09-10 06:41] LABS: BUN Creatinine Ratio 28.3 (10-20); Calcium 8.1 mg/dl (8.5-10.1); Creatinine Clr Calc Pharmacy 53.9 ml/min; Est GFR (African American) 56.2 ml/min; Est GFR (Non-African American) 48.5 ml/min
[2021-09-10 06:50] LABS: Partial Thromboplastin Time 91.7 Seconds (21.0-31.0)
[2021-09-10 06:52] LABS: Anisocytosis Present; Polychromasia 1+
[2021-09-10] MEDS: INSULIN ASPART PER UNIT SC SCH ×4 (08:28→20:24)
[2021-09-10] MEDS: ASPIRIN 81 MG ECTAB PO SCH (08:30)
[2021-09-10] MEDS: CYANOCOBALAMIN (B-12) 500 MCG TABLET PO SCH (08:30)
[2021-09-10] MEDS: METOPROLOL SUCC 25MG EXT REL TAB PO SCH (08:31)
[2021-09-10] MEDS: TIMOLOL MALEATE 0.5% OP SOLN 5 ML BTL OP SCH (08:31)
[2021-09-10] MEDS: CEROVITE ADV FORMULA TAB PO SCH (08:31)
[2021-09-10] MEDS: PANTOprazole 40 MG TAB PO SCH ×2 (08:31→21:26)
[2021-09-10] MEDS: NYSTATIN POWDER 15GM BTL EXT SCH ×2 (08:32→21:27)
[2021-09-10] MEDS: FAMOTIDINE 20 MG in SYRINGE 3 ML IV SCH ×2 (08:38→21:27)
[2021-09-10] MEDS: CIPROFLOXACIN / D5W 400 MG/200 ML BAG IV SCH (08:38)
[2021-09-10] MEDS: HEPARIN SODIUM/DEXTROSE 25,000 UNITS/500 ML BAG IV SCH ×3 (09:21→11:23)
[2021-09-10] MEDS: ACETAMINOPHEN 325 MG TAB PO PRN (10:31)
[2021-09-10] MEDS: DOXYCYCLINE HYCLATE 100 MG in DEXTROSE 5% 100 ML IV SCH ×2 (10:53→21:27)
[2021-09-10 14:26] LABS: Partial Thromboplastin Ratio 2.7
[2021-09-10 14:30] LABS: Partial Thromboplastin Time 74.9 Seconds (21.0-31.0)
[2021-09-10] MEDS: WARFARIN SOD 5 MG TAB PO SCH (16:55)
[2021-09-10] MEDS: ONDANSETRON INJ 2 MG/ML 2 ML VIAL IV PRN (17:58)
--- NOTE | 2021-09-10 20:28 | Hospitalist Progress Note ---
Date of Service September 10, 2021 Assessment & Plan (1) Severe sepsis: Plan: source - 2nd to UTI; sacral wound also likely contributing. E.coli in urine. Pseudomonas/staph in sacral wound. Sepsis now resolved Have since changed cefepime to cipro to cover pseudomonas & e.coli and will now change vanco to doxycycline for MSSA-would plan to complete 10 to 14 days of antibiotics Blood cx's remain negative. Blood pressures are stable and remains tachycardic as she has been off of her beta-nando Discontinue IV fluids as MOJGAN is now resolved Patient though having a cough while eating, will consult speech. (2) UTI (urinary tract infection): Plan: 2nd to e.coli. Continue Cipro as above Plan 7 days of Rx. (3) Rhabdomyolysis: Plan: 2nd to falls. Initial CPK >2000. Now 650. Okay to DC fluids Hold statin. (4) MOJGAN (acute kidney injury): Plan: Likely sepsis-associated ATN. Now resolved after IV fluids and bicarbonate drip Creatinine down to 1.2 from peak of 4 Repeat BMP in am. No obstruction on recent CT a/p. -DC IV fluids -Continue holding home HCTZ, furosemide, and losartan (5) Sacral wound: Plan: Likely 2nd to recurrent falls +/- sedentary lifestyle? Wound care nurse consulted; appreciate recs. Wound care advised general surgery consult. Dr Weaver saw in consult - patient may need debridement but holding off at this time. Culture from wound growing pseudomonas + staph. New antibiotics as above Offload pressure Wound care (6) Sacral decubitus ulcer, stage III: Plan: see above stage 3 wound/ulcer with b/l buttock ulcers (7) Metabolic acidosis, increased anion gap: Plan: resolved 2nd severe sepsis (8) Heart failure with preserved ejection fraction: Plan: Echo in 06/2021 - EF >70% RV dilatation but preserved RV function Does not examine decompensated DC IV fluids, continue holding home HCTZ and furosemide (9) Atrial fibrillation: Plan: She has been in sinus rhythm here in the last 24 hours Beta nando was on hold given hypotension with sepsis Blood pressures are now normal and she is tachycardic likely from beta-nando withdrawal -Restart Toprol-XL at half her home dose of 25 mg daily and titrate up to 50 mg as tolerated -Continue telemetry monitoring -Given her known PAF + PEs in 06/2021 she has been resumed on a heparin drip (without bolus) and follow H/H carefully given severe anemia requiring transfusion and bruising all over. There is no bleeding from the sacral wound Resume Coumadin at usual dose of 5 mg daily Follow daily PT/INR Follow CBC (10) Pulmonary embolism: Plan: PE diagnosed in 06/25/2021 - started on warfarin at that time. INR 1.1 upon admission - is she compliant with meds at home? by report had run out of coumadin? unfortunately, given her morbid obesity, very poor candidate for DOAC. Resumed heparin drip, monitor H/H, monitor sacral wound/ecchymoses for worsening. Restart Coumadin as above Of note - it does not appear she had dopplers of legs at time of PE diagnosis. (11) Macrocytic anemia: Plan: B12 levels - 323 in June 2021. Supplementing such. However, doubt this is the cause of her significant anemia. Folate wnl. TSH wnl. CBC is concerning for MDS. Will need peripheral smear at some point. Also would benefit from heme/onc consult post-discharge. s/p 2 units PRBCs this admission with appropriate H/H response. Hemoglobin stable today at 7.6, hemodynamically stable Repeat CBC in am. (12) HTN (hypertension): Plan: Held anti-hypertensives due to hypotension and acute kidney injury on admission Resume Toprol-XL at half the dose as above New holding HCTZ, furosemide, and losartan for acute kidney injury (13) Hyponatremia: Plan: 2nd to acute renal failure. Now resolved with isotonic fluids Follow BMP (14) Morbid obesity with BMI of 50.0-59.9, adult: Plan: BMI 52 Needs weight loss (15) Frequent falls: Plan: with resulting rhabdomyolysis will need PT/OT while here (16) Hypocalcemia: Plan: PRBCs may have worsened such. Even correcting for mildly low albumin her total calcium is still low. Calcium gluconate 1gm x 1. repeat bmp/calcium am. (17) Wide-complex tachycardia: Plan: NSVT vs a.fib with aberrancy. brief, seen on telemetry on 09/08 cont tele monitoring. Restart beta-nando as above echo 06/2021 with preserved EF. (18) Vomiting: Plan: Had vomiting on 09/08, now resolved Now with chest pain on the morning of 09/09 which I believe is GI in nature- resolved with Pepcid and morphine, cardiac work-up negative with serial negative troponins and EKG without ischemic changes Likely gastritis/esophagitis from recent vomiting KUB without obstruction/ileus. -Continue Protonix 40 mg p.o. twice daily -Add Pepcid 20 mg IV twice daily -Antiemetics as needed -Was able to advance diet to regular throughout the day (19) DVT prophylaxis: Plan: heparin drip, Coumadin (20) Chronic respiratory failure with hypoxia: Plan: 06/2021 admission for PEs - failed her 2-step; needed 3 liters NC O2 continuously continue such while here resp failure likely combination of OHS, prior PEs; cannot rule out pulmonary HTN, other factors Plan: Disposition-continued stay on PCU, needs PT/OT and will likely need rehab stay Admission and Anticipated Discharge Date Admission Date: September 06, 2021 Subjective Patient is having a cough when eating. Review of Systems Review of Systems: All systems reviewed & are unremarkable except as noted in HPI & below Physical Exam Physical Exam: Constitutional: WD/WN, vitals as above + morbidly obese Eyes: PERRL, conjunctivae normal, anicteric sclerae ENMT: external ear and nose normal, oropharynx normal Neck: trachea midline, no thyromegaly Respiratory: normal respiratory effort, lungs clear to auscultation Cardiovascular: RRR, no murmur, no edema Chest (Breasts): Chest: normal inspection of chest Additional Comments: No tenderness to palpation of the chest Gastrointestinal (Abdomen): normal bowel sounds, soft, nontender, no hepatosplenomegaly Musculoskeletal: Extremities: extremities normal to inspection; no cyanosis and no clubbing Skin: no rashes, warm and dry Neurologic: moves all extremities and awake; no focal motor deficits Psychiatric: A+Ox3, euthymic affect Lymphatic: no lymphedema Results & Data Results & Data ([facility]) Vital Signs (Past 12 Hours) Vital Signs Temp Pulse Pulse Resp BP Pulse Ox 09/10/21 19:21 36.8 C 96 H 20 141/79 H 97 09/10/21 15:10 92 H 09/10/21 15:01 36.7 C 86 22 135/68 95 09/10/21 11:17 36.7 C 90 15 135/60 98 PG Care Time/CCT Total # of Minutes Spent Total Time Spent with Patient: Total time spent is greater than 50% in coordination of care (as documented) at patient's floor/unit and/or counseling patient: Coding Level of Care Code 50592 Subseq Hosp Care Lvl 2 Diagnoses Severe sepsis A41.9; R65.20 UTI (urinary tract infection) N39.0 Rhabdomyolysis M62.82 MOJGAN (acute kidney injury) N17.9 Sacral wound S31.000A Sacral decubitus ulcer, stage III L89.153 Metabolic acidosis, increased anion gap E87.2 Heart failure with preserved ejection fraction I50.30 Atrial fibrillation I48.91 Pulmonary embolism I26.99 Macrocytic anemia D53.9 HTN (hypertension) I10 Hyponatremia E87.1 Morbid obesity with BMI of 50.0-59.9, adult E66.01; Z68.43 Frequent falls R29.6 Hypocalcemia E83.51 Wide-complex tachycardia I47.2 Vomiting R11.10 DVT prophylaxis Z29.9 Chronic respiratory failure with hypoxia J96.11 Time Spent (min) 25
[2021-09-10 21:35] LABS: Partial Thromboplastin Ratio 1.5; Partial Thromboplastin Time 42.1 Seconds (21.0-31.0)
[2021-09-11 03:54] LABS: Hematocrit (blood only) 28.8 % (37-47); Hemoglobin 8.8 g/dL (12.0-16.0); Mean Corpuscular Hemoglobin 32.1 pg (25-34); Mean Corpuscular Hgb Conc 30.6 g/dL (32-36); Mean Corpuscular Volume 105.1 fL (80-100); Mean Platelet Volume 10.4 fL (7.4-10.4); Platelet Count 361 K/uL (130-400); RDW Coefficient of Variation 24.8 % (11.5-14.5); RDW Standard Deviation 91.9 fL (36.4-46.3); Red Blood Count 2.74 M/uL (4.2-5.4); White Blood Count 9.68 K/uL (4.8-10.8)
[2021-09-11 04:18] LABS: Anion Gap 2 (3-11); BUN Creatinine Ratio 22.5 (10-20); Blood Urea Nitrogen 23 mg/dl (6-23); Calcium 8.4 mg/dl (8.5-10.1); Carbon Dioxide 31 mmol/L (21-32); Chloride 105 mmol/L (98-107); Est GFR (African American) 58.9 ml/min; Est GFR (Non-African American) 50.8 ml/min; Glucose 112 mg/dl (70-99(Fasting)); Magnesium 1.6 mg/dl (1.7-2.4); Partial Thromboplastin Ratio 2.6; Sodium 138 mmol/L (136-145)
[2021-09-11 04:48] LABS: Partial Thromboplastin Time 70.6 Seconds (21.0-31.0)
[2021-09-11] MEDS: HEPARIN SODIUM/DEXTROSE 25,000 UNITS/500 ML BAG IV SCH (05:31)
--- NOTE | 2021-09-11 07:02 | Electrocardiogram Report ---
Test Reason : Blood Pressure : / mmHG Vent. Rate : 083 BPM Atrial Rate : 083 BPM P-R Int : 178 ms QRS Dur : 120 ms QT Int : 378 ms P-R-T Axes : 040 -27 074 degrees QTc Int : 444 ms Normal sinus rhythm Poor R wave progression, consider anterior [place] vs. lead placement vs. LVH Abnormal ECG When compared with ECG of 09-SEP-2021 09:16, Premature atrial complexes are no longer Present Confirmed by Mickey Rodriguez ([id number] on 09/11/2021 7:02:27 AM Referred By: REFERRED SELF Confirmed By:Mickey Rodriguez
[2021-09-11] MEDS: CIPROFLOXACIN / D5W 400 MG/200 ML BAG IV SCH ×2 (08:30→20:24)
[2021-09-11] MEDS: ASPIRIN 81 MG ECTAB PO SCH (08:30)
[2021-09-11] MEDS: CYANOCOBALAMIN (B-12) 500 MCG TABLET PO SCH (08:31)
[2021-09-11] MEDS: METOPROLOL SUCC 25MG EXT REL TAB PO SCH (08:32)
[2021-09-11] MEDS: NYSTATIN POWDER 15GM BTL EXT SCH ×2 (08:33→20:24)
[2021-09-11] MEDS: CEROVITE ADV FORMULA TAB PO SCH (08:33)
[2021-09-11] MEDS: DOXYCYCLINE HYCLATE 100 MG in DEXTROSE 5% 100 ML IV SCH ×2 (08:33→23:28)
[2021-09-11] MEDS: TIMOLOL MALEATE 0.5% OP SOLN 5 ML BTL OP SCH (08:34)
[2021-09-11] MEDS: PANTOprazole 40 MG TAB PO SCH ×2 (08:34→20:25)
[2021-09-11] MEDS: INSULIN ASPART PER UNIT SC SCH ×4 (08:36→20:22)
[2021-09-11] MEDS: FAMOTIDINE 20 MG in SYRINGE 3 ML IV SCH ×2 (08:37→20:24)
[2021-09-11 11:32] LABS: Partial Thromboplastin Ratio 2.5
[2021-09-11 11:52] LABS: Partial Thromboplastin Time 67.8 Seconds (21.0-31.0)
[2021-09-11] MEDS ORDERED: OLANZapine 5 MG TABLET PO ONE (16:40)
[2021-09-11] MEDS: WARFARIN SOD 5 MG TAB PO SCH (17:49)
--- NOTE | 2021-09-11 17:55 | Hospitalist Progress Note ---
Date of Service September 11, 2021 Assessment & Plan (1) Severe sepsis: Plan: source - 2nd to UTI; sacral wound also likely contributing. E.coli in urine. Pseudomonas/staph in sacral wound. Sepsis now resolved Have since changed cefepime to cipro to cover pseudomonas & e.coli and will now change vanco to doxycycline for MSSA-would plan to complete 10 to 14 days of antibiotics Blood cx's remain negative. Blood pressures are stable and remains tachycardic as she has been off of her beta-nando Discontinue IV fluids as MOJGAN is now resolved Patient though having a cough while eating, will consult speech. Patient however has been somewhat confused. Refused PT. will call family. (2) UTI (urinary tract infection): Plan: 2nd to e.coli. Continue Cipro as above Plan 7 days of Rx. (3) Rhabdomyolysis: Plan: 2nd to falls. Initial CPK >2000. Now 650. Okay to DC fluids Hold statin. (4) MOJGAN (acute kidney injury): Plan: Likely sepsis-associated ATN. Now resolved after IV fluids and bicarbonate drip Creatinine down to 1.2 from peak of 4 Repeat BMP in am. No obstruction on recent CT a/p. -DC IV fluids -Continue holding home HCTZ, furosemide, and losartan (5) Sacral wound: Plan: Likely 2nd to recurrent falls +/- sedentary lifestyle? Wound care nurse consulted; appreciate recs. Wound care advised general surgery consult. Dr Weaver saw in consult - patient may need debridement but holding off at this time. Culture from wound growing pseudomonas + staph. New antibiotics as above Offload pressure Wound care (6) Sacral decubitus ulcer, stage III: Plan: see above stage 3 wound/ulcer with b/l buttock ulcers (7) Metabolic acidosis, increased anion gap: Plan: resolved 2nd severe sepsis (8) Heart failure with preserved ejection fraction: Plan: Echo in 06/2021 - EF >70% RV dilatation but preserved RV function Does not examine decompensated DC IV fluids, continue holding home HCTZ and furosemide (9) Atrial fibrillation: Plan: She has been in sinus rhythm here in the last 24 hours Beta nando was on hold given hypotension with sepsis Blood pressures are now normal and she is tachycardic likely from beta-nando withdrawal -Restart Toprol-XL at half her home dose of 25 mg daily and titrate up to 50 mg as tolerated -Continue telemetry monitoring -Given her known PAF + PEs in 06/2021 she has been resumed on a heparin drip (without bolus) and follow H/H carefully given severe anemia requiring transfusion and bruising all over. There is no bleeding from the sacral wound Resume Coumadin at usual dose of 5 mg daily Follow daily PT/INR Follow CBC (10) Pulmonary embolism: Plan: PE diagnosed in 06/25/2021 - started on warfarin at that time. INR 1.1 upon admission - is she compliant with meds at home? by report had run out of coumadin? unfortunately, given her morbid obesity, very poor candidate for DOAC. Resumed heparin drip, monitor H/H, monitor sacral wound/ecchymoses for worsening. Restart Coumadin as above Of note - it does not appear she had dopplers of legs at time of PE diagnosis. (11) Macrocytic anemia: Plan: B12 levels - 323 in June 2021. Supplementing such. However, doubt this is the cause of her significant anemia. Folate wnl. TSH wnl. CBC is concerning for MDS. Will need peripheral smear at some point. Also would benefit from heme/onc consult post-discharge. s/p 2 units PRBCs this admission with appropriate H/H response. Hemoglobin stable today at 7.6, hemodynamically stable Repeat CBC in am. (12) HTN (hypertension): Plan: Held anti-hypertensives due to hypotension and acute kidney injury on admission Resume Toprol-XL at half the dose as above New holding HCTZ, furosemide, and losartan for acute kidney injury (13) Hyponatremia: Plan: 2nd to acute renal failure. Now resolved with isotonic fluids Follow BMP (14) Morbid obesity with BMI of 50.0-59.9, adult: Plan: BMI 52 Needs weight loss (15) Frequent falls: Plan: with resulting rhabdomyolysis will need PT/OT while here (16) Hypocalcemia: Plan: PRBCs may have worsened such. Even correcting for mildly low albumin her total calcium is still low. Calcium gluconate 1gm x 1. repeat bmp/calcium am. (17) Wide-complex tachycardia: Plan: NSVT vs a.fib with aberrancy. brief, seen on telemetry on 09/08 cont tele monitoring. Restart beta-nando as above echo 06/2021 with preserved EF. (18) Vomiting: Plan: Had vomiting on 09/08, now resolved Now with chest pain on the morning of 09/09 which I believe is GI in nature- resolved with Pepcid and morphine, cardiac work-up negative with serial negative troponins and EKG without ischemic changes Likely gastritis/esophagitis from recent vomiting KUB without obstruction/ileus. -Continue Protonix 40 mg p.o. twice daily -Add Pepcid 20 mg IV twice daily -Antiemetics as needed -Was able to advance diet to regular throughout the day (19) DVT prophylaxis: Plan: heparin drip, Coumadin (20) Chronic respiratory failure with hypoxia: Plan: 06/2021 admission for PEs - failed her 2-step; needed 3 liters NC O2 con tinuously continue such while here resp failure likely combination of OHS, prior PEs; cannot rule out pulmonary HTN, other factors Plan: Disposition-continued stay on PCU, needs PT/OT and will likely need rehab stay Admission and Anticipated Discharge Date Admission Date: September 06, 2021 Subjective Patient reports no new symptoms. She has been difficult for staff today and has refused PT/OT. Review of Systems Review of Systems: All systems reviewed & are unremarkable except as noted in HPI & below Physical Exam Physical Exam: Constitutional: WD/WN, vitals as above + morbidly obese Eyes: PERRL, conjunctivae normal, anicteric sclerae ENMT: external ear and nose normal, oropharynx normal Neck: trachea midline, no thyromegaly Respiratory: normal respiratory effort, lungs clear to auscultation Cardiovascular: RRR, no murmur, no edema Chest (Breasts): Chest: normal inspection of chest Additional Comments: No tenderness to palpation of the chest Gastrointestinal (Abdomen): normal bowel sounds, soft, nontender, no hepatosp lenomegaly Musculoskeletal: Extremities: extremities normal to inspection; no cyanosis and no clubbing Skin: no rashes, warm and dry Neurologic: moves all extremities and awake; no focal motor deficits Psychiatric: A+Ox3, euthymic affect Lymphatic: no lymphedema Results & Data Results & Data ([facility]) Vital Signs (Past 12 Hours) Vital Signs Temp Pulse Pulse Resp BP Pulse Ox Pulse Ox 09/11/21 16:15 85 09/11/21 15:45 36.8 C 99 H 21 126/53 L 97 09/11/21 14:56 98 09/11/21 11:33 37.0 C 88 19 114/69 96 09/11/21 07:30 36.9 C 107 H 19 149/61 H 89 L 09/11/21 06:18 89 Pulse Ox 09/11/21 16:15 09/11/21 15:45 09/11/21 14:56 96 09/11/21 11:33 09/11/21 07:30 09/11/21 06:18 PG Care Time/CCT Total # of Minutes Spent Total Time Spent with Patient: Total time spent is greater than 50% in coordination of care (as documented) at patient's floor/unit and/or counseling patient: Coding Level of Care Code 48538 Subseq Hosp Care Lvl 2 Diagnoses Severe sepsis A41.9; R65.20 UTI (urinary tract infection) N39.0 Rhabdomyolysis M62.82 MOJGAN (acute kidney injury) N17.9 Sacral wound S31.000A Sacral decubitus ulcer, stage III L89.153 Metabolic acidosis, increased anion gap E87.2 Heart failure with preserved ejection fraction I50.30 Atrial fibrillation I48.91 Pulmonary embolism I26.99 Macrocytic anemia D53.9 HTN (hypertension) I10 Hyponatremia E87.1 Morbid obesity with BMI of 50.0-59.9, adult E66.01; Z68.43 Frequent falls R29.6 Hypocalcemia E83.51 Wide-complex tachycardia I47.2 Vomiting R11.10 DVT prophylaxis Z29.9 Chronic respiratory failure with hypoxia J96.11
[2021-09-11 21:49] LABS: Partial Thromboplastin Ratio 1.3; Partial Thromboplastin Time 36.5 Seconds (21.0-31.0)
[2021-09-11] MEDS ORDERED: HEPARIN SOD (PORCINE) 1000 UNIT/ML IV ONE (22:00)
[2021-09-12] MEDS: HEPARIN SODIUM/DEXTROSE 25,000 UNITS/500 ML BAG IV SCH (02:08)
[2021-09-12 04:37] LABS: Hematocrit (blood only) 27.6 % (37-47); Hemoglobin 8.6 g/dL (12.0-16.0); Mean Corpuscular Hemoglobin 32.6 pg (25-34); Mean Corpuscular Hgb Conc 31.2 g/dL (32-36); Mean Corpuscular Volume 104.5 fL (80-100); Mean Platelet Volume 10.6 fL (7.4-10.4); Platelet Count 385 K/uL (130-400); RDW Coefficient of Variation 24.4 % (11.5-14.5); RDW Standard Deviation 90.5 fL (36.4-46.3); Red Blood Count 2.64 M/uL (4.2-5.4); White Blood Count 10.59 K/uL (4.8-10.8)
[2021-09-12 05:05] LABS: Partial Thromboplastin Ratio 2.3
[2021-09-12 05:07] LABS: BUN Creatinine Ratio 19.6 (10-20); Calcium 8.4 mg/dl (8.5-10.1); Creatinine Clr Calc Pharmacy 58.6 ml/min; Est GFR (African American) 62.6 ml/min; Potassium 3.9 mmol/L (3.5-5.1)
[2021-09-12 06:44] LABS: INR 1.6 (0.9-1.1); Prothrombin Time 16.6 Seconds (9.0-12.0)
[2021-09-12] MEDS ORDERED: ENOXAPARIN 1.5 MG/KG SQ SCH (08:30)
[2021-09-12] MEDS ORDERED: QUEtiapine FUMARATE 25 MG TABLET PO ONE (09:00)
[2021-09-12] MEDS: INSULIN ASPART PER UNIT SC SCH ×4 (09:17→21:13)
[2021-09-12] MEDS ORDERED: OLANZapine 5 MG TABLET PO PRN (09:20)
[2021-09-12] MEDS: CIPROFLOXACIN / D5W 400 MG/200 ML BAG IV SCH ×2 (09:50→14:12)
[2021-09-12] MEDS: CEROVITE ADV FORMULA TAB PO SCH (09:50)
[2021-09-12] MEDS: FAMOTIDINE 20 MG in SYRINGE 3 ML IV SCH (09:50)
[2021-09-12] MEDS ORDERED: CIPROFLOXACIN 250 MG TAB PO SCH (10:00)
[2021-09-12] MEDS ORDERED: METOPROLOL TARTRATE 1 MG/ML VIAL IV ONE (10:43)
[2021-09-12] MEDS: ENOXAPARIN 150 MG/ML SYR SQ SCH ×2 (10:50→21:16)
[2021-09-12] MEDS ORDERED: DOXYCYCLINE HYCLATE 100 MG CAP PO SCH (11:00)
[2021-09-12] MEDS: METOPROLOL TARTRATE 1 MG/ML VIAL IV PRN ×2 (11:55→12:04)
[2021-09-12] MEDS ORDERED: MAGNESIUM SULFATE / D5W 1 GM/100 ML BAG IV STA (12:00)
[2021-09-12] MEDS ORDERED: MAGNESIUM SULFATE / D5W 1 GM/100 ML BAG IV ONE (12:15)
[2021-09-12] MEDS: METOPROLOL SUCC 25MG EXT REL TAB PO SCH (12:25)
[2021-09-12] MEDS: TIMOLOL MALEATE 0.5% OP SOLN 5 ML BTL OP SCH (12:25)
[2021-09-12] MEDS: PANTOprazole 40 MG TAB PO SCH ×2 (12:25→21:16)
[2021-09-12] MEDS: CYANOCOBALAMIN (B-12) 500 MCG TABLET PO SCH (12:25)
[2021-09-12] MEDS: ASPIRIN 81 MG ECTAB PO SCH (12:25)
[2021-09-12] MEDS: FAMOTIDINE 20 MG TAB PO SCH ×2 (12:25→21:16)
[2021-09-12] MEDS: NYSTATIN POWDER 15GM BTL EXT SCH ×2 (12:25→21:13)
[2021-09-12] MEDS ORDERED: DIGOXIN 250 MCG in SYRINGE 9 ML IV STA (13:28)
--- NOTE | 2021-09-12 13:51 | Cardiology Consultation ---
Date of Consultation September 12, 2021 Assessment & Plan (1) Atrial fibrillation with RVR: (2) Hypotension: (3) Heart failure with preserved ejection fraction: (4) Sepsis: (5) Pulmonary embolism: 81-year-old woman with recurrence of paroxysmal atrial fibrillation during hospitalization for sepsis. She remained in sinus rhythm the first 4 days of hospitalization but developed atrial fibrillation at 10 AM today. As noted, her blood pressure is borderline hypotensive but she shows no evidence of hypoperfusion. Recommend continuing IV beta-nando (she is not taking oral medication due to confusion), metoprolol 5 mg IV every 4 hours with hold orders only for systolic blood pressure less than 85 mmHg (which should be verified by manual cuff or palpation, given inaccuracy of automated cuff in the context of marked tachycardia). Would also recommend adding digitalis for additional rate control without these are depressor effect. Her renal function is normal, could utilize 250 mcg x 2 as a loading dose then 250 mcg daily. Would also recommend replenishing magnesium intravenously to obtain value greater than 2.0. She has a history of heart failure with preserved ejection fraction, she appears euvolemic currently. As an outpatient she takes furosemide 20 mg daily on a as needed basis. No need for diuretics presently with poor oral intake, borderline BP, and absence of evidence for volume overload. Will follow along from a cardiac standpoint to assist with rate control. History of Present Illness Attending Physician: Jason Kendrick History of Present Illness 81-year-old woman with history of HFpEF, paroxysmal atrial fibrillation, recent pulmonary embolism (June 2021, warfarin anticoagulation), who was admitted 09/06/2021 with hypotension/sepsis. She was initially in sinus rhythm but today developed atrial fibrillation with rapid ventricular response and mild hypotension. She has been confused since admission and is unable to offer any specific complaints. She is somewhat agitated and hyperalgesic, complaining when touched on the torso or any of her limbs. Rhythm appears to be atrial fibrillation with rapid ventricular response in the 160 bpm range. She was given metoprolol 5 mg IV and BP registered hypotensive, however BP by palpation is approximately 100 mmHg (radial pulse) and she has warm extremities and is awake. An additional 10 mg IV total of metoprolol administered with some improvement in heart rate (now 130-140 bpm). BP remains low normal, 100 mmHg by palpation. Allergies Allergy/AdvReac Type Severity Reaction Status Date / Time succinylcholine Allergy Severe CARDIAC Verified 06/25/21 12:12 ARREST Penicillins Allergy Intermediate REDNESS,SWE Verified 09/09/21 08:04 LLING Home Medications Medication Instructions Recorded Confirmed Type aspirin 81 mg tablet,delayed 81 mg PO DAILY 01/25/21 09/06/21 History release calcium carbonate 500 mg-vitamin 1 tab PO DAILY 01/25/21 09/06/21 History D3 3.125 mcg (125 unit) tablet cyclosporine 0.05 % eye drops in a 1 drp OPB AMPM 01/25/21 09/06/21 History dropperette (Restasis) losartan 100 mg tablet 100 mg PO DAILY 01/25/21 09/06/21 History simvastatin 20 mg tablet (Zocor) 20 mg PO PM 01/25/21 09/06/21 History timolol maleate 0.5 % eye drops 1 drp OPB QAM 01/25/21 09/06/21 History vitamin A-vitamin C-vit E-min 1 tab PO DAILY 06/25/21 09/06/21 History tablet cyanocobalamin (vitamin B-12) 500 500 mcg PO QAM #30 tab 07/06/21 09/06/21 Rx mcg tablet furosemide 20 mg tablet 20 mg PO QAM #30 tab 07/06/21 09/06/21 Rx metformin 1,000 mg tablet,extended 1,000 mg PO BID #60 tab 07/06/21 09/06/21 Rx release 24hr metoprolol succinate 50 mg 50 mg PO QAM #30 tab 07/06/21 09/06/21 Rx tablet,extended release 24 hr warfarin 5 mg tablet 5 mg PO DAILY@1600 #30 tab 07/06/21 09/06/21 Rx hydrochlorothiazide 25 mg tablet 25 mg PO DAILY 09/06/21 09/06/21 History Patient History Medical History (Updated 09/12/21 @ 14:20 by Nando Hodges MD) Asthma Diabetes mellitus, type 2 H/O: HTN (hypertension) Hypoxia Nasal fracture Reflux esophagitis Social History Smoking Status: Never smoker Hx Alcohol Use: No Hx Substance Use: No Preferred Language: Ukrainian Communication Ability: Effective Mailroom Clerk Required: No Beliefs That Will Affect Care: Congregational Congregational Beliefs: Sikhism marital status: / Current Living Situation: Family Current Living Situation Comment: lives with daughter How many Children do You have: 1 Other Information That Helps Us Care for You: No Feels Safe at Home: Yes Safety Concerns: Feels Safe At This Time Assistive Devices: Oxygen - Continuous Assistive Devices Comment: O2 at home as needed Physical Exam Physical Exam: Obese elderly white female who is agitated but does not appear hypoperfused. Systolic blood pressure 100 mmHg by palpation. Pulse 140 bpm and irregular. Skin: no ecchymoses or generalized lesions. HEENT: unremarkable. Neck: Jugular is pulse just above the clavicle at 30 degrees, no carotid bruits. Lungs: Decreased excursion but generally clear. Cardiac: Irregular/tachycardic rhythm without obvious murmur or gallop. Abdomen: benign. Extremities: no edema, pulses intact. Neurologic: Awake but confused and agitated, grossly nonfocal. Results & Data ([facility]) Vital Signs (Past 12 Hours) Vital Signs Temp Pulse Pulse Resp BP BP Pulse Ox 09/12/21 12:04 145 H 62/47 L 09/12/21 11:55 175 H 62/47 L 09/12/21 11:10 145 H 84/56 L 09/12/21 10:45 180 H 09/12/21 04:00 102 H 09/12/21 03:00 98.2 F 114 H 21 123/53 L 95 Laboratory Results Magnesium 1.6 yesterday. INR 1.6 Hemoglobin 8.6 Potassium 3.9, BUN 19, creatinine 0.87. BNP 72. Diagnostic Findings ECG showed atrial fibrillation rapid ventricular response of 171 bpm, incomplete left bundle branch block, nonspecific ST abnormalities. Echocardiogram June 2021 was technically difficult but showed EF greater than 70% with no obvious wall motion abnormalities. No significant valvular disease on technically limited study. PG Care Time/CCT Total # of Minutes Spent Total Time Spent with Patient: Total time spent is greater than 50% in coordination of care (as documented) at patient's floor/unit and/or counseling patient: Coding Level of Care Code 85658 Initial Inpt Care Lvl 3 Diagnoses Atrial fibrillation with RVR I48.91 Heart failure with preserved ejection fraction I50.30 Sepsis A41.9; R65.21; N17.9 Acute renal failure type: unspecified Sepsis acute organ dysfunction status: with acute organ dysfunction Sepsis type: sepsis due to unspecified organism Severe sepsis acute organ dysfunction type: acute renal failure Severe sepsis shock status: with septic shock Pulmonary embolism I26.99 Hypotension I95.9 (1) Sepsis Acute renal failure type: unspecified Sepsis acute organ dysfunction status: with acute organ dysfunction Sepsis type: sepsis due to unspecified organism Severe sepsis acute organ dysfunction type: acute renal failure Severe sepsis shock status: with septic shock Qualified Code(s): A41.9 - Sepsis, unspecified organism; R65.21 - Severe sepsis with septic shock; N17.9 - Acute kidney failure, unspecified
--- NOTE | 2021-09-12 15:33 | Electrocardiogram Report ---
Test Reason : Blood Pressure : / mmHG Vent. Rate : 171 BPM Atrial Rate : 202 BPM P-R Int : 000 ms QRS Dur : 108 ms QT Int : 286 ms P-R-T Axes : 000 -20 147 degrees QTc Int : 482 ms Poor data quality, interpretation may be adversely affected Atrial fibrillation with rapid ventricular response Incomplete left bundle block Nonspecific ST and T wave abnormality When compared with ECG of 10-SEP-2021 11:46, Atrial fibrillation with rapid ventricular response now present HR has increased BY 88 BPM Confirmed by Nando Hodges ([id number]) on 09/12/2021 3:33:18 PM Referred By: REFERRED SELF Confirmed By:Nando Hodges
[2021-09-12] MEDS: DOXYCYCLINE HYCLATE 100 MG in DEXTROSE 5% 100 ML IV SCH (16:09)
[2021-09-12] MEDS: METOPROLOL TARTRATE 1 MG/ML VIAL IV SCH ×2 (16:12→21:16)
[2021-09-12] MEDS: WARFARIN SOD 5 MG TAB PO SCH (16:17)
--- NOTE | 2021-09-12 21:20 | Hospitalist Progress Note ---
Date of Service September 12, 2021 Assessment & Plan (1) Acute metabolic encephalopathy: Plan: Patient currently is delirius, which is complicating measures as she is refusing to take her medications orally and is removing IV access. Obtained one IV line, continued to reorient her. May need to repeat zyprexa, this is ordered PRN. Ordered antibiotics PO however as she refused them, this was ordered again in IV. Called pharmacy who helped correct the timing of the antibiotics due to not being compatible in the same IV line at the same time. (2) Atrial fibrillation: Plan: Patient went into A. fib on 09/12 Ordered metoprolol 5 mg IV x3, bP dropped. added dig, and replaced low mag. A. fib broke in the early afternoon. She has been in sinus rhythm here in the last 24 hours Beta nando was on hold given hypotension with sepsis Blood pressures are now normal and she is tachycardic likely from beta-nando withdrawal -Restart Toprol-XL at half her home dose of 25 mg daily and titrate up to 50 mg as tolerated -Continue telemetry monitoring -Given her known PAF + PEs in 06/2021 she has been resumed on a heparin drip (without bolus) and follow H/H carefully given severe anemia requiring transfusion and bruising all over. There is no bleeding from the sacral wound Resume Coumadin at usual dose of 5 mg daily Follow daily PT/INR Follow CBC (3) Severe sepsis: Plan: source - 2nd to UTI; sacral wound also likely contributing. E.coli in urine. Pseudomonas/staph in sacral wound. Sepsis now resolved Have since changed cefepime to cipro to cover pseudomonas & e.coli and will now change vanco to doxycycline for MSSA-would plan to complete 10 to 14 days of antibiotics Blood cx's remain negative. Blood pressures are stable and remains tachycardic as she has been off of her beta-nando Discontinue IV fluids as MOJGAN is now resolved Patient though having a cough while eating, will consult speech. Patient however has been somewhat confused. Refused PT. will call family. (4) UTI (urinary tract infection): Plan: 2nd to e.coli. Continue Cipro as above Plan 7 days of Rx. (5) Rhabdomyolysis: Plan: 2nd to falls. Initial CPK >2000. Now 650. Okay to DC fluids Hold statin. (6) MOJGAN (acute kidney injury): Plan: Likely sepsis-associated ATN. Now resolved after IV fluids and bicarbonate drip Creatinine down to 1.2 from peak of 4 Repeat BMP in am. No obstruction on recent CT a/p. -DC IV fluids -Continue holding home HCTZ, furosemide, and losartan (7) Sacral wound: Plan: Likely 2nd to recurrent falls +/- sedentary lifestyle? Wound care nurse consulted; appreciate recs. Wound care advised general surgery consult. Dr Weaver saw in consult - patient may need debridement but holding off at this time. Culture from wound growing pseudomonas + staph. New antibiotics as above Offload pressure Wound care (8) Sacral decubitus ulcer, stage III: Plan: see above stage 3 wound/ulcer with b/l buttock ulcers (9) Metabolic acidosis, increased anion gap: Plan: resolved 2nd severe sepsis (10) Heart failure with preserved ejection fraction: Plan: Echo in 06/2021 - EF >70% RV dilatation but preserved RV function Does not examine decompensated DC IV fluids, continue holding home HCTZ and furosemide (11) Pulmonary embolism: Plan: PE diagnosed in 06/25/2021 - started on warfarin at that time. INR 1.1 upon admission - is she compliant with meds at home? by report had run out of coumadin? unfortunately, given her morbid obesity, very poor candidate for DOAC. Resumed heparin drip, monitor H/H, monitor sacral wound/ecchymoses for worsening. Restart Coumadin as above Of note - it does not appear she had dopplers of legs at time of PE diagnosis. (12) Macrocytic anemia: Plan: B12 levels - 323 in June 2021. Supplementing such. However, doubt this is the cause of her significant anemia. Folate wnl. TSH wnl. CBC is concerning for MDS. Will need peripheral smear at some point. Also would benefit from heme/onc consult post-discharge. s/p 2 units PRBCs this admission with appropriate H/H response. Hemoglobin stable today at 7.6, hemodynamically stable Repeat CBC in am. (13) HTN (hypertension): Plan: Held anti-hypertensives due to hypotension and acute kidney injury on admission Resume Toprol-XL at half the dose as above New holding HCTZ, furosemide, and losartan for acute kidney injury (14) Hyponatremia: Plan: 2nd to acute renal failure. Now resolved with isotonic fluids Follow BMP (15) Morbid obesity with BMI of 50.0-59.9, adult: Plan: BMI 52 Needs weight loss (16) Frequent falls: Plan: with resulting rhabdomyolysis will need PT/OT while here (17) Hypocalcemia: Plan: PRBCs may have worsened such. Even correcting for mildly low albumin her total calcium is still low. Calcium gluconate 1gm x 1. repeat bmp/calcium am. (18) Wide-complex tachycardia: Plan: NSVT vs a.fib with aberrancy. brief, seen on telemetry on 09/08 cont tele monitoring. Restart beta-nando as above echo 06/2021 with preserved EF. (19) Vomiting: Plan: Had vomiting on 09/08, now resolved Now with chest pain on the morning of 09/09 which I believe is GI in nature- resolved with Pepcid and morphine, cardiac work-up negative with serial negative troponins and EKG without ischemic changes Likely gastritis/esophagitis from recent vomiting KUB without obstruction/ileus. -Continue Protonix 40 mg p.o. twice daily -Add Pepcid 20 mg IV twice daily -Antiemetics as needed -Was able to advance diet to regular throughout the day (20) DVT prophylaxis: Plan: heparin drip, Coumadin (21) Chronic respiratory failure with hypoxia: Plan: 06/2021 admission for PEs - failed her 2-step; needed 3 liters NC O2 continuously continue such while here resp failure likely combination of OHS, prior PEs; cannot rule out pulmonary HTN, other factors Plan: Disposition-continued stay on PCU, needs PT/OT and will likely need rehab stay Admission and Anticipated Discharge Date Admission Date: September 06, 2021 Subjective Patient remains confused. Updated Glo. Tried calling brother but no one answered Patient ripped out her iV access yesterday as per nurse. Ripped out last iv line this am. Review of Systems Review of Systems: Unobtainable due to cognitive status Physical Exam Physical Exam: Constitutional: WD/WN, vitals as above + morbidly obese Eyes: PERRL, conjunctivae normal, anicteric sclerae ENMT: external ear and nose normal, oropharynx normal Neck: trachea midline, no thyromegaly Respiratory: normal respiratory effort, lungs clear to auscultation Cardiovascular: irregularly irregular no murmur, no edema Chest (Breasts): Chest: normal inspection of chest Additional Comments: No tenderness to palpation of the chest Gastrointestinal (Abdomen): normal bowel sounds, soft, nontender, no hepatosplenomegaly Musculoskeletal: Extremities: extremities normal to inspection; no cyanosis and no clubbing Skin: no rashes, warm and dry Neurologic: moves all extremities and awake; no focal motor deficits Psychiatric: A+Ox3, euthymic affect Lymphatic: no lymphedema Results & Data Results & Data ([facility]) Vital Signs (Past 12 Hours) Vital Signs Temp Pulse Pulse Resp BP BP Pulse Ox 09/12/21 18:54 36.9 C 95 H 20 114/49 L 97 09/12/21 16:12 104 H 126/49 L 09/12/21 15:05 101 H 114/57 L 09/12/21 14:20 120 H 09/12/21 14:16 138 H 89/59 L 09/12/21 14:13 133 H 09/12/21 12:04 145 H 62/47 L 09/12/21 11:55 175 H 62/47 L 09/12/21 11:10 145 H 84/56 L 09/12/21 10:45 180 H PG Care Time/CCT Total # of Minutes Spent Total Time Spent with Patient: Total time spent is greater than 50% in coordination of care (as documented) at patient's floor/unit and/or counseling patient: Prolonged Care Time Prolonged Care Time: Yes Total Prolonged Care Time: 75 8:10 to 8:30 9:10 to 9:25 10:20 to 10:30 11:50 to 12:20 Coding Level of Care Code 33462 Subseq Hosp Care Lvl 3 Diagnoses Severe sepsis A41.9; R65.20 UTI (urinary tract infection) N39.0 Rhabdomyolysis M62.82 MOJGAN (acute kidney injury) N17.9 Sacral wound S31.000A Sacral decubitus ulcer, stage III L89.153 Metabolic acidosis, increased anion gap E87.2 Heart failure with preserved ejection fraction I50.30 Atrial fibrillation I48.91 Pulmonary embolism I26.99 Macrocytic anemia D53.9 HTN (hypertension) I10 Hyponatremia E87.1 Morbid obesity with BMI of 50.0-59.9, adult E66.01; Z68.43 Frequent falls R29.6 Hypocalcemia E83.51 Wide-complex tachycardia I47.2 Vomiting R11.10 DVT prophylaxis Z29.9 Chronic respiratory failure with hypoxia J96.11 Acute metabolic encephalopathy G93.41 Additional Codes Prolonged Care Time - Prolonged Care Time: Yes ([id number]) Time Spent (min) 75
[2021-09-13] MEDS: ACETAMINOPHEN 325 MG TAB PO PRN ×2 (00:04→14:41)
[2021-09-13] MEDS: METOPROLOL TARTRATE 1 MG/ML VIAL IV SCH ×6 (00:06→20:36)
[2021-09-13] MEDS: CIPROFLOXACIN / D5W 400 MG/200 ML BAG IV SCH ×2 (00:16→13:26)
[2021-09-13] MEDS: DOXYCYCLINE HYCLATE 100 MG in DEXTROSE 5% 100 ML IV SCH ×2 (04:09→16:50)
[2021-09-13 06:02] LABS: INR 2.4 (0.9-1.1); Partial Thromboplastin Ratio 1.3; Partial Thromboplastin Time 34.5 Seconds (21.0-31.0); Prothrombin Time 24.6 Seconds (9.0-12.0)
[2021-09-13] MEDS: INSULIN ASPART PER UNIT SC SCH ×4 (08:10→20:41)
[2021-09-13] MEDS: TIMOLOL MALEATE 0.5% OP SOLN 5 ML BTL OP SCH (09:45)
[2021-09-13] MEDS: ASPIRIN 81 MG ECTAB PO SCH (09:46)
[2021-09-13] MEDS: FAMOTIDINE 20 MG TAB PO SCH ×2 (09:47→20:36)
[2021-09-13] MEDS: METOPROLOL SUCC 25MG EXT REL TAB PO SCH (09:47)
[2021-09-13] MEDS: CYANOCOBALAMIN (B-12) 500 MCG TABLET PO SCH (09:48)
[2021-09-13] MEDS: PANTOprazole 40 MG TAB PO SCH ×2 (09:48→20:36)
[2021-09-13] MEDS: NYSTATIN POWDER 15GM BTL EXT SCH ×2 (09:49→20:37)
[2021-09-13] MEDS: ENOXAPARIN 150 MG/ML SYR SQ SCH ×2 (09:49→20:38)
--- NOTE | 2021-09-13 12:42 | Cardiology Progress Note ---
Date of Service September 13, 2021 Assessment & Plan (1) Paroxysmal A-fib: (2) Heart failure with preserved ejection fraction: (3) Sepsis: Plan: As noted, spontaneously reverted back to sinus rhythm after receiving IV beta- nando and intravenous magnesium. Heart rate reasonable, BP normotensive, agree no need to add digoxin at this point. Continue beta-nando, shifting from IV to oral dosing. She has a history of heart failure with preserved ejection fraction, she appears euvolemic currently. As an outpatient she takes furosemide 20 mg daily on a as needed basis. No need for diuretics presently, but may need to reinstitute if oral intake increases. Will continue to follow along. Admission and Anticipated Discharge Date Admission Date: September 06, 2021 Subjective Patient much more interactive today, answer simple questions appropriately. Denies any chest pain, dyspnea, or any somatic complaints. Spontaneously converted from atrial fibrillation with rapid ventricular response to sinus rhythm yesterday afternoon. Physical Exam Physical Exam: No distress. Normotensive. Pulse 96 bpm and regular. Skin: no ecchymoses or generalized lesions. HEENT: unremarkable. Neck: Jugular is pulse just above the clavicle at 30 degrees, no carotid bruits. Lungs: Decreased excursion but generally clear. Cardiac: regular rhythm with 3/6 systolic ejection murmur right upper sternal border rating to the carotids and apex, no diastolic murmur (improved exam without tachycardia). Abdomen: benign. Extremities: no edema, pulses intact. Neurologic: Awake and interactive, grossly nonfocal. Results & Data ([facility]) Vital Signs (Past 12 Hours) Vital Signs Temp Pulse Pulse Resp BP Pulse Ox 09/13/21 10:53 98.6 F 96 H 21 103/61 96 09/13/21 10:38 96 H 09/13/21 06:53 97.7 F 93 H 17 126/57 L 98 09/13/21 04:56 94 H 09/13/21 03:19 98.1 F 88 18 126/59 L 97 Laboratory Results INR 2.4. PG Care Time/CCT Total # of Minutes Spent Total Time Spent with Patient: Total time spent is greater than 50% in coordination of care (as documented) at patient's floor/unit and/or counseling patient: Coding Level of Care Code 37303 Subseq Hosp Care Lvl 3 Diagnoses Heart failure with preserved ejection fraction I50.30 Sepsis A41.9; R65.21; N17.9 Acute renal failure type: unspecified Sepsis acute organ dysfunction status: with acute organ dysfunction Sepsis type: sepsis due to unspecified organism Severe sepsis acute organ dysfunction type: acute renal failure Severe sepsis shock status: with septic shock Paroxysmal A-fib I48.0 (1) Sepsis Acute renal failure type: unspecified Sepsis acute organ dysfunction status: with acute organ dysfunction Sepsis type: sepsis due to unspecified organism Severe sepsis acute organ dysfunction type: acute renal failure Severe sepsis shock status: with septic shock Qualified Code(s): A41.9 - Sepsis, unspecified organism; R65.21 - Severe sepsis with septic shock; N17.9 - Acute kidney failure, unspecified
[2021-09-13] MEDS: WARFARIN SOD 5 MG TAB PO SCH (16:54)
--- NOTE | 2021-09-13 21:55 | Hospitalist Progress Note ---
Date of Service September 13, 2021 Assessment & Plan (1) Acute metabolic encephalopathy: Plan: Patient currently is delirius, which is complicating measures as she is refusing to take her medications orally and is removing IV access. Obtained one IV line, continued to reorient her. May need to repeat zyprexa, this is ordered PRN. Ordered antibiotics PO however as she refused them, this was ordered again in IV. Called pharmacy who helped correct the timing of the antibiotics due to not being compatible in the same IV line at the same time. on 09/13 Patient appears improved. will continue to monitor. (2) Atrial fibrillation: Plan: Patient went into A. fib on 09/12 Ordered metoprolol 5 mg IV x3, bP dropped. added dig, and replaced low mag. A. fib broke in the early afternoon. On09/13 Patient remains in sinus She has been in sinus rhythm here in the last 24 hours Beta nando was on hold given hypotension with sepsis Blood pressures are now normal and she is tachycardic likely from beta-nando withdrawal -Restart Toprol-XL at half her home dose of 25 mg daily and titrate up to 50 mg as tolerated -Continue telemetry monitoring -Given her known PAF + PEs in 06/2021 she has been resumed on a heparin drip (without bolus) and follow H/H carefully given severe anemia requiring transfusion and bruising all over. There is no bleeding from the sacral wound Resume Coumadin at usual dose of 5 mg daily Follow daily PT/INR Follow CBC (3) Severe sepsis: Plan: source - 2nd to UTI; sacral wound also likely contributing. E.coli in urine. Pseudomonas/staph in sacral wound. Sepsis now resolved Have since changed cefepime to cipro to cover pseudomonas & e.coli and will now change vanco to doxycycline for MSSA-would plan to complete 10 to 14 days of antibiotics Blood cx's remain negative. Blood pressures are stable and remains tachycardic as she has been off of her beta-nando Discontinue IV fluids as MOJGAN is now resolved Patient though having a cough while eating, will consult speech. Patient however has been somewhat confused. Refused PT. will call family. (4) UTI (urinary tract infection): Plan: 2nd to e.coli. Continue Cipro as above Plan 7 days of Rx. (5) Rhabdomyolysis: Plan: 2nd to falls. Initial CPK >2000. Now 650. Okay to DC fluids Hold statin. (6) MOJGAN (acute kidney injury): Plan: Likely sepsis-associated ATN. Now resolved after IV fluids and bicarbonate drip Creatinine down to 1.2 from peak of 4 Repeat BMP in am. No obstruction on recent CT a/p. -DC IV fluids -Continue holding home HCTZ, furosemide, and losartan (7) Sacral wound: Plan: Likely 2nd to recurrent falls +/- sedentary lifestyle? Wound care nurse consulted; appreciate recs. Wound care advised general surgery consult. Dr Weaver saw in consult - patient may need debridement but holding off at this time. Culture from wound growing pseudomonas + staph. New antibiotics as above Offload pressure Wound care (8) Sacral decubitus ulcer, stage III: Plan: see above stage 3 wound/ulcer with b/l buttock ulcers (9) Metabolic acidosis, increased anion gap: Plan: resolved 2nd severe sepsis (10) Heart failure with preserved ejection fraction: Plan: Echo in 06/2021 - EF >70% RV dilatation but preserved RV function Does not examine decompensated DC IV fluids, continue holding home HCTZ and furosemide (11) Pulmonary embolism: Plan: PE diagnosed in 06/25/2021 - started on warfarin at that time. INR 1.1 upon admission - is she compliant with meds at home? by report had run out of coumadin? unfortunately, given her morbid obesity, very poor candidate for DOAC. Resumed heparin drip, monitor H/H, monitor sacral wound/ecchymoses for worsening. Restart Coumadin as above Of note - it does not appear she had dopplers of legs at time of PE diagnosis. (12) Macrocytic anemia: Plan: B12 levels - 323 in June 2021. Supplementing such. However, doubt this is the cause of her significant anemia. Folate wnl. TSH wnl. CBC is concerning for MDS. Will need peripheral smear at some point. Also would benefit from heme/onc consult post-discharge. s/p 2 units PRBCs this admission with appropriate H/H response. Hemoglobin stable today at 7.6, hemodynamically stable Repeat CBC in am. (13) HTN (hypertension): Plan: Held anti-hypertensives due to hypotension and acute kidney injury on admission Resume Toprol-XL at half the dose as above New holding HCTZ, furosemide, and losartan for acute kidney injury (14) Hyponatremia: Plan: 2nd to acute renal failure. Now resolved with isotonic fluids Follow BMP (15) Morbid obesity with BMI of 50.0-59.9, adult: Plan: BMI 52 Needs weight loss (16) Frequent falls: Plan: with resulting rhabdomyolysis will need PT/OT while here (17) Hypocalcemia: Plan: PRBCs may have worsened such. Even correcting for mildly low albumin her total calcium is still low. Calcium gluconate 1gm x 1. repeat bmp/calcium am. (18) Wide-complex tachycardia: Plan: NSVT vs a.fib with aberrancy. brief, seen on telemetry on 09/08 cont tele monitoring. Restart beta-nando as above echo 06/2021 with preserved EF. (19) Vomiting: Plan: Had vomiting on 09/08, now resolved Now with chest pain on the morning of 09/09 which I believe is GI in nature- resolved with Pepcid and morphine, cardiac work-up negative with serial negative troponins and EKG without ischemic changes Likely gastritis/esophagitis from recent vomiting KUB without obstruction/ileus. -Continue Protonix 40 mg p.o. twice daily -Add Pepcid 20 mg IV twice daily -Antiemetics as needed -Was able to advance diet to regular throughout the day (20) DVT prophylaxis: Plan: heparin drip, Coumadin (21) Chronic respiratory failure with hypoxia: Plan: 06/2021 admission for PEs - failed her 2-step; needed 3 liters NC O2 co ntinuously continue such while here resp failure likely combination of OHS, prior PEs; cannot rule out pulmonary HTN, other factors Plan: Disposition-continued stay on PCU, needs PT/OT and will likely need rehab stay Admission and Anticipated Discharge Date Admission Date: September 06, 2021 Subjective Patiewnt appears less confused. Able to have a conversation. Understands she is in the hopsital. Reorts wanting to sleep. She has no complaints. Review of Systems Review of Systems: All systems reviewed & are unremarkable except as noted in HPI & below Physical Exam Physical Exam: Constitutional: WD/WN, vitals as above + morbidly obese Eyes:PERRL, conjunctivae normal, anicteric sclerae ENMT:external ear and nose normal, oropharynx normal Neck:trachea midline, no thyromegaly Respiratory: normal respiratory effort, lungs clear to auscultation Cardiovascular: irregularly irregular no murmur, no edema Chest (Breasts): Chest: normal inspection of chest Additional Comments: No tenderness to palpation of the chest Gastrointestinal (Abdomen): normal bowel sounds, soft, nontender, no hepatosplenomegaly Musculoskeletal: Extremities: extremities normal to inspection; no cyanosis and no clubbing Skin:no rashes, warm and dry Neurologic: moves all extremities and awake; no focal motor deficits Psychiatric: A+Ox3, euthymic affect Lymphatic: no lymphedema Results & Data Results & Data ([facility]) Vital Signs (Past 12 Hours) Vital Signs Temp Pulse Pulse Resp BP BP Pulse Ox 09/13/21 20:36 91 H 118/46 L 09/13/21 19:06 37.2 C 90 24 130/42 L 97 09/13/21 14:57 36.9 C 90 28 H 130/50 L 97 09/13/21 14:16 90 09/13/21 10:53 37.0 C 96 H 21 103/61 96 09/13/21 10:38 96 H PG Care Time/CCT Total # of Minutes Spent Total Time Spent with Patient: Total time spent is greater than 50% in coordination of care (as documented) at patient's floor/unit and/or counseling patient: Coding Level of Care Code 44273 Subseq Hosp Care Lvl 2 Diagnoses Acute metabolic encephalopathy G93.41 Atrial fibrillation I48.91 Severe sepsis A41.9; R65.20 UTI (urinary tract infection) N39.0 Rhabdomyolysis M62.82 MOJGAN (acute kidney injury) N17.9 Sacral wound S31.000A Sacral decubitus ulcer, stage III L89.153 Metabolic acidosis, increased anion gap E87.2 Heart failure with preserved ejection fraction I50.30 Pulmonary embolism I26.99 Macrocytic anemia D53.9 HTN (hypertension) I10 Hyponatremia E87.1 Morbid obesity with BMI of 50.0-59.9, adult E66.01; Z68.43 Frequent falls R29.6 Hypocalcemia E83.51 Wide-complex tachycardia I47.2 Vomiting R11.10 DVT prophylaxis Z29.9 Chronic respiratory failure with hypoxia J96.11 Time Spent (min) 25
[2021-09-14] MEDS: METOPROLOL TARTRATE 1 MG/ML VIAL IV SCH ×5 (00:12→16:33)
[2021-09-14] MEDS: CIPROFLOXACIN / D5W 400 MG/200 ML BAG IV SCH ×2 (00:13→11:52)
[2021-09-14] MEDS: DOXYCYCLINE HYCLATE 100 MG in DEXTROSE 5% 100 ML IV SCH ×2 (04:14→15:47)
[2021-09-14 06:54] LABS: Hematocrit (blood only) 27.5 % (37-47); Hemoglobin 8.6 g/dL (12.0-16.0); Mean Corpuscular Hemoglobin 33.6 pg (25-34); Mean Corpuscular Hgb Conc 31.3 g/dL (32-36); Mean Corpuscular Volume 107.4 fL (80-100); Mean Platelet Volume 10.9 fL (7.4-10.4); Platelet Count 479 K/uL (130-400); RDW Coefficient of Variation 24.2 % (11.5-14.5); RDW Standard Deviation 92.3 fL (36.4-46.3); Red Blood Count 2.56 M/uL (4.2-5.4); White Blood Count 8.78 K/uL (4.8-10.8)
[2021-09-14 07:00] LABS: INR 3.1 (0.9-1.1); Prothrombin Time 30.8 Seconds (9.0-12.0)
[2021-09-14 07:21] LABS: BUN Creatinine Ratio 26.2 (10-20); Calcium 7.6 mg/dl (8.5-10.1); Creatinine Clr Calc Pharmacy 67.2 ml/min; Est GFR (African American) 74.5 ml/min; Est GFR (Non-African American) 64.3 ml/min; Magnesium 1.3 mg/dl (1.7-2.4)
[2021-09-14] MEDS: ENOXAPARIN 150 MG/ML SYR SQ SCH ×2 (07:55→20:29)
[2021-09-14] MEDS: ASPIRIN 81 MG ECTAB PO SCH (07:56)
[2021-09-14] MEDS: INSULIN ASPART PER UNIT SC SCH ×4 (07:56→20:45)
[2021-09-14] MEDS: METOPROLOL SUCC 25MG EXT REL TAB PO SCH ×2 (07:56→20:25)
[2021-09-14] MEDS: NYSTATIN POWDER 15GM BTL EXT SCH ×2 (07:57→22:00)
[2021-09-14] MEDS: FAMOTIDINE 20 MG TAB PO SCH ×2 (07:57→20:24)
[2021-09-14] MEDS: CYANOCOBALAMIN (B-12) 500 MCG TABLET PO SCH (07:57)
[2021-09-14] MEDS: TIMOLOL MALEATE 0.5% OP SOLN 5 ML BTL OP SCH (07:58)
[2021-09-14] MEDS: PANTOprazole 40 MG TAB PO SCH ×2 (07:58→20:27)
[2021-09-14] MEDS: ACETAMINOPHEN 325 MG TAB PO PRN (08:03)
[2021-09-14] MEDS ORDERED: METOPROLOL SUCC 25MG EXT REL TAB PO STA (12:06)
--- NOTE | 2021-09-14 13:10 | Cardiology Progress Note ---
Date of Service September 14, 2021 Assessment & Plan (1) Paroxysmal A-fib: (2) Heart failure with preserved ejection fraction: (3) Sepsis: Plan: Patient remains in sinus rhythm 2 days after converting from atrial fibrillation upon receiving IV beta-nando and intravenous magnesium. Heart rate borderline tachycardic, but she notes that her heart rate has always "run high". Continue beta-nando, could titrate metoprolol upward with her borderline resting tachycardia. She has a history of heart failure with preserved ejection fraction, she appears euvolemic currently. As an outpatient she takes furosemide 20 mg daily on a as needed basis. No need for diuretics presently, but may need to reinstitute if oral intake increases. Will sign off, please contact if change in clinical status. Thank you. Admission and Anticipated Discharge Date Admission Date: September 06, 2021 Subjective Patient was alert and interactive, answers simple questions appropriately. Denies any chest pain, dyspnea, palpitations, or other somatic complaints. Telemetry shows that she has remained in sinus rhythm since converting from atrial fibrillation 2 days ago. She does have mild sinus tachycardia from time to time. Physical Exam Physical Exam: No distress. Normotensive. Pulse 100 bpm and regular. Skin: no ecchymoses or generalized lesions. HEENT: unremarkable. Neck: Jugular is pulse just above the clavicle at 30 degrees, no carotid bruits. Lungs: Decreased excursion but generally clear. Cardiac: regular rhythm with 3/6 systolic ejection murmur right upper sternal border rating to the carotids and apex, no diastolic murmur (improved exam witho ut tachycardia). Abdomen: benign. Extremities: no edema, pulses intact. Neurologic: Awake and interactive, grossly nonfocal. Results & Data ([facility]) Vital Signs (Past 12 Hours) Vital Signs Temp Pulse Pulse Resp BP BP Pulse Ox 09/14/21 11:34 98.6 F 101 H 19 116/56 L 94 09/14/21 08:00 91 H 09/14/21 07:47 98.1 F 100 H 18 137/74 97 09/14/21 04:18 96 H 141/51 H 09/14/21 03:39 91 H Laboratory Results Normal electrolytes, BUN 22, creatinine 0.84. INR 3.1. Hemoglobin 8.6. PG Care Time/CCT Total # of Minutes Spent Total Time Spent with Patient: Total time spent is greater than 50% in coordination of care (as documented) at patient's floor/unit and/or counseling patient: Coding Level of Care Code 82788 Subseq Hosp Care Lvl 2 Diagnoses Paroxysmal A-fib I48.0 Heart failure with preserved ejection fraction I50.30 Sepsis A41.9; R65.21; N17.9 Acute renal failure type: unspecified Sepsis acute organ dysfunction status: with acute organ dysfunction Sepsis type: sepsis due to unspecified organism Severe sepsis acute organ dysfunction type: acute renal failure Severe sepsis shock status: with septic shock (1) Sepsis Acute renal failure type: unspecified Sepsis acute organ dysfunction status: with acute organ dysfunction Sepsis type: sepsis due to unspecified organism Severe sepsis acute organ dysfunction type: acute renal failure Severe sepsis shock status: with septic shock Qualified Code(s): A41.9 - Sepsis, unspecified organism; R65.21 - Severe sepsis with septic shock; N17.9 - Acute kidney failure, unspecified
[2021-09-14] MEDS: WARFARIN SOD 5 MG TAB PO SCH (16:34)
--- NOTE | 2021-09-14 19:57 | Hospitalist Progress Note ---
Date of Service September 14, 2021 Assessment & Plan (1) Acute metabolic encephalopathy: Plan: Patient currently is delirius, which is complicating measures as she is refusing to take her medications orally and is removing IV access. Obtained one IV line, continued to reorient her. May need to repeat zyprexa, this is ordered PRN. Ordered antibiotics PO however as she refused them, this was ordered again in IV. Called pharmacy who helped correct the timing of the antibiotics due to not being compatible in the same IV line at the same time. on 09/13 Patient appears improved. will continue to monitor. On 09/14 Patient appears to be improving. Able to carry conversation. No longer on to . Patient though believes she is in the wrong room. And is asking how to drive her bed with the control. (2) Atrial fibrillation: Plan: Patient went into A. fib on 09/12 Ordered metoprolol 5 mg IV x3, bP dropped. added dig, and replaced low mag. A. fib broke in the early afternoon. On09/14 Patient remains in sinus Patient is still tachycardic. Patient did receive 75 mg orally and 5 mg IV. increased metoprolol to 50 mg in a day. She has been in sinus rhythm here in the last 24 hours Beta nando was on hold given hypotension with sepsis Blood pressures are now normal and she is tachycardic likely from beta-nando withdrawal -Restart Toprol-XL at half her home dose of 25 mg daily and titrate up to 50 mg as tolerated -Continue telemetry monitoring -Given her known PAF + PEs in 06/2021 she has been resumed on a heparin drip (without bolus) and follow H/H carefully given severe anemia requiring transf usion and bruising all over. There is no bleeding from the sacral wound Resume Coumadin at usual dose of 5 mg daily Follow daily PT/INR Follow CBC (3) Severe sepsis: Plan: source - 2nd to UTI; sacral wound also likely contributing. E.coli in urine. Pseudomonas/staph in sacral wound. Sepsis now resolved Have since changed cefepime to cipro to cover pseudomonas & e.coli and will now change vanco to doxycycline for MSSA-would plan to complete 10 to 14 days of antibiotics Blood cx's remain negative. Blood pressures are stable and remains tachycardic as she has been off of her beta-nando Discontinue IV fluids as MOJGAN is now resolved Patient though having a cough while eating, will consult speech. Patient however has been somewhat confused. Refused PT. will call family. (4) UTI (urinary tract infection): Plan: 2nd to e.coli. Continue Cipro as above Plan 7 days of Rx. (5) Rhabdomyolysis: Plan: 2nd to falls. Initial CPK >2000. Now 650. Okay to DC fluids Hold statin. (6) MOJGAN (acute kidney injury): Plan: Likely sepsis-associated ATN. Now resolved after IV fluids and bicarbonate drip Creatinine down to 1.2 from peak of 4 Repeat BMP in am. No obstruction on recent CT a/p. -DC IV fluids -Continue holding home HCTZ, furosemide, and losartan (7) Sacral wound: Plan: Likely 2nd to recurrent falls +/- sedentary lifestyle? Wound care nurse consulted; appreciate recs. Wound care advised general surgery consult. Dr Weaver saw in consult - patient may need debridement but holding off at this time. Culture from wound growing pseudomonas + staph. New antibiotics as above Offload pressure Wound care (8) Sacral decubitus ulcer, stage III: Plan: see above stage 3 wound/ulcer with b/l buttock ulcers (9) Metabolic acidosis, increased anion gap: Plan: resolved 2nd severe sepsis (10) Heart failure with preserved ejection fraction: Plan: Echo in 06/2021 - EF >70% RV dilatation but preserved RV function Does not examine decompensated DC IV fluids, continue holding home HCTZ and furosemide (11) Pulmonary embolism: Plan: PE diagnosed in 06/25/2021 - started on warfarin at that time. INR 1.1 upon admission - is she compliant with meds at home? by report had run out of coumadin? unfortunately, given her morbid obesity, very poor candidate for DOAC. Resumed heparin drip, monitor H/H, monitor sacral wound/ecchymoses for worsening. Restart Coumadin as above Of note - it does not appear she had dopplers of legs at time of PE diagnosis. (12) Macrocytic anemia: Plan: B12 levels - 323 in June 2021. Supplementing such. However, doubt this is the cause of her significant anemia. Folate wnl. TSH wnl. CBC is concerning for MDS. Will need peripheral smear at some point. Also would benefit from heme/onc consult post-discharge. s/p 2 units PRBCs this admission with appropriate H/H response. Hemoglobin stable today at 7.6, hemodynamically stable Repeat CBC in am. (13) HTN (hypertension): Plan: Held anti-hypertensives due to hypotension and acute kidney injury on admission Resume Toprol-XL at half the dose as above New holding HCTZ, furosemide, and losartan for acute kidney injury (14) Hyponatremia: Plan: 2nd to acute renal failure. Now resolved with isotonic fluids Follow BMP (15) Morbid obesity with BMI of 50.0-59.9, adult: Plan: BMI 52 Needs weight loss (16) Frequent falls: Plan: with resulting rhabdomyolysis will need PT/OT while here (17) Hypocalcemia: Plan: PRBCs may have worsened such. Even correcting for mildly low albumin her total calcium is still low. Calcium gluconate 1gm x 1. repeat bmp/calcium am. (18) Wide-complex tachycardia: Plan: NSVT vs a.fib with aberrancy. brief, seen on telemetry on 09/08 cont tele monitoring. Restart beta-nando as above echo 06/2021 with preserved EF. (19) Vomiting: Plan: Had vomiting on 09/08, now resolved Now with chest pain on the morning of 09/09 which I believe is GI in nature- resolved with Pepcid and morphine, cardiac work-up negative with serial negative troponins and EKG without ischemic changes Likely gastritis/esophagitis from recent vomiting KUB without obstruction/ileus. -Continue Protonix 40 mg p.o. twice daily -Add Pepcid 20 mg IV twice daily -Antiemetics as needed -Was able to advance diet to regular throughout the day (20) DVT prophylaxis: Plan: heparin drip, Coumadin (21) Chronic respiratory failure with hypoxia: Plan: 06/2021 admission for PEs - failed her 2-step; needed 3 liters NC O2 continuously continue such while here resp failure likely combination of OHS, prior PEs; cannot rule out pulmonary HTN, other factors Plan: Disposition-continued stay on PCU, needs PT/OT and will likely need rehab stay Admission and Anticipated Discharge Date Admission Date: September 06, 2021 Subjective Patient understands she is in the hospital She is confused though stating she is in the wrong room. Review of Systems Review of Systems: All systems reviewed & are unremarkable except as noted in HPI & below Physical Exam Physical Exam: Constitutional: WD/WN, vitals as above + morbidly obese Eyes:PERRL, conjunctivae normal, anicteric sclerae ENMT:external ear and nose normal, oropharynx normal Neck:trachea midline, no thyromegaly Respiratory: normal respiratory effort, lungs clear to auscultation Cardiovascular: irregularly irregular no murmur, no edema Chest (Breasts): Chest: normal inspection of chest Additional Comments: No tenderness to palpation of the chest Gastrointestinal (Abdomen): normal bowel sounds, soft, nontender, no hepatosplenomegaly Musculoskeletal: Extremities: extremities normal to inspection; no cyanosis and no clubbing Skin:no rashes, warm and dry Neurologic: moves all extremities and awake; no focal motor deficits Psychiatric: A+Ox3, euthymic affect Lymphatic: no lymphedema Results & Data Results & Data ([facility]) Vital Signs (Past 12 Hours) Vital Signs Temp Pulse Pulse Resp BP BP BP 09/14/21 19:31 36.7 C 80 24 131/44 L 09/14/21 16:33 93 H 131/57 L 09/14/21 16:00 88 09/14/21 15:15 37.0 C 96 H 18 131/57 L 09/14/21 11:34 37.0 C 101 H 19 116/56 L 09/14/21 08:00 91 H Pulse Ox 09/14/21 19:31 97 09/14/21 16:33 09/14/21 16:00 09/14/21 15:15 20 L 09/14/21 11:34 94 09/14/21 08:00 PG Care Time/CCT Total # of Minutes Spent Total Time Spent with Patient: Total time spent is greater than 50% in coordination of care (as documented) at patient's floor/unit and/or counseling patient: Coding Level of Care Code 54529 Subseq Hosp Care Lvl 2 Diagnoses Acute metabolic encephalopathy G93.41 Atrial fibrillation I48.91 Severe sepsis A41.9; R65.20 UTI (urinary tract infection) N39.0 Rhabdomyolysis M62.82 MOJGAN (acute kidney injury) N17.9 Sacral wound S31.000A Sacral decubitus ulcer, stage III L89.153 Metabolic acidosis, increased anion gap E87.2 Heart failure with preserved ejection fraction I50.30 Pulmonary embolism I26.99 Macrocytic anemia D53.9 HTN (hypertension) I10 Hyponatremia E87.1 Morbid obesity with BMI of 50.0-59.9, adult E66.01; Z68.43 Frequent falls R29.6 Hypocalcemia E83.51 Wide-complex tachycardia I47.2 Vomiting R11.10 DVT prophylaxis Z29.9 Chronic respiratory failure with hypoxia J96.11 Time Spent (min) 25
[2021-09-15] MEDS: CIPROFLOXACIN / D5W 400 MG/200 ML BAG IV SCH ×3 (00:05→23:47)
[2021-09-15] MEDS: DOXYCYCLINE HYCLATE 100 MG in DEXTROSE 5% 100 ML IV SCH ×2 (03:45→16:20)
[2021-09-15 05:47] LABS: Hematocrit (blood only) 26.2 % (37-47); Hemoglobin 8.1 g/dL (12.0-16.0); Mean Corpuscular Hemoglobin 32.7 pg (25-34); Mean Corpuscular Hgb Conc 30.9 g/dL (32-36); Mean Corpuscular Volume 105.6 fL (80-100); Mean Platelet Volume 10.2 fL (7.4-10.4); Platelet Count 490 K/uL (130-400); RDW Standard Deviation 91.5 fL (36.4-46.3); Red Blood Count 2.48 M/uL (4.2-5.4)
[2021-09-15 05:59] LABS: INR 4.3 (0.9-1.1); Prothrombin Time 42.3 Seconds (9.0-12.0)
[2021-09-15 07:17] LABS: Albumin Level 2.2 gm/dl (3.4-5.0); Bilirubin,Total 0.4 mg/dl (0.2-1.0); Calcium 8.2 mg/dl (8.5-10.1); Creatinine Clr Calc Pharmacy 65.2 ml/min; Est GFR (African American) 73.4 ml/min; Est GFR (Non-African American) 63.4 ml/min; Total Protein 4.7 gm/dl (6.0-8.3)
[2021-09-15] MEDS: INSULIN ASPART PER UNIT SC SCH ×4 (07:29→20:49)
[2021-09-15] MEDS: ASPIRIN 81 MG ECTAB PO SCH (07:31)
[2021-09-15] MEDS: CYANOCOBALAMIN (B-12) 500 MCG TABLET PO SCH (07:31)
[2021-09-15] MEDS: METOPROLOL SUCC 25MG EXT REL TAB PO SCH ×3 (07:31→22:22)
[2021-09-15] MEDS: PANTOprazole 40 MG TAB PO SCH ×2 (07:31→20:23)
[2021-09-15] MEDS: NYSTATIN POWDER 15GM BTL EXT SCH ×2 (07:31→20:23)
[2021-09-15] MEDS: TIMOLOL MALEATE 0.5% OP SOLN 5 ML BTL OP SCH (07:32)
[2021-09-15] MEDS: ENOXAPARIN 150 MG/ML SYR SQ SCH (07:32)
[2021-09-15] MEDS: FAMOTIDINE 20 MG TAB PO SCH ×2 (07:32→20:17)
[2021-09-15 07:34] LABS: BUN Creatinine Ratio 24.7 (10-20)
[2021-09-15 07:56] LABS: Globulin 2.5 gm/dl (2.5-4.0)
[2021-09-15 07:57] LABS: Albumin Globulin Ratio 0.9 (0.9-2)
[2021-09-15] MEDS: ACETAMINOPHEN 325 MG TAB PO PRN ×2 (11:10→19:15)
--- NOTE | 2021-09-15 20:27 | Hospitalist Progress Note ---
Date of Service September 15, 2021 Assessment & Plan (1) Acute metabolic encephalopathy: Plan: Patient currently is delirius, which is complicating measures as she is refusing to take her medications orally and is removing IV access. Obtained one IV line, continued to reorient her. May need to repeat zyprexa, this is ordered PRN. Ordered antibiotics PO however as she refused them, this was ordered again in IV. Called pharmacy who helped correct the timing of the antibiotics due to not being compatible in the same IV line at the same time. Patient is now oriented x3 (date: knows month and year) Patient had been combative earlier in her hospital stay which has complicated her medication regimen as she has been refusing meds. Over past 24 hours, Patient appears to be improving. Able to carry conversation. No longer on 1 to 1. (2) Atrial fibrillation: Plan: Had to consult cardiology earlier in week due to low blood pressure and atrial fibrillation. Likely due to patient refusing oral meds. Increased dailuy dose of metoprolol to 50 mg/day HR appears stable. will monitor. (3) Severe sepsis: Plan: source - 2nd to UTI; sacral wound also likely contributing. E.coli in urine. Pseudomonas/staph in sacral wound. Sepsis now resolved Have since changed cefepime to cipro to cover pseudomonas & e.coli and will now change vanco to doxycycline for MSSA-would plan to complete 14 days of antibiotics Blood cx's remain negative. Blood pressures are stable and remains tachycardic as she has been off of her beta-nando Discontinue IV fluids as MOJGAN is now resolved Refused PT. updated daughter. (4) UTI (urinary tract infection): Plan: 2nd to e.coli. Continue Cipro as above Plan 7 days of Rx. However due to sacarl wound, antibiotics colleen be extended as above. (5) Rhabdomyolysis: Plan: 2nd to falls. Initial CPK >2000. Now 650. Okay to DC fluids Hold statin. (6) MOJGAN (acute kidney injury): Plan: Likely sepsis-associated ATN. Now resolved after IV fluids and bicarbonate drip Creatinine down to 1.2 from peak of 4 Repeat BMP in am. No obstruction on recent CT a/p. -DC IV fluids -Continue holding home HCTZ, furosemide, and losartan (7) Sacral wound: Plan: Likely 2nd to recurrent falls +/- sedentary lifestyle? Wound care nurse consulted; appreciate recs. Wound care advised general surgery consult. Dr Weaver saw in consult - patient may need debridement but holding off at this time. Culture from wound growing pseudomonas + staph. New antibiotics as above Offload pressure Wound care (8) Sacral decubitus ulcer, stage III: Plan: see above stage 3 wound/ulcer with b/l buttock ulcers (9) Metabolic acidosis, increased anion gap: Plan: resolved 2nd severe sepsis (10) Heart failure with preserved ejection fraction: Plan: Echo in 06/2021 - EF >70% RV dilatation but preserved RV function Does not examine decompensated DC IV fluids, continue holding home HCTZ and furosemide (11) Pulmonary embolism: Plan: PE diagnosed in 06/25/2021 - started on warfarin at that time. INR 1.1 upon admission - is she compliant with meds at home? by report had run out of coumadin? unfortunately, given her morbid obesity, very poor candidate for DOAC. Resumed heparin drip, monitor H/H, monitor sacral wound/ecchymoses for worsening. Restart Coumadin as above INR now supratherapeutic. will hold coumadin on 09/15. enoxaparin discontinued. Of note - it does not appear she had dopplers of legs at time of PE diagnosis. (12) Macrocytic anemia: Plan: B12 levels - 323 in June 2021. Supplementing such. However, doubt this is the cause of her significant anemia. Folate wnl. TSH wnl. CBC is concerning for MDS. Will need peripheral smear at some point. Also would benefit from heme/onc consult post-discharge. s/p 2 units PRBCs this admission with appropriate H/H response. Hemoglobin stable today at >8 hemodynamically stable Repeat CBC in am. (13) HTN (hypertension): Plan: Held anti-hypertensives due to hypotension and acute kidney injury on admission Resume Toprol-XL at half dose, needed to increase back to home dose due to A. fib RVR. N0w holding HCTZ, furosemide, and losartan for acute kidney injury (14) Hyponatremia: Plan: 2nd to acute renal failure. Now resolved with isotonic fluids Follow BMP (15) Morbid obesity with BMI of 50.0-59.9, adult: Plan: BMI 52 Needs weight loss (16) Frequent falls: Plan: with resulting rhabdomyolysis will need PT/OT while here Patient has been refusing however. (17) Hypocalcemia: Plan: PRBCs may have worsened such. Even correcting for mildly low albumin her total calcium is still low. Calcium gluconate 1gm x 1. repeat bmp/calcium am. (18) Wide-complex tachycardia: Plan: NSVT vs a.fib with aberrancy. brief, seen on telemetry on 09/08 cont tele monitoring. Restart beta-nando as above echo 06/2021 with preserved EF. (19) Vomiting: Plan: Had vomiting on 09/08, now resolved Now with chest pain on the morning of 09/09 which I believe is GI in nature- resolved with Pepcid and morphine, cardiac work-up negative with serial negative troponins and EKG without ischemic changes Likely gastritis/esophagitis from recent vomiting KUB without obstruction/ileus. -Continue Protonix 40 mg p.o. twice daily -Add Pepcid 20 mg IV twice daily -Antiemetics as needed -Was able to advance diet to regular throughout the day (20) DVT prophylaxis: Plan: heparin drip, Coumadin (21) Chronic respiratory failure with hypoxia: Plan: 06/2021 admission for PEs - failed her 2-step; needed 3 liters NC O2 continuously continue such while here resp failure likely combination of OHS, prior PEs; cannot rule out pulmonary HTN, other factors Plan: Disposition-continued stay on PCU, needs PT/OT and will likely need rehab stay Admission and Anticipated Discharge Date Admission Date: September 06, 2021 Subjective Patient reports no new symptoms. Nurse noted a right heel wound. Patient reports being very weak and unable to get out of bed. Patient refuses to let me examine her feet. Review of Systems Review of Systems: All systems reviewed & are unremarkable except as noted in HPI & below Physical Exam Physical Exam: Constitutional: WD/WN, vitals as above + morbidly obese Eyes:PERRL, conjunctivae normal, anicteric sclerae ENMT:external ear and nose normal, oropharynx normal Neck:trachea midline, no thyromegaly Respiratory: normal respiratory effort, lungs clear to auscultation Cardiovascular: irregularly irregular no murmur, no edema Chest (Breasts): Chest: normal inspection of chest Additional Comments: No tenderness to palpation of the chest Gastrointestinal (Abdomen): normal bowel sounds, soft, nontender, no hepatosplenomegaly Musculoskeletal: Extremities: extremities normal to inspection, socks are on, patient refuses to let me remove her socks Skin:no rashes, warm and dry Neurologic: moves all extremities and awake; no focal motor deficits Psychiatric: A+Ox3, euthymic affect Lymphatic: no lymphedema Results & Data Results & Data ([facility]) Vital Signs (Past 12 Hours) Vital Signs Temp Pulse Pulse Resp BP BP Pulse Ox 09/15/21 20:15 103/36 L 09/15/21 18:57 36.4 C L 100 H 20 110/49 L 91 09/15/21 16:05 36.8 C 90 25 H 111/52 L 98 09/15/21 16:00 100 H 09/15/21 11:44 36.7 C 95 H 30 H 123/36 L 97 09/15/21 09:00 90 PG Care Time/CCT Total # of Minutes Spent Total Time Spent with Patient: Total time spent is greater than 50% in coordination of care (as documented) at patient's floor/unit and/or counseling patient: Coding Level of Care Code 46455 Subseq Hosp Care Lvl 3 Diagnoses Acute metabolic encephalopathy G93.41 Atrial fibrillation I48.91 Severe sepsis A41.9; R65.20 UTI (urinary tract infection) N39.0 Rhabdomyolysis M62.82 MOJGAN (acute kidney injury) N17.9 Sacral wound S31.000A Sacral decubitus ulcer, stage III L89.153 Metabolic acidosis, increased anion gap E87.2 Heart failure with preserved ejection fraction I50.30 Pulmonary embolism I26.99 Macrocytic anemia D53.9 HTN (hypertension) I10 Hyponatremia E87.1 Morbid obesity with BMI of 50.0-59.9, adult E66.01; Z68.43 Frequent falls R29.6 Hypocalcemia E83.51 Wide-complex tachycardia I47.2 Vomiting R11.10 DVT prophylaxis Z29.9 Chronic respiratory failure with hypoxia J96.11
[2021-09-15] MEDS: ONDANSETRON INJ 2 MG/ML 2 ML VIAL IV PRN (20:40)
[2021-09-15] MEDS ORDERED: SODIUM CHLORIDE 0.9% 1000ML 1,000 ML IV ONE (21:52)
[2021-09-15] MEDS ORDERED: NOREPINEPHRINE/D5W 8 MG/508 ML IV ONE (22:28)
--- NOTE | 2021-09-15 22:51 | Communication Note ---
Date of Service: September 15, 2021 Informed by patient's nurse around 2044 that they were complaining of lower quadrant abdominal pain and nausea. Chart was reviewed. Noted that she has be en intermittently encephalopathic. Here for severe sepsis secondary to UTI, on Cipro and doxycycline. H/O PEs in 06/2021 on Coumadin, last INR 4.1 this AM with Hgb 8.1. Unclear how long symptoms had been ongoing. Patient stating she has to have BM. Last BM yesterday. BP at that time ~100/40 with HR persistently between 90-low 100s. Afebrile. Pale appearing, though has been persistently anemic th roughout stay (per notes, received 2U pRBC since admission). Exam revealing LLQ tenderness w/o rebound or guarding. Attempt Zofran, MiraLax. Vomited x 1, non- bloody, shortly thereafter. Requested we hold PM metoprolol. Recalled to bedside shortly thereafter given concerns for persistent abdominal pain, worsening pallor, dizziness/AMS. Informed of difficulty obtaining BPs and maintaining IV access - 1x 18G in RUE after IV team called again to place. At time of arrival, patient was mumbling. Oriented only to person. Complaining of diffuse pain - difficulty localizing. BPs ranging between 60-70/20-40. HRs still 90-100s, sinus on monitoring with occasional ectopy. Satting >96% on 2L. Notably more pale and cool to touch compared to prior. Exam with significant diffuse TTP across the abdomen but still no rebound/guarding. Sluggish capillary refill in UE/LE. A&P: Patient's presentation and vitals are concerning for shock, possibly hypovolemic, especially in context of worsening abdominal pain, encephalopathy, anemia. Her h/o sepsis is also noted and considered a possibility for her instability, but based on daytime notes, patient had apparently been getting better and has been on broad-spectrum ABX (now on cipro/doxy). History of PEs noted, though has supratherapeutic INR and has been on Coumadin. NSS 1L bolus ordered -- single IV site leaky. Stat labs (CBC, CMP, troponin, INR, lactate, repeat BCX, procal, type/screen) ordered. CT-A/P w/ IV contrast ordered. Blood bank informed in case of need for emergency transfusion. Pressures relatively unchanged despite ongoing fluids. Given concern for labile pressures, continued difficulty w/ maintaining peripheral IV access in setting of hemodynamic instability despite multiple reattempts by RN/IV team, and need for further hemodynamic monitoring possibly w/ A-line, spoke with Harrison Fontaine of ICU re: need for transient use of pressors, possible placement of CVC/A-line. She will be transferred to ICU. Case discussed and reviewed with attending, Dr. Skinner, through work-up. Resident Activity Tracking Resident Involvement: Resident Care Provided Care Provided: Adult Hospital Medicine
--- NOTE | 2021-09-15 23:01 | XRay Report ---
XR chest 1V portable HISTORY: 81 years-old Female cvc insertion status post placement of a right IJ central venous cathet er COMPARISON: Chest radiograph 09/06/2021 TECHNIQUE: Supine AP view the chest FINDINGS: Cardiac silhouette is enlarged. Status post placement of a right IJ central venous catheter distal ti p in the expected location of the upper to mid SVC. No postprocedural pneumothorax. Trace pleural eff usions with mild left basilar densities. Pulmonary vascular congestion. Degenerative changes of the s houlders and spine. Unchanged cortical thickening with sclerosis of the proximal left humerus. IMPRESSION: 1. Status post placement of a right IJ central venous catheter with distal tip terminating in the exp ected location of the SVC. No postprocedural pneumothorax. 2. Cardiomegaly with pulmonary vascular congestion. 3. Trace pleural effusions with mild left basilar opacities suggestive of atelectasis. ACT 112: Negative or not required by law. The above report was generated using voice recognition software. It may contain grammatical, syntax o r spelling errors. Electronically signed by: Carlos Krueger M.D. 09/15/2021 11:00 PM
[2021-09-15] MEDS ORDERED: OPTIRAY 320 100ml IV ONE (23:12)
--- NOTE | 2021-09-15 23:27 | CT Scan Report ---
ABDOMEN AND PELVIS CT WITH IV CONTRAST CT DOSE: 1859.78 mGy.cm HISTORY: Acute generalized abdominal pain with hypotension and altered mental status abd pain, AMS, HoTN TECHNIQUE: Multiaxial CT images of the abdomen and pelvis were performed following the IV administrat ion of 94 cc of Optiray, A dose lowering technique was utilized adhering to the principles of ALARA. COMPARISON STUDY: CT abdomen and pelvis 09/06/2021 FINDINGS: Coronary artery and mitral annular calcifications. Small layering pleural effusions with dependent bi basilar consolidation suggestive of atelectasis. The study is limited secondary to upper extremity po sitioning. No pneumatosis or pneumoperitoneum. The visualized spleen is unremarkable. Mild generalize d pancreatic atrophy. Unchanged mild nodular thickening of the adrenal glands. Cholecystectomy. Unrem arkable liver with patent portal vein. Mild atrophy with cortical thinning of the kidneys redemonstrated. No hydronephrosis. Mild nonspecifi c bilateral perinephric stranding. 2.8 cm calcified left renal lesion again noted. Atherosclerosis of the aorta without aneurysm. No adenopathy. There is an acute retroperitoneal hematoma measuring 10.7 x 5.9 x 30 cm which is new from prior demonstrating a considerable amount of active extravasation (m easuring up to 3 x 4 cm) along the posterior mid aspect on image 263 series 3. The hemorrhage abuts a nd possibly involves the left psoas muscle and tracks along the left pericolic gutter. Small to moderate hiatal hernia. No bowel obstruction. Moderate fecal retention. Trace free fluid wit hin the dependent pelvis and perirectal tissues. Colonic diverticulosis. The appendix is not definiti vely seen. Tiny fat filled periumbilical hernia. No definite bowel wall thickening. Degenerative ruelas ges of the spine, pelvis and hips. No acute fracture or suspicious bone lesion. IMPRESSION: 1. Large acute left-sided retroperitoneal hematoma measures up to 30 cm in length with a focus of act karmen extravasation measuring up to 4 cm. 2. Small pleural effusions with compressive bibasilar atelectasis. 3. Colonic diverticulosis without acute diverticulitis. 4. Additional findings as above. ACT 112: Negative or not required by law. The above report was generated using voice recognition software. It may contain grammatical, syntax o r spelling errors. Electronically signed by: Carlos Krueger M.D. 09/15/2021 11:26 PM
[2021-09-15 23:38] LABS: Hematocrit (blood only) 17.8 % (37-47); Hemoglobin 5.5 g/dL (12.0-16.0); Mean Corpuscular Hemoglobin 32.7 pg (25-34); Mean Corpuscular Hgb Conc 30.9 g/dL (32-36); Mean Platelet Volume 10.3 fL (7.4-10.4); Platelet Count 518 K/uL (130-400); RDW Coefficient of Variation 24.2 % (11.5-14.5); RDW Standard Deviation 92.3 fL (36.4-46.3); Red Blood Count 1.68 M/uL (4.2-5.4); White Blood Count 13.91 K/uL (4.8-10.8)
[2021-09-15] MEDS ORDERED: ALBUMIN 5% 250 ML IV ONE ×2 (23:39→23:55)
[2021-09-15] MEDS ORDERED: SODIUM CHLORIDE 0.9% 250 ML IV PRN (23:41)
--- NOTE | 2021-09-15 23:50 | Critical Care Consultation ---
Date of Consultation September 15, 2021 Assessment & Plan (1) Hypovolemic shock: Reason Critically Ill: 81-year-old female presents to the ICU hypotensive requiring vasopressor support. CT abdomen pelvis revealed large left retroperitoneal bleed, hemoglobin 5.9 and INR supratherapeutic. Central line and arterial line inserted, currently on vasopressors and undergoing multiple blood transfusions. Neuro - Metabolic encephalopathythought to be due to sepsis versus delirium -Patient has previously received Zyprexa -We will treat pain from retroperitoneal bleed with fentanyl for now -Monitor for now Cardiac - Hypovolemic shocksecondary to retroperitoneal hemorrhage. See treatment below -Central line and A-line inserted, - Levophed for maps greater than 65, weaning -Received 2 L crystalloid, 500 mL albumin, 40 units FFP, 2 units RBCs. Improved with volume resuscitation -Hold antihypertensives. Hold Lasix for now HTNhold antihypertensives given shock Proximal A. fibcurrently sinus rhythm on telemetry. Hold MTP given hypotension -Hold Coumadin given bleed due to supratherapeutic INR Respiratory - Lungs clear to auscultation, no respiratory distress Currently maintaining oxygen saturation on 2 L nasal cannula. Continuous monitoring pulse ox GI - N.p.o. Continue PPI RENAL/LYTES - AKIcreatinine 1.26 with baseline 0.8. Suspect this is likely prerenal given period of hypotension -Continue to monitor creatinine with routine BMPs -Continue with volume resuscitation -Maintain maps greater than 65 -Avoid nephrotoxins renally adjust medication - Foleystrict I's and O's ENDO - DM type IIhold Metformin in favor of sliding scale -ICU hyperglycemic protocol HEME - Acute blood loss anemiapatient has macrocytic anemia with baseline hemoglobin of 8, now developed large acute retroperitoneal bleed measuring 10 x 5 x 30 cm secondary to supratherapeutic INR -Hemoglobin 5.5, INR 4.9. Patient has so far received 4 units FFP, 10 mg vitamin K, 2 units RBCs -Did speak with air grinder at [facility] concerning transfer for possible IR. As patient has currently stabilized, did not recommend transfer at this time -Continue to monitor H&H every 4 hours. Transfuse as needed -Repeat INR fibrinogen pending ID - Sepsispatient with multiple sources of sepsis. Urine culture positive for E. coli and sacral wound positive for Pseudomonas and staph aureus -Continue Cipro and doxycycline -Repeat blood cultures pending LINES/IV ACCESS - Right IJ CVL, left radial A-line DVT PROPHYLAXIS - SCDs, hold anticoagulation in the setting of hemorrhagic shock -Patient does have history of PE from last year and was on Coumadin which is currently being held. We will obtain lower extremity venous Doppler and if positive will likely need IVC filter. I have personally spent 125 minutes of critical care time in the direct management of this patient. This is a life/limb threatening event. This includes time spent evaluating patient, direct bedside care, chart review, placing orders, interpretation of diagnostic studies, discussion with consultants, patient, and family members, as well as other required patient management activities. This time is exclusive of all separately billable procedures, and teaching time and separate from and in addition to any other critical care service time. Thank you for allowing us to participate in the care of this patient. Please refer to my attending physician's documentation for any further recommendations. (2) Paroxysmal A-fib: (3) Acute metabolic encephalopathy: (4) Hypotension: (5) Chronic respiratory failure with hypoxia: (6) Diabetes mellitus, type 2: (7) HTN (hypertension): (8) Hyperlipidemia: (9) Macrocytic anemia: (10) MOJGAN (acute kidney injury): (11) Sacral wound: (12) Severe sepsis: (13) Acute UTI (urinary tract infection): (14) Retroperitoneal hemorrhage: (15) Supratherapeutic INR: History of Present Illness Attending Physician: Jason Kendrick History of Present Illness Patient is a 81-year-old female with past medical history significant for. Patient was undergoing treatment on PCU for severe sepsis secondary to E. coli UTI and sacral wound with Pseudomonas and staph. Patient has been encephalopathic. She became hypotensive this evening and had difficult peripheral access. She was transferred to the ICU and underwent central line placement and was started on vasopressors. She was then taken for CT abdomen and pelvis which revealed a large 10 x 5 x 30 cm left-sided retroperitoneal hematoma. In the ICU A-line was placed. She received 2 L crystalloid and 500 albumin while awaiting blood. She then received 2 units RBCs and 4 FFP. She was weaned off vasopressors. I did speak with air grinder at [facility] who recommended correction of the INR and did not recommend transfer at this time as patient had stabilized. Repeat labs pending and patient to remain in ICU for further management at this time. Patient is currently confused and encephalopathic and subjective portion of the exam certainly limited. She currently denies headache, dizziness, chest pain or palpitations, shortness of breath or nausea or vomiting. She does complain of abdominal pain primarily in the left lower quadrant which is tender to palpation. Allergies Allergy/AdvReac Type Severity Reaction Status Date / Time succinylcholine Allergy Severe CARDIAC Verified 06/25/21 12:12 ARREST Penicillins Allergy Intermediate REDNESS,SWE Verified 09/09/21 08:04 LLING Home Medications Medication Instructions Recorded Confirmed Type aspirin 81 mg tablet,delayed 81 mg PO DAILY 01/25/21 09/06/21 History release calcium carbonate 500 mg-vitamin 1 tab PO DAILY 01/25/21 09/06/21 History D3 3.125 mcg (125 unit) tablet cyclosporine 0.05 % eye drops in a 1 drp OPB AMPM 01/25/21 09/06/21 History dropperette (Restasis) losartan 100 mg tablet 100 mg PO DAILY 01/25/21 09/06/21 History simvastatin 20 mg tablet (Zocor) 20 mg PO PM 01/25/21 09/06/21 History timolol maleate 0.5 % eye drops 1 drp OPB QAM 01/25/21 09/06/21 History vitamin A-vitamin C-vit E-min 1 tab PO DAILY 06/25/21 09/06/21 History tablet cyanocobalamin (vitamin B-12) 500 500 mcg PO QAM #30 tab 07/06/21 09/06/21 Rx mcg tablet furosemide 20 mg tablet 20 mg PO QAM #30 tab 07/06/21 09/06/21 Rx metformin 1,000 mg tablet,extended 1,000 mg PO BID #60 tab 07/06/21 09/06/21 Rx release 24hr metoprolol succinate 50 mg 50 mg PO QAM #30 tab 07/06/21 09/06/21 Rx tablet,extended release 24 hr warfarin 5 mg tablet 5 mg PO DAILY@1600 #30 tab 07/06/21 09/06/21 Rx hydrochlorothiazide 25 mg tablet 25 mg PO DAILY 09/06/21 09/06/21 History Patient History Medical History (Updated 09/16/21 @ 02:11 by BREANNA Pierce) Asthma Diabetes mellitus, type 2 H/O: HTN (hypertension) Hypoxia Nasal fracture Reflux esophagitis Social History Smoking Status: Never smoker Hx Alcohol Use: No Hx Substance Use: No Preferred Language: Urdu Communication Ability: Effective Maintenance Aide Required: No Beliefs That Will Affect Care: Zoroastrian Zoroastrian Beliefs: Zoroastrianism marital status: / Current Living Situation: Family Current Living Situation Comment: lives with daughter How many Children do You have: 1 Other Information That Helps Us Care for You: No Feels Safe at Home: Yes Safety Concerns: Feels Safe At This Time Assistive Devices: Oxygen - Continuous Assistive Devices Comment: O2 at home as needed Review of Systems Review of Systems: All systems reviewed & are unremarkable except as noted in HPI & below Physical Exam Constitutional: + obese and + altered mental status Eyes: PERRL, conjunctivae normal, anicteric sclerae ENMT: external ear and nose normal, oropharynx normal Neck: trachea midline, no thyromegaly Respiratory: normal respiratory effort, lungs clear to auscultation Cardiovascular: RRR, no murmur, no edema Heart Sounds: normal S1 and normal S2 Extremities: normal capillary refill; no edema Gastrointestinal (Abdomen): Abdomen obese but nondistended, bowel sounds auscultated all 4 quadrants. Abdomen is tender with light palpation primarily in the left lower quadrant. Musculoskeletal: no cyanosis or clubbing, extremities motor strength 5/5 Skin: no rashes, warm and dry Neurologic: PERRL, EOMI, accommodation nl, no face palsy, no dysarthria Psychiatric: Orientation: oriented to person; + not oriented to place, + not oriented to time and + uncooperative Genitourinary: indwelling espino catheter Results & Data Results & Data ([facility]) Vital Signs (Past 12 Hours) Vital Signs Temp Pulse Pulse Resp BP BP Pulse Ox 09/15/21 22:23 36.8 C 93 H 24 70/31 L 96 09/15/21 21:56 78/43 L 09/15/21 21:50 63/26 L 09/15/21 20:15 103/36 L 09/15/21 18:57 36.4 C L 100 H 20 110/49 L 91 09/15/21 16:05 36.8 C 90 25 H 111/52 L 98 09/15/21 16:00 100 H Coding Level of Care Code Critical Care ea addt'l 30 min Diagnoses Paroxysmal A-fib I48.0 Acute metabolic encephalopathy G93.41 Hypotension I95.9 Chronic respiratory failure with hypoxia J96.11 Diabetes mellitus, type 2 E11.9 HTN (hypertension) I10 Hyperlipidemia E78.5 Macrocytic anemia D53.9 MOJGAN (acute kidney injury) N17.9 Sacral wound S31.000A Severe sepsis A41.9; R65.20 Acute UTI (urinary tract infection) N39.0 Hypovolemic shock R57.1 Retroperitoneal hemorrhage R58 Supratherapeutic INR R79.1
--- NOTE | 2021-09-15 23:50 | Procedure Note ---
Procedure Note Date of Service September 15, 2021 Note INTERNAL JUGULAR CENTRAL LINE PROCEDURE NOTE: Procedure: Internal Jugular Central Line Placement Attending: Dr. Baca Provider: BREANNA Malik Indication: Central Drug Administration, Poor Venous Access Anesthesia:Lidocaine 1% Line placed emergently in the setting of shock requiring vasopressor support, with poor peripheral access. A time-out was completed verifying correct patient, procedure, site, positioning, and implants(s) or special equipment if applicable. Patients right neck was cleansed and draped in the typical sterile fashion using Chloraprep. The Internal Jugular Vein and Carotid Artery were identified using ultrasound. The superficial tissue was anesthetized using 3 mL of 1% lidocaine without epinephrine under direct visualization with the ultrasound. After adequate anesthetization was achieved, the Internal Jugular vein was cannulated under direct ultrasound guidance using an introducer needle on a syringe. Good venous blood return was maintained prior to removal of syringe from introducer needle. Using Seldinger Technique, a guide wire was advanced through the introducer needle without resistance. The introducer needle was removed and ultrasound images were obtained of the guide wire within the Internal Jugular Vein and saved to the patients medical record. A small incision was made in penetrating fashion at the guide wire insertion site utilizing an 11 blade scalpel. The dilator was advanced to the vessel without resistance. The dilator was exchanged for the triple lumen catheter which was advanced into the vessel without resistance. The guide wire was removed intact from the catheter without issue. Claves were placed on each catheter tip with confirmation of good blood flow from each lumen. Each port was easily flushed with sterile saline. The catheter was placed at 16 cm and sut[address] in place. BioPatch was applied to the catheter and a sterile Tegaderm dressing was applied over the catheter with careful attention to sterility. Patient tolerated procedure well. No immediate co mplications were met. Post procedure x-ray was completed, placement was appropriate and no pneumothorax was noted. Images obtained are saved for permanent record Procedural Ultrasound Guidance: Procedure Date: 05/2022 Indication: Central venous catheter insertion Attending: Dr. Jhony Baca Provider: BREANNA Malik Artery AND Vein visualized: Yes Compressible Vein: Yes Guidewire or Short Catheter seen in vein prior to dilation: Yes Line confirmed in Vein with ultrasound: Yes Images obtained are saved for permanent record. Coding CPT Codes Tubes, Drains, and Vasc Access - Tubes, Drains, and Vasc Access: [id number] Place catheter in vein superior or inferior vena cava ([id number]) Tubes, Drains, and Vasc Access - Tubes, Drains, and Vasc Access: [id number] Ultrasound Guidance For Vascular ([id number]) [facility] [place] Procedure Codes (Charges) Tubes, Drains, and Vasc Access Procedure 1: Tubes, Drains, and Vasc Access: [id number] Place catheter in vein superior or inferior vena cava Procedure 2: Tubes, Drains, and Vasc Access: [id number] Ultrasound Guidance For Vascular
--- NOTE | 2021-09-15 23:50 | Procedure Note ---
Procedure Note Date of Service September 15, 2021 Note ARTERIAL LINE PROCEDURE NOTE: Procedure: Arterial Line Placement Attending: Dr. Jhony Baca Provider: BREANNA Malik Indication: Monitoring on Pressors Anesthesia: Lidocaine 1% Line placed emergently in the setting of septic shock requiring vasopressor support and continuous hemodynamic monitoring. A time-out was completed verifying correct patient, procedure, site, positioning, and implant(s) or special equipment if applicable. Allens test was performed to ensure adequate perfusion. Patients left wrist was prepped and draped in the usual sterile fashion. Ultrasound guidance was used to aid needle placement. A 20g Arrow arterial line was introduced into the left radial artery. Catheter was threaded, and the needle was removed with appropriate blood return. Good waveform was observed. The patient tolerated the procedure well. Confirmation of placement with ultrasound. Blood Loss: Minimal Complications: None Procedural Ultrasound Guidance: Procedure Date: 09/15/2021 Indication: Arterial line insertion Attending: Dr. Jhony Baca Provider: BREANNA Malik Artery Identified: YES Line confirmed in Artery with ultrasound: Yes Complications: NONE Patient tolerated procedure: WELL Coding CPT Codes Tubes, Drains, and Vasc Access - Tubes, Drains, and Vasc Access: [id number] Place Catheter In Artery ([id number]) Tubes, Drains, and Vasc Access - Tubes, Drains, and Vasc Access: [id number] Ultrasound Guidance For Vascular ([id number]) [facility] Codes (Charges) Tubes, Drains, and Vasc Access Procedure 3: Tubes, Drains, and Vasc Access: [id number] Place Catheter In Artery Procedure 4: Tubes, Drains, and Vasc Access: [id number] Ultrasound Guidance For Vascular
[2021-09-15] MEDS ORDERED: STAT IV Infusion **Titration per Protocol STA (23:51)
[2021-09-15 23:57] LABS: Troponin I 0.03 ng/ml (0-0.04)
[2021-09-16 00:01] LABS: INR 4.9 (0.9-1.1); Prothrombin Time 47.5 Seconds (9.0-12.0)
[2021-09-16] MEDS ORDERED: SODIUM CHLORIDE 0.9% 250 ML IV PRN ×5 (00:03→15:23)
[2021-09-16] MEDS: fentaNYL citrate 100 MCG/2 ML VIAL IV PRN ×3 (00:04→08:52)
[2021-09-16] MEDS ORDERED: PHYTONADIONE 10 MG in DEXTROSE 5% 50 ML IV ONE (00:04)
[2021-09-16 00:06] LABS: ANC (manual) 11.38 K/uL (1.4-6.5); Anisocytosis Present; Lymphocytes % (manual) 16.5 %; Macrocytosis Present; Monocytes # (manual) 0.24 K/uL (0.11-0.59); Monocytes % (manual) 1.7 %; Neutrophils # (manual) 11.38 K/uL (1.4-6.5); Neutrophils % (manual) 81.8 %
[2021-09-16] MEDS: NOREPINEPHRINE/D5W 8 MG/508 ML BAG IV SCH ×3 (00:12→15:40)
[2021-09-16 00:20] LABS: Albumin Globulin Ratio 0.9 (0.9-2); Albumin Level 1.8 gm/dl (3.4-5.0); Bilirubin,Total 0.4 mg/dl (0.2-1.0); Calcium 6.7 mg/dl (8.5-10.1); Est GFR (African American) 45.6 ml/min; Est GFR (Non-African American) 39.4 ml/min; Globulin 1.9 gm/dl (2.5-4.0); Potassium 4.2 mmol/L (3.5-5.1); Total Protein 3.7 gm/dl (6.0-8.3)
[2021-09-16 00:24] LABS: Fibrinogen 257 mg/dl (184-400)
[2021-09-16] MEDS ORDERED: fentaNYL citrate 100 MCG/2 ML VIAL IV STA (00:31)
[2021-09-16 02:13] LABS: Hematocrit (blood only) 19.2 % (37-47); Hemoglobin 6.1 g/dL (12.0-16.0); Mean Corpuscular Hemoglobin 30.2 pg (25-34); Mean Corpuscular Hgb Conc 31.8 g/dL (32-36); Platelet Count 297 K/uL (130-400); RDW Coefficient of Variation 21.9 % (11.5-14.5); RDW Standard Deviation 69.7 fL (36.4-46.3); Red Blood Count 2.02 M/uL (4.2-5.4); White Blood Count 12.62 K/uL (4.8-10.8)
[2021-09-16 02:31] LABS: ALC (manual) 1.31 K/uL (1.2-3.4); ANC (manual) 10.42 K/uL (1.4-6.5); Anisocytosis Present; Basophils # (manual) 0.11 K/uL (0-0.2); Basophils % (manual) 0.9 %; Lymphocytes # (manual) 1.31 K/uL (1.2-3.4); Lymphocytes % (manual) 10.4 %; Monocytes # (manual) 0.77 K/uL (0.11-0.59); Monocytes % (manual) 6.1 %; Neutrophils # (manual) 10.42 K/uL (1.4-6.5); Neutrophils % (manual) 82.6 %
[2021-09-16 02:32] LABS: BUN Creatinine Ratio 22.8 (10-20); Calcium 7.8 mg/dl (8.5-10.1); Creatinine Clr Calc Pharmacy 43.6 ml/min; Est GFR (African American) 45.2 ml/min; Magnesium 1.3 mg/dl (1.7-2.4); Phosphorus 4.5 mg/dl (2.5-4.9); Potassium 4.2 mmol/L (3.5-5.1)
[2021-09-16 02:45] LABS: Fibrinogen 253 mg/dl (184-400); INR 1.5 (0.9-1.1); Prothrombin Time 16.1 Seconds (9.0-12.0)
[2021-09-16] MEDS: MAGNESIUM SULFATE / D5W 1 GM/100 ML BAG IV SCH ×4 (03:49→08:20)
[2021-09-16] MEDS: DOXYCYCLINE HYCLATE 100 MG in DEXTROSE 5% 100 ML IV SCH (05:52)
[2021-09-16 06:19] LABS: Hematocrit (blood only) 24.4 % (37-47); Hemoglobin 8.1 g/dL (12.0-16.0)
--- NOTE | 2021-09-16 07:01 | Ultrasound Report ---
BILATERAL LOWER EXTREMITY VENOUS DOPPLER HISTORY: Lower extremity swelling. DVT? COMPARISON STUDY: None. FINDINGS: DVT is noted within the right popliteal vein as well as the right posterior tibial and negrita lilly veins. No DVT within the left lower extremity. The right common femoral superficial femoral vein s are patent. IMPRESSION: 1. Right lower extremity DVT as described above. 2. No DVT within the left lower extremity. ACT 112: Negative or not required by law. Electronically signed by: Vik De Luna M.D. 09/16/2021 7:00 AM
[2021-09-16] MEDS: NYSTATIN POWDER 15GM BTL EXT SCH (08:20)
--- NOTE | 2021-09-16 08:31 | Critical Care Progress Note ---
Date of Service September 16, 2021 Assessment & Plan (1) Supratherapeutic INR: (2) Retroperitoneal hemorrhage: (3) Hypovolemic shock: (4) Paroxysmal A-fib: (5) Acute metabolic encephalopathy: (6) Hypotension: (7) Atrial fibrillation with RVR: (8) Chronic respiratory failure with hypoxia: Plan: Impression: 81-year-old female presents to the ICU hypotensive requiring vasopressor support. CT abdomen pelvis revealed large left retroperitoneal bleed, hemoglobin 5.9 and INR supratherapeutic. Central line and arterial line inserted, currently on vasopressors and undergoing multiple blood transfusions. 24-hour events: Patient was transferred to the ICU. She was found to have a large retroperitoneal hematoma. She received transfusions. Central line and arterial lines were placed. She received FFP and vitamin K. She remains encephalopathic. Recommendations: Neuro - Metabolic encephalopathythought to be due to sepsis versus delirium. Continue to follow, avoid medications potentially contributing to encephalopathy. Maintain sleep-wake cycles. Antipsychotics such as Haldol or Zyprexa as needed Cardiac - Hypovolemic shocksecondary to retroperitoneal hemorrhage. Continue volume support with 25% albumin. Try and wean pressors to off. Serial hemoglobin and hematocrit. Holding all antihypertensives. The patient has a history of paroxysmal atrial fibrillation. She is in sinus currently. No anticoagulation due to supratherapeutic INR and retroperitoneal hematoma. Respiratory -oxygen as needed to maintain saturations at or above 88%. No wheezing. She is at risk for sleep disordered breathing and will monitor closely. May require empiric application of CPAP. It appears that her PEs were diagnosed June 25, 2021. No ultrasound was performed at that time so it is unclear whether the DVT within the right popliteal vein is acute or chronic. See comments below under heme-onc GI -patient is currently on an H2 nando and PPI. We will discontinue the H2 nando. On we can advance her diet as tolerated once her pressor requirement has resolved. RENAL/LYTES -mild acute kidney injury likely secondary to ATN and hypoperfusion. We will continue to follow. Acid-base status appears reasonable. Replacing magnesium and calcium. AKIcreatinine 1.26 with baseline 0.8. Suspect this is likely prerenal given period of hypotension -Foleystrict I's and O's ENDO -discontinue Metformin, sliding scale insulin. HEME - Acute blood loss anemia. INR reversed. She received FFP and vitamin K. Follow serial hemoglobin and hematocrit and try and transfuse to a level of around 8 or 9. Fibrinogen was okay. Replace calcium. PE was diagnosed in June. It was a segmental PE at that time. No DVT assessment performed so it is unclear whether the popliteal filling defect is acute or chronic. At this point time I think we can monitor the patient off anticoagulation. We will plan on repeating the duplex in the next few days to see if the clot propagates. If so, IVC filter placement might be reasonable but I do not think it needs to be performed urgently. She does have a retroperitoneal hematoma which appears spontaneous in nature. Holding anticoagulation for now. CT scan demonstrated active extravasation but consultation with interventional radiology at [facility] yesterday did not recommend intervention and only reversing anticoagulation. If the patient continues to bleed, will need to reach back out to see whether or not IR intervention might be required ID - Sepsispatient with multiple sources of sepsis. Urine culture positive for E. coli and sacral wound positive for Pseudomonas and staph aureus. Discontinue doxycycline. Continue Cipro although Cipro could be contributing to encephalopathy. LINES/IV ACCESS - Right IJ CVL, left radial A-line DVT PROPHYLAXIS - SCDs, left lower extremity. Hold anticoagulation in the setting of hemorrhagic shock Admission and Anticipated Discharge Date Admission Date: September 06, 2021 Subjective Patient seen and examined. EMR reviewed. History is difficult to obtain from the patient due to her encephalopathic nature. She denies any pain or discomfort. No chest pain or palpitations. No abdominal pain. She appears comfortable. Review of Systems Review of Systems: Unobtainable due to mental health condition Physical Exam Constitutional: WD/WN, vitals as above Patient is morbidly obese. This limits the sensitivity physical exam Neck: trachea midline, no thyromegaly Respiratory: normal respiratory effort, lungs clear to auscultation Cardiovascular: RRR, no murmur, no edema Gastrointestinal (Abdomen): normal bowel sounds, soft, nontender, no hepatosplenomegaly Musculoskeletal: Extremities: extremities normal to inspection Skin: no rashes, warm and dry Neurologic: Nonfocal exam Lymphatic: no cervical lymphadenopathy Results & Data Results & Data ([facility] Vital Signs (Past 12 Hours) Vital Signs Temp Pulse Pulse Resp BP BP BP 09/16/21 06:30 90 21 09/16/21 06:00 90 25 H 09/16/21 05:45 36.8 C 09/16/21 05:30 89 36 H 09/16/21 05:00 94 H 23 09/16/21 04:30 94 H 26 H 09/16/21 04:00 90 23 09/16/21 03:30 93 H 23 09/16/21 03:02 37.0 C 95 H 18 120/41 L 09/16/21 03:00 102 H 33 H 09/16/21 02:47 36.4 C L 98 H 20 103/41 L 09/16/21 02:44 36.7 C 98 H 20 134/46 L 09/16/21 02:30 104 H 27 H 09/16/21 02:22 36.4 C L 95 H 30 H 128/37 L 09/16/21 02:14 36.5 C 91 H 30 H 128/42 L 09/16/21 02:08 36.4 C L 98 H 19 120/30 L 09/16/21 02:04 36.5 C 97 H 19 120/30 L 09/16/21 02:00 92 H 17 09/16/21 01:48 36.4 C L 91 H 32 H 162/50 H 09/16/21 01:39 92 H 25 H 105/52 L 09/16/21 01:30 85 15 09/16/21 01:23 36.4 C L 81 32 H 155/46 H 09/16/21 01:17 36.4 C L 86 24 130/41 L 09/16/21 01:14 36.4 C L 90 27 H 126/36 L 09/16/21 01:10 36.4 C L 86 30 H 73/27 L 09/16/21 01:08 36.4 C L 86 30 H 73/27 L 09/16/21 01:00 84 16 09/16/21 00:45 36.4 C L 86 30 H 73/27 L 09/16/21 00:30 89 30 H 09/16/21 00:22 36.4 C L 86 30 H 73/27 L 09/16/21 00:20 36.4 C L 86 30 H 73/27 L 09/16/21 00:19 36.4 C L 86 30 H 73/27 L 09/16/21 00:15 80 28 H 123/47 L 09/16/21 00:00 94 H 39 H 09/15/21 23:30 87 39 H 09/15/21 23:20 115 H 33 H 101/51 L 09/15/21 23:16 102 H 42 H 107/47 L 09/15/21 22:56 107 H 66/35 L 09/15/21 22:50 98 H 24 105/43 L 09/15/21 22:45 96 H 22 71/36 L 09/15/21 22:40 94 H 27 H 67/35 L 09/15/21 22:39 90 14 55/33 L 09/15/21 22:38 92 H 43 H 73/28 L 09/15/21 22:36 92 H 42 H 72/36 L 09/15/21 22:35 94 H 55 H 09/15/21 22:23 36.8 C 93 H 24 70/31 L 09/15/21 22:22 95 H 29 H 70/31 L 09/15/21 22:16 97 H 21 73/45 L 09/15/21 22:11 93 H 18 77/32 L 09/15/21 22:00 91 H 37 H 79/42 L 09/15/21 21:56 78/43 L 09/15/21 21:50 63/26 L Pulse Ox 09/16/21 06:30 96 09/16/21 06:00 97 09/16/21 05:45 09/16/21 05:30 97 09/16/21 05:00 98 09/16/21 04:30 97 09/16/21 04:00 98 09/16/21 03:30 100 09/16/21 03:02 100 09/16/21 03:00 99 09/16/21 02:47 100 09/16/21 02:44 100 09/16/21 02:30 99 09/16/21 02:22 100 09/16/21 02:14 100 09/16/21 02:08 100 09/16/21 02:04 100 09/16/21 02:00 100 09/16/21 01:48 100 09/16/21 01:39 100 09/16/21 01:30 100 09/16/21 01:23 100 09/16/21 01:17 100 09/16/21 01:14 100 09/16/21 01:10 95 09/16/21 01:08 95 09/16/21 01:00 100 09/16/21 00:45 95 09/16/21 00:30 91 09/16/21 00:22 95 09/16/21 00:20 95 09/16/21 00:19 95 09/16/21 00:15 93 09/16/21 00:00 95 09/15/21 23:30 100 09/15/21 23:20 100 09/15/21 23:16 89 L 09/15/21 22:56 99 09/15/21 22:50 99 09/15/21 22:45 100 09/15/21 22:40 100 09/15/21 22:39 98 09/15/21 22:38 98 09/15/21 22:36 99 09/15/21 22:35 99 09/15/21 22:23 96 09/15/21 22:22 100 09/15/21 22:16 100 09/15/21 22:11 100 09/15/21 22:00 98 09/15/21 21:56 09/15/21 21:50 Critical Care Results & Data Vital Signs (Past 12 Hours) Vital Signs Temp Pulse Pulse Resp BP BP BP 09/16/21 06:30 90 21 09/16/21 06:00 90 25 H 09/16/21 05:45 36.8 C 09/16/21 05:30 89 36 H 09/16/21 05:00 94 H 23 09/16/21 04:30 94 H 26 H 09/16/21 04:00 90 23 09/16/21 03:30 93 H 23 09/16/21 03:02 37.0 C 95 H 18 120/41 L 09/16/21 03:00 102 H 33 H 09/16/21 02:47 36.4 C L 98 H 20 103/41 L 09/16/21 02:44 36.7 C 98 H 20 134/46 L 09/16/21 02:30 104 H 27 H 09/16/21 02:22 36.4 C L 95 H 30 H 128/37 L 09/16/21 02:14 36.5 C 91 H 30 H 128/42 L 09/16/21 02:08 36.4 C L 98 H 19 120/30 L 09/16/21 02:04 36.5 C 97 H 19 120/30 L 09/16/21 02:00 92 H 17 09/16/21 01:48 36.4 C L 91 H 32 H 162/50 H 09/16/21 01:39 92 H 25 H 105/52 L 09/16/21 01:30 85 15 09/16/21 01:23 36.4 C L 81 32 H 155/46 H 09/16/21 01:17 36.4 C L 86 24 130/41 L 09/16/21 01:14 36.4 C L 90 27 H 126/36 L 09/16/21 01:10 36.4 C L 86 30 H 73/27 L 09/16/21 01:08 36.4 C L 86 30 H 73/27 L 09/16/21 01:00 84 16 09/16/21 00:45 36.4 C L 86 30 H 73/27 L 09/16/21 00:30 89 30 H 09/16/21 00:22 36.4 C L 86 30 H 73/27 L 09/16/21 00:20 36.4 C L 86 30 H 73/27 L 09/16/21 00:19 36.4 C L 86 30 H 73/27 L 09/16/21 00:15 80 28 H 123/47 L 09/16/21 00:00 94 H 39 H 09/15/21 23:30 87 39 H 09/15/21 23:20 115 H 33 H 101/51 L 09/15/21 23:16 102 H 42 H 107/47 L 09/15/21 22:56 107 H 66/35 L 09/15/21 22:50 98 H 24 105/43 L 09/15/21 22:45 96 H 22 71/36 L 09/15/21 22:40 94 H 27 H 67/35 L 09/15/21 22:39 90 14 55/33 L 09/15/21 22:38 92 H 43 H 73/28 L 09/15/21 22:36 92 H 42 H 72/36 L 09/15/21 22:35 94 H 55 H 09/15/21 22:23 36.8 C 93 H 24 70/31 L 09/15/21 22:22 95 H 29 H 70/31 L 09/15/21 22:16 97 H 21 73/45 L 09/15/21 22:11 93 H 18 77/32 L 09/15/21 22:00 91 H 37 H 79/42 L 09/15/21 21:56 78/43 L 09/15/21 21:50 63/26 L Pulse Ox 09/16/21 06:30 96 09/16/21 06:00 97 09/16/21 05:45 09/16/21 05:30 97 09/16/21 05:00 98 09/16/21 04:30 97 09/16/21 04:00 98 09/16/21 03:30 100 09/16/21 03:02 100 09/16/21 03:00 99 09/16/21 02:47 100 09/16/21 02:44 100 09/16/21 02:30 99 09/16/21 02:22 100 09/16/21 02:14 100 09/16/21 02:08 100 09/16/21 02:04 100 09/16/21 02:00 100 09/16/21 01:48 100 09/16/21 01:39 100 09/16/21 01:30 100 09/16/21 01:23 100 09/16/21 01:17 100 09/16/21 01:14 100 09/16/21 01:10 95 09/16/21 01:08 95 09/16/21 01:00 100 09/16/21 00:45 95 09/16/21 00:30 91 09/16/21 00:22 95 09/16/21 00:20 95 09/16/21 00:19 95 09/16/21 00:15 93 09/16/21 00:00 95 09/15/21 23:30 100 09/15/21 23:20 100 09/15/21 23:16 89 L 09/15/21 22:56 99 09/15/21 22:50 99 09/15/21 22:45 100 09/15/21 22:40 100 09/15/21 22:39 98 09/15/21 22:38 98 09/15/21 22:36 99 09/15/21 22:35 99 09/15/21 22:23 96 09/15/21 22:22 100 09/15/21 22:16 100 03/11/22 22:11 100 09/15/21 22:00 98 09/15/21 21:56 09/15/21 21:50 Lab & Micro Results (Past 24 Hours) RBC 2.02 M/uL (4.2-5.4) L 09/16/21 WBC 12.62 K/uL (4.8-10.8) H 09/16/21 Hgb 8.1 g/dL (12.0-16.0) L 09/16/21 Hct 24.4 % (37-47) L 09/16/21 MCV 95.0 fL (80-100) 09/16/21 MCH 30.2 pg (25-34) 09/16/21 MCHC 31.8 g/dL (32-36) L 09/16/21 RDW Standard Deviation 69.7 fL (36.4-46.3) H 09/16/21 RDW Coefficient of Variation 21.9 % (11.5-14.5) H 09/16/21 Plt Count 297 K/uL (130-400) 09/16/21 MPV 10.0 fL (7.4-10.4) 09/16/21 ANC 10.42 K/uL (1.4-6.5) H 09/16/21 ALC 1.31 K/uL (1.2-3.4) 09/16/21 Neutrophils % (Manual) 82.6 % 09/16/21 Lymphocytes % (Manual) 10.4 % 09/16/21 Monocytes % (Manual) 6.1 % 09/16/21 Basophils % (Manual) 0.9 % 09/16/21 Neutrophils # (Manual) 10.42 K/uL (1.4-6.5) H 09/16/21 Lymphocytes # (Manual) 1.31 K/uL (1.2-3.4) 09/16/21 Monocytes # (Manual) 0.77 K/uL (0.11-0.59) H 09/16/21 Basophils # (Manual) 0.11 K/uL (0-0.2) 09/16/21 Anisocytosis Present 09/16/21 Macrocytosis Present 09/15/21 Na 139 mmol/L (136-145) 09/16/21 K 4.2 mmol/L (3.5-5.1) 09/16/21 Cl 105 mmol/L (98-107) 09/16/21 CO2 25 mmol/L (21-32) 09/16/21 Anion Gap 9 (3-11) 09/16/21 BUN 29 mg/dl (6-23) H 09/16/21 Creatinine 1.27 mg/dl (0.6-1.2) H 09/16/21 Estimated GFR ( Amer) 45.2 ml/min 09/16/21 Estimated GFR (Non-Af Amer) 39.0 ml/min 09/16/21 BUN/Creatinine Ratio 22.8 (10-20) H 09/16/21 Glu 227 mg/dl (70-99(Fasting)) H 09/16/21 Ca 7.8 mg/dl (8.5-10.1) L 09/16/21 Phosphorus Level 4.5 mg/dl (2.5-4.9) 09/16/21 Total Bilirubin 0.4 mg/dl (0.2-1.0) 09/15/21 AST 32 U/L (13-39) 09/15/21 ALT 29 U/L (7-52) 09/15/21 Alkaline Phosphatase 49 U/L (34-104) 09/15/21 TP 3.7 gm/dl (6.0-8.3) L 09/15/21 Albumin 1.8 gm/dl (3.4-5.0) L 09/15/21 Globulin 1.9 gm/dl (2.5-4.0) L 09/15/21 Albumin/Globulin Ratio 0.9 (0.9-2) 09/15/21 Mg 1.3 mg/dl (1.7-2.4) L 09/16/21 01:55 09/16/21 Calcium Level 7.8 mg/dl (8.5-10.1) L 09/16/21 01:55 09/16/21 Prothromb Time International Ratio 1.5 (0.9-1.1) H 09/16/21 01:55 09/16/21 Diagnostic Findings (Past 24 Hours) Abdomen/Pelvis CT 09/15/21 22:[address] WITH IV CONTRAST CT DOSE: 1859.78 mGy.cm HISTORY: Acute generalized abdominal pain with hypotension and altered mental status abd pain, AMS, HoTN TECHNIQUE: Multiaxial CT images of the abdomen and pelvis were performed following the IV administration of 94 cc of Optiray, A dose lowering technique was utilized adhering to the principles of ALARA. COMPARISON STUDY: CT abdomen and pelvis 09/06/2021 FINDINGS: Coronary artery and mitral annular calcifications. Small layering pleural effusions with dependent bibasilar consolidation suggestive of atelectasis. The study is limited secondary to upper extremity positioning. No pneumatosis or pneumoperitoneum. The visualized spleen is unremarkable. Mild generalized pancreatic atrophy. Unchanged mild nodular thickening of the adrenal glands. Cholecystectomy. Unremarkable liver with patent portal vein. Mild atrophy with cortical thinning of the kidneys redemonstrated. No hydronephrosis. Mild nonspecific bilateral perinephric stranding. 2.8 cm calcified left renal lesion again noted. Atherosclerosis of the aorta without aneurysm. No adenopathy. There is an acute retroperitoneal hematoma measuring 10.7 x 5.9 x 30 cm which is new from prior demonstrating a considerable amount of active extravasation (measuring up to 3 x 4 cm) along the posterior mid aspect on image 263 series 3. The hemorrhage abuts and possibly involves the left psoas muscle and tracks along the left pericolic gutter. Small to moderate hiatal hernia. No bowel obstruction. Moderate fecal retention. Trace free fluid within the dependent pelvis and perirectal tissues. Colonic diverticulosis. The appendix is not definitively seen. Tiny fat filled periumbilical hernia. No definite bowel wall thickening. Degenerative changes of the spine, pelvis and hips. No acute fracture or suspicious bone lesion. IMPRESSION: 1. Large acute left-sided retroperitoneal hematoma measures up to 30 cm in length with a focus of active extravasation measuring up to 4 cm. 2. Small pleural effusions with compressive bibasilar atelectasis. 3. Colonic diverticulosis without acute diverticulitis. 4. Additional findings as above. ACT 112: Negative or not required by law. The above report was generated using voice recognition software. It may contain grammatical, syntax or spelling errors. Electronically signed by: Carlos Krueger M.D. 09/15/2021 11:26 PM Chest X-Ray 09/15/21 22:51 XR chest 1V portable HISTORY: 81 years-old Female cvc insertion status post placement of a right IJ central venous catheter COMPARISON: Chest radiograph 09/06/2021 TECHNIQUE: Supine AP view the chest FINDINGS: Cardiac silhouette is enlarged. Status post placement of a right IJ central venous catheter distal tip in the expected location of the upper to mid SVC. No postprocedural pneumothorax. Trace pleural effusions with mild left basilar densities. Pulmonary vascular congestion. Degenerative changes of the shoulders and spine. Unchanged cortical thickening with sclerosis of the proximal left humerus. IMPRESSION: 1. Status post placement of a right IJ central venous catheter with distal tip terminating in the expected location of the SVC. No postprocedural pneumothorax. 2. Cardiomegaly with pulmonary vascular congestion. 3. Trace pleural effusions with mild left basilar opacities suggestive of atelectasis. ACT 112: Negative or not required by law. The above report was generated using voice recognition software. It may contain grammatical, syntax or spelling errors. Electronically signed by: Carlos Krueger M.D. 09/15/2021 11:00 PM Venous Doppler Study 09/16/21 02:48 BILATERAL LOWER EXTREMITY VENOUS DOPPLER HISTORY: Lower extremity swelling. DVT? COMPARISON STUDY: None. FINDINGS: DVT is noted within the right popliteal vein as well as the right posterior tibial and peroneal veins. No DVT within the left lower extremity. The right common femoral superficial femoral veins are patent. IMPRESSION: 1. Right lower extremity DVT as described above. 2. No DVT within the left lower extremity. ACT 112: Negative or not required by law. Electronically signed by: Vik De Luna M.D. 09/16/2021 7:00 AM I & O Totals 24 Hours 09/15/21 09/16/21 09/17/21 06:59 06:59 07:59 Intake Total 670.000 / 642.934 6228.500 / 4983.500 210 / 210 Output Total 1550 / 1550 425 / 425 Balance -880.000 / -633.731 2727.500 / 4558.500 210 / 210 Cumulative 09/06/21 12:51 thru 09/16/21 08:18 Intake Total 15381.383 Output Total 67067 Balance 9462.383 RT Ventilator Mngmt (Last Documented) Ventilator Ordered Settings Respiratory Rate 21 09/16/21 06:30 Fraction of Inspired Oxygen 65 09/16/21 00:35 Ventilator - PT Measurements Respiratory Rate 21 Coding Level of Care Code Critical Care 1st 30-74 mins Diagnoses Supratherapeutic INR R79.1 Retroperitoneal hemorrhage R58 Hypovolemic shock R57.1 Paroxysmal A-fib I48.0 Acute metabolic encephalopathy G93.41 Hypotension I95.9 Atrial fibrillation with RVR I48.91 Chronic respiratory failure with hypoxia J96.11 Time Spent (min) 48
[2021-09-16] MEDS: INSULIN ASPART PER UNIT SC SCH ×2 (08:35→12:37)
[2021-09-16 09:48] LABS: Hematocrit (blood only) 23.8 % (37-47); Hemoglobin 8.1 g/dL (12.0-16.0)
[2021-09-16] MEDS: CYANOCOBALAMIN (B-12) 500 MCG TABLET PO SCH (09:56)
[2021-09-16] MEDS: ALBUMIN 25% 100 mL 25 GM/100 ML VIAL IV SCH ×2 (10:03→11:58)
[2021-09-16] MEDS: PANTOprazole 40 MG TAB PO SCH (10:07)
[2021-09-16] MEDS: ASPIRIN 81 MG ECTAB PO SCH (10:07)
[2021-09-16] MEDS ORDERED: PANTOprazole 40 MG in SYRINGE 0 ML IV SCH (11:00)
--- NOTE | 2021-09-16 11:12 | Hospitalist Progress Note ---
Date of Service September 16, 2021 Assessment & Plan (1) Retroperitoneal hemorrhage: Plan: with subsequent hemorrhagic/hypovolemic shock - s/p 6 units PRBC and 4 units FFP. INR corrected to 1.5. continue aggressive supportive care (2) DVT (deep venous thrombosis): Plan: just proximal enough to be of concern, but with retroperitoneal bleed and hemorrhagic shock - also agree with holding anticoagulation and watchful waiting for now. IVC filter as soon as is feasible would be reasonable as well. serial dopplers, vigilace (3) Acute metabolic encephalopathy: Plan: waxing and waning mentation - appears initially was related to UTI/sepsis/ARF - now due to above. reorientation, supportive care (4) Supratherapeutic INR: Plan: correctd to 1.5. follow (5) Atrial fibrillation: Plan: rates reasonable given situation. continue current care and follow (6) Severe sepsis: Plan: apparently initially related to UTI and sacral ulcers. this appears to have improved. (7) UTI (urinary tract infection): Plan: 2nd to e.coli. -on cipro (8) Rhabdomyolysis: Plan: 2nd to falls. fairly mild - highly doubt this was causative of MOJGAN/ARF present on admission Holding statin. (9) MOJGAN (acute kidney injury): Plan: Likely was sepsis-associated ATN. -improved. (10) Sacral wound: Plan: Likely 2nd to recurrent falls +/- sedentary lifestyle? -ongoing local wound care. abx (11) Sacral decubitus ulcer, stage III: Plan: see above stage 3 wound/ulcer with b/l buttock ulcers (12) Heart failure with preserved ejection fraction: Plan: Echo in 06/2021 - EF >70% RV dilatation but preserved RV function conitnue to follow fluid balance (13) Pulmonary embolism: Plan: PE diagnosed in 06/25/2021 - currently off coumadin due to retroperitoneal bleed. DVT noted. as above (14) Macrocytic anemia: Plan: B12 levels - 323 in June 2021. Supplementing such. However, doubt this is the cause of her significant anemia. Folate wnl. TSH wnl. CBC is concerning for MDS. Will need peripheral smear at some point. Also would benefit from heme/onc consult post-discharge. (15) HTN (hypertension): Plan: currently on pressors/support for hypovolemic shock (16) Hyponatremia: Plan: resolved (17) Morbid obesity with BMI of 50.0-59.9, adult: Plan: BMI 52 previously. now down to 44 (18) Frequent falls: Plan: resume PT/OT when/if possible (19) Hypocalcemia: Plan: vitamin D level in near future (hold on getting now as i suspect results could be skewed from critical illness and transfusions) (20) Wide-complex tachycardia: Plan: NSVT vs a.fib with aberrancy. brief, seen on telemetry on 09/08 cont tele monitoring. (21) DVT prophylaxis: Plan: heparin drip, Coumadin (22) Chronic respiratory failure with hypoxia: Plan: 06/2021 admission for PEs - failed her 2-step; needed 3 liters NC O2 continuously continue such while here resp failure likely combination of OHS, prior PEs; cannot rule out pulmonary HTN, other factors fortunately only requiring 2L at this time (23) Diabetes mellitus, type 2: Plan: A1c 6.8, sugars overall adequate inpt. continue insulin management (24) Metabolic acidosis, increased anion gap: Plan: resolved 2nd severe sepsis Admission and Anticipated Discharge Date Admission Date: September 06, 2021 Subjective no meaningful HPI or ROS obtainable. nursing notes that she has been praying repeatedly, otherwise not able to obtain HPI either. ICU input appreciated Review of Systems Review of Systems: Unobtainable due to cognitive status Physical Exam Physical Exam: resting in bed nad. heent nc at mmm. skin mild pallor vs baseline (looks a little pale but this is the first i am seeing her) breathing unlabored HR controlled, BP reasonable with current support. no asymmetry/no focal neuro deficits at rest Results & Data Results & Data ([facility]) Vital Signs (Past 12 Hours) Vital Signs Temp Pulse Resp BP Pulse Ox 09/16/21 06:30 90 21 96 09/16/21 06:00 90 25 H 97 09/16/21 05:45 98.2 F 09/16/21 05:30 89 36 H 97 09/16/21 05:00 94 H 23 98 09/16/21 04:30 94 H 26 H 97 09/16/21 04:00 90 23 98 09/16/21 03:30 93 H 23 100 09/16/21 03:02 98.6 F 95 H 18 120/41 L 100 09/16/21 03:00 102 H 33 H 99 03/12/22 02:47 97.5 F L 98 H 20 103/41 L 100 09/16/21 02:44 98.1 F 98 H 20 134/46 L 100 09/16/21 02:30 104 H 27 H 99 09/16/21 02:22 97.5 F L 95 H 30 H 128/37 L 100 09/16/21 02:14 97.7 F 91 H 30 H 128/42 L 100 09/16/21 02:08 97.5 F L 98 H 19 120/30 L 100 09/16/21 02:04 97.7 F 97 H 19 120/30 L 100 09/16/21 02:00 92 H 17 100 09/16/21 01:48 97.5 F L 91 H 32 H 162/50 H 100 09/16/21 01:39 92 H 25 H 105/52 L 100 09/16/21 01:30 85 15 100 09/16/21 01:23 97.5 F L 81 32 H 155/46 H 100 09/16/21 01:17 97.5 F L 86 24 130/41 L 100 09/16/21 01:14 97.5 F L 90 27 H 126/36 L 100 09/16/21 01:10 97.5 F L 86 30 H 73/27 L 95 09/16/21 01:08 97.5 F L 86 30 H 73/27 L 95 09/16/21 01:00 84 16 100 09/16/21 00:45 97.5 F L 86 30 H 73/27 L 95 09/16/21 00:30 89 30 H 91 09/16/21 00:22 97.5 F L 86 30 H 73/27 L 95 09/16/21 00:20 97.5 F L 86 30 H 73/27 L 95 09/16/21 00:19 97.5 F L 86 30 H 73/27 L 95 09/16/21 00:15 80 28 H 123/47 L 93 09/16/21 00:00 94 H 39 H 95 09/15/21 23:30 87 39 H 100 09/15/21 23:20 115 H 33 H 101/51 L 100 09/15/21 23:16 102 H 42 H 107/47 L 89 L PG Care Time/CCT Total # of Minutes Spent Total Time Spent with Patient: Total time spent is greater than 50% in coordination of care (as documented) at patient's floor/unit and/or counseling patient: Coding Level of Care Code 74075 Subseq Hosp Care Lvl 1 Diagnoses Acute metabolic encephalopathy G93.41 Atrial fibrillation I48.91 Severe sepsis A41.9; R65.20 UTI (urinary tract infection) N39.0 Rhabdomyolysis M62.82 MOJGAN (acute kidney injury) N17.9 Sacral wound S31.000A Sacral decubitus ulcer, stage III L89.153 Metabolic acidosis, increased anion gap E87.2 Heart failure with preserved ejection fraction I50.30 Pulmonary embolism I26.99 Macrocytic anemia D53.9 HTN (hypertension) I10 Hyponatremia E87.1 Morbid obesity with BMI of 50.0-59.9, adult E66.01; Z68.43 Frequent falls R29.6 Hypocalcemia E83.51 Wide-complex tachycardia I47.2 DVT prophylaxis Z29.9 Chronic respiratory failure with hypoxia J96.11 Retroperitoneal hemorrhage R58 Supratherapeutic INR R79.1 Diabetes mellitus, type 2 E11.9 DVT (deep venous thrombosis) I82.409
[2021-09-16] MEDS: CIPROFLOXACIN / D5W 400 MG/200 ML BAG IV SCH (12:37)
[2021-09-16] MEDS: TIMOLOL MALEATE 0.5% OP SOLN 5 ML BTL OP SCH (13:31)
[2021-09-16 13:56] LABS: Hematocrit (blood only) 19.1 % (37-47); Hemoglobin 6.5 g/dL (12.0-16.0)
[2021-09-16] MEDS: MoRPHine SULFATE 2 MG/ML CARP IV PRN (14:10)
[2021-09-16 15:12] VITALS: TEMP 98.4
[2021-09-16 15:31] VITALS: O2SAT 97
[2021-09-16] MEDS ORDERED: OPTIRAY 320 125ml IV ONE (16:21)
--- NOTE | 2021-09-16 16:35 | Emergency Department Note ---
ED Visit Note Patient had cardiac arrest in CAT scan. The patient is currently admitted to our ICU and is receiving blood products as well as resuscitative efforts because of a retroperitoneal bleed. The patient was getting a CAT scan prior to transfer for interventional radiology to attempt to manage her retroperitoneal bleed when she had a cardiac arrest. RICH CESAR was called. I arrived in the CAT scan room to find the patient pulseless and apneic. Chest compressions began and ACLS protocol was followed in usual fashion. The patient already had IV access and was receiving blood products as well as pressors. The patient started having CPR and then the airway was managed in the usual fashion after set up with a glide scope. Resuscitative efforts were continued. The patient did have episodes of ventricular tachycardia and received defibrillation. Care was handed over to the admitting team, Dr. Mcgrath. Endotracheal Intubation Indication cardiac arrest. The patient was on 100% oxygen via NRB prior to the procedure. Suction, airway equipment, respiratory equipment, and appropriate personnel were prepared prior to the initiation of the procedure. There was significant amount of emesis in the upper airway. This was suctioned prior to intubation. The airway was easily visualized utilizing a glide scope. A 7.5 size ETT tube was placed atraumatically to 25 cm using standard technique. The cuff inflated without signs of malfunction. There were bilateral breath sounds, positive colormetric change, and no gastric sounds. Post intubation sedation and paralysis was not required. There were no complications. OG tube was placed . : Sepsis Qualifiers: Sepsis type: sepsis due to unspecified organism Sepsis acute organ dysfunction status: with acute organ dysfunction Severe sepsis acute organ dysfunction type: acute renal failure Acute renal failure type: unspecified Severe sepsis shock status: with septic shock Qualified Code(s): A41.9 - Sepsis, unspecified organism
--- NOTE | 2021-09-16 16:46 | CT Scan Report ---
CT angio abdomen pelvis w con HISTORY: retroperitoneal bleed ?arterial vs venous TECHNIQUE: Multiaxial CT images of the abdomen and pelvis were performed following the intravenous ad ministration of contrast to evaluate the major arterial structures. Maximum intensity projection imag es were also obtained. COMPARISON STUDY: Abdomen and pelvis CT 09/15/2021. FINDINGS: Small bilateral pleural effusions are again noted. Right lower lobe segmental/subsegmental pulmonary emboli. Bibasilar linear densities favor subsegmental atelectasis. Mildly distended and flu id-filled esophagus. There is a small hiatus hernia. Tiny fat-containing umbilical hernia. No pneumop eritoneum. No pneumatosis. No acute fractures within the visualized osseous structures. Cholecystecto my. The unenhanced liver and spleen are unremarkable. Trace perihepatic and perisplenic fluid has pro gressed. This likely represents a small amount of hemorrhage. The pancreas and adrenal glands are unr emarkable. No hydronephrosis. There is contrast within the bilateral renal collecting systems from th e recent CT examination. 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 Stable 2.8 cm calcified left renal lesion again noted. Normal caliber abdominal aorta with no evidence for dissection. The common and external iliac arteries are also patent. No significa nt contrast within the distal splenic artery which is likely due to the timing of contrast. This was patent on the prior study. The superior mesenteric artery and inferior mesenteric artery appear paten t. No significant stenosis within the bilateral renal arteries. High-grade stenosis versus occlusion at the takeoff of the celiac artery. There is again noted a large left retroperitoneal hematoma. No a ctive arterial extravasation identified at this time. There is a focal loculated low density componen t within this left retroperitoneal hematoma which measures 5 cm. This is new from the prior study and could be related to acute on chronic hemorrhage. The large left retroperitoneal hematoma has signifi cantly increased in size in the interval. This measures a maximal diameter of 15 cm, previously measu ring up to 11 cm. These also extends into the left pelvis and surrounds the bladder. This results in significant mass effect with anterior displacement of the left kidney and adjacent bowel. There is tr brennan right retroperitoneal hemorrhage likely due to extension from the left side. The bladder is decom pressed by Tijerina catheter. The are surgically absent. No bowel wall thickening or obstruction. IMPRESSION: 1. There is again noted a large left retroperitoneal hematoma which has significantly increased in si ze in the interval. No active arterial extravasation at this time. However, there appears to be a foc al loculated 5 cm area of decreased density centered within this large left retroperitoneal hematoma which is new from the prior study. This is nonspecific but could be related to the acute on subacute retroperitoneal hematoma. This hematoma extends into the pelvis and appears to cross the midline with a small component within the right retroperitoneal space. 2. Right lower lobe segmental/subsegmental pulmonary emboli. 3. Trace perihepatic and perisplenic fluid has progressed. This may represent a small amount of subac erika hemorrhage. 4. Small bilateral pleural fusions, unchanged. 5. Additional findings as described above. ACT 112: Negative or not required by law. Electronically signed by: Vik De Luna M.D. 09/16/2021 4:45 PM
--- NOTE | 2021-09-16 16:55 | Death Pronouncement Note ---
Date of Service September 16, 2021 Pronouncement Note Admission Date Admission Date: September 06, 2021 Date and Time of Date of : 09/16/21 Time of : 16:35 Contributing Factors (1) Retroperitoneal hemorrhage: Contributing factors: retroperitoneal bleed w hemorrhagic shock was the defining cause of her (2) DVT (deep venous thrombosis): (3) Acute metabolic encephalopathy: (4) Supratherapeutic INR: (5) Atrial fibrillation: (6) Severe sepsis: (7) UTI (urinary tract infection): (8) Rhabdomyolysis: (9) MOJGAN (acute kidney injury): (10) Sacral wound: (11) Sacral decubitus ulcer, stage III: (12) Heart failure with preserved ejection fraction: (13) Pulmonary embolism: (14) Macrocytic anemia: (15) HTN (hypertension): (16) Hyponatremia: (17) Morbid obesity with BMI of 50.0-59.9, adult: (18) Frequent falls: (19) Hypocalcemia: (20) Wide-complex tachycardia: (21) DVT prophylaxis: (22) Chronic respiratory failure with hypoxia: (23) Diabetes mellitus, type 2: (24) Metabolic acidosis, increased anion gap: Additional Data Attending physician: Kole Mcgrath DO
--- NOTE | 2021-09-16 17:02 | Discharge Summary ---
Date of Service September 16, 2021 Admission HPI Per Admitting Provider Lavonne Chiu is an 81 year old female presents to the ER via EMS due to hypotension. Her daughter initially called EMS to the house for a lift assist as she had slipped out of her chair, however found patient to be mildly hypotensive with BP 107/48, 99/42 and patient very fatigued in unkept state therefore she was brought to the ER. 300cc IV fluids given en route. The patient reports feeling confused more than usual and cannot remember much over the last week but she thinks has been having chills. She denies any urinary or respiratory symptoms. No chest pain, shortness of breath, abdominal pain, nausea, vomiting, diarrhea (more constipation). She reports about 2 weeks ago noticing some bleeding from her back side after using wet wipes but report this has improved. On discussion with her daughter - she reports the patient ran out of warfarin in August but is unable to tell me who is supposed to be prescribing this. Home health reportedly were coming to the house to take INR levels. In the ER most notably she is in acute renal failure with Cr 4.94 from baseline 0.72. WBC 29.01, she was started on cefepime and vancomycin for presumed UTI vs. sacral cellulitis sepsis and referred to medicine for admission and ongoing management of this. Principal Diagnosis hemorrhagic/hypovolemic shock Discharge Exam during CPR initially pulseless for quite a while, after about 10mins CPR, 4 rounds epi, successful intubation - ROSC obtained, then alternated between vtach and sinus tach - all with a pulse - but a few minutes later pulse faded again. no response to verbal or noxious stim, no heart tones/pulses, no breath sounds/spontaneous respirations, pupils fixed, NR. with this exam, time of called at 435pm Discharge Data Allergies Allergy/AdvReac Type Severity Reaction Status Date / Time succinylcholine Allergy Severe CARDIAC Verified 06/25/21 12:12 ARREST Penicillins Allergy Intermediate REDNESS,SWE Verified 09/09/21 08:04 LLING Consultations 09/06/21 18:32 ED Decision to Admit Stat 09/07/21 09:32 Consult General Surgery Routine 09/15/21 09:01 Consult Cardiology Routine 09/15/21 22:29 Consult Assembler Insulator Routine 09/16/21 07:01 Consult Vascular Surgery Routine Ordered Studies 09/06/21 16:09 CT abd pelvis wo con Stat 09/15/21 22:07 CT abd pelvis IV con only Stat 09/16/21 02:48 US venous doppler LE BI Routine 09/16/21 15:00 CT angio abdomen pelvis w con Stat Hospital Course (1) Retroperitoneal hemorrhage: with subsequent hemorrhagic/hypovolemic shock - s/p 8 units PRBC and 4 units FFP. INR corrected to 1.5. despite aggressive supportive care she continued to decline. called tertiary re: transfer for IR - IR requested CT angio to eval arterial vs venous extravasation - CT done, bleed appearing much larger. pt had PEA arrest shortly after CT done - CPR as above, briefly had ROSC - but then pulses quickly faded and pt passed. (2) DVT (deep venous thrombosis): just proximal enough to be of concern, but with retroperitoneal bleed and hemorrhagic shock - plan was watchful waiting/serial exams. with transfer to tertiary IVC filter was an option as well, although in discussion IR and outreach rep at tertiary also were not overly concerned about DVT. doubt that this played a role in her passing (3) Acute metabolic encephalopathy: waxing and waning mentation - appeared initially was related to UTI/sepsis/ARF - later then was due to above. (4) Supratherapeutic INR: corrected to 1.5. (5) Atrial fibrillation: (6) Severe sepsis: apparently initially related to UTI and sacral ulcers. this appears to have improved. (7) UTI (urinary tract infection): 2nd to e.coli. -was on cipro (8) Rhabdomyolysis: 2nd to falls. fairly mild - highly doubt this was causative of MOJGAN/ARF present on admission was holding statin. (9) MOJGAN (acute kidney injury): Likely was sepsis-associated ATN. -improved. (10) Sacral wound: Likely 2nd to recurrent falls +/- sedentary lifestyle? -was being treated with local wound care, abx (11) Sacral decubitus ulcer, stage III: see above stage 3 wound/ulcer with b/l buttock ulcers (12) Heart failure with preserved ejection fraction: Echo in 06/2021 - EF >70% RV dilatation but preserved RV function appeared compensated despite fluid shifting with blood loss and transfusions (13) Pulmonary embolism: PE diagnosed in 06/25/2021 - currently off coumadin due to retroperitoneal bleed. DVT noted. as above - doubt any of this played a direct role in her passing (14) Macrocytic anemia: (15) HTN (hypertension): (16) Hyponatremia: resolved (17) Morbid obesity with BMI of 50.0-59.9, adult: BMI 52 previously. now down to 44 (18) Frequent falls: (19) Hypocalcemia: (20) Wide-complex tachycardia: NSVT vs a.fib with aberrancy. (21) DVT prophylaxis: heparin drip, Coumadin initially used, then when retroperitoneal bleed occured anticoagulation was stopped/reversed (22) Chronic respiratory failure with hypoxia: was only requiring 2L at time of passing (23) Diabetes mellitus, type 2: A1c 6.8, sugars were overall adequate inpt. (24) Metabolic acidosis, increased anion gap: resolved 2nd severe sepsis Total Time Total Time Spent Total Time Spent (In Minutes): >30 Discharge Plan Discharge Items Patient Disposition: Reason For Visit: UTI SEPSIS Follow-up/Referrals: Betty Resendiz MD [Primary Care Provider] - Medications and DC Order Prescriptions: No Action vitamin A-vitamin C-vit E-min Tablet 1 tab PO DAILY RF: 0 metoprolol succinate 50 mg Tablet Extended Release 24 Hr 50 mg PO QAM Qty: 30 RF: 0 cyanocobalamin (vitamin B-12) 500 mcg Tablet 500 mcg PO QAM Qty: 30 RF: 0 warfarin 5 mg Tablet 5 mg PO DAILY@1600 Qty: 30 RF: 0 furosemide 20 mg Tablet 20 mg PO QAM Qty: 30 RF: 0 metformin 1,000 mg tablet extended release 24hr 1,000 mg PO BID Qty: 60 RF: 0 simvastatin [Zocor] 20 mg Tablet 20 mg PO PM RF: 0 losartan 100 mg Tablet 100 mg PO DAILY RF: 0 timolol maleate 0.5 % drops 1 drp OPB QAM RF: 0 aspirin 81 mg Tablet,Delayed Release (Dr/Ec) 81 mg PO DAILY RF: 0 calcium carbonate-vitamin D3 500 mg(1,250mg) -125 unit Tablet 1 tab PO DAILY RF: 0 Restasis 0.05 % Dropperette 1 drp OPB AMPM RF: 0 hydrochlorothiazide 25 mg tablet 25 mg PO DAILY RF: 0 Krames/Other Patient Handouts: High Blood Sugar (Hyperglycemia), Hypoglycemia (Low Blood Sugar), Managing Type 2 Diabetes Admission Data Admit Date/Time: 09/06/21 18:06 Attending Provider: Kole Mcgrath Admit Provider: Angel Leon Primary Care Provider: Betty Resendiz Other Providers: Angel Leon ; Tong Weaver ; [facility] ; [facility] [place] ; [facility], ; [facility] ; Nando Hodges ; David Baca ; Dallas Davis ; Jason Kendrick Coding Level of Care Code D/C DAY MANAGEMENT >30 MINS Diagnoses Retroperitoneal hemorrhage R58 DVT (deep venous thrombosis) I82.409 Acute metabolic encephalopathy G93.41 Supratherapeutic INR R79.1 Atrial fibrillation I48.91 Severe sepsis A41.9; R65.20 UTI (urinary tract infection) N39.0 Rhabdomyolysis M62.82 MOJGAN (acute kidney injury) N17.9 Sacral wound S31.000A Sacral decubitus ulcer, stage III L89.153 Heart failure with preserved ejection fraction I50.30 Pulmonary embolism I26.99 Macrocytic anemia D53.9 HTN (hypertension) I10 Hyponatremia E87.1 Morbid obesity with BMI of 50.0-59.9, adult E66.01; Z68.43 Frequent falls R29.6 Hypocalcemia E83.51 Wide-complex tachycardia I47.2 DVT prophylaxis Z29.9 Chronic respiratory failure with hypoxia J96.11 Diabetes mellitus, type 2 E11.9 Metabolic acidosis, increased anion gap E87.2
[2021-09-16] MEDS ORDERED: SODIUM BICARB 8.4% INJ 50 MEQ/50 ML SYR IV ONE (17:44)
[2021-09-16] MEDS ORDERED: AMIODARONE HCL INJ 50 MG/ML 3 ML VIAL IV ONE (17:44)
[2021-09-16] MEDS ORDERED: SODIUM CHLORIDE 0.9% 10ML FLUSH IV ONE (17:44)
[2021-09-16] MEDS ORDERED: CALCIUM CHLORIDE 10% 10 ML SYR IV ONE (17:44)
[2021-09-16] MEDS ORDERED: EpINEphrine HCL INJ 1 MG/ML 1ML SYRINGE IV ONE (17:44)
[2021-09-16 18:16] VITALS: BP 70/31; PULSE 93
--- NOTE | 2021-09-25 06:30 | Coding Query ---
CODING QUERY To promote full compliance with coding requirements relating to patient care, provider participation is requested in all cases of terminal supervisor uncertainty. Please assist us with the question(s) below: Coding Question(s): Please document the cause of . Thank you. Wil Souza [facility] Physician's Response(s): hemorrhagic shock from retroperitoneal hemorrhage Principal Diagnosis: "that condition established after study, to be chiefly responsible for occasioning the admission of the patient to the hospital for care." Co-Existing Principal Diagnosis: "when two or more diagnoses equally meet the criteria for principal diagnosis as determined by the circumstances of admission, diagnostic work up, and/or therapy provided, and the Alphabetic Index, Tabular List, or another coding guideline does not provide sequencing direction, any one of the diagnoses may be sequenced first." "When the physician has documented what appears to be a current diagnosis in the body of the record, but has not included the diagnosis in the final diagnostic statement, the physician should be asked whether the diagnosis should be added." (Source Coding [facility] 2 QTR90. p3-4) JULIAN
== END 2021-09-16 17:45 | disposition expired | DRG 871 ==
LOC: ED 13:02 → 2E 18:06 → SUATTDRO 18:06 → 2E 19:17 → 1E 09-15 22:34